=== PATIENT | male | born 1945 | race Caucasian/White ===

== ENCOUNTER → 2016-11-23 | Outpatient (CLI) | payer MEDICARE ==
--- NOTE | 2016-11-23 11:14 | XR ---
EXAMINATION TYPE: XR abdomen 1V DATE OF EXAM: 11/23/2016 11:08 AM CLINICAL HISTORY: Right nephrolithiasis. TECHNIQUE: Single supine image of the abdomen is obtained. COMPARISON: None. FINDINGS: Scattered gas is seen in non-distended small bowel loops. Gas and fecal material is seen in non-distended colon. 1.2 cm right renal calculus is noted. Scattered bowel gas overlies both renal s hadows. Bowel gas pattern is nonobstructive. Atherosclerosis is seen of the common iliac arteries and their branches. The lung bases are clear and the osseous structures are intact. IMPRESSION: 1. 1.2 cm right renal calculus. 2. Nonobstructive bowel gas pattern.
== END ==
LOC: RADXRMAIN 10:40
PROVIDERS: ATTEND Urology
DX: N20.0 Calculus of kidney (principal)
CPT/HCPCS: 74000

== ENCOUNTER → 2016-12-11 | Outpatient (CLI) | payer MEDICARE ==
[2016-12-11 14:48] LABS: Blood Urea Nitrogen 14 mg/dL (9-20); Non-African American GFR(MDRD) >60 (>60 ml/min/1.73 sqM)
--- NOTE | 2016-12-11 15:22 | CT ---
EXAMINATION TYPE: CT soft tissue neck w con DATE OF EXAM: 12/11/2016 3:07 PM COMPARISON: NONE HISTORY: Left sided and lower anterior neck pain CT DLP: 631.6 mGycm Automated exposure control for dose reduction was used. CONTRAST: CT scan of the neck is performed following with IV Contrast, patient injected with 100 mL of Omnipaqu e 300. Axial images are obtained, coronal and sagittal reformatted images are reviewed. FINDINGS: No pneumothorax. Lungs are clear. Sternotomy changes are noted. Coronary artery calcificati on noted. There is severe multilevel degenerative disc disease and hypertrophic changes. Multilevel foraminal e ncroachment suspected. The thyroid enhances genius. Atherosclerotic change of the aorta and origins of the great vessels noted. Intracranial atherosclero tic change of the carotid arteries and vertebrobasilar system noted. Oropharynx and nasopharynx are symmetric Intracranial and intraorbital structures are symmetric Parotid glands and submandibular glands are symmetric in size. There is slight asymmetry the attenuat ion in the left parotid gland which may represent very minimal sialoadenitis. No subcutaneous inflamm atory changes.. No pathologic adenopathy. There is extensive atherosclerotic change of the carotid arteries greater o n the right is again stenosis not excluded. IMPRESSION: 1. Extensive atherosclerotic disease additional atherosclerotic change intracranially noted. Involvin g the carotid arteries. Significant stenosis of not excluded particularly on the right. Correlate wit h ultrasound. 2. Severe multilevel degenerative disc disease. Suspect multilevel canal stenosis and foraminal encro achment. 3. The parotid glands appear to be symmetric in size with slight asymmetry heterogeneous attenuation of the left parotid gland is more likely related to fatty replacement rather than mild sialoadenitis. Correlate clinically.
== END | disposition home or self-care (01) ==
LOC: RADCTMAIN 14:19
PROVIDERS: ATTEND Otolaryngology
DX: M48.02 Spinal stenosis, cervical region (principal); I65.23 Occlusion and stenosis of bilateral carotid arteries; M50.30 Other cervical disc degeneration, unspecified cervical region
CPT/HCPCS: 82565; 84520; 70491; 36415; Q9967

== ENCOUNTER → 2017-01-03 | Outpatient (CLI) | payer MEDICARE ==
--- NOTE | 2017-01-03 15:15 | XR ---
EXAMINATION TYPE: XR abdomen 1V DATE OF EXAM: 01/03/2017 3:07 PM CLINICAL HISTORY: Abdominal pain. Follow-up stone. TECHNIQUE: Single supine KUB image of the abdomen is obtained. COMPARISON: None. FINDINGS: There is no sign of intestinal obstruction or pneumoperitoneum. Fecal pattern is normal. I see no definite pathologic calcifications over the kidneys. Bony structures are intact. There is no s ign of a mass. IMPRESSION: There is 1 cm calcification over the right kidney on the old exam that is not seen on today's exam. D etail is limited by the fecal material. Nonacute abdomen.
== END | disposition home or self-care (01) ==
LOC: RADXRMAIN 14:49
PROVIDERS: ATTEND Urology
DX: N20.0 Calculus of kidney (principal)
CPT/HCPCS: 74000

== ENCOUNTER → 2017-01-04 | Outpatient (CLI) | payer MEDICARE ==
--- NOTE | 2017-01-04 16:26 | US ---
EXAMINATION TYPE: US carotid duplex BILAT DATE OF EXAM: 01/04/2017 COMPARISON: NONE CLINICAL HISTORY: 71-year-old male R93.[address] scan of neck. TECHNIQUE: Carotid duplex ultrasound examination. Indirect Doppler criteria was utilized. FINDINGS: There is moderate atherosclerotic change at both bifurcations. EXAM MEASUREMENTS: RIGHT: Peak Systolic Velocity (PSV) cm/sec ----- Right CCA: 79.8 ----- Right ICA: 109.5 ----- Right ECA: 159.3 ICA/CCA ratio: 1.4 RIGHT: End Diastole cm/sec ----- Right CCA: 18.2 ----- Right ICA: 28.0 ----- Right ECA: 23.6 LEFT: Peak Systolic Velocity (PSV) cm/sec ----- Left CCA: 77.3 ----- Left ICA: 78.7 ----- Left ECA: 208.2 ICA/CCA ratio: 1.0 LEFT: End Diastole cm/sec ----- Left CCA: 19.7 ----- Left ICA: 20.4 ----- Left ECA: 17.7 VERTEBRALS (direction of flow): Right Vertebral: Antegrade Left Vertebral: Antegrade Rhythm: Normal Project Builder notes: Moderate plaque noted bilateral bifurcations. Increased velocities bilateral ECA's . There is a prominent 2.3 x 0.8 cm lymph node in the left side of the neck which can be followed clini ethan. IMPRESSION: 1. Moderate atherosclerotic change in both bifurcations without hemodynamically significant stenosis appreciated in either internal carotid artery. 2. A prominent lymph node in the left side of the neck measures 2.3 x 0.8 cm. The short axis dimensio n of 0.8 cm is not enlarged by size criteria. This can be followed clinically. Criteria for Assigning % of Stenosis / Diameter reduction (Estimation based on the indirect measurements of the internal carotid artery velocities (ICA PSV). 1. Normal (no stenosis)=ICA PSV < 125 cm/s: ratio < 2.0: ICA EDV<40 cm/s. 2. Less than 50% stenosis=ICA PSV < 125 cm/s: ratio < 2.0: ICA EDV<40 cm/s. 3. 50 to 69% stenosis=ICA PSV of 125 to 230 cm/s: ration 2.0 ? 4.0: ICA EDV 40-100 cm/s. 4. Greater than 70% stenosis to near occlusion= ICA PSV > 230 cm/s: ratio > 4.0: ICA EDV > 100 cm/s. 5. Near occlusion= ICA PSV velocities may be low or undetectable: variable ratio and ICA EDV. 6. Total occlusion=unable to detect flow.
== END | disposition home or self-care (01) ==
LOC: RADUSWWP 14:24
PROVIDERS: ATTEND Otolaryngology
DX: I65.23 Occlusion and stenosis of bilateral carotid arteries (principal); R93.8 Abnormal findings on diagnostic imaging of other specified body structures
CPT/HCPCS: 93880

== ENCOUNTER 2017-02-12 09:07 | Emergency (ER) | payer MEDICARE ==
[2017-02-12 09:19] VITALS: TEMP 97.8
--- NOTE | 2017-02-12 10:36 | XR ---
EXAMINATION TYPE: XR tibia fibula LT DATE OF EXAM: 02/12/2017 COMPARISON: NONE HISTORY: Pain TECHNIQUE: Two views are submitted. FINDINGS: Vascular calcifications are noted there is an oblique displaced fracture of the distal fibula and dis location of the tibia and distortion of the ankle mortise. Bony density adjacent to the medial malleo carline likely related to the medial tibia and related to chip fracture. IMPRESSION: 1. Multiple fracture and dislocation left ankle
--- NOTE | 2017-02-12 10:37 | XR ---
EXAMINATION TYPE: XR ankle limited LT DATE OF EXAM: 02/12/2017 COMPARISON: NONE HISTORY: Pain FINDINGS: Two views of the ankle demonstrate oblique displaced fracture distal fibula with ankle dislocation. S mall bony density adjacent the medial malleolus may represent additional chip fracture. IMPRESSION: 1. Fracture dislocation of the ankle
[2017-02-12 10:48] VITALS: RESP 18
[2017-02-12] MEDS ORDERED: traMADol 50 MG TAB PO STA (11:20)
[2017-02-12] MEDS ORDERED: traMADol 50 MG STARTER PACK 3 TAB BTL PO STA (11:21)
--- NOTE | 2017-02-12 11:27 | ED ---
Lower Extremity Injury HPI - General Chief Complaint: Extremity Injury, Lower Stated Complaint: Fall. L ankle injury Time Seen by Provider: 02/12/17 09:26 Source: patient, RN notes reviewed Mode of arrival: wheelchair Limitations: no limitations - History of Present Illness Initial Comments: 71-year-old male present emergency from for left ankle injury. Patient states he was at the last step of the stairs and states that he twisted his ankle. Patient states his ankle seems to move in and out. He's had no prior injuries. Denies loss consciousness no head injury. - Related Data Home Medications Medication Instructions Recorded Confirmed Desvenlafaxine Succinate [Pristiq 25 mg PO DAILY 02/12/17 02/12/17 ER] Mirtazapine [Remeron] 7.5 - 15 mg PO HS 02/12/17 02/12/17 Tamsulosin [Flomax] 0.4 mg PO DAILY 02/12/17 02/12/17 clonazePAM [KlonoPIN] 0.5 mg PO TID 02/12/17 02/12/17 Previous Rx's Medication Instructions Recorded traMADol HCl [Ultram] 50 mg PO Q6H PRN #30 tab 02/12/17 Allergies Allergy/AdvReac Type Severity Reaction Status Date / Time No Known Allergies Allergy Verified 02/12/17 09:26 Review of Systems ROS Statement: Those systems with pertinent positive or pertinent negative responses have been documented in the HPI. ROS Other: All systems not noted in ROS Statement are negative. Past Medical History Past Medical History: Coronary Artery Disease (CAD), Hyperlipidemia, Pneumonia Additional Past Medical History / Comment(s): by-pass 1998, Pneumonia winter History of Any Multi-Drug Resistant Organisms: None Reported Past Surgical History: Coronary Bypass/CABG Past Anesthesia/Blood Transfusion Reactions: No Reported Reaction Past Psychological History: Anxiety Smoking Status: Never smoker Past Alcohol Use History: None Reported Past Drug Use History: None Reported General Exam Limitations: no limitations General appearance: alert, in no apparent distress Head exam: Present: atraumatic, normocephalic, normal inspection Respiratory exam: Present: normal lung sounds bilaterally. Absent: respiratory distress, wheezes, rales, rhonchi, stridor Cardiovascular Exam: Present: regular rate, normal rhythm, normal heart sounds. Absent: systolic murmur, diastolic murmur, rubs, gallop, clicks Extremities exam: Present: other (Left ankle there is no obvious deformity, ankle appears to dislocate but able to self reduce, there is a palpable dorsal pedal pulse with cap refill less than 2 seconds there is no discoloration of the foot he has equal color and warmth there is no proximal tib-fib tenderness) Skin exam: Present: warm, dry, intact, normal color. Absent: rash Course Vital Signs 02/12/17 02/12/17 09:16 10:19 Temperature 97.8 F Pulse Rate 86 74 Respiratory 16 18 Rate Blood Pressure 106/65 138/73 O2 Sat by Pulse 92 L 97 Oximetry Procedures - Orthopedic Splinting/Casting Injury #1 Side: left Lower Extremity Injury Location: short leg Lower Extremity Immobilizer: posterior splint (Posterior splint with sugar tong ), synthetic pre-padded splint Other Orthopedic Equipment: crutches Medical Decision Making - Medical Decision Making 71-year-old male present emergency department for left ankle injury. Patient has left ankle fracture with dislocation. This dislocation is it will be self reduced. Patient was splinted and had x-rays repeated showing adequate alignment. Patient was offered admission that he states he has animals at home and would like to be discharged. He will be given prescription for tramadol as he states this is a medication works best for them. Patient also given prescription for crutches. He is advised that needs to call orthopedics today to set up an appointment and return if any worsening symptoms. Disposition Clinical Impression: Fracture dislocation of left ankle Disposition: HOME SELF-CARE Condition: Stable Instructions: Ankle Fracture (ED), Ankle Dislocation (ED) Additional Instructions: Please return to the Emergency Department if symptoms worsen or any other concerns. Prescriptions: traMADol HCl [Ultram] 50 mg PO Q6H PRN #30 tab PRN Reason: Pain Referrals: Krishna Rizzo MD [Primary Care Provider] - 1-2 days Chito Sharp MD [Medical Doctor] - 1-2 days Time of Disposition: 11:27
--- NOTE | 2017-02-12 11:45 | XR ---
EXAMINATION TYPE: XR ankle limited LT DATE OF EXAM: 02/12/2017 CLINICAL HISTORY: Post reduction image of the left ankle with known fracture. TECHNIQUE: Frontal, lateral and oblique images of the left ankle are obtained. COMPARISON: None. FINDINGS: Although there is improved anatomic alignment there remains dislocation of the ankle joint with the medial malleolus located approximately 1.4 cm medial to the talar dome. Additionally oblique ly oriented fracture of the fibula is displaced 3 mm posteriorly and 4 mm laterally. Overlying castin g material obscures bony detail. Extensive soft tissue swelling remains with concern for underlying l igamentous and tendinous injury. IMPRESSION: Improved post reduction anatomic alignment of the obliquely oriented distal fibular fract ure and tibiotalar dislocation with persistent tibiotalar dislocation and medial displacement of the tibia 1.4 cm and posterior lateral displacement of the distal fibular fracture as described above. Ex tensive soft tissue swelling is seen and there is high suspicion for underlying ligamentous and tendi nous injury..
[2017-02-12 11:49] VITALS: BP 120/70; PULSE 80
== END 2017-02-12 11:49 | disposition home or self-care (01) ==
LOC: EC 09:07
DX: S82.892A Other fracture of left lower leg, initial encounter for closed fracture (principal); F41.9 Anxiety disorder, unspecified; Z79.899 Other long term (current) drug therapy; W10.9XXA Fall (on) (from) unspecified stairs and steps, initial encounter
CPT/HCPCS: 29515; 99283

== ENCOUNTER 2019-08-14 20:57 | Inpatient (IN) | payer MEDICARE ==
[2019-08-14] MEDS ORDERED: SODIUM CHLORIDE 0.9% 1,000 ML IV ONE (21:00)
--- NOTE | 2019-08-14 21:05 | ED ---
General Adult HPI - General Stated complaint: altered mental status Time Seen by Provider: 08/14/19 21:00 Source: patient, EMS, RN notes reviewed Mode of arrival: EMS Limitations: altered mental status - History of Present Illness Initial comments: Patient is a pleasant 74-year-old male presenting to the emergency department with concern for change in mental status. Patient was calling out to a neighbor who felt he was confused and called EMS. Patient was found by EMS trying to walk up some steps. Patient states he feels fine and has no complaints. Patient was vomiting earlier. EMS did provide Zofran. Patient denies headache. Patient denies any recent fall or injury however states he does frequently fall. When further questioned patient states he fell yesterday and then following that states he did fall this morning. Patient states he just scratched his forehead on the carpet. No neck or back pain. No chest pain or dyspnea. No abdominal pain. Patient does not feel confused. - Related Data Home Medications Medication Instructions Recorded Confirmed Desvenlafaxine Succinate [Pristiq] 25 mg PO QAM 02/12/17 02/26/17 Tamsulosin [Flomax] 0.8 mg PO DAILY 02/12/17 02/26/17 Atorvastatin [Lipitor] 20 mg PO DAILY 02/24/17 02/26/17 lamoTRIgine [LaMICtal] 25 mg PO BID 02/24/17 02/26/17 Previous Rx's Medication Instructions Recorded Aspirin 325 mg PO BID #60 tab 03/01/17 Cholecalciferol [Vitamin D3 (25 2,000 unit PO DAILY@1200 tab 03/01/17 Mcg = 1000 Iu)] Docusate [Colace] 100 mg PO BID #60 capsule 03/01/17 HYDROcodone/APAP 10-325MG [Agar 1 tab PO Q4HR PRN #60 tab 03/01/17 10-325] Mirtazapine [Remeron] 7.5 - 15 mg PO HS #7 tablet 03/01/17 Sennosides-Docusate Sodium 2 each PO HS PRN tab 03/01/17 [Senokot-S] clonazePAM [KlonoPIN] 0.5 mg PO TID #21 tablet 03/01/17 Allergies Allergy/AdvReac Type Severity Reaction Status Date / Time No Known Allergies Allergy Verified 08/14/19 23:08 Review of Systems ROS Statement: Those systems with pertinent positive or pertinent negative responses have been documented in the HPI. ROS Other: All systems not noted in ROS Statement are negative. Constitutional: Denies: fever Eyes: Denies: eye pain ENT: Denies: ear pain Respiratory: Denies: cough Cardiovascular: Denies: chest pain Endocrine: Denies: fatigue Gastrointestinal: Reports: as per HPI, vomiting. Denies: abdominal pain Genitourinary: Denies: dysuria Musculoskeletal: Denies: back pain Skin: Denies: rash Neurological: Reports: as per HPI. Denies: headache, weakness Past Medical History Past Medical History: Coronary Artery Disease (CAD), Hyperlipidemia, Liver Disease, Pneumonia, Renal Disease Additional Past Medical History / Comment(s): Coronary by-pass 1998, Pneumonia winter , hx kidney stones, insomnia, Hepatitis B. History of Any Multi-Drug Resistant Organisms: None Reported Past Surgical History: Coronary Bypass/CABG Additional Past Surgical History / Comment(s): Procedure for kidney stones Past Anesthesia/Blood Transfusion Reactions: No Reported Reaction Smoking Status: Never smoker - Past Family History Mother Family Medical History: No Reported History General Exam Limitations: altered mental status General appearance: alert, in no apparent distress, other (Patient covered in yellow emesis) Head exam: Present: other (Forehead abrasions. Old healed blood right side of scalp) Eye exam: Present: normal appearance, PERRL, EOMI. Absent: nystagmus ENT exam: Present: normal oropharynx Neck exam: Present: normal inspection Respiratory exam: Present: normal lung sounds bilaterally Cardiovascular Exam: Present: regular rate, normal rhythm GI/Abdominal exam: Present: soft. Absent: tenderness Extremities exam: Present: normal inspection Neurological exam: Present: alert, CN II-XII intact. Absent: motor sensory deficit Expanded Neurological exam: Present: protecting the airway Patient oriented to: Present: person, place. Absent: time Speech: Present: fluid speech Cranial nerves: EOM's Intact: Normal Sensory exam: Upper Extremity Light Touch: Normal, Lower Extremity Light Touch: Normal Motor strength exam: RUE: 5, LUE: 5, RLE: 5, LLE: 5 Eye Response: (4) open spontaneously Motor Response: (6) obeys commands Verbal Response: (4) confused conversation Psychiatric exam: Present: normal affect, normal mood Skin exam: Present: normal color Course Vital Signs 08/14/19 08/14/19 20:58 21:58 Temperature 98.3 F Pulse Rate 78 75 Respiratory 18 16 Rate Blood Pressure 156/90 149/93 O2 Sat by Pulse 95 97 Oximetry EKG Findings - EKG Comments: EKG Findings:: Normal sinus rhythm 81. First 3 AV block MS 202. QRS 86. QT 364. QTC 457. Normal axis. Normal QRS. No acute ST change. Medical Decision Making - Medical Decision Making Patient reevaluated and resting comfortably in bed. Patient is somewhat improved. Patient states the year is 2013. Previously patient states it was 2000. Patient has minimal tenderness right rib area. Patient states he fall there several weeks ago and has been healing since that time. Patient denies any dyspnea. Clinically rib fractures are not new. Patient is not been admitted for any trauma concerns. Patient will be held for altered mental status that seems to be improving. Case was discussed in detail with Dr. Dutta, who will admit covering for Dr. Rizzo. Patient is updated on results and plan. - Lab Data Result diagrams: 08/14/19 21:17 08/14/19 21:17 Lab Results 08/14/19 08/14/19 08/14/19 Range/Units 20:58 21:17 21:17 WBC 8.7 (3.8-10.6) k/uL RBC 4.71 (4.30-5.90) m/uL Hgb 14.4 (13.0-17.5) gm/dL Hct 44.3 (39.0-53.0) % MCV 94.0 (80.0-100.0) fL MCH 30.7 (25.0-35.0) pg MCHC 32.6 (31.0-37.0) g/dL RDW 13.7 (11.5-15.5) % Plt Count 238 (150-450) k/uL Neutrophils % 67 % Lymphocytes % 23 % Monocytes % 7 % Eosinophils % 1 % Basophils % 1 % Neutrophils # 5.8 (1.3-7.7) k/uL Lymphocytes # 2.0 (1.0-4.8) k/uL Monocytes # 0.6 (0-1.0) k/uL Eosinophils # 0.1 (0-0.7) k/uL Basophils # 0.1 (0-0.2) k/uL Sodium 144 (137-145) mmol/L Potassium 3.9 (3.5-5.1) mmol/L Chloride 107 (98-107) mmol/L Carbon Dioxide 24 (22-30) mmol/L Anion Gap 13 mmol/L BUN 12 (9-20) mg/dL Creatinine 1.04 (0.66-1.25) mg/dL Est GFR (CKD-EPI)AfAm 83 (>60 ml/min/1.73 sqM) Est GFR (CKD-EPI)NonAf 72 (>60 ml/min/1.73 sqM) Glucose 119 H (74-99) mg/dL POC Glucose (mg/dL) 122 H (75-99) mg/dL POC Glu Animal Services Officer ID [place] Calcium 9.0 (8.4-10.2) mg/dL Total Bilirubin 0.8 (0.2-1.3) mg/dL AST 49 (17-59) U/L ALT 20 (4-49) U/L Alkaline Phosphatase 125 (38-126) U/L Ammonia (<30) umol/L Troponin I (0.000-0.034) ng/mL Total Protein 7.7 (6.3-8.2) g/dL Albumin 4.7 (3.5-5.0) g/dL Serum Alcohol <10 mg/dL 08/14/19 08/14/19 Range/Units 21:17 21:58 WBC (3.8-10.6) k/uL RBC (4.30-5.90) m/uL Hgb (13.0-17.5) gm/dL Hct (39.0-53.0) % MCV (80.0-100.0) fL MCH (25.0-35.0) pg MCHC (31.0-37.0) g/dL RDW (11.5-15.5) % Plt Count (150-450) k/uL Neutrophils % % Lymphocytes % % Monocytes % % Eosinophils % % Basophils % % Neutrophils # (1.3-7.7) k/uL Lymphocytes # (1.0-4.8) k/uL Monocytes # (0-1.0) k/uL Eosinophils # (0-0.7) k/uL Basophils # (0-0.2) k/uL Sodium (137-145) mmol/L Potassium (3.5-5.1) mmol/L Chloride (98-107) mmol/L Carbon Dioxide (22-30) mmol/L Anion Gap mmol/L BUN (9-20) mg/dL Creatinine (0.66-1.25) mg/dL Est GFR (CKD-EPI)AfAm (>60 ml/min/1.73 sqM) Est GFR (CKD-EPI)NonAf (>60 ml/min/1.73 sqM) Glucose (74-99) mg/dL POC Glucose (mg/dL) (75-99) mg/dL POC Glu Animal Services Officer ID Calcium (8.4-10.2) mg/dL Total Bilirubin (0.2-1.3) mg/dL AST (17-59) U/L ALT (4-49) U/L Alkaline Phosphatase (38-126) U/L Ammonia <9 (<30) umol/L Troponin I 0.014 (0.000-0.034) ng/mL Total Protein (6.3-8.2) g/dL Albumin (3.5-5.0) g/dL Serum Alcohol mg/dL - Radiology Data Radiology results: report reviewed (Computed tomography scan of the brain and cervical spine shows no acute process. Degenerative disc changes and stenosis), image reviewed (Chest x-ray shows age indeterminate rib fractures.) Disposition Clinical Impression: Altered mental status Disposition: ADMITTED IP TO THIS [facility] Is patient prescribed a controlled substance at d/c from ED?: No Referrals: Krishna Rizzo MD [Primary Care Provider] - 1-2 days Decision Time: 23:11
[2019-08-14 21:10] LABS: Glucose,Whole Blood 122 mg/dL (75-99)
[2019-08-14 21:36] LABS: Basophils # (A) 0.1 k/uL (0-0.2); Basophils % (A) 1 %; Eosinophils # (A) 0.1 k/uL (0-0.7); Eosinophils % (A) 1 %; HCT 44.3 % (39.0-53.0); HGB 14.4 gm/dL (13.0-17.5); Lymphocytes % (A) 23 %; MCH 30.7 pg (25.0-35.0); MCHC 32.6 g/dL (31.0-37.0); Mean Platelet Volume 7.5; Monocytes # (A) 0.6 k/uL (0-1.0); Monocytes % (A) 7 %; Neutrophils # (A) 5.8 k/uL (1.3-7.7); Neutrophils % (A) 67 %; Platelet Count 238 k/uL (150-450); RBC 4.71 m/uL (4.30-5.90); RDW 13.7 % (11.5-15.5); WBC 8.7 k/uL (3.8-10.6)
[2019-08-14 21:52] LABS: ALT 20 U/L (4-49); AST 49 U/L (17-59); African American GFR (CKD) 83 (>60 ml/min/1.73 sqM); Albumin 4.7 g/dL (3.5-5.0); Alcohol <10 mg/dL; Alkaline Phosphatase 125 U/L (38-126); Anion Gap 13 mmol/L; Blood Urea Nitrogen 12 mg/dL (9-20); Carbon Dioxide 24 mmol/L (22-30); Chloride 107 mmol/L (98-107); Glucose 119 mg/dL (74-99); Non-African American GFR(CKD) 72 (>60 ml/min/1.73 sqM); Potassium 3.9 mmol/L (3.5-5.1); Sodium 144 mmol/L (137-145); Total Bilirubin 0.8 mg/dL (0.2-1.3); Total Protein 7.7 g/dL (6.3-8.2)
--- NOTE | 2019-08-14 22:27 | CT ---
EXAMINATION TYPE: CT brain jeff wo con DATE OF EXAM: 08/14/2019 COMPARISON: None HISTORY: fall CT DLP: 1470.3 mGycm, Automated exposure control for dose reduction was used. CONTRAST: None CT of the brain is performed utilizing 3 mm thick sections through the posterior fossa and 3 mm thick sections through the remaining calvarium. Study is performed within 24 hours of arrival to the hospital. No abnormal hyperdensity is present to suggest an acute intracranial hemorrhage. No mass lesion is evident. Vascular calcification is present. No acute infarcts are evident. Periventricular white matter hypodensity is present compatible with m icrovascular ischemic change. Ventricles and sulci are prominent for the patient age. Paranasal sinuses and mastoid air cells within the [id number]-bxpb are clear. IMPRESSIONS: 1. Atrophy with periventricular white matter ischemic changes. CT cervical spine. COMPARISON: None CT of the cervical spine is performed in the axial plane at 2 mm thick sections. Reconstructed image s in the coronal, and sagittal plane are reviewed on the computer. No acute fractures are evident. Vertebral body alignment is normal. Diffuse loss of disc height is present greatest C3-4 C4-5 and C5-6. Vertebral body heights are preserved. Spondylosis is present. No spinal canal stenosis is evident. Severe Foraminal narrowing from uncovertebral joint hypertrophy is present C3-4 C4-5 C5-6 and on the left at C6-7. IMPRESSIONS: 1. No acute osseous abnormality. 2. Degenerative disc changes and foraminal stenosis from uncovertebral joint hypertrophy.
--- NOTE | 2019-08-14 22:43 | XR ---
EXAMINATION TYPE: XR chest 2V DATE OF EXAM: 08/14/2019 COMPARISON: 03/01/2017 HISTORY: Altered mental status. Fall. TECHNIQUE: 2 views FINDINGS: There is no heart failure nor confluent pneumonic infiltrate. There are sternal wires. Ther e is evidence of multiple right-sided rib fractures. There is no pneumothorax. Age of these fracture s is not clear. There is rib deformity. Shoulder joints appear intact. IMPRESSION: Multiple right rib fractures are a change compared to old exam. The age of these fracture s is not clear. No acute lung disease.
[2019-08-14 23:10] LABS: INR 1.1 (<1.2); Partial Thromboplastin Time 22.2 sec (22.0-30.0); Prothrombin Time 10.8 sec (9.0-12.0)
[2019-08-14] MEDS ORDERED: NALOXONE 0.4 MG/ML 1 ML VIAL IV PRN (23:11)
[2019-08-14] MEDS: SODIUM CHLORIDE 0.9% 1,000 ML IV SCH (23:59)
[2019-08-15 00:40] LABS: Appearance,Urine Clear (Clear); Bilirubin,Urine Negative (Negative); Blood,Urine Negative (Negative); Color,Urine Yellow; Glucose,Urine (UA) Negative (Negative); Ketones,Urine 1+ (Negative); Leukocyte Esterase,Urine Negative (Negative); Mucus,Urine Rare /hpf; Nitrite,Urine Negative (Negative); PH, Urine 5.5 (5.0-8.0); Protein,Urine 1+ (Negative); RBC,Urine 1 /hpf (0-5); Specific Gravity,Urine 1.021 (1.001-1.035); Squamous Epithelial Cell,Urine <1 /hpf (0-4); Urobilinogen,Urine <2.0 mg/dL (<2.0); WBC,Urine 1 /hpf (0-5)
--- NOTE | 2019-08-15 06:31 | XR ---
EXAMINATION TYPE: XR chest 1V DATE OF EXAM: 08/15/2019 CLINICAL HISTORY: Difficulty breathing and old rib fractures progress study. Admitted after fall inj ury one day earlier. TECHNIQUE: Single AP portable upright view of the chest is obtained. COMPARISON: Chest x-ray from one day earlier and older x-rays. FINDINGS: Overlying sternal wires and mediastinal clips are redemonstrated. There is chronic parench ymal change with developing lateral right mid lung masslike opacity. Cardiac silhouette size stable a nd enlarged with slightly ectatic thoracic aorta. Displaced posterior right fifth and sixth rib fract ures near opacity are redemonstrated. IMPRESSION: Displaced posterior lateral right fifth and sixth rib fractures of indeterminate age, cor relate clinically with point tenderness. Chronic changes and cardiomegaly with developing right mid l kris opacity could reflect acute infiltrate and/or atelectasis. Correlate clinically.
[2019-08-15] MEDS ORDERED: PANTOPRAZOLE 40 MG/10 ML VIAL IV SCH (09:00)
[2019-08-15 09:58] LABS: Basophils # (A) 0.1 k/uL (0-0.2); Basophils % (A) 1 %; Eosinophils # (A) 0.2 k/uL (0-0.7); Eosinophils % (A) 2 %; HCT 44.7 % (39.0-53.0); HGB 14.5 gm/dL (13.0-17.5); Lymphocytes # (A) 2.3 k/uL (1.0-4.8); Lymphocytes % (A) 27 %; MCH 30.7 pg (25.0-35.0); MCHC 32.4 g/dL (31.0-37.0); MCV 94.5 fL (80.0-100.0); Mean Platelet Volume 7.3; Monocytes # (A) 0.7 k/uL (0-1.0); Monocytes % (A) 8 %; Neutrophils # (A) 5.3 k/uL (1.3-7.7); Neutrophils % (A) 61 %; Platelet Count 291 k/uL (150-450); RBC 4.73 m/uL (4.30-5.90); RDW 13.8 % (11.5-15.5); WBC 8.7 k/uL (3.8-10.6)
[2019-08-15 10:14] LABS: ALT 20 U/L (4-49); AST 33 U/L (17-59); African American GFR (CKD) >90 (>60 ml/min/1.73 sqM); Albumin 4.4 g/dL (3.5-5.0); Alkaline Phosphatase 122 U/L (38-126); Anion Gap 7 mmol/L; Blood Urea Nitrogen 11 mg/dL (9-20); Calcium 8.9 mg/dL (8.4-10.2); Carbon Dioxide 30 mmol/L (22-30); Chloride 105 mmol/L (98-107); Glucose 119 mg/dL (74-99); Non-African American GFR(CKD) 83 (>60 ml/min/1.73 sqM); Potassium 3.3 mmol/L (3.5-5.1); Sodium 142 mmol/L (137-145); Total Bilirubin 0.6 mg/dL (0.2-1.3); Total Protein 7.2 g/dL (6.3-8.2)
--- NOTE | 2019-08-15 12:56 | MR ---
EXAMINATION TYPE: MR angio head/neck wo con DATE OF EXAM: 08/15/2019 COMPARISON: None HISTORY: Confusion, Altered Mental Status CONTRAST: None TECHNIQUE: Multiplanar multiecho imaging on a 3.0 Carol magnet is performed through the [place]. 3-D [id number] imaging is performed. Source images are reviewed on the computer in the axi al plane. Reconstructed images rotating on the computer are reviewed. FINDINGS: The internal carotid arteries bifurcate normally into A1 and M1 segments. The A2 segments are normal. Middle cerebral artery branches are normal. Ophthalmic arteries is visualized are normal . Anterior communicating artery is patent. The right posterior communicating artery is absent. The left posterior communicating artery is absent. Vertebrobasilar arteries within the [id number] are normal. Posterior cerebral vasculature is norm al. No suspicious aneurysm or aneurysmal dilatation is evident. No obstructions are identified. No significant flow-limiting stenosis is evident. Carotid arteries: At the bifurcations, No flow gaps are evident. Some minimal plaquing of less than 5 0% is not entirely excluded. This could be due to some slab artifact however. IMPRESSIONS: 1. Normal MRA [place]. 2. Minimal plaquing without significant flow-limiting stenosis bilateral carotid bifurcations.
--- NOTE | 2019-08-15 12:59 | MR ---
EXAMINATION TYPE: MR brain wo/w con DATE OF EXAM: 08/15/2019 COMPARISON: CT brain 08/14/2019 HISTORY: Confusion, Altered Mental Status CONTRAST: Performed utilizing 8 mL intravenous Gadavist gadolinium contrast. TECHNIQUE: Multiplanar, multiecho imaging on a 3.0 Carol magnet is performed through the brain. Stud y is performed within 24 hours of arrival to the hospital. The craniovertebral junction is normal. The pituitary is normal. Diffusion-weighted imaging is performed. No abnormal hyperintensity is present to suggest an acute i ntracranial infarct or acute ischemic change. Periventricular white matter hyperintensity is present, compatible with chronic appearing white matte r ischemic changes. Ventricles and sulci are mildly prominent for the patient age. IMPRESSIONS: 1. Chronic appearing periventricular white matter ischemic changes with age-related atrophy.
[2019-08-15] MEDS ORDERED: clonazePAM 0.5 MG TAB PO PRN (13:48)
[2019-08-15] MEDS: ENOXAPARIN 40 MG/0.4 ML SYRINGE SQ SCH (14:39)
[2019-08-15] MEDS: SERTRALINE 100 MG TAB PO SCH (14:39)
[2019-08-15] MEDS: lamoTRIgine 100 MG TAB PO SCH (14:39)
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
--- NOTE | 2019-08-15 20:10 | P.CNNES ---
History of Present Illness Consult date: 08/15/19 Reason for Consult: Altered mental status History of Present Illness: This is a new neurology consult requested for further advice recommendation for 74-year-old gentleman who came to the emergency room for altered mental status. According to the notes the paramedics found him alert and repeatedly had vomited earlier 42 neighbors. Based on this history EMS did give him Zofran. Some of the history of obtain came from his friend Mr. Kenneth John at a [phone]. His friend reports that Mr. fernandez has had a long-standing history of psychiatric illness and is followed by a psychiatrist by the name of Dr. Carlos. He reports that over the last 2 weeks since he has been becoming more paranoid and delusional. Mr. John reports that this seems to occur on a cyclic basis every year around this time. His neighbor Mr. John reports that he has been taking more that people are trying to coming to his condominium and take things away from him. The patient also has had numerous falls over the past year and on admission he had a recent fall with a significant contusion of his head. I have been been able to obtain a history from the patient and he seems to be somewhat denial and downplays the situation but later during the intake he does admit that he has been having a lot of falls over the past year. This came out when I noted the bruising in his legs. He also admits to having increasing short-term memory. The patient does exhibit some paranoia as he reports his friend Mr. Alec John is really just out as he states to get his money and condo. He seems to be suspicious of people around him. He was a good historian for long-term memory events. 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 Patient is not aware of the time or year which is concerning. He does oriented to person and place only. Review of his workup indicates the patient has had a MRI of the brain which did not show any evidence of an acute ischemic or hemorrhagic infarct or other intracranial pathology. Patient also had an MRA of the head and neck which showed no evidence of high-grade stenosis, large vessel occlusion or dissection. I have reviewed the MRI personally and believe that his ventricles are very generous and suspicious for normal pressure hydrocephalus. Being that he admits to increasing falls short-term memory suggest this could be an underlying factor along with his intermittent periods of acute mental deterioration. Past Medical History Past Medical History: Coronary Artery Disease (CAD), Hyperlipidemia, Liver Disease, Pneumonia, Renal Disease Additional Past Medical History / Comment(s): Coronary by-pass 1998, Pneumonia winter , hx kidney stones, insomnia, Hepatitis B. History of Any Multi-Drug Resistant Organisms: None Reported Past Surgical History: Coronary Bypass/CABG Additional Past Surgical History / Comment(s): Procedure for kidney stones Past Anesthesia/Blood Transfusion Reactions: No Reported Reaction Smoking Status: Never smoker - Past Family History Mother Family Medical History: No Reported History Medications and Allergies Home Medications Medication Instructions Recorded Confirmed Type Atorvastatin [Lipitor] 40 mg PO HS 08/14/19 08/14/19 History Sertraline [Zoloft] 100 mg PO DAILY 08/14/19 08/14/19 History clonazePAM [KlonoPIN] 0.5 mg PO TID PRN 08/14/19 08/14/19 History lamoTRIgine [LaMICtal] 100 mg PO QAM 08/14/19 08/14/19 History lamoTRIgine [LaMICtal] 150 mg PO HS 08/14/19 08/14/19 History Allergies Allergy/AdvReac Type Severity Reaction Status Date / Time No Known Allergies Allergy Verified 08/14/19 23:08 Physical Examination - Vital Signs Vital Signs: Vital Signs Temp Pulse Pulse Resp BP BP Pulse Ox 08/15/19 17:00 94 L 08/15/19 13:37 98.0 F 67 18 176/89 98 08/15/19 12:52 98.0 F 69 18 160/91 97 08/15/19 06:00 98 F 61 16 155/92 97 08/15/19 05:00 67 16 160/84 08/15/19 04:00 16 154/83 08/15/19 03:00 65 16 163/89 08/14/19 23:00 73 16 147/80 98 08/14/19 21:58 75 16 149/93 97 08/14/19 20:58 98.3 F 78 18 156/90 95 Intake and Output 08/15/19 08/15/19 08/15/19 06:59 14:59 22:59 Other: # Voids 1 Weight 81.647 kg Gen. exam: Patient no acute distress poor hygiene. HEET: Clear sclera poor all hygiene noted. Neck supple no cervical lymphadenopathy thyromegaly noted. Chest: Clear to auscultation throughout. Pulses: Radial pedal pulses equal symmetric. Skin: Multiple bruises and abrasions noted. No clubbing of the digits. Neurologic exam next line mental status: Patient awake alert and cooperative. His attention is good he does show some paranoid behavior and suspiciousness for people. Next line pupils 2 mm equally reactive to light and accommodation. Cranial nerves: Extraocular movements full no nystagmus noted on vertical horizontal gaze. Face symmetric. Tongue midline without fasciculations deviation. Cranial nerve VIII intact by clinical observation. Shoulder shrug symmetric. Motor exam moves all 4 extremities equally. Tone is normal throughout. Strength is 5 out of 5 throughout. No tremor fasciculations noted. Deep tendon reflexes brisk +2 over biceps brachial radialis. Patellar reflexes are brisk bilaterally. Ankle jerks trace bilaterally. Plantar responses are withdrawal bilaterally. Next Sensory examination: Intact grossly to light touch and pinprick throughout. Coordination testing intact to finger to nose testing with eyes open and eyes closed. He'll salguero maneuver intact. No dysmetria noted. Gait examination deferred Results - Laboratory Findings CBC and BMP: 08/15/19 09:38 08/15/19 09:38 Abnormal Lab Findings: Abnormal Labs 08/14/19 08/14/19 08/15/19 20:58 21:17 00:26 Potassium Glucose 119 H POC Glucose (mg/dL) 122 H Urine Protein 1+ H Urine Ketones 1+ H Urine Mucus Rare H 08/15/19 09:38 Potassium 3.3 L Glucose 119 H POC Glucose (mg/dL) Urine Protein Urine Ketones Urine Mucus Assessment and Plan Assessment: This is a 74-year-old gentleman who was found wandering in an altered mental status by neighbors and family friend. This is apparently the second episode this patient has had in the past year around the same time last year. According to his neighbor/friend he has been having progressive over the last 2 weeks increasing altered mental status. I reviewed the scan of his head and an concerned that this patient could have normal pressure hydrocephalus. This could explain some of the symptoms and the extent of the progressive gait instability progressive dementia however he denies at this time having any bladder incontinence. This patient does have significant psych history and could represent an underlying psychopathology when he is going to have a psychiatric break. 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 His examination today was essentially nonfocal. I did not assess his gait at this time but will have a formal assessment by physical therapy. I'm also recommending OT and speech to also evaluate him. This patient could be a good candidate for acute rehab gait instability is an issue however he did not seem to be very receptive to that idea but did not totally excluded. Next Summary 1. Patient with known psychiatric illness/ panic disorder. 2. Recurrent episodes of altered mental status occurring on a yearly basis. 3. 2 weeks prior to admission increase paranoia and altered mental status. 4. Imaging studies are suspicious for normal pressure hydrocephalus 5. History of progressive gait instability with increasing short-term memory loss. Plan: 1. Discuss imaging studies tomorrow with radiology and request for neurosurgery consult. This patient could benefit if all consider this is normal pressure hydrocephalus, of a high volume tap. This would be done initially and monitor clinically. A shunt would be used only as a last resort. 2. Contact his psychiatrist Dr. Carlos for more information 3. Would recommend inpatient psychiatry to also see him. 4. Formal physical therapy evaluation along with OT and speech. 5. Consult case management to assess for either rehab or PT in the home. This patient's prognosis remains guarded. Further recommendations will be Made as this case evolves. Thank you for allowing me to produce pain care of your patient. Deisi Burciaga M.D. Board Certified in Neurology and Sleep medicine
[2019-08-15] MEDS: ATORVASTATIN 40 MG TAB PO SCH (21:02)
[2019-08-15] MEDS ORDERED: lamoTRIgine 100 MG TAB PO SCH (22:00)
[2019-08-16] MEDS: SODIUM CHLORIDE 0.9% 1,000 ML IV SCH (00:43)
[2019-08-16] MEDS: SERTRALINE 100 MG TAB PO SCH (08:36)
[2019-08-16] MEDS: lamoTRIgine 100 MG TAB PO SCH (08:36)
[2019-08-16] MEDS: ENOXAPARIN 40 MG/0.4 ML SYRINGE SQ SCH (08:37)
[2019-08-16] MEDS ORDERED: clonazePAM 0.5 MG TAB PO PRN (11:34)
--- NOTE | 2019-08-16 11:34 | P.CN ---
Psychiatric Consult - . Consult date: 08/16/19 Consult:: 08/16/19 11:24 IDENTIFYING DATA: This patient is a 74-year-old male who currently lives alone is single and has no kids and collects SSI. HISTORY OF PRESENT ILLNESS: The patient presented to the hospital via EMS after patient was found wandering on the streets. Patient had altered mental status however was alert and claimed that he vomited earlier according to ER report. Patient also endorsed paranoia and delusions in the ER and also that he had falls prior to coming into the hospital. Patient's potassium was 3.[address] of patients had showed atrophy, periventricular white matter changes and degenerative disc changes. MRI showed age-related atrophy and MRA did not show any abnormalities. Neurology is currently following patient and his suspecting normal pressure hydrocephalus. Patient was seen by copywriter today for psychiatric consult for psychosis. Patient was slow to respond to most answers however was cooperative and polite. Patient was mildly confused however did know where he was was alert and oriented 3. He could not give a good timeline of events occurred prior to him coming to the hospital. He focused on his "crazy neighbors" and was laughing and states that they were "putting plastic morton around". He states that he was crawling on his hands and knees to get away from them. He states that he wants to have nothing to do with them. He endorsed mild paranoia. He claims that his mood is "terrible" as he is in the hospital however denies any depression. He claims that his sleep is approximately 6 hours a night but states that "it's not good". At this time patient denies any suicidal or homical ideations, intent or plan. Patient denies any auditory, visual hallucinations. Patients admits to using no recreational substances or cigarettes. PAST PSYCHIATRIC HISTORY: Patient has a a history of mood disorder and a cognitive disorder. Patient is on Lamictal, Zoloft and Klonopin as prescribed by his outpatient psychiatrist Dr. Carlos. Patient denies any history of suicide attempts in the past. He states that his last mental health admission was in 2013. PAST MEDICAL HISTORY: CAD, hyperlipidemia, liver and kidney disease.. ALLERGIES: as per EMR. CHEMICAL DEPENDENCY HISTORY: as per HPI. FAMILY PSYCHIATRIC/SUBSTANCE USE HISTORY: He said his mother was bipolar. SOCIAL HISTORY: Patient was born and raised in [facility] and states that he completed high school and a bachelor's degree in college for psychology. 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 He claims that he has no kids is single and lives alone and collects SSI. MENTAL STATUS EXAM: General Appearance: Patient appears to have a significant abrasion on his forehead, appears to be be stated age is alert, attempts to cooperate and is polite. Patient appears to have fair hygiene and grooming wearing hospital gown with fair eye contact. Behavior: Patient is calmly lying in bed without any agitated behavior. Speech: Patient's speech is fluent and nonpressured. Slow to respond. Mood/Affect: Patient reports their mood is "terrible", affect is congruent Suicidality/Homicidality: Patient denies having any suicidal or homicidal ideation intent or plan. Perceptions: Patient denies any visual hallucinations and denies any auditory hallucinations Though content/process: Endorses mild paranoia and loosely formed delusions about his neighbors claiming they're "crazy". Memory and concentration: AOX3, slow to respond, difficulty following some commands, knows the president is, judgment is okay, attention is poor. Cannot spell "WORLD" backwards Judgment and insight: Limited IMPRESSIONS: Delirium with unknown etiology Depressive disorder unspecified. PLAN: -At this time patient DOES NOT meet criteria for inpatient psychiatric admission. -Delirium precautions recommended with patient including - avoiding use of narcotics and [employer] sedatives, limit anticholinergic medications when possible, frequent re-orientation, minimize use of restraints, open window shades during the day and close them at night -Would recommend the following medication changes/additions: We'll decrease Klonopin to 0.5 mg twice a day when necessary for anxiety and would like to further titrate down as this may be exacerbating this patient's mental status and delirium. Continue with Lamictal and Zoloft as prescribed. Added Zyprexa 2.5 mg daily at bedtime for mood/psychotic symptoms. -Will continue to follow along, please call with any questions. -Continue with medical treatment of underlying comorbidities and assessing patient's mental status. Appreciate neurology consultation and recommendations.
--- NOTE | 2019-08-16 15:54 | EEG ---
ELECTROENCEPHALOGRAM REPORT DATE OF SERVICE: 08/16/2019 This is an inpatient EEG performed on a 74-year-old gentleman who was brought in with altered mental status and agitated behavior. The patient has a known history for panic disorder and is on lamotrigine. Neuro imaging studies of his brain do raise suspicion for normal pressure hydrocephalus with enlarged ventricles. His past medical history is also significant for multiple falls. The technologist reports during this study that his conversation was rather bizarre and he was very distractible. No prior EEG is available for comparison. TECHNICAL REPORT: This is an inpatient EEG performed on the [employer] EEG monitor with electrodes placed according to the International 10-20 system and a single EKG channel. Simultaneous video EEG monitoring was performed. This EEG was reviewed in both the longitudinal bipolar, common average referential and transverse montages. Recording begins with the patient awake, alert, eyes open. The patient waxes and wanes; however, between drowsiness and quiet wakefulness. The background fluctuates between 6-8 Hz, but appears symmetric of moderate to low amplitude. Low-amplitude beta activity is prominent over the anterior and central head regions. Intermittent motion and movement artifact contaminate the tracing. The patient is noted to frequently be swallowing during the study. Irregular heart rate is noted intermittently throughout this EEG study. Photic stimulation was performed at various flash frequencies and failed to elicit a consistent driving response. Deeper stages of sleep were not achieved. IMPRESSION: This is a normal awake, drowsy EEG study. No epileptiform discharges, asymmetric slowing or clinical events were observed. The EEG; however, did contain an abnormal EKG consisting of irregular heart rate. CLINICAL CORRELATION: A normal awake, drowsy EEG does not preclude an underlying seizure tendency thus further clinical correlation is needed. If clinically indicated, a more prolonged overnight study such as an ambulatory EEG and/or serial EEGs could provide additional clinical information. MMODL / IJN: [id number] / BALDEMAR
--- NOTE | 2019-08-16 19:44 | P.PN ---
Subjective Progress Note Date: 08/16/19 Principal diagnosis: Altered mental status frequent falls Patient has remained hemodynamically stable overnight. Not reporting any new symptoms but still has a dull headache along the midline vertex. Patient appears to be less agitated today. He denies having any change in vision swallowing or difficulty with coordination. Objective - Vital Signs Vital signs: Vital Signs Temp 98 F 08/16/19 12:13 Pulse 67 08/16/19 12:13 Resp 18 08/16/19 12:13 BP 129/70 08/16/19 12:13 Pulse Ox 97 08/16/19 12:13 Intake & Output 08/16/19 08/16/19 08/17/19 06:59 18:59 06:59 Intake Total 590 Output Total 200 225 Balance 390 -225 Intake: Oral 590 Output: Urine 200 225 Other: Voiding Method Urinal Urinal # Voids 2 2 # Bowel Movements 1 - Exam Patient examined chart reviewed. EEG completed normal awake only EEG study. Neurologic exam mental status: Patient awake alert he's oriented now to time place person. Speech is fluent. Next line pupils: 2 mm equally reactive to light and accommodation. Cranial nerves: Tracks well no nystagmus is noted on horizontal gaze. Face appears symmetric. Tongue is midline without fasciculations deviation. Motor examination normal muscle bulk and tone throughout. Moves all 4 extremities equally. Pronator drift negative. Next a coordination testing deferred Deep tendon reflexes deferred Sensory examination: Deferred Gait examination deferred - Labs CBC & Chem 7: 08/15/19 09:38 08/15/19 09:38 Labs: Abnormal Lab Results - Last 24 Hours (Table) 08/15/19 Range/Units 10:30 Lamotrigine 16.3 H (2.0-15.0) ug/mL Assessment and Plan Assessment: This is a 74-year-old gentleman who was found wandering in an altered mental status by neighbors and family friend. This is apparently the second episode this patient has had in the past year around the same time last year. According to his neighbor/friend he has been having progressive over the last 2 weeks increasing altered mental status. I reviewed the scan of his head and an conc erned that this patient could have normal pressure hydrocephalus. This could explain some of the symptoms and the extent of the progressive gait instability progressive dementia however he denies at this time having any bladder incontinence. I was able to discuss his neuroimaging studies today with radiology. 2 be able to diagnose normal pressure hydrocephalus in this case, the radiologist's his room recommending if there is any other prior film for comparison. The patient reports that he did have neuroimaging studies a year ago at [facility]. There is significant atrophy which would also suggest this could be related to hydrocephalus ex vacuo. The patient's lamotrigine level is supratherapeutic. Florencio Ji is known to produce cerebellar ataxia which could explain the multiple falls this patient's been having over the past several months. Lamotrigine can have side effects that are behavioral. It has been known to cause agitation and confusion. To safely lower this down a decrease in dose by 15-25% is usually recommended for anticonvulsant medications to avoid any seizure activity. Regardless of whether he has underlying seizure disorder or not any abrupt withdrawal of anticonvulsant medication can lead to a seizure. Summary 1. Patient with known psychiatric illness/ panic disorder. 2. Recurrent episodes of altered mental status occurring on a yearly basis. 3. 2 weeks prior to admission increase paranoia and altered mental status. 4. Imaging studies are suspicious for normal pressure hydrocephalus 5. History of progressive gait instability with increasing short-term memory loss. 6. Supratherapeutic lamotrigine level. 7. 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 Hold tonight's lamotrigine dose of 150 mg. Restart new dosage at 100 mg twice daily. Would recommend repeating this lamotrigine level next week within the next [address] Carlos again psychiatry to update his admission and further management. 3. Lipid panel in a.m. along with TSH free T4 and total T3. 4. Contact primary care physician Dr. Rizzo to see if we can access prior neuroimaging studies. This patient's prognosis remains guarded. Further recommendations will be Made as this case evolves. Thank you for allowing me to participate in the care of your patient. Deisi Burciaga M.D. Board Certified in Neurology and Sleep medicine
[2019-08-16] MEDS: ATORVASTATIN 40 MG TAB PO SCH (20:19)
[2019-08-16] MEDS: OLANZapine 2.5 MG TAB PO SCH (20:19)
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
[2019-08-17] MEDS: SODIUM CHLORIDE 0.9% 1,000 ML IV SCH (00:57)
[2019-08-17 07:00] LABS: C Reactive Protein <5.0 mg/L (<10.0)
[2019-08-17 07:47] LABS: Cholesterol 139 mg/dL (<200); HDL Cholesterol 59 mg/dL (40-60); LDL Cholesterol,Calculated 53 mg/dL (0-99); Triglycerides 136 mg/dL (<150)
[2019-08-17] MEDS: ENOXAPARIN 40 MG/0.4 ML SYRINGE SQ SCH (08:27)
[2019-08-17] MEDS: SERTRALINE 100 MG TAB PO SCH (08:27)
[2019-08-17] MEDS: lamoTRIgine 100 MG TAB PO SCH ×2 (08:27→20:37)
--- NOTE | 2019-08-17 11:22 | CDI ---
Documentation Clarification Form Date: 08/17/2019 11:02:22 AM From: Holly Boss RN CCDS Admit Date: 08/16/2019 08:37:00 AM Patient Name: Jozef Traylor Visit Number: [id number] Discharge Date: ATTENTION: The Clinical Documentation Specialists (CDI) and [facility] Coding Staff appreciate your assistance in clarifying documentation. Please respond to the clarification below the line at the bottom and electronically sign. The CDI & [facility] Coding staff will review the response and follow-up if needed. Please note: Queries are made part of the Legal Health Record. If you have any questions, please contact the author of this message via ITS. Dr. Cody Dutta Altered Mental Status was documented in the Neurology consult 08/14 History/Risk Factors: 74-year-old male presents to the ED by EMS for change in mental status. Medical history Bipolar disorder, ADHD, panic disorder and chronic insomnia. Clinical Indicators: Per Psych consult 08/15 Well decrease Klonopin to 0.5 mg twice a day when necessary for anxiety and would like to further titrate this down as this may be exacerbating this patients mental status and delirium. 08/13 CXR: Multiple rib fractures 08/13 CT Brain: Atrophy with periventricular white matter ischemic changes. Treatment: 08/15 Decreased Klonopin to 0.5mg bid prn, Added Zyprexa 2.5mg po at HS In your professional opinion, please clarify the etiology of the Altered Mental Status, if known. Delirium an adverse effect of Klonopin Metabolic Encephalopathy adverse effect of Klonopin Other condition (please specify) Unable to determine (Last Revision: June 2017) Metabolic encephalopathy and delirium, cause unknown, POA MTDD
[2019-08-17] MEDS ORDERED: clonazePAM 0.5 MG TAB PO PRN (14:46)
[2019-08-17] MEDS ORDERED: SERTRALINE 50 MG TAB PO STA (14:47)
--- NOTE | 2019-08-17 14:54 | P.PN ---
Progress Note - Text Progress Note Date: 08/17/19 Psychiatric progress note: Interval History: Patient was seen today for psychiatric follow-up regarding patient's delirium and depression. Patient appeared to have some mild improvement in his confusion and was more alert today. He states that he slept about 6 hours last night however claims that "not enough". He continues to speak about his neighbors at times however did not speak about paranoia or delusions related to them. He also spoke about an "argument outside" and also different "meetings" that were going on. He did appear pleasant and polite and also cooperative with the plan and has been taking his medications. He claims that his mood has been "depressed" however states that he has been dealing with depression for many years. He states that he has help at home however has poor insight. At this time patient denies any suicidal or homical ideations, intent or plan. Patient denies any auditory, visual hallucinations. Patient denies any side effects from the medications and has been compliant with meds. Mental Status Exam: General Appearance: Patient appears to have a significant abrasion on his forehead, appears to be be stated age is alert, attempts to cooperate and is polite. Patient appears to have fair hygiene and grooming wearing hospital gown with fair eye contact. Behavior: Patient is calmly lying in bed without any agitated behavior. Attempts to cooperate. Speech: Patient's speech is fluent and nonpressured. Mood/Affect: Patient reports their mood is "depressed", affect is congruent Suicidality/Homicidality: Patient denies having any suicidal or homicidal ideation intent or plan. Perceptions: Patient denies any visual hallucinations and denies any auditory hallucinations Though content/process: Less paranoia today, continues to be preoccupied with his neighbors however does not endorse bizarre delusions or any safety issues. Memory and concentration: AOX3, following commands, knows the president is, attention is improving. Cannot spell "WORLD" backwards Judgment and insight: Limited, mildly improving Assessment Delirium with unknown etiology Possible underlying dementia Depressive disorder unspecified. Plan: -At this time patient DOES NOT meet criteria for inpatient psychiatric admission. -Delirium precautions recommended with patient including - avoiding use of narcotics and [employer] sedatives, limit anticholinergic medications when possible, frequent re-orientation, minimize use of restraints, open window shades during the day and close them at night -Would recommend the following medication changes/additions: We'll decrease Klonopin to 0.25 mg twice a day when necessary for anxiety. Continue with Lamictal as prescribed. Increased Zoloft to 150 mg daily for mood/anxiety. Continue with Zyprexa 2.5 mg daily at bedtime for mood/psychotic symptoms. -Will continue to follow if needed, please call with any questions. -Would suggest a PT and OT consult as patient most likely cannot care for himself at home and having repeated falls and episodes of confusion and possible noncompliance of medications. -Continue with medical treatment of underlying comorbidities and assessing patient's mental status.
--- NOTE | 2019-08-17 17:51 | P.PN ---
Subjective Progress Note Date: 08/17/19 Principal diagnosis: Altered mental status frequent falls Subjective: Patient remains in good spirits today. He is very receptive to going into rehab providing it is the renal rehab center he has been at before. Discussed with patient discharge plans and my conversation today with his psychiatrist. His psychiatrist is aware of the lamotrigine excessive level and the need for titration. He is recommending that the patient on discharge from rehab have a home health care nurse and a home health psych nurse to be out to visit his home on a daily basis for supervision. I discussed this with Mr. Traylor he seems receptive to this plan. He is not reporting any headache, change in vision difficulty swallowing or any sensorimotor symptoms at this time. Objective - Vital Signs Vital signs: Vital Signs Temp 98.9 F 08/17/19 11:56 Pulse 77 08/17/19 11:56 Resp 17 08/17/19 11:56 BP 146/82 08/17/19 11:56 Pulse Ox 94 L 08/17/19 11:56 Intake & Output 08/16/19 08/17/19 08/17/19 18:59 06:59 18:59 Intake Total 240 Output Total 225 200 Balance -225 40 Intake: Oral 240 Output: Urine 225 200 Other: Voiding Method Urinal Urinal Urinal # Voids 2 2 # Bowel Movements 1 - Exam This visit primarily consisted of discharge planning discussion. No examination was performed other than observation that the patient's mental status appeared better today. There is still some tendency for him to have suspicion about people around him and talk about conflicts with people occurring at the hospital which probably have not occurred. - Labs CBC & Chem 7: 08/15/19 09:38 08/15/19 09:38 Assessment and Plan Assessment: This is a 74-year-old gentleman who was found wandering with altered mental status by neighbors and family friend. This is apparently the second episode this patient has had in the past year around the same time last year. According to his neighbor/friend this has been progressive over the last 2 weeks increasing altered mental status. During the course of this admission it was determined he did have a supratherapeutic lamotrigine level which could contribute to both behavioral issues and gait impairment. The dosage was adjusted on August 15. This information has been given to the psychiatrist. At this time we do not have any prior imaging studies of his brain to compare to this recent study to determine if there has been progression of enlargement of the ventricles. At this time with the degree of atrophy we will have to suffice to say this is more likely due to cerebral atrophy versus normal pressure hydrocephalus. However this still should be Within the differential diagnosis along with possibly the patient beginning to develop Parkinson syndrome. This should be considered in the event that the patient's lamotrigine level is within the therapeutic level and he is still symptomatic with progressive gait instability and falls and dementia. Summary 1. Patient with known psychiatric illness/ panic disorder. 2. Recurrent episodes of altered mental status occurring on a yearly basis. 3. 2 weeks prior to admission increase paranoia and altered mental status. 4. Imaging studies are suspicious for normal pressure hydrocephalus 5. History of progressive gait instability with increasing short-term memory loss. 6. Supratherapeutic lamotrigine level. 7. 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 Patient receptive to discharge planning to acute rehab with follow-up care involving home health care nursing. Plan: 1. Patient is cleared by neurology for discharge to acute rehab. 2. Please fax discharge summary to primary care physician Dr. Rizzo. 3. Case management social work if possible prior to discharge begin process for accessing home health care nursing for general medicine and home health care nursing for psychiatry. Thank you for allowing me to participate in the care of your patient. Deisi Burciaga M.D. Board Certified in Neurology and Sleep medicine
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
[2019-08-17] MEDS: ATORVASTATIN 40 MG TAB PO SCH (20:37)
[2019-08-17] MEDS: OLANZapine 2.5 MG TAB PO SCH (20:37)
[2019-08-18 04:40] VITALS: RESP 16
[2019-08-18] MEDS: lamoTRIgine 100 MG TAB PO SCH (07:30)
[2019-08-18] MEDS: ENOXAPARIN 40 MG/0.4 ML SYRINGE SQ SCH (07:30)
[2019-08-18] MEDS ORDERED: SERTRALINE 50 MG TAB PO SCH (09:00)
[2019-08-18 11:53] VITALS: BP 142/74; PULSE 79; TEMP 98
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
== END 2019-08-18 14:22 | DRG 56 ==
LOC: EC 20:57 → 4SSUR 23:12 → 5NMEDONC 08-15 11:50 → OBSVTOIN 08-16 08:37
PROVIDERS: ADMIT Hospitalist; ATTEND Hospitalist
DX: G91.2 (Idiopathic) normal pressure hydrocephalus (principal); G93.41 Metabolic encephalopathy; S22.41XA Multiple fractures of ribs, right side, initial encounter for closed fracture; I25.10 Atherosclerotic heart disease of native coronary artery without angina pectoris; E78.5 Hyperlipidemia, unspecified; G47.00 Insomnia, unspecified; F31.9 Bipolar disorder, unspecified; F41.0 Panic disorder [episodic paroxysmal anxiety]; N20.0 Calculus of kidney; F03.90 Unspecified dementia, unspecified severity, without behavioral disturbance, psychotic disturbance, mood disturbance, and anxiety; S09.8XXA Other specified injuries of head, initial encounter; W19.XXXA Unspecified fall, initial encounter; R29.6 Repeated falls; Z11.59 Encounter for screening for other viral diseases; Z79.899 Other long term (current) drug therapy; Z79.82 Long term (current) use of aspirin; Z87.442 Personal history of urinary calculi; Z95.1 Presence of aortocoronary bypass graft; Z98.890 Other specified postprocedural states; Z87.01 Personal history of pneumonia (recurrent); Z91.83 Wandering in diseases classified elsewhere
CPT/HCPCS: 36415; 70450; 70544; 70547; 70553; 71045; 71046; 72125; 80053; 80061; 80175; 80320; 81001; 82140; 84443; 84480; 84484; 85025; 85610; 85652; 85730; 86140; 87635; 93005; 95816; 96360; 96361; 96374; 99285

== ENCOUNTER 2020-03-12 17:14 | Inpatient (IN) | payer MEDICARE, OTHER ==
[2020-03-13] MEDS: ACETAMINOPHEN TAB 500 MG TAB PO PRN (14:27)
[2020-03-13] MEDS ORDERED: AMOXICILLIN 500 MG CAP PO PRN (16:39)
--- NOTE | 2020-03-13 22:37 | P.HPIM ---
History of Present Illness H&P Date: 03/13/20 Chief Complaint: Altered thinking History of presenting complaint: This is a 74-year-old patient with chronic stable medical conditions include coronary artery disease with bypass, hyperlipidemia, hepatitis B, anxiety. Patient initially presented to [facility] 2 days ago. His neighbor came to check on him and found him on the floor. Has a large bruising above his right eye. Some bruising on the left side. Patient was very unsteady. had been falling at home. Patient's history was very disoriented. He was talking about some lady cleaning a window and then she was dating a black person. He did decided to go to the speak to the director consumer about her. This was in [place]. Then I asked him why he is in the hospital he then were 3 women in white dresses. He also talked about his friend. Lamictal level was ordered that came back to be about 39. Patient has been falling at home. Psychiatry care was not available at [facility] and because he is unsteady on his feet patient was transferred over here to medical floor on [facility] onwith a view to transfer to psychiatry depending on how he does. Lamictal has been held. Patient has been eating well. Denies any fevers and chills. No cough. Denies use of any recreational drugs including no smoking or alcohol. Review of systems: GEN.: None EYES: None HEENT: Hematoma above the right eye and some memo-orbital hematoma NECK: None RESPIRATORY: None CARDIOVASCULAR: None GASTROINTESTINAL: None GENITOURINARY: None MUSCULOSKELETAL: Scattered bruising] LYMPHATICS: None HEMATOLOGICAL: None PSYCHIATRY: As above] NEUROLOGICAL: Some tremors of present yesterday improved today. 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 Nights history of smoking or alcohol. Family history: Patient cannot tell Physical examination: VITAL SIGNS: 98.2, 74, 18, 144/88, 94% room air GENERAL: [BMI is 26.2, laying in bed, awake. EYES: Pupils equal. Conjunctiva normal. HEENT: Large hematoma above the right eye and some periorbital hematoma. NECK: JVD not raised; masses not palpable. HEART: First and second heart sounds are normal; no edema. LUNGS: Respiratory rate normal; clear to auscultation. ABDOMEN: Soft, nontender, liver spleen not palpable, no masses palpable. PSYCH: Patient really cannot tell me where he is or why he is herel. NEUROLOGICAL: Cranial nerves grossly intact; no facial asymmetry, power and sensation grossly intact. Unsteady gait LYMPHATICS: No lymph nodes palpable in the axilla and neck Assessment: -Lamictal toxicity. Patient's level was 39 this morning. Lamictal is being held. Repeat levels tonight. -Coronary artery disease prior history of bypass -Essential hypertension -Possible psychosis -Anxiety not otherwise specified -Right periorbital bilateral hematoma secondary to fall -Cellulitis surrounding the hematoma above the right eye Plan: Patient be put under fall precautions. Psychiatry consulted. Hold Lamictal. Add baby aspirin, Lipitor y. Check lipid profile in the morning. Cardiac diet. IV Ancef. Telemetry. Patient will need at least 2 nights stay in the hospit al because of a psychotic condition and Lamictal toxicity. Past Medical History Past Medical History: Coronary Artery Disease (CAD), Hyperlipidemia, Liver Disea se, Pneumonia, Renal Disease Additional Past Medical History / Comment(s): Coronary by-pass 1998, Pneumonia winter , hx kidney stones, insomnia, Hepatitis B. lamictal toxicity, History of Any Multi-Drug Resistant Organisms: None Reported Past Surgical History: Coronary Bypass/CABG Additional Past Surgical History / Comment(s): Procedure for kidney stones Past Anesthesia/Blood Transfusion Reactions: No Reported Reaction Past Psychological History: ADD/ADHD, Anxiety, Bipolar, Depression, Panic Disorder Smoking Status: Unknown if ever smoked Past Alcohol Use History: None Reported Additional Past Alcohol Use History / Comment(s): Pt denies use/abuse of illicit substances. Past Drug Use History: None Reported Additional Drug Use History / Comment(s): Pt. has history of using cocaine 40 yrs. ago. - Past Family History Mother Family Medical History: No Reported History Medications and Allergies Home Medications Medication Instructions Recorded Confirmed Type Atorvastatin [Lipitor] 40 mg PO DAILY 08/14/19 03/13/20 History Amoxicillin 2,000 mg PO ONCE PRN 03/13/20 03/13/20 History Aspirin EC [Ecotrin Low Dose] 81 mg PO DAILY 03/13/20 03/13/20 History Ferrous Sulfate [Feosol] 325 mg PO DAILY 03/13/20 03/13/20 History Sertraline [Zoloft] 50 mg PO DAILY 03/13/20 03/13/20 History clonazePAM [KlonoPIN] 0.5 mg PO TID PRN 03/13/20 03/13/20 History lamoTRIgine [LaMICtal] 100 mg PO DAILY 03/13/20 03/13/20 History lamoTRIgine [LaMICtal] 150 mg PO HS 03/13/20 03/13/20 History Allergies Allergy/AdvReac Type Severity Reaction Status Date / Time No Known Allergies Allergy Verified 03/13/20 13:52 Physical Exam Vitals: Vital Signs Temp Pulse Resp BP Pulse Ox 03/13/20 20:00 68 16 03/13/20 19:17 98.4 F 68 16 111/71 93 L 03/13/20 15:07 16 03/13/20 14:54 98.2 F 97 16 166/89 97 03/13/20 13:14 98.2 F 74 18 144/88 94 L Intake and Output 03/13/20 03/13/20 03/13/20 06:59 14:59 22:59 Other: Weight 82.7 kg
[2020-03-13] MEDS: clonazePAM 0.5 MG TAB PO PRN (23:52)
[2020-03-14 06:24] LABS: Anisocytosis Slight; Basophils # (A) 0.1 k/uL (0-0.2); Basophils % (A) 1 %; Eosinophils # (A) 0.4 k/uL (0-0.7); Eosinophils % (A) 6 %; HCT 43.8 % (39.0-53.0); HGB 14.6 gm/dL (13.0-17.5); Lymphocytes # (A) 2.1 k/uL (1.0-4.8); Lymphocytes % (A) 34 %; MCH 29.4 pg (25.0-35.0); MCHC 33.3 g/dL (31.0-37.0); MCV 88.4 fL (80.0-100.0); Mean Platelet Volume 7.2; Monocytes # (A) 0.5 k/uL (0-1.0); Monocytes % (A) 8 %; Neutrophils % (A) 49 %; Platelet Count 267 k/uL (150-450); RBC 4.96 m/uL (4.30-5.90); RDW 16.9 % (11.5-15.5); WBC 6.3 k/uL (3.8-10.6)
[2020-03-14] MEDS: ASPIRIN 81 MG PO SCH (08:06)
[2020-03-14] MEDS: ATORVASTATIN 40 MG TAB PO SCH (08:06)
[2020-03-14] MEDS: FERROUS SULFATE 325 MG TAB PO SCH (08:06)
[2020-03-14] MEDS: ENOXAPARIN 40 MG/0.4 ML SYRINGE SQ SCH (08:07)
[2020-03-14] MEDS: ACETAMINOPHEN TAB 500 MG TAB PO PRN ×2 (08:15→20:32)
[2020-03-14] MEDS: clonazePAM 0.5 MG TAB PO PRN (08:16)
[2020-03-14] MEDS ORDERED: SERTRALINE 50 MG TAB PO SCH (09:00)
[2020-03-14 10:05] LABS: African American GFR (CKD) 86.8 (60.0-200.0); Albumin 4.2 g/dL (3.80-4.90); Albumin/Globulin Ratio 2.1 (1.60-3.17); Anion Gap 7.7 mmol/L (4.00-12.00); Carbon Dioxide 24.3 mmol/L (21.6-31.8); Non-African American GFR(CKD) 74.9 (60.0-200.0); Potassium 3.8 mmol/L (3.5-5.5); Total Bilirubin 0.6 mg/dL (0.2-1.2); Total Protein 6.2 g/dL (6.2-8.2)
[2020-03-14] MEDS: FLUoxetine HCL 20 MG CAP PO SCH (15:45)
--- NOTE | 2020-03-14 16:52 | CONS ---
CONSULTATION PSYCHIATRIC CONSULTATION: DATE OF SERVICE: 03/14/2020 PURPOSE FOR CONSULTATION: Evaluate for altered mental status. HISTORY OF PRESENTING ILLNESS: The patient was the primary source of information. Some of the information the patient provided was somewhat disorganized. The patient is a 74-year-old male. He was admitted in transfer from [facility]. He had a fall at home and suffered a significant bruise on the right side of his forehead. He had some degree of confusion and was also making odd, disconnected statements. There was a question of Lamictal toxicity, with his Lamictal level on admission being 39. The patient stated he has had long-term problems with depression. He had a psychiatric hospitalization at this facility 10/14/2013. He was diagnosed with mood disorder and discharged on Lexapro 5 mg a day, Seroquel XR 200 mg a day and Klonopin 1 mg at bedtime. During that hospitalization the patient was noted to have depressive symptoms and a questionable history of psychosis. At times he was noted to have confusion, though on mental status exam he was oriented. There was a question of medication effects, as he was documented to be "very hazy" on Seroquel 300 mg a day. There was also a question that he was on Klonopin 1 mg at bedtime, which also may have affected cognitive performance. His current situation is that he describes long-term problems with depression. He notes mostly depressive symptoms in the morning time that gradually clear as the day goes on. He said he has been on Zoloft for an extended period of time. He believes the dose had been increased up to 150 mg a day. He said in the past he had been on Prozac 40 mg a day, which he felt was a better medication for him. He notes that over the years he has had brief episodes of having delusions with visions which could last up to about 2 days. He says that this happened just within a few days of his coming into the hospital at this time. He has not had an episode like that in the past year, though notes some issues farther back. He does not relate these episodes to any manic episodes. He cannot clearly identify precipitating factors such as stress issues. At most, he suggested that this may come on in relationship to some depression. He notes that he has had periods in the past with sleep disorder where he has gone by his report up to 8 days without sleeping. This has not been a recent situation and again he does not link poor sleep to any manic or hypomanic symptoms. He denies a history of substance abuse issues. He said that he has had some cognitive issues over the last few years and has been noted to have problems with word-finding difficulties. In addition to antidepressants he has also been on Lamictal, which he said goes back about 10 years. He believes that Lamictal was started because of one of his insomnia events. It is noted that the medical record indicates he is prescribed Klonopin 0.5 mg 3 times a day p.r.n. He said he was off Klonopin for about one month though has been back on Klonopin for the last 2 months. He says that he takes 0.5 mg 3 times a day. He indicated that he had an MRI about 3 or 4 months ago with some positive findings. It is noted that he had an MRI on 08/15/2019 that showed "chronic-appearing periventricular white matter ischemic changes with age-related atrophy." Noted that the patient had worked in the local [id number]. He denied any substance use issues. He has not been on prescription pain medications. He notes a family psychiatric history of mother with possible personality difficulties and father who had episodes of suicide attempts. In his current situation, he describes that he is aware of having visions that he was having about 4-5 days ago. He was seeing half figures in various situations. He could describe a few different scenes that he had experienced and stated when I talked to him that he was aware this was delusional. It is noted that he was hospitalized because his neighbor who came to check on him found him on the floor with a large bruise over his right eye. The patient did make statements that he has had some problems with falls, though I was not able to get a clear picture from the patient exactly what his situation with falls has been. He has been unsteady on his feet during these current hospitalizations. He did not seem to indicate that he had been having any dizziness, balance problems or frequent falling at home prior to this current event. MENTAL STATUS EXAMINATION: The patient was sitting in a chair. He gave good eye contact. He was somewhat restless. He answered questions appropriately. His thoughts were coherent and goal- directed. There were times that he did seem to make some contradictory statements. Some of the time it was difficult to get specific information. There were times when I asked questions he would veer off and respond tangentially. For the most part he did stay on track with the conversation. His affect was in a good range. He smiled. He was friendly. He had a somewhat energetic manner. His mood was fairly even. He did not appear distressed, though expressed concern about being away from his dog, with whom he is highly attached. He did not demonstrate any issues of thought disorder. When I talked with him, he voiced no thoughts of harm to self or others. On cognitive exam, the patient was able to say it was ; he thought it was March 19 and then said that he did not get the date right because he has been so focused on [place]. He knew he was in [facility] and that Dr. Dutta was his physician in the hospital. He was able to tell me the name of Dr. Carlos, whom he apparently has been seeing on an outpatient basis. He was able to note that several years back he had been seen on an outpatient basis by Dr. Silva. He said he was aware of a Dr. Calderon, who was also psychiatrist in the area. He stated that his Klonopin dose was 0.5 mg 3 times a day. He believed his Zoloft dose was 50 mg tablets 3 tablets a day. He generally said he had been taking his Zoloft only on a limited basis, about once every 4 days. ASSESSMENT: This 74-year-old male is diagnosed with major depression. He apparently has had some brief psychotic episodes at different times in the past where he becomes delusional for a few days at a time. The best I am able to tell from his history is that this may relate to depression. He has also had some episodes of sleep disorder. He does not clearly describe any symptoms of hypomania or jonnathan. He has been on Lamictal for an extended period of time, though the specific indication for Lamictal is unclear. He apparently has some chronic cognitive issues, though the full extent of that is not clear either, given that he has been on a benzodiazepine over an extended period of time, which likely has a significant negative effect on cognition. Also Klonopin may be a significant factor in the fall that he had leading to this hospitalization and any risk for falls that he has had in the past. It is noted that the patient does state he drives a car. At this point I will start the patient on Prozac 20 mg a day based on the patient's report that Prozac has been helpful for him in the past. It is noteworthy that he said that he had taken 40 mg a day. The most immediate concern is his long- term use of Klonopin. I will reduce his Klonopin to 0.5 mg at bedtime. I would discharge him on 5 days' worth of Klonopin and then discontinue Klonopin altogether. I had an extensive discussion with the patient regarding benzodiazepine withdrawal. I discussed that he may have significant benzodiazepine withdrawal issues that may worsen over the next 2 weeks. Beyond that, generally it takes beyond 6 to 8 weeks to get over the most immediate effects of benzodiazepine withdrawal. I discussed with the patient that he could continue on Prozac, though I noted that he is likely to get little or no benefit from an antidepressant during the first 6 to 8 weeks of withdrawing from a benzodiazepine. I discussed with the patient that if he is having significant withdrawal issues, which I reviewed in detail, it would be reasonable to talk to his doctor about possibly starting Zyprexa, which is a common medicine I use for withdrawal. Given his age and fall risk, it would be reasonable to look at starting 2.5 mg 2 or 3 times a day, possibly titrating up to a maximum of 5 mg 2-3 times a day, depending on symptomatology. I discussed that Zyprexa may help augment his antidepressant, and that if he were to start on Zyprexa I would envision that as a short-term medication over about 2 months' time to get him through early benzodiazepine withdrawal. It would be helpful, once he is 3 months or more off of a benzodiazepine, to have some psychological evaluation to assess for cognitive function. I reviewed with the patient risks for long-term use of benzodiazepines in terms of memory and motor impairment. I would anticipate gradual improvement over the next 6 weeks. I provided the patient with a handout relating to withdrawal issues as well as interventions to help manage early withdrawal. GEMMA / HAWK: [id number] /
[2020-03-14 19:21] LABS: Glucose,Whole Blood 132 mg/dL (75-99)
[2020-03-14] MEDS ORDERED: clonazePAM 0.5 MG TAB PO SCH (21:00)
[2020-03-15 08:57] VITALS: BP 167/92; PULSE 98; RESP 16; TEMP 98.6
[2020-03-15] MEDS: ENOXAPARIN 40 MG/0.4 ML SYRINGE SQ SCH (09:44)
[2020-03-15] MEDS: ASPIRIN 81 MG PO SCH (09:44)
[2020-03-15] MEDS: ATORVASTATIN 40 MG TAB PO SCH (09:44)
[2020-03-15] MEDS: FERROUS SULFATE 325 MG TAB PO SCH (09:44)
[2020-03-15] MEDS: FLUoxetine HCL 20 MG CAP PO SCH (09:44)
[2020-03-15] MEDS: ACETAMINOPHEN TAB 500 MG TAB PO PRN (09:44)
[2020-03-15] MEDS ORDERED: OLANZapine 2.5 MG TAB PO SCH (10:00)
--- NOTE | 2020-03-15 10:47 | CONS ---
CONSULTATION DATE OF SERVICE: 03/15/2020 PURPOSE FOR CONSULTATION: Evaluate for altered mental status. INTERVAL HISTORY: Patient has been doing fair. He had a quiet day yesterday, he felt that his thoughts were fairly clear without him having any delusional thinking. He was able to tell me yesterday the scenes that he had imagined and he was well aware that the events that he experienced were not real. He said at that time he had a sense that was not actually happening and he was not seeing people that were there. Overall, he says today that he is doing fairly well. He does have some anxiety about getting back home. He does worry about going off Klonopin and anticipates some withdrawal issues. He has concern about whether or not he will get followup to support him in early withdrawal as he goes off Klonopin. I reviewed his issues with Social Work and it does appear that the plan would be to refer him to subacute rehab program due to weakness. When I talked to the patient this morning, he was fairly clearing his thoughts. He continues to have some word-finding difficulties, though that does not seem to be a significant issue. He is alert and aware of circumstances and his current situation. ASSESSMENT: At this point, I again reviewed with the patient issues related to Klonopin withdrawal. My recommendation would be that he continue on Klonopin 0.5 mg at bedtime for 4 additional days starting today and then to discontinue Klonopin altogether. I gave him a handout on withdrawal issues and things that he can do to better manage withdrawal symptoms that he may have. I discussed that he could anticipate withdrawal issues for the next 6 weeks and that once he gets into April withdrawal issues will be significantly less of a problem. I recommend he continues on Prozac though I discussed with the patient that I would not anticipate much benefit from an antidepressant until he gets into April. I would look at titrating up on Prozac until he gets into April as I will start the patient on Zyprexa 2.5 mg twice a day for physiologic stress response relating to benzodiazepine withdrawal. The dose could be increased to 2.5 mg 3 times a day and ultimately up increase to 5 mg 3 times a day depending on how he is managing. I shared with the patient that I anticipate significant withdrawal issues over the next 2 weeks and beyond that things should gradually lessen, though it does take at least 6 weeks to get through a majority of withdrawal issues. At this point Social Work indicates that they will be working on referral to subacute rehab. MMODL / IJN: [id number] /
[2020-03-15] MEDS ORDERED: METOPROLOL TARTRATE 50 MG TAB PO SCH (13:00)
--- NOTE | 2020-03-15 19:39 | P.PN ---
Progress Note - Text Progress Note Date: 03/14/20 Chief Complaint: Altered thinking History of presenting complaint: This is a 74-year-old patient with chronic stable medical conditions include coronary artery disease with bypass, hyperlipidemia, hepatitis B, anxiety. Patient initially presented to [facility] 2 days ago. His neighbor came to check on him and found him on the floor. Has a large bruising above his right eye. Some bruising on the left side. Patient was very unsteady. had been falling at home. Patient's history was very disoriented. He was talking about some lady cleaning a window and then she was dating a black person. He did decided to go to the speak to the manager simulation about her. This was in [place]. Then I asked him why he is in the hospital he then were 3 women in white dresses. He also talked about his friend. Lamictal level was ordered that came back to be about 39. Patient has been falling at home. Psychiatry care was not available at [facility] and because he is unsteady on his feet patient was transferred over here to medical floor on [facility] onwith a view to transfer to psychiatry depending on how he does. Lamictal has been held. Patient has been eating well. Denies any fevers and chills. No cough. Denies use of any recreational drugs including no smoking or alcohol. Admitted with Lamictal toxicity. Acute psychosis versus delirium. Gait dysfunction. Today-Lamictal continues to be held. Patient is more oriented a bit. The still occasionally hallucinating. He does recognize that he has been hallucinating. Bit more stable. Oral intake fair. Review of systems: Was done for constitutional, cardiovascular, GI, pulmonary. Psychiatry relevant finding as above Active Medications Acetaminophen (Acetaminophen Tab 500 Mg Tab) 500 mg PO Q6HR PRN PRN Reason: Fever and/ or Mild Pain Last Admin: 03/14/20 20:32 Dose: 500 mg Documented by: Aspirin (Aspirin 81 Mg) 81 mg PO DAILY [facility] Last Admin: 03/14/20 08:06 Dose: 81 mg Documented by: Atorvastatin Calcium (Atorvastatin 40 Mg Tab) 40 mg PO DAILY [facility] Last Admin: 03/14/20 08:06 Dose: 40 mg Documented by: Clonazepam (Clonazepam 0.5 Mg Tab) 0.5 mg PO [facility] Last Admin: 03/14/20 20:32 Dose: 0.5 mg Documented by: Enoxaparin Sodium (Enoxaparin 40 Mg/0.4 Ml Syringe) 40 mg SQ DAILY [facility] Last Admin: 03/14/20 08:07 Dose: Not Given Documented by: Ferrous Sulfate (Ferrous Sulfate 325 Mg Tab) 325 mg PO DAILY [facility] Last Admin: 03/14/20 08:06 Dose: 325 mg Documented by: Fluoxetine HCl (Fluoxetine Hcl 20 Mg Cap) 20 mg PO DAILY [facility] Last Admin: 03/14/20 15:45 Dose: 20 mg Documented by: Cefazolin Sodium 1,000 mg/ (Sodium Chloride) 50 mls @ 100 mls/hr IVPB Q8H [facility] Last Admin: 03/14/20 15:46 Dose: 100 mls/hr Documented by: Physical examination: VITAL SIGNS: 98, 93, 18, 150/77, 96% room air GENERAL: [BMI is 26.2, laying in bed, awake. EYES: Pupils equal. Conjunctiva normal. HEENT: Large hematoma above the right eye and some periorbital hematoma. NECK: JVD not raised; masses not palpable. HEART: First and second heart sounds are normal; no edema. LUNGS: Respiratory rate normal; clear to auscultation. ABDOMEN: Soft, nontender, liver spleen not palpable, no masses palpable. PSYCH: A bit more oriented today. Does hallucinating. NEUROLOGICAL: Cranial nerves grossly intact; no facial asymmetry, power and sensation grossly intact. Unsteady gait Assessment: -Lamictal toxicity. Patient's level was 39 - tested at [facility].. Repeat level IX -Coronary artery disease prior history of bypass -Essential hypertension -Possible psychosis -Anxiety not otherwise specified -Right periorbital bilateral hematoma secondary to fall -Cellulitis surrounding the hematoma above the right eye -Acute gait dysfunction from Lamictal toxicity Plan: Continue to hold off Lamictal. She lost the nursing staff to obtain his records from doctor's office. Including a list of his home medications. Zyprexa commenced by psychiatry. Not to resume Lamictal.
--- NOTE | 2020-03-15 20:34 | P.DS ---
Providers Date of admission: 03/13/20 12:35 Expected date of discharge: 03/15/20 Attending physician: Cody Dutta Consults: 03/13/20 12:56 Consult Physician Routine Consulting Provider: Uli Flores Consult Reason/Comments: manic depression, lamictal toxicity Do you want consulting provider notified?: Yes Placement Type Exists?: Yes Primary care physician: Krishna Mccrayqvi [facility] Course: Chief Complaint: Altered thinking History of presenting complaint: This is a 74-year-old patient with chronic stable medical conditions include coronary artery disease with bypass, hyperlipidemia, hepatitis B, anxiety. Patient initially presented to [facility] 2 days ago. His neighbor came to check on him and found him on the floor. Has a large bruising above his right eye. Some bruising on the left side. Patient was very unsteady. had been falling at home. Patient's history was very disoriented. He was talking about some lady cleaning a window and then she was dating a black person. He did decided to go to the speak to the administrative law judge about her. This was in [place]. Then I asked him why he is in the hospital he then were 3 women in white dresses. He also talked about his friend. Lamictal level was ordered that came back to be about 39. Patient has been falling at home. Psychiatry care was not available at [facility] and because he is unsteady on his feet patient was transferred over here to medical floor on [facility] onwith a view to transfer to psychiatry depending on how he does. Lamictal has been held. Patient has been eating well. Denies any fevers and chills. No cough. Denies use of any recreational drugs including no smoking or alcohol. Admitted with Lamictal toxicity. Acute psychosis versus delirium. Gait dysfunction. [place] to have Klonopin withdrawal. He did receive a tetanus shot at [facility]. Today-greatly improved. Able to hold out pretty good conversation. Witnessed him walk using a walker. In the hallway. Doing very well. Discussed with psychiatry. Stable for DC. Psychiatry recommendations: Continue Klonopin at night for 4 days then stop Zyprexa to be increased to 2 mg 3 times a day and then ultimately up to 5 mg 3 times a day depending on the holidays managing. Patient was given with written instructions by the psychiatrist. Consultation: Dr. Gramajo from psychiatry Physical examination: VITAL SIGNS: 98.6, 98, 16, 167/92, GENERAL: Sitting up in a chair, much better EYES: Pupils equal. Conjunctiva normal. HEENT: Large hematoma above the right eye and some periorbital hematoma. And surrounding cellulitis-improving NECK: JVD not raised; masses not palpable. HEART: First and second heart sounds are normal; no edema. LUNGS: Respiratory rate normal; clear to auscultation. ABDOMEN: Soft, nontender, liver spleen not palpable, no masses palpable. PSYCH: Able to carry out to nailfold conversation today. Assessment: -Lamictal toxicity. Patient's level was 39 - tested at [facility].. Repeat level IX-not discontinued -Coronary artery disease prior history of bypass -Essential hypertension -Acute delirium from Lamictal toxicity-improved -Anxiety not otherwise specified -Right periorbital hematoma secondary to fall -Acute Cellulitis surrounding the hematoma above the right eye-improving -Acute gait dysfunction from Lamictal toxicity-improved Disposition: Home with walker Patient Condition at Discharge: Stable Plan - Discharge Summary New Discharge Prescriptions: New Cephalexin [Keflex] 500 mg PO Q8HR 1 Days #21 cap FLUoxetine HCL [PROzac] 20 mg PO DAILY #30 cap OLANZapine [ZyPREXA] 2.5 mg PO BID #60 tab clonazePAM [KlonoPIN] 0.5 mg PO HS tab Metoprolol Tartrate [Lopressor] 50 mg PO BID #60 tab Continue Atorvastatin [Lipitor] 40 mg PO DAILY Ferrous Sulfate [Iron (65 MG Elemental)] 325 mg PO DAILY Aspirin EC [Ecotrin Low Dose] 81 mg PO DAILY Diclofenac Sodium [Voltaren] 50 mg PO BID Aspirin 81 mg PO DAILY Discontinued lamoTRIgine [LaMICtal] 150 mg PO HS Sertraline [Zoloft] 100 mg PO DAILY clonazePAM [KlonoPIN] 0.5 mg PO BID Amoxicillin 500 mg PO TID lamoTRIgine [LaMICtal] 100 mg PO DAILY Discharge Medication List Atorvastatin [Lipitor] 40 mg PO DAILY 08/14/19 [History] Aspirin EC [Ecotrin Low Dose] 81 mg PO DAILY 03/13/20 [History] Ferrous Sulfate [Iron (65 MG Elemental)] 325 mg PO DAILY 03/13/20 [History] Aspirin 81 mg PO DAILY 03/15/20 [History] Cephalexin [Keflex] 500 mg PO Q8HR 1 Days #21 cap 03/15/20 [Rx] Diclofenac Sodium [Voltaren] 50 mg PO BID 03/15/20 [History] FLUoxetine HCL [PROzac] 20 mg PO DAILY #30 cap 03/15/20 [Rx] Metoprolol Tartrate [Lopressor] 50 mg PO BID #60 tab 03/15/20 [Rx] OLANZapine [ZyPREXA] 2.5 mg PO BID #60 tab 03/15/20 [Rx] clonazePAM [KlonoPIN] 0.5 mg PO HS tab 03/15/20 [Rx] Follow up Appointment(s)/Referral(s): dr lesly [Other] - 2 Weeks Krishna Rizzo MD [Primary Care Provider] - 1-2 Days [facility], [NON-STAFF] - 1-2 Days Patient Instructions/Handouts: Fall Prevention for Older Adults (DC), Psychotic Disorder (DC) Activity/Diet/Wound Care/Special Instructions: stop klonipin after 4 days
== END 2020-03-15 15:30 | disposition home health service (06) | DRG 948 ==
LOC: 5NMEDONC 03-13 12:35
PROVIDERS: ADMIT Hospitalist; ATTEND Hospitalist
DX: R41.0 Disorientation, unspecified (principal); F31.30 Bipolar disorder, current episode depressed, mild or moderate severity, unspecified; L03.213 Periorbital cellulitis; T42.6X5A Adverse effect of other antiepileptic and sedative-hypnotic drugs, initial encounter; Y92.9 Unspecified place or not applicable; E78.5 Hyperlipidemia, unspecified; F41.0 Panic disorder [episodic paroxysmal anxiety]; F90.9 Attention-deficit hyperactivity disorder, unspecified type; G47.00 Insomnia, unspecified; I10 Essential (primary) hypertension; I25.10 Atherosclerotic heart disease of native coronary artery without angina pectoris; S00.11XA Contusion of right eyelid and periocular area, initial encounter; R26.81 Unsteadiness on feet; R29.6 Repeated falls; Z79.82 Long term (current) use of aspirin; Z79.899 Other long term (current) drug therapy; Z87.442 Personal history of urinary calculi; Z95.1 Presence of aortocoronary bypass graft; Z87.01 Personal history of pneumonia (recurrent); W19.XXXA Unspecified fall, initial encounter; Y92.009 Unspecified place in unspecified non-institutional (private) residence as the place of occurrence of the external cause
CPT/HCPCS: 80053; 80175; 85025; 93005

== ENCOUNTER 2020-03-21 12:45 | Inpatient (IN) | payer MEDICARE ==
[2020-03-21] MEDS: METOPROLOL TARTRATE 50 MG TAB PO SCH (21:00)
[2020-03-21] MEDS: OLANZapine 2.5 MG TAB PO SCH (21:00)
[2020-03-21] MEDS ORDERED: clonazePAM 0.5 MG TAB PO SCH (21:00)
[2020-03-22] MEDS: CEPHALEXIN 500 MG CAP PO SCH ×4 (00:38→22:56)
[2020-03-22 07:02] LABS: Anisocytosis Slight; Basophils # (A) 0.1 k/uL (0-0.2); Basophils % (A) 1 %; Eosinophils # (A) 0.4 k/uL (0-0.7); Eosinophils % (A) 5 %; HCT 42.6 % (39.0-53.0); HGB 14.3 gm/dL (13.0-17.5); Lymphocytes # (A) 2.6 k/uL (1.0-4.8); Lymphocytes % (A) 31 %; MCH 29.7 pg (25.0-35.0); MCHC 33.7 g/dL (31.0-37.0); MCV 88.2 fL (80.0-100.0); Mean Platelet Volume 7.2; Monocytes # (A) 0.6 k/uL (0-1.0); Monocytes % (A) 8 %; Neutrophils # (A) 4.5 k/uL (1.3-7.7); Neutrophils % (A) 53 %; Platelet Count 308 k/uL (150-450); RBC 4.83 m/uL (4.30-5.90); RDW 16.8 % (11.5-15.5); WBC 8.4 k/uL (3.8-10.6)
[2020-03-22] MEDS: METOPROLOL TARTRATE 50 MG TAB PO SCH ×2 (07:55→20:43)
[2020-03-22] MEDS: FERROUS SULFATE 325 MG TAB PO SCH (07:55)
[2020-03-22] MEDS: ATORVASTATIN 40 MG TAB PO SCH (07:55)
[2020-03-22] MEDS: ASPIRIN 81 MG PO SCH (07:55)
[2020-03-22] MEDS: FLUoxetine HCL 20 MG CAP PO SCH (07:56)
[2020-03-22] MEDS: OLANZapine 2.5 MG TAB PO SCH ×3 (07:56→20:43)
[2020-03-22 10:51] LABS: African American GFR (CKD) 77.3 (60.0-200.0); Albumin 4.4 g/dL (3.80-4.90); Albumin/Globulin Ratio 1.91 (1.60-3.17); Anion Gap 11.2 mmol/L (4.00-12.00); BUN/Creat Ratio 14.55 Ratio (12.00-20.00); Calcium 9.1 mg/dL (8.7-10.3); Carbon Dioxide 19.8 mmol/L (21.6-31.8); Globulin 2.3 g/dL (1.6-3.3); Non-African American GFR(CKD) 66.7 (60.0-200.0); Potassium 3.9 mmol/L (3.5-5.5); Total Bilirubin 0.6 mg/dL (0.3-1.2); Total Protein 6.7 g/dL (6.2-8.2)
--- NOTE | 2020-03-22 13:56 | CONS ---
CONSULTATION DATE OF SERVICE: 03/22/2020 PURPOSE FOR CONSULTATION: Evaluate for altered mental status and psychosis. HISTORY OF PRESENTING ILLNESS: The patient is a 74-year-old male. The only information available regarding his admission is that he had just been discharged from this facility on March 15. He was at home according to the EMS report. The following is documented from [facility] "nursing staff states patient was admitted to [facility] for a failure to thrive. The patient found outside naked sleeping. The patient had also had a number of falls within the last 2 weeks. The patient is confused and is being transported to [facility] for psychiatric services." I had previously seen the patient when he was here for his 03/13 admission. Please refer to my consultation note of 03/14/2020 for details. When I talked to the patient today, he was not able to give a very clear history. He did say that he was naked outside, though he was not able to clarify any of the events relating to that. He made comments about various things that were happening, though it was noteworthy that a number of things he mentioned were things he had previously told me about when I consulted with him on . He acknowledged confusion at home and was not able to give much detail of the events from his discharge on the leading up to this admission. As I documented previously, patient has had intermittent episodes of hallucinations and delusional thinking. He describes extended periods of time where his thoughts remained clear and coherent and he functions appropriately. He acknowledged that he had some days leading up to his 03/13 admission where he had become delusional. He could tell me details of the delusions and hallucinations he had and at the same time was able to identify that they were not real events. He said going back a few days he was not able to do that. One significant issue is that the patient has been on Klonopin for many years. Part of the discharge plan was that he would go off Klonopin. He was started on Zyprexa 2.5 mg twice a day to help with early withdrawal issues from benzodiazepines. He also was on Prozac 20 mg a day and previously had been on Prozac 40 mg a day. Currently he is on Zyprexa 2.5 mg twice a day and Prozac 20 mg a day and Klonopin 0.5 mg a day as his psychotropic medications. MENTAL STATUS: Patient was lying in bed with his head up. He gave fair eye contact. He talked a fair amount in a soft voice. He tended to ramble. His thoughts were at times disconnected. It is noteworthy that when I tried to finish the interview he would call me back and said he had other things to say. He then would make other disconnected statements. His affect was anxious. His mood dysphoric. He was significantly distressed. He continues to have delusional thinking. He voiced no thoughts of harm to self or others. He was oriented to circumstances and surroundings. ASSESSMENT: This 74-year-old male is diagnosed with depression and psychosis. It is not clear whether he has significant depression issues with psychotic features or whether he has distinct psychotic episodes with hallucinations and delusions. His situation is complicated by benzodiazepine use and needs to be off benzodiazepines altogether. We have very little information about his functioning at home from his previous discharge on the to when he presented to this hospital. He would be appropriate for a psychiatric admission when medically cleared. At this point, I will continue the patient on Zyprexa. I will increase his dose to 2.5 mg 3 times a day. I will discontinue Klonopin. I will continue to follow. MMODL / IJN: [id number] /
[2020-03-23] MEDS: METOPROLOL TARTRATE 50 MG TAB PO SCH ×2 (07:50→20:14)
[2020-03-23] MEDS: FLUoxetine HCL 20 MG CAP PO SCH (07:50)
[2020-03-23] MEDS: ASPIRIN 81 MG PO SCH (07:50)
[2020-03-23] MEDS: ATORVASTATIN 40 MG TAB PO SCH (07:50)
[2020-03-23] MEDS: CEPHALEXIN 500 MG CAP PO SCH ×3 (07:50→23:22)
[2020-03-23] MEDS: FERROUS SULFATE 325 MG TAB PO SCH (07:50)
[2020-03-23] MEDS: OLANZapine 2.5 MG TAB PO SCH ×3 (07:50→20:16)
[2020-03-23] MEDS ORDERED: ACETAMINOPHEN TAB 500 MG TAB PO PRN (11:54)
--- NOTE | 2020-03-23 19:36 | CONS ---
CONSULTATION DATE OF SERVICE: 03/23/2020 PURPOSE FOR CONSULTATION: Evaluate for altered mental status and psychosis. INTERVAL HISTORY: Patient has been doing fair. He had a quiet day yesterday. The best I am able to tell he has been cooperative with care. He was unclear about his sleep pattern, though seemed to suggest he did not sleep well last night. Today he has been up. Nursing notes that he has been in a good mood today. His thoughts seem clear. When I talked with him about transfer to the psychiatric unit he seemed to be quite comfortable with that. He had previously voiced concerns, though it is noted that he seemed to have some level of distress that almost sounded more of a posttraumatic issue than not. Today he voiced no issues at all about transfer. When I talked to him he pretty much was all smiles. He said that he has been working to try to get a clear idea of the events that have transpired and acknowledged that he has had some confusion that seems to be clear. He was appropriate in his communications. He was well oriented. ASSESSMENT: The patient appears to be improving. My understanding through nursing is that the plan is for the patient to be transferred tomorrow to Psychiatry, which does appear to be appropriate for his episodes of delusions and confusion. MMODL / IJN: [id number] /
[2020-03-24] MEDS: ATORVASTATIN 40 MG TAB PO SCH (07:04)
[2020-03-24] MEDS: FERROUS SULFATE 325 MG TAB PO SCH (07:04)
[2020-03-24] MEDS: CEPHALEXIN 500 MG CAP PO SCH ×3 (07:04→23:02)
[2020-03-24] MEDS: ASPIRIN 81 MG PO SCH (07:04)
[2020-03-24] MEDS: OLANZapine 2.5 MG TAB PO SCH ×3 (07:04→20:27)
[2020-03-24] MEDS: METOPROLOL TARTRATE 50 MG TAB PO SCH ×2 (07:04→20:27)
[2020-03-24] MEDS: FLUoxetine HCL 20 MG CAP PO SCH (07:04)
[2020-03-24 08:58] LABS: Anisocytosis Slight; Basophils # (A) 0.1 k/uL (0-0.2); Basophils % (A) 2 %; Eosinophils # (A) 0.4 k/uL (0-0.7); Eosinophils % (A) 4 %; HCT 43.3 % (39.0-53.0); HGB 14.7 gm/dL (13.0-17.5); Lymphocytes # (A) 2.9 k/uL (1.0-4.8); Lymphocytes % (A) 31 %; MCH 29.8 pg (25.0-35.0); MCHC 34.1 g/dL (31.0-37.0); MCV 87.5 fL (80.0-100.0); Mean Platelet Volume 7.2; Monocytes # (A) 0.7 k/uL (0-1.0); Monocytes % (A) 8 %; Neutrophils # (A) 4.8 k/uL (1.3-7.7); Neutrophils % (A) 52 %; Platelet Count 360 k/uL (150-450); RBC 4.95 m/uL (4.30-5.90); RDW 16.9 % (11.5-15.5); WBC 9.3 k/uL (3.8-10.6)
[2020-03-24 12:32] LABS: African American GFR (CKD) 77.3 (60.0-200.0); Albumin 4.5 g/dL (3.80-4.90); Albumin/Globulin Ratio 1.96 (1.60-3.17); Anion Gap 10.2 mmol/L (4.00-12.00); BUN/Creat Ratio 24.55 Ratio (12.00-20.00); Calcium 9.5 mg/dL (8.7-10.3); Carbon Dioxide 21.8 mmol/L (21.6-31.8); Globulin 2.3 g/dL (1.6-3.3); Non-African American GFR(CKD) 66.7 (60.0-200.0); Potassium 4.4 mmol/L (3.5-5.5); Total Bilirubin 0.5 mg/dL (0.3-1.2); Total Protein 6.8 g/dL (6.2-8.2)
--- NOTE | 2020-03-24 16:20 | P.HPIM ---
History of Present Illness H&P Date: 03/22/20 Chief Complaint: Altered mental status This is a 74-year-old male who was seen eval reexamined, patient was transferred from [facility] as he was brought in by police and EMS as he was not responding to the well check calls also when EMS arrived he was found to be on floor naked in feces, patient is very poor historian not much data can be obtained from him, most of the data from [facility] where he was admitted couple of weeks ago after a fall when he developed hematoma on the face as well as bruising in the chest, does hematoma however redressing appears to be stable, chest x-ray done in the [facility] as well as the labs were unremarkable, patient transferred to [facility] for psych evaluation due to his paranoid ideation and thoughts Review of Systems All systems: negative Past Medical History Past Medical History: Coronary Artery Disease (CAD), Hyperlipidemia, Liver Disease, Pneumonia, Renal Disease Additional Past Medical History / Comment(s): Pt recently admitted to [facility] on 03/13/20 lamictal toxicity/delirium, gait dysfunction, R periorbital hematoma/cellulitis, fall. Other hx: Hepatitis B, insomnia, some aphasia since CABG in 1998, anemia, chronic low back pain, nephrolithiasis. History of Any Multi-Drug Resistant Organisms: None Reported Past Surgical History: Coronary Bypass/CABG, Heart Catheterization, Orthopedic Surgery, Tonsillectomy Additional Past Surgical History / Comment(s): 1998 CABG 4 vessel, lithotripsy, ORIF L ankle, colonoscopy, RK eye surgery for vision correction Past Anesthesia/Blood Transfusion Reactions: No Reported Reaction Smoking Status: Never smoker - Past Family History Mother Family Medical History: No Reported History Additional Family Medical History / Comment(s): Pernicious anemia, eating disorder. Father Additional Family Medical History / Comment(s): EToh abuse. Medications and Allergies Home Medications Medication Instructions Recorded Confirmed Type Atorvastatin [Lipitor] 40 mg PO DAILY 08/14/19 03/21/20 History Ferrous Sulfate [Iron (65 MG 325 mg PO DAILY 03/13/20 03/21/20 History Elemental)] Aspirin 81 mg PO DAILY 03/15/20 03/21/20 History Cephalexin [Keflex] 500 mg PO Q8HR 1 Days #21 cap 03/15/20 03/21/20 Rx FLUoxetine HCL [PROzac] 20 mg PO DAILY #30 cap 03/15/20 03/21/20 Rx Metoprolol Tartrate [Lopressor] 50 mg PO BID #60 tab 03/15/20 03/21/20 Rx OLANZapine [ZyPREXA] 2.5 mg PO BID #60 tab 03/15/20 03/21/20 Rx clonazePAM [KlonoPIN] 0.5 mg PO HS tab 03/15/20 03/21/20 Rx Allergies Allergy/AdvReac Type Severity Reaction Status Date / Time No Known Allergies Allergy Verified 03/21/20 16:19 Physical Exam Vitals: Vital Signs Temp Pulse Resp BP Pulse Ox 03/22/20 14:00 98.3 F 75 20 156/81 94 L 03/22/20 07:54 98.7 F 80 16 108/71 95 03/22/20 02:15 98.4 F 88 142/83 95 03/21/20 19:35 98.2 F 89 17 162/94 96 Intake and Output 03/22/20 03/22/20 03/22/20 06:59 14:59 22:59 Intake Total 400 Output Total 800 Balance -400 Intake: Oral 400 Output: Urine 800 Other: # Voids 2 - Constitutional General appearance: average body habitus, cooperative, disheveled - EENT Resolving bruising on the forehead due to prior fall also on the chest wall Eyes: PERRLA Ears: bilateral: normal - Neck Carotids: bilateral: upstroke normal - Respiratory Respiratory: bilateral: CTA - Cardiovascular Rhythm: regular Heart sounds: normal: S1, S2 - Gastrointestinal General gastrointestinal: normal bowel sounds - Integumentary Integumentary: normal turgor - Neurologic Neurologic: CNII-XII intact - Musculoskeletal Musculoskeletal: gait normal, generalized weakness - Psychiatric Psychiatric: A&O x's 3 Results CBC & Chem 7: 03/24/20 08:21 03/24/20 08:21 Labs: Abnormal Lab Results - Last 24 Hours (Table) 03/22/20 03/22/20 Range/Units 06:33 06:33 RDW 16.8 H (11.5-15.5) % Carbon Dioxide 19.8 L (21.6-31.8) mmol/L Chest x-ray: report reviewed, image reviewed Thrombosis Risk Factor Assmnt - Choose All That Apply Any of the Below Risk Factors Present?: Yes Each Factor Represents 1 point: Obesity (BMI >25) Other Risk Factors: Yes Each Risk Factor Represents 2 Points: Age 61-74 years Other congenital or acquired thrombophilia - If yes, enter type in comment: No Thrombosis Risk Factor Assessment Total Risk Factor Score: 3 Thrombosis Risk Factor Assessment Level: Moderate Risk Assessment and Plan Assessment: Paranoid ideation Developing severe dementia Agitated behavior which is now appears to be stable History of coronary artery disease status post CABG History of hypertension hypertensive cardiovascular disease Plan: Resume home medications Psych consultation Gentle rehydration Monitor and observe clinical course closely Time with Patient: Greater than 30
--- NOTE | 2020-03-24 16:23 | P.PN ---
Subjective Progress Note Date: 03/23/20 Principal diagnosis: Paranoid ideation Developing severe dementia Agitated behavior which is now appears to be stable History of coronary artery disease status post CABG History of hypertension hypertensive cardiovascular disease 03/23/2020, patient overall remains calm but extremely talkative with flight of ideas, patient does not remember about most of the events surrounding but however recalls his dog and he states he cannot live without his dog This is a 74-year-old male who was seen eval reexamined, patient was transferred from [facility] as he was brought in by police and EMS as he was not responding to the well check calls also when EMS arrived he was found to be on floor naked in feces, patient is very poor historian not much data can be obtained from him, most of the data from [facility] where he was admitted couple of weeks ago after a fall when he developed hematoma on the face as well as bruising in the chest, does hematoma however redressing appears to be stable, chest x-ray done in the [facility] as well as the labs were unremarkable, patient transferred to [facility] for psych evaluation due to his paranoid ideation and thoughts Objective - Vital Signs Vital signs: Vital Signs Temp 98.2 F 03/23/20 08:00 Pulse 77 03/23/20 08:00 Resp 16 03/23/20 08:00 BP 123/72 03/23/20 08:00 Pulse Ox 95 03/23/20 08:00 Intake & Output 03/22/20 03/23/20 03/23/20 18:59 06:59 18:59 Intake Total 400 200 240 Output Total 2000 Balance -1600 200 240 Intake: Oral 400 200 240 Output: Urine 2000 Other: Voiding Method Urinal # Voids 2 # Bowel Movements 1 - Exam - Constitutional General appearance: average body habitus, cooperative, disheveled - EENT Resolving bruising on the forehead due to prior fall also on the chest wall Eyes: PERRLA Ears: bilateral: normal - Neck Carotids: bilateral: upstroke normal - Respiratory Respiratory: bilateral: CTA - Cardiovascular Rhythm: regular Heart sounds: normal: S1, S2 - Gastrointestinal General gastrointestinal: normal bowel sounds - Integumentary Integumentary: normal turgor - Neurologic Neurologic: CNII-XII intact - Musculoskeletal Musculoskeletal: gait normal, generalized weakness - Psychiatric Psychiatric: A&O x's 3 - Constitutional General appearance: Present: average body habitus - Labs CBC & Chem 7: 03/24/20 08:21 03/24/20 08:21 Assessment and Plan Assessment: Delusional and confusion disorder Paranoid ideation Developing severe dementia Agitated behavior which is now appears to be stable History of coronary artery disease status post CABG History of hypertension hypertensive cardiovascular disease Plan: Resume home medications Psych consultation Gentle rehydration Monitor and observe clinical course closely Plan to move to psychiatry once accepted Time with Patient: Greater than 30
--- NOTE | 2020-03-24 16:27 | P.DS ---
Providers Date of admission: 03/21/20 13:20 Expected date of discharge: 03/24/20 Attending physician: Ozzy Rubalcava Consults: 03/21/20 16:44 Consult Physician Routine Consulting Provider: Uli Flores Consult Reason/Comments: altered mental status Do you want consulting provider notified?: Yes Placement Type Exists?: Yes Primary care physician: [facility] Course: 03/24/2020, patient remains calm and quiet today, patient has been accepted in psychiatric unit where he will be discharged, will DC the IV fluids 03/23/2020, patient overall remains calm but extremely talkative with flight of ideas, patient does not remember about most of the events surrounding but however recalls his dog and he states he cannot live without his dog This is a 74-year-old male who was seen eval reexamined, patient was transferred from [facility] as he was brought in by police and EMS as he was not responding to the well check calls also when EMS arrived he was found to be on floor naked in feces, patient is very poor historian not much data can be obtained from him, most of the data from [facility] where he was admitted couple of weeks ago after a fall when he developed hematoma on the face as well as bruising in the chest, does hematoma however redressing appears to be stable, chest x-ray done in the [facility] as well as the labs were unremarkable, patient transferred to [facility] for psych evaluation due to his paranoid ideation and thoughts Assessment: Delusional and confusion disorder Paranoid ideation Developing severe dementia Agitated behavior which is now appears to be stable History of coronary artery disease status post CABG History of hypertension hypertensive cardiovascular disease Patient Condition at Discharge: Good Plan - Discharge Summary Discharge Rx Participant: No New Discharge Prescriptions: Continue Atorvastatin [Lipitor] 40 mg PO DAILY Ferrous Sulfate [Iron (65 MG Elemental)] 325 mg PO DAILY Aspirin 81 mg PO DAILY Cephalexin [Keflex] 500 mg PO Q8HR 1 Days #21 cap FLUoxetine HCL [PROzac] 20 mg PO DAILY #30 cap OLANZapine [ZyPREXA] 2.5 mg PO BID #60 tab clonazePAM [KlonoPIN] 0.5 mg PO HS tab Metoprolol Tartrate [Lopressor] 50 mg PO BID #60 tab Discharge Medication List Atorvastatin [Lipitor] 40 mg PO DAILY 08/14/19 [History] Ferrous Sulfate [Iron (65 MG Elemental)] 325 mg PO DAILY 03/13/20 [History] Aspirin 81 mg PO DAILY 03/15/20 [History] Cephalexin [Keflex] 500 mg PO Q8HR 1 Days #21 cap 03/15/20 [Rx] FLUoxetine HCL [PROzac] 20 mg PO DAILY #30 cap 03/15/20 [Rx] Metoprolol Tartrate [Lopressor] 50 mg PO BID #60 tab 03/15/20 [Rx] OLANZapine [ZyPREXA] 2.5 mg PO BID #60 tab 03/15/20 [Rx] clonazePAM [KlonoPIN] 0.5 mg PO HS tab 03/15/20 [Rx] Discharge Disposition: TRANSFER TO PSYCH HOSP/UNIT
[2020-03-25] MEDS: METOPROLOL TARTRATE 50 MG TAB PO SCH ×2 (07:40→22:14)
[2020-03-25] MEDS: OLANZapine 2.5 MG TAB PO SCH ×3 (07:40→22:14)
[2020-03-25] MEDS: CEPHALEXIN 500 MG CAP PO SCH ×2 (07:40→15:37)
[2020-03-25] MEDS: FLUoxetine HCL 20 MG CAP PO SCH (07:40)
[2020-03-25] MEDS: ATORVASTATIN 40 MG TAB PO SCH (07:40)
[2020-03-25] MEDS: FERROUS SULFATE 325 MG TAB PO SCH (07:40)
[2020-03-25] MEDS: ASPIRIN 81 MG PO SCH (07:40)
--- NOTE | 2020-03-25 20:26 | P.PN ---
Subjective Progress Note Date: 03/25/20 Principal diagnosis: Paranoid ideation Developing severe dementia Agitated behavior which is now appears to be stable History of coronary artery disease status post CABG History of hypertension hypertensive cardiovascular disease 03/25/2020 patient seen and evaluated examined overall no significant change it appears that the psych nurse canceled the discharge later on they change their mind psychiatrist is to be reconsulted to clear the transfer/discharge to psych unit 03/24/2020 as per psychiatric recommendation patient is being discharged to psych unit 03/23/2020, patient overall remains calm but extremely talkative with flight of ideas, patient does not remember about most of the events surrounding but however recalls his dog and he states he cannot live without his dog This is a 74-year-old male who was seen eval reexamined, patient was transferred from [facility] as he was brought in by police and EMS as he was not responding to the well check calls also when EMS arrived he was found to be on floor naked in feces, patient is very poor historian not much data can be obtained from him, most of the data from [facility] where he was admitted couple of weeks ago after a fall when he developed hematoma on the face as well as bruising in the chest, does hematoma however redressing appears to be stable, chest x-ray done in the [facility] as well as the labs were unremarkable, patient transferred to [facility] for psych evaluation due to his paranoid ideation and thoughts Objective - Vital Signs Vital signs: Vital Signs Temp 98.8 F 03/25/20 18:56 Pulse 80 03/25/20 18:56 Resp 18 03/25/20 18:56 BP 132/81 03/25/20 18:56 Pulse Ox 95 03/25/20 18:56 Intake & Output 03/25/20 03/25/20 03/26/20 06:59 18:59 06:59 Intake Total 100 450 Balance 100 450 Intake: Oral 100 450 Other: Voiding Method Toilet Toilet Urinal Urinal # Voids 2 2 - Exam - Constitutional General appearance: average body habitus, cooperative, disheveled - EENT Resolving bruising on the forehead due to prior fall also on the chest wall Eyes: PERRLA Ears: bilateral: normal - Neck Carotids: bilateral: upstroke normal - Respiratory Respiratory: bilateral: CTA - Cardiovascular Rhythm: regular Heart sounds: normal: S1, S2 - Gastrointestinal General gastrointestinal: normal bowel sounds - Integumentary Integumentary: normal turgor - Neurologic Neurologic: CNII-XII intact - Musculoskeletal Musculoskeletal: gait normal, generalized weakness - Psychiatric Psychiatric: A&O x's 3 - Labs CBC & Chem 7: 03/24/20 08:21 03/24/20 08:21 Assessment and Plan Assessment: Delusional and confusion disorder Paranoid ideation Developing severe dementia Agitated behavior which is now appears to be stable History of coronary artery disease status post CABG History of hypertension hypertensive cardiovascular disease Plan: Resume home medications Psych consultation Gentle rehydration Monitor and observe clinical course closely Plan to move to psychiatry once accepted Time with Patient: Greater than 30
[2020-03-25] MEDS ORDERED: MELATONIN 5 MG TABLET PO PRN (21:58)
[2020-03-26] MEDS: CEPHALEXIN 500 MG CAP PO SCH ×2 (00:14→08:51)
[2020-03-26] MEDS: ATORVASTATIN 40 MG TAB PO SCH (08:51)
[2020-03-26] MEDS: FLUoxetine HCL 20 MG CAP PO SCH (08:51)
[2020-03-26] MEDS: FERROUS SULFATE 325 MG TAB PO SCH (08:51)
[2020-03-26] MEDS: OLANZapine 2.5 MG TAB PO SCH (08:51)
[2020-03-26] MEDS: ASPIRIN 81 MG PO SCH (08:51)
[2020-03-26] MEDS: METOPROLOL TARTRATE 50 MG TAB PO SCH (08:51)
--- NOTE | 2020-03-26 13:54 | P.PN ---
Progress Note - Text Progress Note Date: 03/26/20 Interval History: Patient was seen in his room and was directable and agreeable to speak with the technical publications writer. Patient is agreeable with the plan to go to an inpatient psychiatric unit. Initially the patient presented well but as the interview progressed, patient displayed significant disorganization. He is unable to recall the events leading up to his hospitalization and does report significant paranoia. He reports that he was brought to the hospital because of issues with his neighbors. He is not endorsing any overt auditory or visual hallucinations. He is not reporting any suicidal or homicidal ideation, intention, and/or plan. He has been adherent with his prescribed medications is not reporting any significant side effects. Mental Status Exam: General Appearance: Patient appears to be stated age is alert, directable, and cooperative. Behavior: Patient is calmly seated without any agitated behavior. Speech: Patient's speech is fluent and nonpressured. Mood/Affect: Mood is "doing fine." affect is congruent and pleasant. Suicidality/Homicidality: Patient denies having any suicidal or homicidal ideation intent or plan. Perceptions: Patient denies any visual hallucinations and denies any auditory hallucinations Though content/process: Gross disorganization and paranoid thought content are evident. Thought process does not appear linear and at times is illogical. Memory and concentration: Patient is alert and oriented to person, place, and time but is not alert and oriented to situation. Concentration is grossly intact for the purposes of this session Judgment and insight: Appears poor. Assessment Psychosis, unspecified Plan: -The patient does meet criteria for inpatient psychiatric admission. The patient will be going to [facility] for geriatric psychiatric care. -Recommend continuing his prescribed medication regimen of Zyprexa 2.5 mg by mouth 3 times a day, and Prozac 20 by mouth daily -Patient cannot leave AMA at this time. Patient will need a petition and certification if attempting to leave AMA. -Psychiatry will sign off at this time, please contact with any questions.
[2020-03-26 14:45] VITALS: BP 107/66; PULSE 58; RESP 18; TEMP 98.2
== END 2020-03-26 15:50 | DRG 885 ==
LOC: 4SSUR 13:20
PROVIDERS: ADMIT Internal Medicine Sleep Medicine; ATTEND Internal Medicine Sleep Medicine
DX: F22 Delusional disorders (principal); R47.01 Aphasia; F03.90 Unspecified dementia, unspecified severity, without behavioral disturbance, psychotic disturbance, mood disturbance, and anxiety; I11.9 Hypertensive heart disease without heart failure; F60.0 Paranoid personality disorder; R62.7 Adult failure to thrive; F13.90 Sedative, hypnotic, or anxiolytic use, unspecified, uncomplicated; Z20.828 Contact with and (suspected) exposure to other viral communicable diseases; E78.5 Hyperlipidemia, unspecified; I25.10 Atherosclerotic heart disease of native coronary artery without angina pectoris; S00.83XA Contusion of other part of head, initial encounter; S20.219A Contusion of unspecified front wall of thorax, initial encounter; G89.29 Other chronic pain; M54.5 Low back pain; R29.6 Repeated falls; R26.9 Unspecified abnormalities of gait and mobility; G47.00 Insomnia, unspecified; N28.9 Disorder of kidney and ureter, unspecified; Z79.82 Long term (current) use of aspirin; Z79.899 Other long term (current) drug therapy; Z59.2 Discord with neighbors, lodgers and landlord; Z86.19 Personal history of other infectious and parasitic diseases; Z87.01 Personal history of pneumonia (recurrent); Z95.1 Presence of aortocoronary bypass graft; Z87.442 Personal history of urinary calculi; Z90.89 Acquired absence of other organs; Z86.69 Personal history of other diseases of the nervous system and sense organs; Z86.2 Personal history of diseases of the blood and blood-forming organs and certain disorders involving the immune mechanism; Z87.39 Personal history of other diseases of the musculoskeletal system and connective tissue; Z98.890 Other specified postprocedural states; W19.XXXA Unspecified fall, initial encounter; Z83.2 Family history of diseases of the blood and blood-forming organs and certain disorders involving the immune mechanism; Z83.49 Family history of other endocrine, nutritional and metabolic diseases; Z81.1 Family history of alcohol abuse and dependence
CPT/HCPCS: 80053; 84443; 85025; 87635

== ENCOUNTER → 2020-11-12 | Outpatient (CLI) | payer MEDICARE ==
--- NOTE | 2020-11-13 07:27 | NM ---
EXAMINATION TYPE: NM DatScan Brain SPECT DATE OF EXAM: 11/12/2020 COMPARISON: Outside head CT March 12, 2020 HISTORY: Femoris. TECHNIQUE: 10 drops of Lugol's solution was administered 1 hour prior to injection as a thyroid bloc chelsea agent. After the administration of 4.48 mCi I-123 Ioflupane DaTscan. Images obtained 3 hours p ost injection. SPECT images of the brain were acquired with axial and coronal reconstructions. FINDINGS: The DaTSCAN demonstrates normal uptake of tracer throughout the striata. Consequently there is no evidence of loss of the pre-synaptic dopaminergic terminals on this investig ation. IMPRESSION: This normal appearance is against a diagnosis of idiopathic Parkinson?s disease (PD) or a Parkinsonia n syndrome (PS) and is seen in healthy individuals and also patients with essential tremor (ET), drug induced parkinsonism, and vascular pseudo-parkinsonism.
== END | disposition home or self-care (01) ==
LOC: RADNMMAIN 10:45
PROVIDERS: ATTEND Psychiatry & Neurology Neurology
DX: G25.0 Essential tremor (principal); G21.19 Other drug induced secondary parkinsonism
CPT/HCPCS: 78803; A9584

== ENCOUNTER 2021-05-03 12:39 | Inpatient (IN) | payer MEDICARE ==
--- NOTE | 2021-05-03 13:14 | ED ---
Weakness HPI - General Chief complaint: Weakness Stated complaint: Weakness Time Seen by Provider: 05/03/21 12:50 Source: patient, EMS, RN notes reviewed, old records reviewed Mode of arrival: EMS Limitations: no limitations - History of Present Illness Initial comments: 75-year-old male history of bipolar disorder as well as kidney stones in the past who states that several weeks ago he fell is been able ambulate since he states he has some sharp stabbing pain in his left knee he also states she's not been able walk and has been crawling around on his knees for the past 2 weeks. He states he's not able to care for himself anymore he does state his been eating and drinking he believes well. MD Complaint: generalized weakness - Related Data Home Medications Medication Instructions Recorded Confirmed Escitalopram Oxalate [Lexapro] 10 mg PO DAILY 05/03/21 05/03/21 cloNIDine HCL 0.4 mg PO BID 05/03/21 05/03/21 lamoTRIgine 100 mg PO DAILY 05/03/21 05/03/21 lamoTRIgine 200 mg PO HS 05/03/21 05/03/21 Allergies Allergy/AdvReac Type Severity Reaction Status Date / Time No Known Allergies Allergy Verified 05/03/21 12:51 Review of Systems ROS Statement: Those systems with pertinent positive or pertinent negative responses have been documented in the HPI. ROS Other: All systems not noted in ROS Statement are negative. Past Medical History Past Medical History: Coronary Artery Disease (CAD), Hyperlipidemia, Liver Disease, Pneumonia, Renal Disease Additional Past Medical History / Comment(s): Pt recently admitted to [facility] on 03/13/20 lamictal toxicity/delirium, gait dysfunction, R periorbital hematoma/c ellulitis, fall. Other hx: Hepatitis B, insomnia, some aphasia since CABG in 1998, anemia, chronic low back pain, nephrolithiasis. History of Any Multi-Drug Resistant Organisms: None Reported Past Surgical History: Coronary Bypass/CABG, Heart Catheterization, Orthopedic Surgery, Tonsillectomy Additional Past Surgical History / Comment(s): 1998 CABG 4 vessel, lithotripsy, ORIF L ankle, colonoscopy, RK eye surgery for vision correction Past Anesthesia/Blood Transfusion Reactions: No Reported Reaction Past Psychological History: ADD/ADHD, Anxiety, Bipolar, Depression, Panic Disorder Smoking Status: Never smoker - Past Family History Mother Family Medical History: No Reported History Additional Family Medical History / Comment(s): Pernicious anemia, eating diso rder. Father Additional Family Medical History / Comment(s): EToh abuse. General Exam - General Exam Comments Initial Comments: Is a well-developed thin-appearing male with awake alert oriented 3 Limitations: no limitations General appearance: alert, in no apparent distress Head exam: Present: atraumatic, normocephalic, normal inspection Eye exam: Present: normal appearance, PERRL, EOMI. Absent: scleral icterus, conjunctival injection, periorbital swelling ENT exam: Present: mucous membranes dry, mucous membranes moist Neck exam: Present: normal inspection, full ROM, other (No stridor JVD or bruits). Absent: tenderness, meningismus, lymphadenopathy Respiratory exam: Present: normal lung sounds bilaterally. Absent: respiratory distress, wheezes, rales, rhonchi, stridor Cardiovascular Exam: Present: regular rate, normal rhythm, normal heart sounds. Absent: systolic murmur, diastolic murmur, rubs, gallop, clicks GI/Abdominal exam: Present: soft, normal bowel sounds. Absent: distended, tenderness, guarding, rebound, rigid Rectal exam: Present: deferred Extremities exam: Present: full ROM, tenderness, normal capillary refill, other ((E tenderness no obvious step-off or crepitation). Absent: pedal edema, joint swelling, calf tenderness Back exam: Present: normal inspection Neurological exam: Present: alert, oriented X3, CN II-XII intact Psychiatric exam: Present: normal affect, normal mood Skin exam: Present: warm, dry, intact, normal color. Absent: rash Course Vital Signs 05/03/21 05/03/21 12:41 14:00 Temperature 98.7 F Pulse Rate 82 80 Respiratory 18 16 Rate Blood Pressure 126/82 131/81 O2 Sat by Pulse 96 95 Oximetry EKG Findings - EKG Results: EKG: interpreted by MPD, sinus rhythm (Sinus rhythm with a rightward axis rate 84. Interval 162 QRS duration 92 QT since QTC 440/519 poor R-wave progression noted long QT) Medical Decision Making - Medical Decision Making I did discuss the findings with the patient as well as with Dr. Pacheco patient does have evidence of elevated troponin and bilateral infiltrates patient be admitted cardiology consultation. - Lab Data Result diagrams: 05/03/21 13:20 02/05/22 14:02 Lab Results 05/03/21 05/03/21 05/03/21 Range/Units 13:20 14:02 14:02 WBC 5.6 (3.8-10.6) k/uL RBC 5.55 (4.30-5.90) m/uL Hgb 16.6 (13.0-17.5) gm/dL Hct 52.2 (39.0-53.0) % MCV 93.9 (80.0-100.0) fL MCH 29.8 (25.0-35.0) pg MCHC 31.7 (31.0-37.0) g/dL RDW 14.9 (11.5-15.5) % Plt Count 241 (150-450) k/uL MPV 7.0 Neutrophils % 48 % Lymphocytes % 40 % Monocytes % 5 % Eosinophils % 4 % Basophils % 1 % Neutrophils # 2.7 (1.3-7.7) k/uL Lymphocytes # 2.2 (1.0-4.8) k/uL Monocytes # 0.3 (0-1.0) k/uL Eosinophils # 0.2 (0-0.7) k/uL Basophils # 0.1 (0-0.2) k/uL Hypochromasia Slight Sodium 138 (137-145) mmol/L Potassium 3.4 L (3.5-5.1) mmol/L Chloride 101 (98-107) mmol/L Carbon Dioxide 26 (22-30) mmol/L Anion Gap 11 mmol/L BUN 12 (9-20) mg/dL Creatinine 1.06 (0.66-1.25) mg/dL Est GFR (CKD-EPI)AfAm 81 (>60 ml/min/1.73 sqM) Est GFR (CKD-EPI)NonAf 70 (>60 ml/min/1.73 sqM) Glucose 103 H (74-99) mg/dL Calcium 9.1 (8.4-10.2) mg/dL Magnesium 1.8 (1.6-2.3) mg/dL Total Bilirubin 1.6 H (0.2-1.3) mg/dL AST 31 (17-59) U/L ALT 26 (4-49) U/L Alkaline Phosphatase 228 H (38-126) U/L Creatine Kinase 52 L (55-170) U/L Troponin I 0.076 H* (0.000-0.034) ng/mL Total Protein 7.1 (6.3-8.2) g/dL Albumin 3.7 (3.5-5.0) g/dL - Radiology Data Radiology results: report reviewed (Imaging reviewed evidence of bilateral infiltrates), image reviewed Disposition Clinical Impression: Pneumonia, Elevated troponin, Failure to thrive Disposition: ADMITTED IP TO THIS [facility] Condition: Fair Referrals: Krishna Rizzo MD [Primary Care Provider] - 1-2 days
[2021-05-03 13:26] LABS: Basophils # (A) 0.1 k/uL (0-0.2); Basophils % (A) 1 %; Eosinophils # (A) 0.2 k/uL (0-0.7); Eosinophils % (A) 4 %; HCT 52.2 % (39.0-53.0); HGB 16.6 gm/dL (13.0-17.5); Hypochromasia Slight; Lymphocytes # (A) 2.2 k/uL (1.0-4.8); Lymphocytes % (A) 40 %; MCH 29.8 pg (25.0-35.0); MCHC 31.7 g/dL (31.0-37.0); MCV 93.9 fL (80.0-100.0); Monocytes # (A) 0.3 k/uL (0-1.0); Monocytes % (A) 5 %; Neutrophils # (A) 2.7 k/uL (1.3-7.7); Neutrophils % (A) 48 %; Platelet Count 241 k/uL (150-450); RBC 5.55 m/uL (4.30-5.90); RDW 14.9 % (11.5-15.5); WBC 5.6 k/uL (3.8-10.6)
--- NOTE | 2021-05-03 13:43 | XR ---
EXAMINATION TYPE: XR chest 2V DATE OF EXAM: 05/03/2021 COMPARISON: Chest x-ray August 15, 2019 HISTORY: Generalized weakness. TECHNIQUE: Frontal and lateral views of the chest are obtained. FINDINGS: There are chronic parenchymal changes bilaterally with some areas of increased opacity in the periphery of the left lung and in the lung bases thought present. Overlying sternal wires and me diastinal clips are seen. Stable cardiomegaly. The osseous structures are demineralized. IMPRESSION: Cardiomegaly and chronic parenchymal changes with new areas of bilateral multifocal infi ltrate and/or edema may be present. Correlate clinically to exclude covid-19 infection.
--- NOTE | 2021-05-03 13:45 | XR ---
EXAMINATION TYPE: XR knee complete LT DATE OF EXAM: 05/03/2021 CLINICAL HISTORY: Pain for 2 weeks. Generalized weakness. TECHNIQUE: Three views of the left knee are obtained. COMPARISON: Left leg x-ray 2017 FINDINGS: There is no acute fracture/dislocation evident in left knee. Mild to moderate tricompartme nt joint space loss without spurring. The overlying soft tissue appears unremarkable. A posterior fa jordan is redemonstrated. Moderate posterior arterial calcification again seen. IMPRESSION: As above. No significant change from prior.
[2021-05-03 14:27] LABS: Albumin 3.7 g/dL (3.5-5.0); Calcium 9.1 mg/dL (8.4-10.2); Magnesium 1.8 mg/dL (1.6-2.3); Potassium 3.4 mmol/L (3.5-5.1); Total Bilirubin 1.6 mg/dL (0.2-1.3); Total Protein 7.1 g/dL (6.3-8.2)
[2021-05-03] MEDS ORDERED: HEPARIN SODIUM 1,000 UN/ML (10ML VL) IV ONE (15:02)
[2021-05-03] MEDS ORDERED: NITROGLYCERIN SL TABS 0.4 MG TAB SUBLINGUAL PRN (15:02)
[2021-05-03] MEDS ORDERED: AZITHROMYCIN 500 MG in SODIUM CHLORIDE 0.9% 250 ML IVPB STA (15:07)
[2021-05-03] MEDS ORDERED: cefTRIAXone IN SWFI 1,000 MG/10 ML SYRINGE IVP STA (15:07)
[2021-05-03] MEDS ORDERED: SODIUM CHLORIDE 0.9% 1,000 ML IV SCH (15:15)
[2021-05-03 17:11] LABS: Appearance,Urine Clear (Clear); Bilirubin,Urine Negative (Negative); Blood,Urine Negative (Negative); Color,Urine Yellow; Glucose,Urine (UA) Negative (Negative); Hyaline Casts,Urine 1 /lpf (0-2); Ketones,Urine Negative (Negative); Leukocyte Esterase,Urine Negative (Negative); Mucus,Urine Occasional /hpf; Nitrite,Urine Negative (Negative); Protein,Urine 1+ (Negative); RBC,Urine 1 /hpf (0-5); Squamous Epithelial Cell,Urine <1 /hpf (0-4); WBC,Urine 5 /hpf (0-5)
[2021-05-03] MEDS: lamoTRIgine 100 MG TAB PO SCH (22:32)
--- NOTE | 2021-05-03 23:26 | P.HPIM ---
History of Present Illness H&P Date: 05/03/21 Chief Complaint: weakness Patient is a 75-year-old male with a known history of coronary artery disease status post CABG four-vessel in 1998, hyperlipidemia, chronic liver disease, hepatitis B, chronic low back pain, nephrolithiasis status post lithotripsy, ORIF left ankle, Parkinson's disease, history of psychosis and other medical problems presents to ER with complaints of generalized weakness and not feeling well. Patient states that he fell about 2 weeks ago and since then he is not able to flex his left foot and is not able to walk. Has been crawling the status on his knees and by the time she gets to the first floor he felt very short of breath and winded. Patient is unable to take care of himself anymore and called EMS, presented to the ER. Denied any complaints of chest pain. No nausea vomiting abdominal pain or diarrhea. No dysuria or hematuria. Denies any fever or chills. No recent illnesses. Chest x-ray showed cardiomegaly and chronic parenchymal changes with new areas of bilateral multifocal infiltrate and/or edema may be present. Correlate clinically to exclude COVID-19 infection. EKG showed normal sinus rhythm. X-ray of the left knee showed no acute fracture or dislocation evident in the left knee. Mild to moderate tricompartment joint space loss without spurring. Laboratory data showed WBC 5.6 hemoglobin 16.6 and platelets 241 Sodium 138 potassium 3.4 chloride 101 BUN 12 and creatinine 1.06 and blood sugar is 103 Magnesium 1.8 total bilirubin level is 1.6 alk phos 228 CK 52 troponin 0 0.076, 0.072 and proBNP 35732 Urinalysis is negative for infection COVID-19 PCR not detected. Review of Systems Constitutional: Patient denies any fever or chills . Patient does have generalized weakness and fatigue. Abdomen: Patient denied nausea vomiting and diarrhea and abdominal pain. Cardiovascular: Patient denies any chest pain. Patient does have short of breath no palpitations. Respiratory: patient denied any cough or sputum production. Does have shortness of breath Neurologic: Patient denied any numbness or tingling headache. Musculoskeletal: Patient denies any complaints of joint swelling or deformity. Left knee pain and left foot drop. Skin: Negative Psychiatric: Negative Endocrine: No heat or cold intolerance. No recent weight gain. Genitourinary: No dysuria or hematuria. All other 14 point ROS negative except the above Past Medical History Past Medical History: Coronary Artery Disease (CAD), Hyperlipidemia, Liver Disease, Pneumonia, Renal Disease Additional Past Medical History / Comment(s): 03/13/20 lamictal toxicity/d elirium, gait dysfunction, R periorbital hematoma/cellulitis, fall. Other hx: Hepatitis B, insomnia, some aphasia since CABG in 1998, anemia, chronic low back pain, nephrolithiasis. History of Any Multi-Drug Resistant Organisms: None Reported Past Surgical History: Coronary Bypass/CABG, Heart Catheterization, Orthopedic Surgery, Tonsillectomy Additional Past Surgical History / Comment(s): 1998 CABG 4 vessel, lithotripsy, ORIF L ankle, colonoscopy, RK eye surgery for vision correction Past Anesthesia/Blood Transfusion Reactions: No Reported Reaction Smoking Status: Never smoker - Past Family History Mother Family Medical History: No Reported History Additional Family Medical History / Comment(s): Pernicious anemia, eating disorder. Father Additional Family Medical History / Comment(s): EToh abuse. Medications and Allergies Home Medications Medication Instructions Recorded Confirmed Type Escitalopram Oxalate [Lexapro] 10 mg PO DAILY 05/03/21 05/03/21 History cloNIDine HCL 0.4 mg PO BID 05/03/21 05/03/21 History lamoTRIgine 100 mg PO DAILY 05/03/21 05/03/21 History lamoTRIgine 200 mg PO HS 05/03/21 05/03/21 History Allergies Allergy/AdvReac Type Severity Reaction Status Date / Time No Known Allergies Allergy Verified 05/03/21 12:51 Physical Exam Vitals: Vital Signs Temp Pulse Resp BP BP Pulse Ox 05/03/21 17:16 98 F 18 108/72 96 05/03/21 16:51 90 18 107/70 96 05/03/21 16:00 99 18 118/93 99 05/03/21 14:00 80 16 131/81 95 05/03/21 12:41 98.7 F 82 18 126/82 96 Intake and Output 05/03/21 05/03/21 05/04/21 14:59 22:59 06:59 Intake Total 240 Balance 240 Intake: Oral 240 Other: # Voids 1 Weight 83.915 kg 83.915 kg PHYSICAL EXAMINATION: Patient is lying in the bed comfortably, no acute distress, awake alert and oriented.. HEENT: Normocephalic. Neck is supple. Pupils reactive. Nostrils clear. Oral cavity is moist. Neck reveals no JVD, carotid bruits, or thyromegaly. CHEST EXAMINATION: Trachea is central. Symmetrical expansion. Bibasilar diminished sounds and crackles.. No rhonchi or wheezing.. CARDIAC: Normal S1, S2 with no gallops. No murmurs ABDOMEN: Soft. Bowel sounds normal. No organomegaly. No abdominal bruits. Extremities: reveal no edema. No clubbing or cyanosis. Neurologically awake, alert, oriented x3 with well-coordinated movements. No gross focal deficits noted. Unable to dorsiflex left foot. Skin: No rash or skin lesions. Psychiatric: Cooperative. Nonsuicidal Musculoskeletal: No joint swelling or deformity. Normal range of motion. Results CBC & Chem 7: 05/03/21 13:20 05/03/21 14:02 Labs: Abnormal Lab Results - Last 24 Hours (Table) 05/03/21 05/03/21 05/03/21 Range/Units 14:02 14:02 16:51 Potassium 3.4 L (3.5-5.1) mmol/L Glucose 103 H (74-99) mg/dL Total Bilirubin 1.6 H (0.2-1.3) mg/dL Alkaline Phosphatase 228 H (38-126) U/L Creatine Kinase 52 L (55-170) U/L Troponin I 0.076 H* (0.000-0.034) ng/mL Urine Protein 1+ H (Negative) Urine Mucus Occasional H (None) /hpf 05/03/21 Range/Units 20:30 Potassium (3.5-5.1) mmol/L Glucose (74-99) mg/dL Total Bilirubin (0.2-1.3) mg/dL Alkaline Phosphatase (38-126) U/L Creatine Kinase (55-170) U/L Troponin I 0.072 H* (0.000-0.034) ng/mL Urine Protein (Negative) Urine Mucus (None) /hpf Thrombosis Risk Factor Assmnt - DVT/VTE Prophylaxis DVT/VTE Prophylaxis: Pharmacologic Prophylaxis ordered - Choose All That Apply Each Risk Factor Represents 2 Points: Age 61-74 years Thrombosis Risk Factor Assessment Total Risk Factor Score: 2 Thrombosis Risk Factor Assessment Level: Low Risk Assessment and Plan Assessment: Shortness of breath likely multifactorial. Acute CHF. EF not known. Elevated troponin level. Bibasilar multifocal infiltrate/pneumonia. Concern for COVID-19 Infection. PCR negative. Patient is not vaccinated. Generalized weakness and fatigue and unable to take care of himself. Coronary artery disease history of quadruple bypass graft in 1998 Hyperlipidemia Hepatitis B Chronic low back pain Nephrolithiasis with status post lithotripsy ORIF left ankle Parkinson's disease History of psychosis. DVT prophylaxis Heparin subcu Plan: Patient will be continued on antibiotics in the form of ceftriaxone and azithromycin. Follow-up CRP LDH and procalcitonin level. Continue with Lasix 20 mg IV every 12 and monitor respiratory status closely and repeat chest x-ray tomorrow a.m. Cardiology was consulted due to elevated troponin level. Continue with home medications and follow-up closely. PT OT will be consulted. Patient may need rehab transfer. Prognosis is guarded at this time. Time with Patient: Greater than 30
[2021-05-03] MEDS: FUROSEMIDE 10 MG/ML 2 ML VIAL IV SCH (23:45)
[2021-05-04] MEDS: HEPARIN SODIUM,PORCINE/PF 5,000 UNIT/0.5 ML SYRINGE SQ SCH ×3 (00:05→18:39)
[2021-05-04] MEDS: MAGNESIUM SULFATE-D5W PMX 1 GM in DEXTROSE/WATER 1 100ML.BAG IVPB SCH ×2 (01:45→04:45)
--- NOTE | 2021-05-04 06:31 | XR ---
EXAMINATION TYPE: XR chest 1V DATE OF EXAM: 05/04/2021 CLINICAL HISTORY: Difficulty breathing progress study. TECHNIQUE: Single AP portable upright view of the chest is obtained. COMPARISON: Chest x-ray from one day earlier and older studies. FINDINGS: There are chronic parenchymal changes bilaterally with some multifocal areas of increased opacity. Overlying sternal wires and mediastinal clips are redemonstrated. Stable cardiomegaly. Old posterior lateral right mid rib fractures are noted. IMPRESSION: Cardiomegaly and chronic parenchymal changes with worsening bilateral multifocal opaciti es consistent with infiltrate and/or edema. Correlate clinically to exclude covid-19 infection.
[2021-05-04 08:40] LABS: African American GFR (CKD) 75 (>60 ml/min/1.73 sqM); Anion Gap 13 mmol/L; Blood Urea Nitrogen 18 mg/dL (9-20); C Reactive Protein 1.5 mg/dL (<1.0); Carbon Dioxide 26 mmol/L (22-30); Chloride 98 mmol/L (98-107); Glucose 86 mg/dL (74-99); LDH 842 U/L (313-618); Non-African American GFR(CKD) 65 (>60 ml/min/1.73 sqM); Potassium 3.3 mmol/L (3.5-5.1); Sodium 137 mmol/L (137-145)
[2021-05-04] MEDS ORDERED: ASPIRIN 325 MG TAB PO SCH (09:00)
[2021-05-04] MEDS: FUROSEMIDE 10 MG/ML 2 ML VIAL IV SCH ×2 (09:02→21:22)
[2021-05-04] MEDS: ESCITALOPRAM 10 MG TAB PO SCH (09:03)
[2021-05-04] MEDS: lamoTRIgine 100 MG TAB PO SCH ×2 (09:03→20:20)
[2021-05-04 11:18] LABS: Chol/HDL Ratio 4.11 Ratio; LDL Cholesterol,Calculated 130.5 mg/dL (0.0-131.0)
--- NOTE | 2021-05-04 12:26 | P.CRDCN ---
History of Present Illness Consult date: 05/04/21 Requesting physician: Radha Pacheco Reason for Consult (text): Elevated troponin Chief complaint: inability to ambulate History of present illness: This pleasant 75-year-old gentleman who follows with Dr. Mercedes in the office. He has a history of CABG over 20 years ago, hyperlipidemia, long-standing psychiatric history. Presented to the hospital with inability to ambulate. Apparently for the last 2 weeks he has been unable to walk on his left leg. He is able to lift the leg but cannot move the foot at all. Unable to move the toes unable to dorsiflex or plantar flex. On admission chest x-ray showed evidence of pneumonia. We're consulted to see the patient due to an elevation of troponins which came back at 0.076, 0.072 0.078. NT proBNP was also elevated at 14,300. He denies having any chest discomfort. Does feel that he is more short of breath but has been crawling around crawling up and down stairs which she feels is more difficult in walking and therefore is exerting himself more. EKG on admission showed sinus mechanism with no acute changes indicative of ischemia. Vital signs are stable. He is afebrile. Past Medical History Past Medical History: Coronary Artery Disease (CAD), Hyperlipidemia, Liver Disease, Pneumonia, Renal Disease Additional Past Medical History / Comment(s): 03/13/20 lamictal toxicity/delirium, gait dysfunction, R periorbital hematoma/cellulitis, fall. Other hx: Hepatitis B, insomnia, some aphasia since CABG in 1998, anemia, chronic low back pain, nephrolithiasis. History of Any Multi-Drug Resistant Organisms: None Reported Past Surgical History: Coronary Bypass/CABG, Heart Catheterization, Orthopedic Surgery, Tonsillectomy Additional Past Surgical History / Comment(s): 1998 CABG 4 vessel, lithotripsy, ORIF L ankle, colonoscopy, RK eye surgery for vision correction Past Anesthesia/Blood Transfusion Reactions: No Reported Reaction Smoking Status: Never smoker - Past Family History Mother Family Medical History: No Reported History Additional Family Medical History / Comment(s): Pernicious anemia, eating disorder. Father Additional Family Medical History / Comment(s): EToh abuse. Medications and Allergies Home Medications Medication Instructions Recorded Confirmed Type Escitalopram Oxalate [Lexapro] 10 mg PO DAILY 05/03/21 05/03/21 History cloNIDine HCL 0.4 mg PO BID 05/03/21 05/03/21 History lamoTRIgine 100 mg PO DAILY 05/03/21 05/03/21 History lamoTRIgine 200 mg PO HS 05/03/21 05/03/21 History Allergies Allergy/AdvReac Type Severity Reaction Status Date / Time No Known Allergies Allergy Verified 05/03/21 12:51 Physical Exam Vitals: Vital Signs Temp Pulse Pulse Resp BP BP Pulse Ox 05/04/21 11:36 98 F 72 18 106/66 98 05/04/21 08:00 97.9 F 68 18 100/60 94 L 05/04/21 04:00 98.1 F 93 18 99 05/04/21 02:00 92 18 05/04/21 00:00 98.0 F 92 18 111/67 97 05/03/21 20:00 97.9 F 94 18 115/67 98 05/03/21 17:16 98 F 18 108/72 96 05/03/21 16:51 90 18 107/70 96 05/03/21 16:00 99 18 118/93 99 05/03/21 14:00 80 16 131/81 95 05/03/21 12:41 98.7 F 82 18 126/82 96 Intake and Output 05/03/21 05/04/21 05/04/21 22:59 06:59 14:59 Intake Total 240 440 Output Total 720 Balance 240 -280 Intake: Intake, IV Titration 200 Amount Magnesium Sulfate-D5w Pmx 200 1 gm In Dextrose/Water 1 100ml.bag @ 100 mls/hr IVPB Q1H [facility] Rx#: [id number] Oral 240 240 Output: Urine 720 Other: Voiding Method Bedpan Bedpan Bedpan Urinal Urinal Urinal # Voids 1 Weight 83.915 kg PHYSICAL EXAMINATION: This is a 75-year-old male in no apparent distress at the time of my examination. VITAL SIGNS: Blood pressure 106/66, heart rate 72, respirations 18, temp 98F. Patient is 98 % on Room air. HEENT: Head is atraumatic, normocephalic. Pupils are equal, round. Sclerae anicteric. Conjunctivae are clear. Mucous membranes of the mouth are moist. Neck is supple. There is no elevated jugular venous pressure. No carotid bruit is heard. CHEST EXAMINATION: Clear to auscultation bilaterally. No wheezes rales or rhonchi. Respirations even and nonlabored. HEART EXAMINATION: Heart regular, positive S1 and S2. No S3. No S4. With a systolic murmur. ABDOMEN: Soft, nontender. Bowel sounds are heard. No organomegaly noted. EXTREMITIES: 2+ peripheral pulses with no evidence of peripheral edema and no calf tenderness noted. NEUROLOGIC EXAMINATION: Patient is awake, alert and oriented x3. Left foot weakness with inability to dorsiflex or plantarflex the left foot. 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 0.076 H* 05/03/21 05/03/21 05/04/21 Range/Units 20:30 22:54 07:30 AST (17-59) U/L Lactate Dehydrogenase 842 H (313-618) U/L Troponin I 0.072 H* 0.078 H* Lipids 05/04/21 Range/Units 07:30 Triglycerides 112.00 (0.00-149.00) mg/dL Cholesterol 202.00 H (0.00-200.00) mg/dL HDL Cholesterol 49.10 (40.00-60.00) mg/dL Cholesterol/HDL Ratio 4.11 Ratio CBC 05/03/21 Range/Units 13:20 WBC 5.6 (3.8-10.6) k/uL RBC 5.55 (4.30-5.90) m/uL Hgb 16.6 (13.0-17.5) gm/dL Hct 52.2 (39.0-53.0) % Plt Count 241 (150-450) k/uL Comprehensive Metabolic Panel 05/03/21 05/04/21 Range/Units 14:02 07:30 Sodium 138 137 (137-145) mmol/L Potassium 3.4 L 3.3 L (3.5-5.1) mmol/L Chloride 101 98 (98-107) mmol/L Carbon Dioxide 26 26 (22-30) mmol/L BUN 12 18 (9-20) mg/dL Creatinine 1.06 1.12 (0.66-1.25) mg/dL Glucose 103 H 86 (74-99) mg/dL Calcium 9.1 9.0 (8.4-10.2) mg/dL AST 31 (17-59) U/L ALT 26 (4-49) U/L Alkaline Phosphatase 228 H (38-126) U/L Total Protein 7.1 (6.3-8.2) g/dL Albumin 3.7 (3.5-5.0) g/dL Current Medications Generic Name Dose Route Start Last Admin Trade Name Freq PRN Reason Stop Dose Admin Aspirin 81 mg 05/05/21 09:00 Aspirin 81 Mg PO DAILY [facility] Atorvastatin Calcium 40 mg 05/04/21 11:45 Atorvastatin 40 Mg Tab PO DAILY [facility] Azithromycin 500 mg 05/04/21 16:00 Azithromycin 500 Mg Tab PO DAILY@1600 [facility] Escitalopram Oxalate 10 mg 05/04/21 09:00 05/04/21 09:03 Escitalopram 10 Mg Tab PO 10 mg DAILY [facility] Administration Furosemide 20 mg 05/03/21 23:45 05/04/21 09:02 Furosemide 10 Mg/Ml 2 Ml Vial IV 20 mg Q12HR [facility] Administration Heparin Sodium (Porcine) 5,000 unit 05/04/21 00:00 05/04/21 09:03 Heparin Sodium,Porcine/Pf 5,000 Unit/0.5 Ml Syringe SQ 5,000 unit Q8HR [facility] Administration Ceftriaxone Sodium 1 gm/ 50 mls @ 100 mls/hr 05/04/21 15:00 Sodium Chloride IVPB Q24H [facility] Lamotrigine 200 mg 05/03/21 21:00 05/03/21 22:32 Lamotrigine 100 Mg Tab PO 100 mg HS [facility] Administration Lamotrigine 100 mg 05/04/21 09:00 05/04/21 09:03 Lamotrigine 100 Mg Tab PO 100 mg DAILY [facility] Administration Metoprolol Tartrate 12.5 mg 05/04/21 11:45 Metoprolol Tartrate 12.5 Mg Tab PO BID [facility] Nitroglycerin 0.4 mg 05/03/21 15:02 Nitroglycerin Sl Tabs 0.4 Mg Tab SUBLINGUAL Q5M PRN Chest Pain Sodium Chloride 10 ml 05/03/21 21:00 05/04/21 09:04 Sodium Chloride 0.9% Flush 10 Ml Syringe IV 10 ml Q12HR [facility] Administration Sodium Chloride 10 ml 05/03/21 15:09 Sodium Chloride 0.9% Flush 10 Ml Syringe IV DIRECTED PRN FLUSH Intake and Output 05/03/21 05/04/21 05/04/21 22:59 06:59 14:59 Intake Total 240 440 Output Total 720 Balance 240 -280 Intake: Intake, IV Titration 200 Amount Magnesium Sulfate-D5w Pmx 200 1 gm In Dextrose/Water 1 100ml.bag @ 100 mls/hr IVPB Q1H [facility] Rx#: [id number] Oral 240 240 Output: Urine 720 Other: Voiding Method Bedpan Bedpan Bedpan Urinal Urinal Urinal # Voids 1 Weight 83.915 kg 05/03/21 13:20 05/04/21 07:30 Assessment and Plan Assessment: #1 shortness of breath, multifactorial #2 acute congestive heart failure, with an NT proBNP of 14,300, LV function unknown at this time #3 pneumonia #4 abnormal troponin levels, not consistent with acute myocardial injury 5 CAD with history of CABG in 1998 #6 hyperlipidemia #7 history of psychiatric disorder Plan: From 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 Continue IV Lasix. Will obtain a 2-D echo with Doppler study to assess cardiac structure and function. We will continue to follow the patient with further recommendations accordingly. WOODWORKING MACHINE OPERATOR note has been reviewed, I agree with a documented findings and plan of care. Patient was seen and examined.
[2021-05-04] MEDS: ATORVASTATIN 40 MG TAB PO SCH (14:09)
[2021-05-04] MEDS: AZITHROMYCIN 500 MG TAB PO SCH (14:09)
[2021-05-04] MEDS: METOPROLOL TARTRATE 12.5 MG TAB PO SCH ×2 (14:09→21:22)
--- NOTE | 2021-05-04 14:32 | US ---
EXAMINATION TYPE: US venous doppler duplex LE DATE OF EXAM: 05/04/2021 2:06 PM COMPARISON: NONE CLINICAL HISTORY: Concern for clot. Left leg pain. No redness. No swelling. SIDE PERFORMED: Bilateral TECHNIQUE: The lower extremity deep venous system is examined utilizing real time linear array sonog renetta with graded compression, doppler sonography and color-flow sonography. VESSELS IMAGED: Common Femoral Vein Deep Femoral Vein Greater Saphenous Vein * Femoral Vein Popliteal Vein Small Saphenous Vein * Proximal Calf Veins (* superficial vessels) Right Leg: Negative for DVT Left Leg: Negative for DVT IMPRESSION: 1. No sonographic evidence of deep venous thrombosis in the right or left leg. 2. Grayscale, color doppler, spectral doppler imaging performed of the deep veins of the lower extre mities. There is normal flow, compressibility, vascular waveforms.
[2021-05-05] MEDS ORDERED: POTASSIUM CHLORIDE ER 20 MEQ TAB.ER PO STA (00:01)
--- NOTE | 2021-05-05 00:06 | P.PN ---
Subjective Progress Note Date: 05/04/21 Patient is a 75-year-old male with a known history of coronary artery disease status post CABG four-vessel in 1998, hyperlipidemia, chronic liver disease, hepatitis B, chronic low back pain, nephrolithiasis status post lithotripsy, ORIF left ankle, Parkinson's disease, history of psychosis and other medical problems presents to ER with complaints of generalized weakness and not feeling well. Patient states that he fell about 2 weeks ago and since then he is not able to flex his left foot and is not able to walk. Has been crawling the status on his knees and by the time she gets to the first floor he felt very short of breath and winded. Patient is unable to take care of himself anymore and called EMS, presented to the ER. Denied any complaints of chest pain. No nausea vomiting abdominal pain or diarrhea. No dysuria or hematuria. Denies any fever or chills. No recent illnesses. Chest x-ray showed cardiomegaly and chronic parenchymal changes with new areas of bilateral multifocal infiltrate and/or edema may be present. Correlate clinically to exclude COVID-19 infection. EKG showed normal sinus rhythm. X-ray of the left knee showed no acute fracture or dislocation evident in the le ft knee. Mild to moderate tricompartment joint space loss without spurring. Laboratory data showed WBC 5.6 hemoglobin 16.6 and platelets 241 Sodium 138 potassium 3.4 chloride 101 BUN 12 and creatinine 1.06 and blood sugar is 103 Magnesium 1.8 total bilirubin level is 1.6 alk phos 228 CK 52 troponin 0 0.076, 0.072 and proBNP 68914 Urinalysis is negative for infection COVID-19 PCR not detected. 05/04/2021 Patient is currently in telemetry unit. Lying in the bed comfortably. Shortness of breath did improve. Patient is awake alert. Otherwise patient is stating that she he wants to be discharged and wants to take care of his dog at home. Otherwise patient is able to ambulate by himself and apparently has been crawling at home. Patient was seen by cardiology and recommends to continue IV Lasix. 2D echocardiogram was ordered. Replace potassium and follow closely. Psychiatry service will be consulted as well. Current medications reviewed. Objective - Vital Signs Vital signs: Vital Signs Temp 98.3 F 05/04/21 20:11 Pulse 65 05/04/21 20:11 Resp 18 05/04/21 20:11 BP 99/65 05/04/21 21:21 Pulse Ox 94 L 05/04/21 20:11 Intake & Output 05/04/21 05/04/21 05/05/21 06:59 18:59 06:59 Intake Total 440 Output Total 720 Balance -280 Intake: Intake, IV Titration 200 Amount Magnesium Sulfate-D5w Pmx 200 1 gm In Dextrose/Water 1 100ml.bag @ 100 mls/hr IVPB Q1H [facility] Rx#: [id number] Oral 240 Output: Urine 720 Other: Voiding Method Bedpan Bedpan Urinal Urinal # Voids 2 - Exam PHYSICAL EXAMINATION: Patient is lying in the bed comfortably, no acute distress, awake alert and oriented.. HEENT: Normocephalic. Neck is supple. Pupils reactive. Nostrils clear. Oral cavity is moist. Neck reveals no JVD, carotid bruits, or thyromegaly. CHEST EXAMINATION: Trachea is central. Symmetrical expansion. Bibasilar diminished sounds and crackles.. No rhonchi or wheezing.. CARDIAC: Normal S1, S2 with no gallops. No murmurs ABDOMEN: Soft. Bowel sounds normal. No organomegaly. No abdominal bruits. Extremities: reveal no edema. No clubbing or cyanosis. Neurologically awake, alert, oriented x3 with well-coordinated movements. No gross focal deficits noted. Unable to dorsiflex left foot. Skin: No rash or skin lesions. Psychiatric: Cooperative. Nonsuicidal Musculoskeletal: No joint swelling or deformity. Normal range of motion. - Labs CBC & Chem 7: 05/03/21 13:20 05/04/21 07:30 Labs: Abnormal Lab Results - Last 24 Hours (Table) 05/03/21 05/03/21 05/04/21 Range/Units 20:30 22:54 07:30 Potassium 3.3 L (3.5-5.1) mmol/L Lactate Dehydrogenase 842 H (313-618) U/L Troponin I 0.072 H* 0.078 H* (0.000-0.034) ng/mL C-Reactive Protein 1.5 H (<1.0) mg/dL Cholesterol 202.00 H (0.00-200.00) mg/dL Procalcitonin (0.02-0.09) ng/mL 05/04/21 Range/Units 07:30 Potassium (3.5-5.1) mmol/L Lactate Dehydrogenase (313-618) U/L Troponin I (0.000-0.034) ng/mL C-Reactive Protein (<1.0) mg/dL Cholesterol (0.00-200.00) mg/dL Procalcitonin 0.12 H (0.02-0.09) ng/mL Assessment and Plan Assessment: Shortness of breath likely multifactorial. Acute CHF. EF not known. Elevated troponin level. Bibasilar multifocal infiltrate/pneumonia. Concern for COVID-19 Infection. PCR negative. Patient is not vaccinated.Low suspicion for bacterial pneumonia. Procalcitonin level is 0.12 Generalized weakness and fatigue and unable to take care of himself. Coronary artery disease history of quadruple bypass graft in 1998 Hyperlipidemia Hepatitis B Chronic low back pain Nephrolithiasis with status post lithotripsy ORIF left ankle Parkinson's disease History of psychosis. DVT prophylaxis Heparin subcu Plan: Patient will be continued on antibiotics in the form of ceftriaxone and az ithromycin. Procalcitonin level 0.12, CRP 1.5, LDH 842. Continue with Lasix 20 mg IV every 12 and monitor respiratory status closely , Cardiology was consulted due to elevated troponin level.2D echocardiogram was ordered. Continue with home medications and follow-up closely. PT OT will be consulted. Patient may need rehab transfer. Prognosis is guarded at this time. Time with Patient: Greater than 30
[2021-05-05] MEDS: HEPARIN SODIUM,PORCINE/PF 5,000 UNIT/0.5 ML SYRINGE SQ SCH ×4 (00:25→22:31)
[2021-05-05 07:15] LABS: Basophils % (A) 1 %; Eosinophils % (A) 6 %; HGB 15.8 gm/dL (13.0-17.5); Hypochromasia Slight; Lymphocytes # (A) 3.5 k/uL (1.0-4.8); Lymphocytes % (A) 47 %; MCH 29.8 pg (25.0-35.0); MCHC 31.5 g/dL (31.0-37.0); MCV 94.6 fL (80.0-100.0); Mean Platelet Volume 7.4; Monocytes % (A) 6 %; Neutrophils # (A) 2.7 k/uL (1.3-7.7); Neutrophils % (A) 37 %; Platelet Count 257 k/uL (150-450); RBC 5.29 m/uL (4.30-5.90); RDW 14.8 % (11.5-15.5); WBC 7.4 k/uL (3.8-10.6)
[2021-05-05 07:16] LABS: Basophils # (A) 0.1 k/uL (0-0.2); Eosinophils # (A) 0.4 k/uL (0-0.7); Monocytes # (A) 0.4 k/uL (0-1.0)
[2021-05-05 07:45] LABS: Calcium 8.9 mg/dL (8.4-10.2); Potassium 3.7 mmol/L (3.5-5.1)
--- NOTE | 2021-05-05 07:45 | XR ---
EXAMINATION TYPE: XR chest 1V DATE OF EXAM: 05/05/2021 COMPARISON: 05/04/2021 HISTORY: 75-year-old male increased shortness of breath, COVID TECHNIQUE: Single frontal view of the chest is obtained. FINDINGS: Median sternotomy wires and postoperative clips in the mediastinum. Heart upper limits of normal in s ize. Fine interstitial and patchy peripheral opacities persist with possible slight improvement. No p leural effusion. No pneumothorax. IMPRESSION: Fine interstitial and patchy peripheral COVID infiltrates are similar to slightly improved.
[2021-05-05] MEDS: FUROSEMIDE 10 MG/ML 2 ML VIAL IV SCH (08:21)
[2021-05-05] MEDS: ATORVASTATIN 40 MG TAB PO SCH (08:21)
[2021-05-05] MEDS: ESCITALOPRAM 10 MG TAB PO SCH (08:21)
[2021-05-05] MEDS: lamoTRIgine 100 MG TAB PO SCH ×2 (08:21→20:20)
[2021-05-05] MEDS: METOPROLOL TARTRATE 12.5 MG TAB PO SCH ×2 (08:21→20:20)
[2021-05-05] MEDS: ASPIRIN 81 MG PO SCH (08:22)
--- NOTE | 2021-05-05 10:33 | CT ---
EXAMINATION TYPE: CT brain wo con DATE OF EXAM: 05/05/2021 COMPARISON: 08/14/2019 HISTORY: Left-sided weakness, rule out CVA CT DLP: 1137.4 mGycm Automated exposure control for dose reduction was used. FINDINGS: Moderate to severe generalized degenerative change of the slightly greater frontal component. Diffuse abnormal low-attenuation white matter is nonspecific. Extensive intracranial atherosclerotic changes . No acute hemorrhage or mass effect. No midline shift. Calvarium intact. Craniocervical junction maintained. Sella turcica has a normal appearance. Low-dens ity noted within the basal ganglia bilaterally may been the basis of remote lacunar infarct. IMPRESSION: DEGENERATIVE AND NONSPECIFIC WHITE MATTER CHANGES MOST TYPICAL OF REMOTE WHITE MATTER ISCHEMIA. IF THERE IS CONCERN FOR ACUTE ISCHEMIA CORRELATE WITH MRI CLINICALLY WARRANTED. THERE IS EXTENSIVE INTRACRANIAL ATHEROSCLEROTIC CHANGES.
--- NOTE | 2021-05-05 11:27 | ECHOF ---
Referral Reason:elevated troponin MEASUREMENTS -------- HEIGHT: 172.7 cm WEIGHT: 83.9 kg BP: 107/72 RVIDd: 3.5 cm (< 3.3) IVSd: 1.2 cm (0.6 - 1.1) LVIDd: 5.0 cm (3.9 - 5.3) LVPWd: 1.3 cm (0.6 - 1.1) IVSs: 1.4 cm LVIDs: 3.8 cm LVPWs: 1.7 cm LAESV Index (A-L): 39.56 ml/m Ao Diam: 2.8 cm (2.0 - 3.7) MV EXCURSION: 13.261 mm (> 18.000) MV EF SLOPE: 116 mm/s (70 - 150) EPSS: 1.3 cm MV E Arsenio: 1.19 m/s MV DecT: 151 ms MV A Arsenio: 0.89 m/s MV E/A Ratio: 1.34 AV maxP.41 mmHg AV meanP.70 mmHg AR PHT: 348 ms RAP: 5.00 mmHg RVSP: 39.73 mmHg FINDINGS -------- Sinus rhythm. This was a technically difficult study with suboptimal apical views. The left ventricular size is normal. There is mild concentric left ventricular hypertrophy. Overa ll left ventricular systolic function is severely impaired with, an EF between 25 - 30 %. Apical an terior LV wall motion is aneurysmal Apical lateral LV wall motion is aneurysmal Global hypokinesi s The right ventricle is mildly enlarged. LA is moderately dilated 34-39 ml/m2 The right atrial size is normal. 5.0mg of Lumason was utilized for enhancement of images Interatrial and interventricular septum intact. There is mild aortic regurgitation. There is moderate aortic stenosis present. The maximum veloci ty across the aortic valve is 3.10m/s. Peak/mean gradient across the Aortic Valve is 38.41mmHg / 23 .70mmHg. [id number] mitral regurgitation is present. Moderate tricuspid regurgitation present. There is mild pulmonary hypertension. The right ventric ular systolic pressure, as measured by Doppler, is 39.73mmHg. There is no pulmonic regurgitation present. The aortic root size is normal. IVC Not well visulized. There is no pericardial effusion. CONCLUSIONS -------- 1. The left ventricular size is normal. 2. There is mild concentric left ventricular hypertrophy. 3. Overall left ventricular systolic function is severely impaired with, an EF between 25 - 30 %. 4. Apical anterior LV wall motion is aneurysmal 5. Apical lateral LV wall motion is aneurysmal 6. Global hypokinesis 7. The right ventricle is mildly enlarged. 8. LA is moderately dilated 34-39 ml/m2 9. There is mild aortic regurgitation. 10. There is moderate aortic stenosis present. 11. The maximum velocity across the aortic valve is 3.10m/s. 12. Peak/mean gradient across the Aortic Valve is 38.41mmHg / 23.70mmHg. 13. Mvzo-ke-yldlrwvm mitral regurgitation is present. 14. Moderate tricuspid regurgitation present. 15. There is mild pulmonary hypertension. 16. The right ventricular systolic pressure, as measured by Doppler, is 39.73mmHg. PAGE MAKEUP SYSTEM OPERATOR: Patti Mahoney RDCS
--- NOTE | 2021-05-05 12:53 | US ---
EXAMINATION TYPE: US carotid duplex BILAT DATE OF EXAM: 05/05/2021 COMPARISON: NONE CLINICAL HISTORY: Left leg weakness, possible CVA. CVA EXAM MEASUREMENTS: RIGHT: Peak Systolic Velocity (PSV) cm/sec ----- Right CCA: 67.1 ----- Right ICA: 72.5 ----- Right ECA: 112 ICA/CCA ratio: 1.08 RIGHT: End Diastole cm/sec ----- Right CCA: 12.5 ----- Right ICA: 24.4 ----- Right ECA: 7.72 LEFT: Peak Systolic Velocity (PSV) cm/sec ----- Left CCA: 75.4 ----- Left ICA: 68.7 ----- Left ECA: 130 ICA/CCA ratio: 0.91 LEFT: End Diastole cm/sec ----- Left CCA: 16.6 ----- Left ICA: 24.1 ----- Left ECA: 12.7 VERTEBRALS (direction of flow): Right Vertebral: Antegrade Left Vertebral: Antegrade Rhythm: Normal Bilateral bulb plaques seen with no significant stenosis seen IMPRESSION: Bilateral plaque without hemodynamically significant stenosis. Criteria for Assigning % of Stenosis / Diameter reduction (Estimation based on the indirect measurements of the internal carotid artery velocities (ICA PSV). 1. Normal (no stenosis)=ICA PSV < 125 cm/s: ratio < 2.0: ICA EDV<40 cm/s. 2. Less than 50% stenosis=ICA PSV < 125 cm/s: ratio < 2.0: ICA EDV<40 cm/s. 3. 50 to 69% stenosis=ICA PSV of 125 to 230 cm/s: ration 2.0 ? 4.0: ICA EDV 40-100 cm/s. 4. Greater than 70% stenosis to near occlusion= ICA PSV > 230 cm/s: ratio > 4.0: ICA EDV > 100 cm/s. 5. Near occlusion= ICA PSV velocities may be low or undetectable: variable ratio and ICA EDV. 6. Total occlusion=unable to detect flow.
--- NOTE | 2021-05-05 14:33 | MR ---
EXAMINATION TYPE: MR brain wo con DATE OF EXAM: 05/05/2021 2:16 PM COMPARISON: NONE HISTORY: Left leg weakness, ?CVA FINDINGS: The ventricles, basal cisterns and sulci overlying the cerebral convexities are moderately enlarged. There is evidence of mild periventricular white matter ischemic demyelination. Remote deep white matter insults are also noted. No acute edema is seen on diffusion weighted imaging. There is no evidence for midline shift or mass effect. Acute intracranial hemorrhage or extra-axial collection is not evident. The paranasal sinuses and mastoid air cells are well-aerated. IMPRESSION: Age-related atrophic and chronic small vessel ischemic change. No acute intracranial process at this time.
--- NOTE | 2021-05-05 14:53 | P.PN ---
Subjective This pleasant 75-year-old gentleman who follows with Dr. Mercedes in the office. He has a history of CABG over 20 years ago, hyperlipidemia, long-standing psychiatric history of Bipolar, Depression, Anxiety, ADD/ADHD. Presented to the hospital with inability to ambulate. Apparently for the last 2 weeks he has been unable to walk on his left leg. He is able to lift the leg but cannot move the foot at all. Unable to move the toes unable to dorsiflex or plantar flex. On admission chest x-ray showed evidence of pneumonia. We're consulted to see the patient due to an elevation of troponins which came back at 0.076, 0.072 0.078. NT proBNP was also elevated at 14,300. Patient did have a stress test Lexiscan the office 05/2020 which was negative for reversible ischemia Patient seen at bedside, no acute distress.He denies having any chest discomfort. He also denies any shortness of breath. EKG on admission showed sinus mechanism with no acute changes indicative of ischemia. Vital signs are stable. He is afebrile. Echocardiogram revealed EF of 2560 percent, apical anterior and apical lateral LV wall motion is aneurysmal, global hypokinesis, moderate aortic stenosis with a peak fashion gradient of 38 mmHg/23 mmHg, mild to moderate mitral regurgitation, moderate tricuspid regurgitation. Prior echocardiogram in the office in 2016 showed a normal ejection fraction of 5055 percent. Patient was started on IV Lasix 40 mg twice a day, aspirin 81 mg daily, atorvastatin 40 mg daily, metoprolol tartrate 12.5 mg twice a day Blood pressure 95/59, heart rate 89, afebrile, oxygen saturations 94% on room air GENERAL: In no acute distress. NECK: Supple without JVD or thyromegaly. LUNGS: Breath sounds clear to auscultation bilaterally. Respiration equal and unlabored. No wheezes, rales or rhonchi. HEART: Regular rate and rhythm without systolic ejection murmur noted at the apex and the right sternal border.. S1 and S2 heard. EXTREMITIES: Normal range of motion, no edema. No clubbing or cyanosis. Peripheral pulses intact. ASSESSMENT Acute heart failure with reduced ejection fraction Cardiomyopathy, unclear if ischemic versus nonischemic at this time Abnormal troponin levels, not consistent with acute myocardial injury Dyslipidemia Coronary artery disease History of CABG in 1998, unknown details PLAN Transition to PO Lasix 40mg BID Add Spironolactone Continue aspirin, statin, metoprolol tartrate Unable to add KHALIDA inhibitor due to hypotension We will discuss further management for cardiomyopathy with patient Further recommendations based on clinical course Nurse Practitioner note has been reviewed, I agree with a documented findings and plan of care. Patient was seen and examined. Objective - Vital Signs Vital signs: Vital Signs Temp 98.1 F 05/05/21 08:00 Pulse 89 05/05/21 12:07 Resp 18 05/05/21 08:00 BP 95/59 05/05/21 08:00 Pulse Ox 94 L 05/05/21 08:00 Intake & Output 05/04/21 05/05/21 05/05/21 18:59 06:59 18:59 Intake Total 660 Output Total 900 Balance -900 660 Intake: Oral 660 Output: Urine 900 Other: Voiding Method Bedpan External Catheter Urinal # Voids 2 - Labs CBC & Chem 7: 05/05/21 06:59 05/05/21 06:59 Labs: Abnormal Lab Results - Last 24 Hours (Table) 05/05/21 05/05/21 Range/Units 06:59 06:59 Sodium 136 L (137-145) mmol/L Procalcitonin 0.12 H (0.02-0.09) ng/mL
[2021-05-05 15:03] LABS: Folate, Serum 2.5 ng/mL (4.40-31.00)
[2021-05-05] MEDS: FUROSEMIDE 40 MG TAB PO SCH (16:22)
[2021-05-05] MEDS: AZITHROMYCIN 500 MG TAB PO SCH (16:22)
[2021-05-05] MEDS ORDERED: CYANOCOBALAMIN 1,000 MCG/ML 1 ML VIAL IM ONE (17:08)
--- NOTE | 2021-05-05 17:08 | P.CNNES ---
History of Present Illness Consult date: 05/05/21 Requesting physician: Radha Pacheco Reason for Consult: Decreased sensation new, foot drop History of Present Illness: Patient is a 75-year-old male came to the hospital by ambulance on 05/03/2021 at 12:39 PM. According to EMS flow sheet, when they arrived, patient was in his bed, covered in feces and urine. Patient stated that he has not been able to get out of bed for the last week and prior to that was able to crawl to the bathroom to get water and go to toilet 4 weeks ago. Patient also has a dog in the home in the home was deplorable and Dirty with animal feces throughout the home and furniture. Patient was alert but confused, answering questions about recent events. Patient mentioned that he has no family in the only friend he has refused to help him for the last few weeks. Patient complaining of left knee hurting from crawling on it for about a month to and from his bathroom. He has not been downstairs in about 3 weeks. His blood glucose was 127. Patient's blood pressure at the scene was 125/80, pulse 86 respiration 14 temperature 98.9 and saturation 98%. Patient states that he lives by himself and has a dog. He has not been able to walk for last 8 weeks, and he would ambulate by scooting on the buttocks. He couldn't get up and walk. He states that his left knee clicks and it gives out and he falls. Patient states that his friends were bringing food and helping him out. His kitchen is on the lower level but he was on the upper level. His friends wanted him to go to the hospital but he declined because he has dog. Patient denies any slurred speech any problem with the vision any headache or symptoms involving his arms. As his friends declined to help him anymore, t herefore he decided to come to the hospital. Patient denies any hypertension or diabetes. He has never smoked, has not drank any alcohol for 40 years. Never heavy drinker. Denies any substance use. He denies taking any aspirin on a regular basis. Vital signs on arrival blood pressure 126/82, pulse rate 82, temperature 98.7. Chest x-ray showed cardiomegaly and chronic parenchymal changes with new areas of bilateral multifocal infiltrates and/or edema may be present. Coronary clinically to extrude Covid-19 infection. X-rays the knee was negative. EKG shows normal sinus rhythm, right axis deviation. Septal infarct, age indeterminate. Chest x-ray showed cardiomegaly and chronic parenchymal changes with worsening bilateral multifocal opacities consistent with infiltrate and/or edema. Doppler ultrasound of the lower extremities negative for DVT in either legs. Patient had an MRI of the brain performed previously on 08/15/2019 which revealed chronic appearing periventricular white matter ischemic changes with age-related atrophy. Patient's blood test shows normal CBC, normal Chem-7 with potassium 3.4. Renal functions normal. Hepatic panel normal. Troponin was mildly elevated 0.076 CK tolerable. UA negative. Delong virus PCR negative. Telemetry monitoring so far showing sinus rhythm, ST depression, PVC and PAC. Patient currently takes Lamictal 100 mg daily in the morning and 200 mg at bedtime, clonidine 0.4 mg twice a day, patient's last Lamictal level was 1.9 on 03/14/2020, but was significantly elevated 16.3 on 08/15/2019. She was seen by Dr. Burciaga in neurology consultation at that time and patient has presented with gait difficulty. Patient had a normal EEG at that time. Review of Systems As above in detail. All other review of systems reviewed and unremarkable. He does complain of knee pain. No fever or chills. No abdominal pain, nausea vomiting diarrhea. No rash. No double vision. No loss of vision. No hearing loss. Past Medical History Past Medical History: Coronary Artery Disease (CAD), Hyperlipidemia, Liver Disease, Pneumonia, Renal Disease Additional Past Medical History / Comment(s): 03/13/20 lamictal toxicity/delirium, gait dysfunction, R periorbital hematoma/cellulitis, fall. Other hx: Hepatitis B, insomnia, some aphasia since CABG in 1998, anemia, chronic low back pain, nephrolithiasis. History of Any Multi-Drug Resistant Organisms: None Reported Past Surgical History: Coronary Bypass/CABG, Heart Catheterization, Orthopedic Surgery, Tonsillectomy Additional Past Surgical History / Comment(s): 1998 CABG 4 vessel, lithotripsy, ORIF L ankle, colonoscopy, RK eye surgery for vision correction Past Anesthesia/Blood Transfusion Reactions: No Reported Reaction Smoking Status: Never smoker - Past Family History Mother Family Medical History: No Reported History Additional Family Medical History / Comment(s): Pernicious anemia, eating disorder. Father Additional Family Medical History / Comment(s): EToh abuse. Medications and Allergies Home Medications Medication Instructions Recorded Confirmed Type Escitalopram Oxalate [Lexapro] 10 mg PO DAILY 05/03/21 05/03/21 History lamoTRIgine 100 mg PO DAILY 05/03/21 05/03/21 History lamoTRIgine 200 mg PO HS 05/03/21 05/03/21 History Aspirin 81 mg PO DAILY #30 05/06/21 Rx Atorvastatin [Lipitor] 40 mg PO HS #30 tab 05/06/21 Rx Furosemide [Lasix] 40 mg PO BID@0900,1600 #30 tab 05/06/21 Rx Metoprolol Tartrate [Lopressor] 12.5 mg PO BID #60 tab 05/06/21 Rx Nitroglycerin Sl Tabs [Nitrostat] 0.4 mg SUBLINGUAL Q5M PRN #60 tab 05/06/21 Rx Potassium Chloride ER [K-Dur 20] 20 meq PO DAILY #30 tab 05/06/21 Rx Spironolactone [Aldactone] 25 mg PO DAILY #30 tab 05/06/21 Rx Allergies Allergy/AdvReac Type Severity Reaction Status Date / Time No Known Allergies Allergy Verified 05/03/21 12:51 Physical Examination - Vital Signs Vital Signs: Vital Signs Temp Pulse Resp BP BP Pulse Ox 05/05/21 08:00 98.1 F 89 18 95/59 94 L 05/05/21 04:00 87 18 107/72 94 L 05/05/21 00:00 78 18 94/60 95 05/04/21 21:21 99/65 05/04/21 20:16 88/60 05/04/21 20:11 98.3 F 65 18 94/62 94 L 05/04/21 16:00 97.9 F 66 18 108/64 97 05/04/21 11:36 98 F 72 18 106/66 98 Intake and Output 05/04/21 05/05/21 05/05/21 22:59 06:59 14:59 Intake Total 660 Output Total 900 Balance -900 660 Intake: Oral 660 Output: Urine 900 Other: Voiding Method External Catheter External Catheter Patient is an elderly male, in no acute distress. Patient is alert awake oriented to time place and person. Patient knows it is her breathing and the year is 2021 and that he is in [facility] in [place] and name of the current president. Speech and language functions are normal. No aphasia or dysarthria. Attention, concentration and fund of knowledge is adequate. On cranial examination, pupils are equal, round and reacting to light, visual boyle are full on confrontation, extraocular muscles are intact with no nystagmus. Face is symmetric, tongue protrudes to the midline. Palatal elevation and sensation normal, hearing is mildly decreased and shoulder shrug normal, facial sensation normal. Shoulder shrug normal. On muscle strength testing, there is mild left upward drift, with mild elbow flexion. Patient's strength is normal in arms distally and proximally. Patient's muscle strength is normal in the hip flexion, adduction, abduction and knee extension. Patient has a left flail foot, with mild residual strength of toes and ankle. Patient has a normal strength of right foot in all direction. Deep tendon reflexes are symmetric, 2 at the biceps, 1+ to 2 at the brachioradialis, 3 at the knees, 1+ ankles and plantars are flat bilaterally. Sensory to touch is equal with no neglect. Cerebellar function showed no ataxia for [id number] testing. Tone and bulk of muscles decrease in the left leg. No fasciculations noted. Gait not checked. On general examination, there is no carotid bruit or murmur, S1-S2 audible. Abdomen is soft nontender. Chest is clear. Peripheral pulses are present. No edema. Results - Laboratory Findings CBC and BMP: 05/05/21 06:59 05/05/21 06:59 Abnormal Lab Findings: Abnormal Labs 05/03/21 05/03/21 05/03/21 14:02 14:02 16:51 Sodium Potassium 3.4 L Glucose 103 H Total Bilirubin 1.6 H Alkaline Phosphatase 228 H Lactate Dehydrogenase Creatine Kinase 52 L Troponin I 0.076 H* C-Reactive Protein Cholesterol Procalcitonin Urine Protein 1+ H Urine Mucus Occasional H 05/03/21 05/03/21 05/04/21 20:30 22:54 07:30 Sodium Potassium 3.3 L Glucose Total Bilirubin Alkaline Phosphatase Lactate Dehydrogenase 842 H Creatine Kinase Troponin I 0.072 H* 0.078 H* C-Reactive Protein 1.5 H Cholesterol 202.00 H Procalcitonin Urine Protein Urine Mucus 05/04/21 05/05/21 07:30 06:59 Sodium 136 L Potassium Glucose Total Bilirubin Alkaline Phosphatase Lactate Dehydrogenase Creatine Kinase Troponin I C-Reactive Protein Cholesterol Procalcitonin 0.12 H Urine Protein Urine Mucus Assessment and Plan Assessment: * 75-year-old male admitted with weakness of the left lower extremity of 8 weeks duration. Examination revealed left flail foot. Also has very mild left upward pronation of the left arm. Rule out CVA. Differential diagnosis also includes peripheral causes. * Coronary artery disease * Hyperlipidemia * Borderline diabetes * Mildly elevated cardiac enzymes Plan: * Patient underwent stat computed tomography scan of the head, which revealed degenerative and nonspecific white matter changes most typical of remote white matter ischemia. If there is concern for acute ischemia, correlate with MRI as clinically warranted. There is extensive intracranial atherosclerotic changes. * MRI of the brain * Carotid Doppler * 2-D echo revealed mild concentric LVH. Normal left ventricular size. Left ve ntricle systolic function is severely impaired with EF between 25-30%. Apical anterior, apical lateral left ventricular wall motion is aneurysmal. Global hypokinesis. Left atrium is moderately dilated. Mild AR. Moderate aortic stenosis. Mild to moderate MR. Cardiology is on board. * B12, folate, MMA, B1, B6. Lamictal level. * Continue aspirin 81 mg daily. * Continue Lipitor 40 mg daily. * Neurology will follow. Thank you for the consult.
--- NOTE | 2021-05-05 20:10 | P.PN ---
Subjective Patient is a 75-year-old male with a known history of coronary artery disease status post CABG four-vessel in 1998, hyperlipidemia, chronic liver disease, hepatitis B, chronic low back pain, nephrolithiasis status post lithotripsy, ORIF left ankle, Parkinson's disease, history of psychosis and other medical problems presents to ER with complaints of generalized weakness and not feeling well. Patient states that he fell about 2 weeks ago and since then he is not able to flex his left foot and is not able to walk. Has been crawling the status on his knees and by the time she gets to the first floor he felt very short of breath and winded. Patient is unable to take care of himself anymore and called EMS, presented to the ER. Denied any complaints of chest pain. No nausea vomiting abdominal pain or diarrhea. No dysuria or hematuria. Denies any fever or chills. No recent illnesses. Chest x-ray showed cardiomegaly and chronic parenchymal changes with new areas of bilateral multifocal infiltrate and/or edema may be present. Correlate clinically to exclude COVID-19 infection. EKG showed normal sinus rhythm. X-ray of the left knee showed no acute fracture or dislocation evident in the left knee. Mild to moderate tricompartment joint space loss without spurring. Laboratory data showed WBC 5.6 hemoglobin 16.6 and platelets 241 Sodium 138 potassium 3.4 chloride 101 BUN 12 and creatinine 1.06 and blood sugar is 103 Magnesium 1.8 total bilirubin level is 1.6 alk phos 228 CK 52 troponin 0 0.076, 0.072 and proBNP 03730 Urinalysis is negative for infection COVID-19 PCR not detected. 05/04/2021 Patient is currently in telemetry unit. Lying in the bed comfortably. Shortness of breath did improve. Patient is awake alert. Otherwise patient is stating that she he wants to be discharged and wants to take care of his dog at home. Otherwise patient is able to ambulate by himself and apparently has been crawling at home. Patient was seen by cardiology and recommends to continue IV Lasix. 2D echocardiogram was ordered. Replace potassium and follow closely. Psychiatry service will be consulted as well. Subjective: 05/05/2021 This is a pleasant 75 years old male who presents with weakness and inability to walk secondary to left leg giving way on him, on admission his chest x-ray was suspicious for bilateral infiltrates with increased proBNP so patient was diagnosed with acute CHF exacerbation. With pneumonia less likely however he was placed on IV Lasix 20 mg twice a day and Zithromax and ceftriaxone, patient breathing is a stable today and his echocardiogram showed ejection fraction of 25-30% with global hypokinesia and moderate aortic stenosis. Cardiology team on the case, aspirin 81 mg and Aldactone were added. Lasix is wished to oral dose today. Neurology consult placed already for his left leg weakness and decreased sensation and patient is been evaluated by neurology team and he had negative CT of the brain and carotid duplex. MRI of the brain is pending. Patient also received vitamin B12, folate per neurologist. Physical therapy recommends subacute rehab, social media intern consulted. However patient looks like he is refusing going to rehab Objective - Vital Signs Vital signs: Vital Signs Temp 98.1 F 05/05/21 08:00 Pulse 89 05/05/21 12:07 Resp 18 05/05/21 08:00 BP 95/59 05/05/21 08:00 Pulse Ox 94 L 05/05/21 08:00 Intake & Output 05/04/21 05/05/21 05/05/21 18:59 06:59 18:59 Intake Total 660 Output Total 900 Balance -900 660 Intake: Oral 660 Output: Urine 900 Other: Voiding Method Bedpan External Catheter Urinal # Voids 2 - Exam GENERAL: The patient is alert and oriented x3, not in any acute distress. Well developed, well nourished. HEENT: Pupils are round and equally reacting to light. EOMI. No scleral icterus. No conjunctival pallor. Normocephalic, atraumatic. No pharyngeal erythema. No thyromegaly. CARDIOVASCULAR: S1 and S2 present. No murmurs, rubs, or gallops. -PULMONARY: Chest is clear to auscultation, no wheezing . Mild basal crepitation ABDOMEN: Soft, nontender, nondistended, normoactive bowel sounds. No palpable organomegaly. MUSCULOSKELETAL: No joint swelling or deformity. EXTREMITIES: No cyanosis, clubbing, or pedal edema. -NEUROLOGICAL: Gross neurological cranial nerves are grossly intact, left leg weakness and decreased sensation, but 4/5. Right leg strength and upper e xtremity are 5/5. Meningeal signs are absent SKIN: No rashes. no petechiae. - Labs CBC & Chem 7: 05/05/21 06:59 05/05/21 06:59 Labs: Abnormal Lab Results - Last 24 Hours (Table) 05/04/21 05/05/21 05/05/21 Range/Units 07:30 06:59 06:59 Sodium 136 L (137-145) mmol/L Procalcitonin 0.12 H 0.12 H (0.02-0.09) ng/mL Assessment and Plan Assessment: Acute systolic CHF with ejection fraction of 25-30% Moderate aortic stenosis Elevated troponin level. Left leg weakness and decreased sensation, rule out stroke Bibasilar multifocal infiltrate/pneumonia. Concern for COVID-19 Infection. PCR negative. Patient is not vaccinated.Low suspicion for bacterial pneumonia. Pr ocalcitonin level is 0.12 Generalized weakness and fatigue and unable to take care of himself. Coronary artery disease history of quadruple bypass graft in 1998 Hyperlipidemia Hepatitis B Chronic low back pain Nephrolithiasis with status post lithotripsy ORIF left ankle Parkinson's disease History of psychosis. Plan: This is a pleasant 75 years old male presents with acute CHF, pneumonia felt less likely Switch his ceftriaxone and Zithromax and Augmentin. He is on oral Lasix, cardiology team on the case. Neurology team me wireless consultant for left leg weakness, MRI of the brain pending. Carotid duplex is negative. Continue with aspirin. Continue with vitamins, vitamin B12 and folate replaced. Physical therapy recommended subacute rehab however patient declined. Labs and medication were reviewed.. Continue same treatment. Continue with symptomatic treatment. Resume home medication. Monitor lytes and vitals. DVT and GI prophylaxis. Further recommendationsas per clinical course of the patient DVT prophylaxis: Subcutaneous heparin GI Prophylaxis: Pepcid
[2021-05-05] MEDS: AMOXIC-POT CLAV 500-125 MG 1 EACH TAB PO SCH (20:20)
[2021-05-05] MEDS: FAMOTIDINE 20 MG/2 ML VIAL IV SCH (20:21)
[2021-05-05] MEDS: FOLIC ACID 1 MG TAB PO SCH (20:21)
--- NOTE | 2021-05-05 21:27 | CONS ---
CONSULTATION DATE OF SERVICE: 05/05/2021. PURPOSE FOR CONSULTATION: Evaluate for confusion and cognitive issues. HISTORY OF PRESENTING ILLNESS: The patient is a 75-year-old male. He was admitted to the hospital due to significant functional difficulties he was having at home, where he essentially was unable to ambulate or care for himself. These problems have been developing at least over the last 8 weeks. I refer the reader to Dr. Lynch's neurology consultation note of 05/05/2021, where he describes in great detail the patient situation at home over the last several weeks leading to him coming into the hospital. He lives alone and has a dog. He gets some outside support with meals. As noted, his house was in shambles with human and dog feces throughout. The patient was covered in feces and urine when he presented to the hospital. He has been given psychiatric diagnoses of bipolar affective disorder, depression, anxiety, ADD, and psychosis. He has been noted to have psychiatric issues of "some apashia" secondary to CABG in 1998, an d Parkinson's Disease. The patient stated he is followed by a psychiatrist, Dr. Castillo, in [place], whom he sees virtually. The only home medicines that are listed include Lamictal 100 mg in the a.m., 200 mg in the p.m., clonidine 0.4 mg twice a day, and Lexapro 10 mg a day. It is noted that the patient had an admission on 03/13/2020 when he had a fall. He was noted to have some degree of confusion and was making odd and disconnected statements. He was diagnosed with possible Lamictal toxicity with a blood level of 39 plus a diagnosis of delirium. I saw the patient at that time for consultation. I refer the reader to my note of 03/14/2020 for details. During that admission, the patient indicated that he had had long-term problems with depression and periotic limited episodes where he would get what he described as "delusions with visions that will last about two days." At that time, it was not clear how accurate the patient was able to be in regard to his history. When I saw the patient today, he stated that he has had long-term problems with anxiety. There was some note that he has panic disorder. When I asked him specifically about panic symptoms, he would say mostly that he gets quite anxious when he does not have things in his house in the right order. He did not clearly describe any issues of more extended obsessions or compulsions. He stated that he does not have a history of bipolar disorder. He said that in the last 8 weeks the problems he has been having relate to leg problems with left leg issues. He apparently has had some falls over the last few weeks. He has not been able to fully ambulate and apparently has been crawling in his home to move about at least to a limited extent. The patient stated that while he was having significant functional problems over the last several weeks, he did not clearly identify depression, psychotic symptoms, panic problems or other serious mental health issues. He did suggest that there may be some past issues of trauma relating to his childhood. MENTAL STATUS EXAM: Patient was sitting up in bed. He gave good eye contact. He had a relaxed manner. He responded to questions appropriately. For the most part his thoughts were clear and coherent. There were a few times where he was a little delayed in responding, though most of the time his thoughts were clear, coherent, goal-directed and expressed appropriately. His affect was in a reasonable range. He smiled. He had a friendly manner. His mood was even. He did not appear to be distressed in any way. He did not show indications of thought disorder. He denied any thoughts of harm. On cognitive exam, the patient stated it was April; he believed it was the . He said it was 2021. He knew it was Wednesday. He had some difficulty coming up with the name of the president. He was able to indicate the former president's name appropriately. When I asked him to spell "world" backwards, he said that he had difficulty with spelling and did not want to attempt that. He was able to give the days of the week in reverse order appropriately without any hesitancy. He could tell me the name of the hospital. ASSESSMENT: This 75-year-old male is diagnosed with anxiety disorder. It is difficult to make any additional diagnoses without supporting documentation. In going back to my consultation in February of 2020, it was not clear that the patient was able to give an accurate history regarding mental health issues. At present he seems to be doing reasonably well in terms of mood and anxiety. He seems to understand his circumstances fairly well. For the most part his cognition and orientation are reasonably clear. If he showed greater difficulties in this regard coming into the hospital, that may have been impacted by issues of his poor self-care such as dehydration or nutrition issues. In addition, his pneumonia may well have some impact on his cognitive function, since he had more significant cognitive issues coming into the hospital. He seems to be clearing to reasonable extent. Given the level of impairment in his general function, there is a question as to whether he is able to live independently. It is noted that in 02/2020 when he was diagnosed with possible Lamictal toxicity with a level of 39, the best I am able to tell his dosing at that point was 100 mg a day. He has a significant higher dosing of late. He might warrant getting another Lamictal level now. It would be helpful to get information from Pharmacy in regard to whether or not there are any issues with him being able to manage his medications independently. At this point I would continue his current psychotropic medications. There do not appear to be any immediate psychiatric issues needing to be addressed. If further issues arise, please reconsult Psychiatry. MMODL / IJN: [id number] / BALDEMAR
[2021-05-06] MEDS: HEPARIN SODIUM,PORCINE/PF 5,000 UNIT/0.5 ML SYRINGE SQ SCH ×3 (08:39→22:44)
[2021-05-06] MEDS: FAMOTIDINE 20 MG/2 ML VIAL IV SCH ×2 (08:39→20:04)
[2021-05-06] MEDS: ESCITALOPRAM 10 MG TAB PO SCH (08:40)
[2021-05-06] MEDS: FOLIC ACID 1 MG TAB PO SCH (08:40)
[2021-05-06] MEDS: FUROSEMIDE 40 MG TAB PO SCH ×2 (08:40→16:05)
[2021-05-06] MEDS: lamoTRIgine 100 MG TAB PO SCH ×2 (08:40→20:04)
[2021-05-06] MEDS: METOPROLOL TARTRATE 12.5 MG TAB PO SCH ×2 (08:40→20:03)
[2021-05-06] MEDS: SPIRONOLACTONE 25 MG TAB PO SCH (08:40)
[2021-05-06] MEDS: ATORVASTATIN 40 MG TAB PO SCH (08:40)
[2021-05-06] MEDS: ASPIRIN 81 MG PO SCH (08:40)
[2021-05-06] MEDS: AMOXIC-POT CLAV 500-125 MG 1 EACH TAB PO SCH ×2 (08:48→20:03)
--- NOTE | 2021-05-06 13:57 | P.PN ---
Subjective This pleasant 75-year-old gentleman who follows with Dr. Mercedes in the office. He has a history of CABG over 20 years ago, hyperlipidemia, long-standing psychiatric history of Bipolar, Depression, Anxiety, ADD/ADHD. Presented to the hospital with inability to ambulate. Apparently for the last 2 weeks he has been unable to walk on his left leg. He is able to lift the leg but cannot move the foot at all. Unable to move the toes unable to dorsiflex or plantar flex. On admission chest x-ray showed evidence of pneumonia. We're consulted to see the patient due to an elevation of troponins which came back at 0.076, 0.072 0.078. NT proBNP was also elevated at 14,300. Patient did have a stress test Lexiscan the office 05/2020 which was negative for reversible ischemia. On 05/05/21, Echocardiogram revealed EF of 2530%, apical anterior and apical lateral LV wall motion is aneurysmal, global hypokinesis, moderate aortic stenosis with a peak fashion gradient of 38 mmHg/23 mmHg, mild to moderate mitral regurgitation, moderate tricuspid regurgitation. Prior echocardiogram in the office in 2016 showed a normal ejection fraction of 5055 percent. 05/06/21 Patient seen at bedside, no acute distress. He denies having any chest discomfort. He also denies any shortness of breath. Vital signs are stable. He is afebrile. Patient is currently maintained on Lasix 40mg BID, aspirin 81 mg daily, atorvastatin 40 mg daily, metoprolol tartrate 12.5 mg twice a day Blood pressure 105/64, heart rate 71, afebrile, oxygen saturations 94% on room air GENERAL: In no acute distress. NECK: Supple without JVD or thyromegaly. LUNGS: Breath sounds clear to auscultation bilaterally. Respiration equal and unlabored. No wheezes, rales or rhonchi. HEART: Regular rate and rhythm without systolic ejection murmur noted at the a pex and the right sternal border.S1 and S2 heard. EXTREMITIES: Normal range of motion, no edema. No clubbing or cyanosis. Peripheral pulses intact. ASSESSMENT Acute heart failure with reduced ejection fraction Cardiomyopathy, unclear if ischemic versus nonischemic at this time Elevated troponins Dyslipidemia Coronary artery disease History of CABG in 1998, unknown details PLAN Continue PO Lasix 40mg BID and Spironolactone 25mg daily Continue aspirin, statin, metoprolol tartrate Unable to add KHALIDA inhibitor due to hypotension We will discuss further management for cardiomyopathy with patient Further recommendations based on clinical course Nurse Practitioner note has been reviewed, I agree with a documented findings and plan of care. Patient was seen and examined. Objective - Vital Signs Vital signs: Vital Signs Temp 98.2 F 05/06/21 11:27 Pulse 71 05/06/21 11:27 Resp 18 05/06/21 11:27 BP 105/64 05/06/21 11:27 Pulse Ox 96 05/06/21 11:27 Intake & Output 05/05/21 05/06/21 05/06/21 18:59 06:59 18:59 Intake Total 1140 222 240 Output Total 550 150 Balance 1140 -328 90 Intake: Oral 1140 222 240 Output: Urine 550 150 Other: Voiding Method External Catheter External Catheter # Bowel Movements 1 - Labs CBC & Chem 7: 05/05/21 06:59 05/05/21 06:59 Labs: Abnormal Lab Results - Last 24 Hours (Table) 05/05/21 05/05/21 Range/Units 06:59 06:59 Hemoglobin A1c 6.4 H (0.0-6.0) % Folate 2.50 L (4.40-31.00) ng/mL
--- NOTE | 2021-05-06 14:07 | P.DS ---
Providers Date of admission: 05/03/21 15:02 Attending physician: Radha Pacheco Consults: 05/03/21 15:02 Consult Physician Urgent Consulting Provider: Khari Mercedes Consult Reason/Comments: Elevated troponin Do you want consulting provider notified?: Yes 05/04/21 15:54 Consult Physician Routine Consulting Provider: Psychiatry - [facility] Psychiatry Consult Reason/Comments: cognition evaluation, confusion Do you want consulting provider notified?: Yes 05/04/21 15:57 Consult Physician Routine Consulting Provider: Baljeet Lynch Consult Reason/Comments: Decreased sensation new, foot drop Do you want consulting provider notified?: Yes Primary care physician: [facility] Hospital Course: Patient is a 75-year-old male with a known history of coronary artery disease status post CABG four-vessel in 1998, hyperlipidemia, chronic liver disease, hepatitis B, chronic low back pain, nephrolithiasis status post lithotripsy, ORIF left ankle, Parkinson's disease, history of psychosis and other medical problems presents to ER with complaints of generalized weakness and not feeling well. Patient states that he fell about 2 weeks ago and since then he is not able to flex his left foot and is not able to walk. Has been crawling the status on his knees and by the time she gets to the first floor he felt very short of breath and winded. Patient is unable to take care of himself anymore and called EMS, presented to the ER. Denied any complaints of chest pain. No nausea vomiting abdominal pain or diarrhea. No dysuria or hematuria. Denies any fever or chills. No recent illnesses. Chest x-ray showed cardiomegaly and chronic parenchymal changes with new areas of bilateral multifocal infiltrate and/or edema may be present. Correlate clinically to exclude COVID-19 infection. EKG showed normal sinus rhythm. X-ray of the left knee showed no acute fracture or dislocation evident in the left knee. Mild to moderate tricompartment joint space loss without spurring. Laboratory data showed WBC 5.6 hemoglobin 16.6 and platelets 241 Sodium 138 potassium 3.4 chloride 101 BUN 12 and creatinine 1.06 and blood sugar is 103 Magnesium 1.8 total bilirubin level is 1.6 alk phos 228 CK 52 troponin 0 0.076, 0.072 and proBNP [id number] Urinalysis is negative for infection COVID-19 PCR not detected. 05/04/2021 Patient is currently in telemetry unit. Lying in the bed comfortably. Shortness of breath did improve. Patient is awake alert. Otherwise patient is stating that she he wants to be discharged and wants to take care of his dog at home. Otherwise patient is able to ambulate by himself and apparently has been crawling at home. Patient was seen by cardiology and recommends to continue IV Lasix. 2D echocardiogram was ordered. Replace potassium and follow closely. Psychiatry service will be consulted as well. Subjective: 05/05/2021 This is a pleasant 75 years old male who presents with weakness and inability to walk secondary to left leg giving way on him, on admission his chest x-ray was suspicious for bilateral infiltrates with increased proBNP so patient was diagnosed with acute CHF exacerbation. With pneumonia less likely however he was placed on IV Lasix 20 mg twice a day and Zithromax and ceftriaxone, patient breathing is a stable today and his echocardiogram showed ejection fraction of 25-30% with global hypokinesia and moderate aortic stenosis. Cardiology team on the case, aspirin 81 mg and Aldactone were added. Lasix is wished to oral dose today. Neurology consult placed already for his left leg weakness and decreased sensation and patient is been evaluated by neurology team and he had negative CT of the brain and carotid duplex. MRI of the brain is pending. Patient also received vitamin B12, folate per neurologist. Physical therapy recommends subacute rehab, social scientist consulted. However patient looks like he is refusing going to rehab 05/06/2021 Patient is on 5-year-old male admitted for Start failure exacerbation patient is found to have EF of around 25-30%. Patient also has severe aortic stenosis. Patient was diuresed and the patient is presently on 40 mg of oral Lasix at this time. Patient's creatinine is 1.14. Patient is supposed to get the KHALIDA inhibitor but because of the borderline blood pressures with systolic as low as 90 patient is not being started on this medication here patient probably can be started as an outpatient. Patient was also evaluated for stroke because of his left foot drop. Patient's MRI of the brain is essentially within normal limits patient is undergoing MRI of the lumbar spine as a neurology believes his weakness is secondary to nerve compression in the lumbosacral area. MRI is within normal limits patient will need an EMG as an outpatient. If MRI of the lumbar spine is within normal notes patient will be discharged today. Patient was recommended to go to subacute rehabilitation although he declined to go to subacute rehab. Home care and home physical therapy is being arranged for the patient. Impression potassium is low here at around 3.6 and 3.7 patient will be discharged on 20 mg of potassium as well. Assessment and Plan Assessment: Acute systolic CHF with ejection fraction of 25-30% Moderate aortic stenosis Elevated troponin level.. Secondary to CHF Left foot drop and decreased sensation, rule out stroke, MRI of the brain is negative for stroke, MRI of the lumbar spine is being obtained Bilateral multifocal infiltrate: Secondary to congestive heart failure. No evidence of pneumonia and medics were discontinued Generalized weakness and fatigue and unable to take care of himself. Coronary artery disease history of quadruple bypass graft in 1998 Hyperlipidemia Hepatitis B Chronic low back pain Nephrolithiasis with status post lithotripsy ORIF left ankle Parkinson's disease History of psychosis. - Exam GENERAL: The patient is alert and oriented x3, not in any acute distress. Well developed, well nourished. HEENT: Pupils are round and equally reacting to light. EOMI. No scleral icterus. No conjunctival pallor. Normocephalic, atraumatic. No pharyngeal erythema. No th yromegaly. CARDIOVASCULAR: S1 and S2 present. No murmurs, rubs, or gallops. -PULMONARY: Chest is clear to auscultation, no wheezing . Mild basal crepitation ABDOMEN: Soft, nontender, nondistended, normoactive bowel sounds. No palpable organomegaly. MUSCULOSKELETAL: No joint swelling or deformity. EXTREMITIES: No cyanosis, clubbing, or pedal edema. -NEUROLOGICAL: Gross neurological cranial nerves are grossly intact, left leg weakness and decreased sensation, but 4/5. Right leg strength and upper extremity are 5/5. Meningeal signs are absent SKIN: No rashes. no petechiae. Patient Condition at Discharge: Fair Plan - Discharge Summary New Discharge Prescriptions: New Aspirin 81 mg PO DAILY #30 Furosemide [Lasix] 40 mg PO BID@0900,1600 #30 tab Metoprolol Tartrate [Lopressor] 12.5 mg PO BID #60 tab Nitroglycerin Sl Tabs [Nitrostat] 0.4 mg SUBLINGUAL Q5M PRN #60 tab PRN Reason: Chest Pain Spironolactone [Aldactone] 25 mg PO DAILY #30 tab Atorvastatin [Lipitor] 40 mg PO HS #30 tab Potassium Chloride ER [K-Dur 20] 20 meq PO DAILY #30 tab Continue lamoTRIgine 100 mg PO DAILY Escitalopram Oxalate [Lexapro] 10 mg PO DAILY lamoTRIgine 200 mg PO HS Discontinued cloNIDine HCL 0.4 mg PO BID Discharge Medication List Escitalopram Oxalate [Lexapro] 10 mg PO DAILY 05/03/21 [History] lamoTRIgine 100 mg PO DAILY 05/03/21 [History] lamoTRIgine 200 mg PO HS 05/03/21 [History] Aspirin 81 mg PO DAILY #30 05/06/21 [Rx] Atorvastatin [Lipitor] 40 mg PO HS #30 tab 05/06/21 [Rx] Furosemide [Lasix] 40 mg PO BID@0900,1600 #30 tab 05/06/21 [Rx] Metoprolol Tartrate [Lopressor] 12.5 mg PO BID #60 tab 05/06/21 [Rx] Nitroglycerin Sl Tabs [Nitrostat] 0.4 mg SUBLINGUAL Q5M PRN #60 tab 05/06/21 [Rx] Potassium Chloride ER [K-Dur 20] 20 meq PO DAILY #30 tab 05/06/21 [Rx] Spironolactone [Aldactone] 25 mg PO DAILY #30 tab 05/06/21 [Rx] Follow up Appointment(s)/Referral(s): [facility], [NON-STAFF] - Krishna Rizzo MD [Primary Care Provider] - 1-2 days Rodger Norton MD [Medical Doctor] - 1 Week Khari Mercedes MD [STAFF PHYSICIAN] - 1 Week Ambulatory/Diagnostic Orders: Basic Metabolic Panel [LAB.AMB] Time Frame: 3 Days, Location: None Selected Activity/Diet/Wound Care/Special Instructions: Patient wants Wheelchair van ride home and agreeable to cost. Discharge Disposition: HOME WITH HOME HEALTH SERVICES
--- NOTE | 2021-05-06 14:22 | MR ---
EXAMINATION TYPE: MR thoracic spine wo con DATE OF EXAM: 05/06/2021 COMPARISON: NONE HISTORY: Left foot drop, possible spinal stenosis TECHNIQUE: Multiplanar, multisequence imaging of thoracic spine is performed without contrast FINDINGS: Spinal cord shows normal course, caliber, and signal as it courses the thoracic spine. V ertebral body heights and alignment are satisfactory. Disc space heights are maintained. Mild multil evel anterior spurring. Bone marrow signal intensity is preserved. Localizer shows multilevel spur di sc complexes effacing anterior thecal sac at C3-C4 through the C5-C6 levels with largest disc herniat ion effacing the anterior thecal sac C6-C7 level. There is extension to the anterior surface of the s joanne cord. Mild edema or increased T2 signal in the cord is suspected sagittal image 5 series 201 fo r reference. Review of the axial images shows tiny disc herniation T7-T8 level minimally effacing anterior thecal sac sagittal image 8 and axial image 17 series 601. No large thoracic disc herniations are identifie d. There are small to moderate size left greater than right pleural effusions identified on MRI. Thes e are not clearly seen on most recent x-ray from one day earlier. IMPRESSION: Most prominent findings in the cervical spine as detailed above on the preliminary diamante al series. New small to moderate-sized left greater than right pleural effusions noted. Correlate cli nically.
--- NOTE | 2021-05-06 23:30 | P.PN ---
Subjective Progress Note Date: 05/06/21 patient was seen for a follow-up. Denies any new neurological symptoms. Wants to go home. Telemetry monitoring showing sinus rhythm. Objective - Vital Signs Vital signs: Vital Signs Temp 98 F 05/06/21 20:00 Pulse 75 05/06/21 20:00 Resp 18 05/06/21 20:00 BP 128/76 05/06/21 20:00 Pulse Ox 94 L 05/06/21 20:00 Intake & Output 05/06/21 05/06/21 05/07/21 06:59 18:59 06:59 Intake Total 222 720 240 Output Total 550 250 200 Balance -328 470 40 Intake: Oral 222 720 240 Output: Urine 550 250 200 Other: Voiding Method External Catheter External Catheter Toilet Urinal Diaper # Voids 2 1 # Bowel Movements 1 1 - Exam mental status, speech and language functions are stable. No aphasia. Cranial nerves are normal. 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 Hip flexion 4+/4-. Patient has severe left foot weakness. Plantars are flat. - Labs CBC & Chem 7: 05/05/21 06:59 05/05/21 06:59 Assessment and Plan Assessment: * 75-year-old male admitted with weakness of the left lower extremity of 8 weeks duration. Examination revealed left flail foot. Also has very mild left upward pronation of the left arm. Rule out CVA. Differential diagnosis also includes peripheral causes. * Coronary artery disease * Hyperlipidemia * Borderline diabetes * Mildly elevated cardiac enzymes Plan: * MRI of the brain revealed age-related atrophic and chronic small vessel ischemic change. No acute intracranial process. No acute CVA. * Carotid Doppler revealed bilateral plaque without hemodynamically significant stenosis. Antegrade flow in both vertebral arteries. * 2-D echo revealed mild concentric LVH. Normal left ventricular size. Left ventricle systolic function is severely impaired with EF between 25-30%. Apical anterior, apical lateral left ventricular wall motion is aneurysmal. Global hypokinesis. Left atrium is moderately dilated. Mild AR. Moderate aortic stenosis. Mild to moderate MR. Cardiology is on board. * B12 312, folate 2.5, MMA, B1, B6 still pending. Lamictal level 13.1 (2-15). We will start folic acid 1 mg daily. * Continue aspirin 81 mg daily. * Continue Lipitor 40 mg daily. * MRI of the thoracic spine revealed most prominent findings in the cervical spine where there is severe spinal stenosis with abnormal cord signal. Patient will undergo MRI of the cervical and lumbar spine. * Orthopedic spine consultation for severe cervical spinal stenosis.
[2021-05-07 06:33] LABS: Methylmalonic Acid 0.4 umol/L (<0.40)
[2021-05-07] MEDS: HEPARIN SODIUM,PORCINE/PF 5,000 UNIT/0.5 ML SYRINGE SQ SCH ×3 (09:12→22:05)
[2021-05-07] MEDS: AMOXIC-POT CLAV 500-125 MG 1 EACH TAB PO SCH ×2 (09:13→19:50)
[2021-05-07] MEDS: ASPIRIN 81 MG PO SCH (09:13)
[2021-05-07] MEDS: FAMOTIDINE 20 MG/2 ML VIAL IV SCH ×3 (09:14→19:50)
[2021-05-07] MEDS: ESCITALOPRAM 10 MG TAB PO SCH (09:14)
[2021-05-07] MEDS: ATORVASTATIN 40 MG TAB PO SCH (09:14)
[2021-05-07] MEDS: FUROSEMIDE 40 MG TAB PO SCH ×2 (09:15→17:13)
[2021-05-07] MEDS: FOLIC ACID 1 MG TAB PO SCH (09:15)
[2021-05-07] MEDS: lamoTRIgine 100 MG TAB PO SCH ×2 (09:15→19:50)
[2021-05-07] MEDS: SPIRONOLACTONE 25 MG TAB PO SCH (09:16)
[2021-05-07] MEDS: METOPROLOL TARTRATE 12.5 MG TAB PO SCH ×2 (09:16→19:50)
--- NOTE | 2021-05-07 12:39 | P.CNOR ---
<Sean Eddy - Last Filed: 05/07/21 12:34> History of Present Illness - [facility] Consult date: 05/07/21 Requesting physician: Radha Pacheco Consult reason: other (Cervical stenosis and left lower extremity weakness) History of present illness: Patient is a pleasant 75-year-old male who is seen and examined at bedside by myself and Dr. Sergo Cooper after consultation was placed for cervical stenosis and left foot drop. Patient had presented to the emergency department for generalized weakness. Patient states he has been unable to ambulate on his left lower extremity was past 8-12 weeks. He denies any specific injury. He states he feels was able to ambulate around [place]. [facility] is undergone further evaluation. He is been seen by neurology. Thoracic MRI imaging was taken which did show some changes and cervical spine. Cervical MRI has been ordered. Patient also has significant weakness with his left lower extremity. Lumbar MRI imaging has been ordered as well. He did have some elevated cardiac enzymes and is undergoing further tissue evaluation with cardiology. Patient does admit he's had difficulty caring for him so. He does not believe his house often. Consultation has been placed with home healthcare. Patient states he does have a history of chronic low back pain and follows with Dr. Cadena in the outpatient setting. He states he has followed with him fairly recently has had injections in his lumbar spine. He is not currently complaining of any cervical pain or low back pain. He denies any upper extremity weakness or radiculopathy bilaterally. He denies any specific lower extremity radiculopathy bilaterally. He denies any right lower extremity weakness. At the bedside and states his most significant complaint is significant left lower extremity weakness. He does have a history of surgical intervention somewhere over his left lower extremity in 2017. He's been able to ambulate without difficulty following that surgery until over the past 8-12 weeks. He continues to be seen again by multiple medical providers including medicine, neurology, and cardiology. Patient has a medical history which includes hyperlipidemia, coronary artery disease, hepatitis B, chronic low back pain, history of nephrolithiasis, history of psychosis, and Parkinson's disease. During his presentation hospital he has been treated for shortness of breath, acute congestive heart failure, bibasilar infiltrate, and elevated troponin. Past Medical History Past Medical History: Coronary Artery Disease (CAD), Hyperlipidemia, Liver Disease, Pneumonia, Renal Disease Additional Past Medical History / Comment(s): 03/13/20 lamictal toxicity/delirium, gait dysfunction, R periorbital hematoma/cellulitis, fall. Other hx: Hepatitis B, insomnia, some aphasia since CABG in 1998, anemia, chronic low back pain, nephrolithiasis. History of Any Multi-Drug Resistant Organisms: None Reported Past Surgical History: Coronary Bypass/CABG, Heart Catheterization, Orthopedic Surgery, Tonsillectomy Additional Past Surgical History / Comment(s): 1998 CABG 4 vessel, lithotripsy, ORIF L ankle, colonoscopy, RK eye surgery for vision correction Past Anesthesia/Blood Transfusion Reactions: No Reported Reaction Smoking Status: Never smoker - Past Family History Mother Family Medical History: No Reported History Additional Family Medical History / Comment(s): Pernicious anemia, eating disorder. Father Additional Family Medical History / Comment(s): EToh abuse. Medications and Allergies Home Medications Medication Instructions Recorded Confirmed Type Escitalopram Oxalate [Lexapro] 10 mg PO DAILY 05/03/21 05/03/21 History lamoTRIgine 100 mg PO DAILY 05/03/21 05/03/21 History lamoTRIgine 200 mg PO HS 05/03/21 05/03/21 History Aspirin 81 mg PO DAILY #30 05/06/21 Rx Atorvastatin [Lipitor] 40 mg PO HS #30 tab 05/06/21 Rx Furosemide [Lasix] 40 mg PO BID@0900,1600 #30 tab 05/06/21 Rx Metoprolol Tartrate [Lopressor] 12.5 mg PO BID #60 tab 05/06/21 Rx Nitroglycerin Sl Tabs [Nitrostat] 0.4 mg SUBLINGUAL Q5M PRN #60 tab 05/06/21 Rx Potassium Chloride ER [K-Dur 20] 20 meq PO DAILY #30 tab 05/06/21 Rx Spironolactone [Aldactone] 25 mg PO DAILY #30 tab 05/06/21 Rx Allergies Allergy/AdvReac Type Severity Reaction Status Date / Time No Known Allergies Allergy Verified 05/03/21 12:51 Physical Examination Physical exam: Patient is awake, alert, and oriented 3 Vital signs stable Good chest excursion with deep inspiration and expiration Examination of cervical spine, thoracic spine, and lumbar spine reveals skin is intact with no abrasions, lacerations, or bruises; no erythema, purulence or signs of infection Dorsiflexion, plantarflexion, and extensor hallucis longus positive sustained on the right Patient has significant weakness is only able to perform slight movement with his left lower extremity with dorsiflexion, plantarflexion, and extensor hallucis longus Patient is able to perform active range of motion with hip flexion and knee extension on the left without difficulty Right lower extremity strength is 5/5 Patellar reflex 2+ bilaterally Straight leg test negative bilateral lower extremities Negative Lasegue's test bilaterally No signs or symptoms of DVT; no calf pain Review of some left calf muscle atrophy No pain with internal and external rotation of the hips bilaterally Neurovascularly intact Full range of motion of the cervical spine with adequate flexion, extension, and bilateral rotation Bell Person strength, thumb strength, interosseous strength, biceps strength, triceps strength, and shoulder strength positive sustained bilaterally Motor strength in upper extremity is 4/5 including deltoids on the right. Biceps reflex 2+ bilaterally and Brachioradialis reflexes 2+ bilaterally No significant upper extremity hyperreflexia bilaterally Results Pertinent studies: MRI of thoracic spine taken on 05/06/2021: Visualized thoracic spinal cord is a normal course, caliber, and signal; no evidence of vertebral body compression fracture; no significant thoracic degenerative disc disease; some mild anterior osteophytic spurring; there does appear to be significant changes in his cervical spine which are only partially visualized with multilevel disc osteophy te complex at C3-4, C4-5, C5-6, and a large disc herniation at C6-7; report states there may be some mild edema or increased T2 signal of the cervical spinal cord - Labs Labs: Abnormal Lab Results - Last 24 Hours (Table) 05/05/21 05/05/21 Range/Units 12:22 12:22 Vitamin B1 32 L (38-122) ug/L Vitamin B6 4 L (5-50) ug/L H & H 05/03/21 05/05/21 Range/Units 13:20 06:59 Hgb 16.6 15.8 (13.0-17.5) gm/dL Hct 52.2 50.0 (39.0-53.0) % Result Diagrams: 05/05/21 06:59 05/05/21 06:59 Assessment and Plan Assessment: Assessment: Left lower extremity weakness with dorsiflexion, plantarflexion, and extensor hallucis longus Unable to ambulate on the left lower extremity due to weakness Chronic low back pain Cervical stenosis partially visualized on thoracic MRI imaging Possible cord signal change at the cervical spine partially visualized on thoracic MRI imaging Right upper extremity weakness Slight positive Jazlyn sign bilaterally upper extremities Hyperlipidemia Coronary artery disease Hepatitis B Chronic low back pain History of nephrolithiasis History of psychosis Parkinson's disease Shortness of breath Acute congestive heart failure Bibasilar infiltrate Elevated troponin (1) Left leg weakness Current Visit: Yes Status: Acute Code(s): R29.898 - OTH SYMPTOMS AND SIGNS INVOLVING THE MUSCULOSKELETAL SYSTEM SNOMED Code(s): 798598329 (2) Weakness of right upper extremity Current Visit: Yes Status: Acute Code(s): R29.898 - OTH SYMPTOMS AND SIGNS INVOLVING THE MUSCULOSKELETAL SYSTEM SNOMED Code(s): 377926547 (3) Cervical stenosis of spinal canal Current Visit: Yes Status: Acute Code(s): M48.02 - SPINAL STENOSIS, CERVICAL REGION SNOMED Code(s): 65878004 (4) Chronic low back pain Current Visit: Yes Status: Acute Code(s): M54.50 - LOW BACK PAIN, UNSPECIFIED; G89.29 - OTHER CHRONIC PAIN SNOMED Code(s): 809079951 (5) Hyperlipidemia Current Visit: Yes Status: Acute Code(s): E78.5 - HYPERLIPIDEMIA, UNSPECIFIED SNOMED Code(s): 94877297 (6) Coronary artery disease Current Visit: Yes Status: Acute Code(s): I25.10 - ATHSCL HEART DISEASE OF [place] CORONARY ARTERY W/O ANG PCTRS SNOMED Code(s): 89637453 (7) Hepatitis B Current Visit: Yes Status: Acute Code(s): B19.10 - UNSPECIFIED VIRAL HEPATITIS B WITHOUT HEPATIC COMA SNOMED Code(s): 61527666 (8) History of psychosis Current Visit: Yes Status: Acute Code(s): Z86.59 - PERSONAL HISTORY OF OTHER MENTAL AND BEHAVIORAL DISORDERS SNOMED Code(s): 224017362 (9) History of nephrolithiasis Current Visit: Yes Status: Acute Code(s): Z87.442 - PERSONAL HISTORY OF URINARY CALCULI SNOMED Code(s): 958775296 (10) Parkinsons disease Current Visit: Yes Status: Acute Code(s): G20 - PARKINSON'S DISEASE SNOMED Code(s): 53507270 (11) Shortness of breath Current Visit: Yes Status: Acute Code(s): R06.02 - SHORTNESS OF BREATH SNOMED Code(s): 794105066 (12) Acute congestive heart failure Current Visit: Yes Status: Acute Code(s): I50.9 - HEART FAILURE, UNSPECIFIED SNOMED Code(s): 62130792 (13) Elevated troponin Current Visit: Yes Status: Acute Code(s): R77.8 - OTHER SPECIFIED ABNORMALITIES OF PLASMA PROTEINS SNOMED Code(s): 831091032 Plan: Plan: 1. Patient has been seen in the bedside by Dr. Sergo Cooper and myself. Have reviewed his thoracic MRI imaging. Patient presented to the emergency prior for generalized weakness and difficulty with ambulation. He does have significant weakness with his left lower extremity with dorsiflexion, plantarflexion, and extensor hallucis longus. Patient is unsure of his exact timeline but states his weakness has been ongoing over the past 8-12 weeks. He is unable to ambulate on his left lower extremity due to his weakness. He has been scooting around his house. At this time we feel lumbar MRI imaging is necessary. This has been ordered by neurology. 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 We will plan to have this brace delivered and fitted appropriately from a participating [facility] [place] facility. Patient is not experiencing significant upper extremity radiculopathy or cervical pain. He does have some weakness of his right deltoid. Physical exam also shows slight positive Iraheta's sign of the bilateral upper extremities. Thoracic MRI imaging shows partially visualized cervical spine with significant changes at the cervical spine at C3-4, C4-5, C5-6, and C6-7. We feel his cervical MRI is necessary at this time for further evaluation. This has been ordered by neurology as well. We'll plan to review his cervical MRI imaging and lumbar MRI imaging following completion of this imaging. We will discuss further treatment options with the patient. We did discuss in detail where not currently planning for acute surgical intervention at the cervical spine or lumbar spine. Patient does have other significant medical diagnoses that he is currently being treated and evaluated for. Patient states he would also like to avoid surgical intervention. He would like to be discharged home. We did discuss once cleared by other medical providers he could be discharged home from an orthopedic spine standpoint and we could plan to have him schedule a follow-up appointment in the outpatient setting over the next 1-2 weeks with Sean Eddy PA-C or Dr. Sergo Cooper at [facility] in 1-2 weeks following dischar ge. If the patient remains in the hospital, we'll plan to follow him to review his MRI imaging once completed. 2. Patient will continue to be seen and examined by multiple medical providers for his other medical diagnoses 3. Consultation also been placed for social work for home care at discharge Time with Patient: Greater than 30 (Including obtaining history, physical examination, reviewing of imaging, and dictation.) <Roney Cooper - Last Filed: 05/07/21 12:48> Physical Examination Osteopathic Statement: *. No significant issues noted on an osteopathic structural exam other than those noted in the History and Physical/Consult. Results - Labs Labs: Abnormal Lab Results - Last 24 Hours (Table) 05/05/21 05/05/21 Range/Units 12:22 12:22 Vitamin B1 32 L (38-122) ug/L Vitamin B6 4 L (5-50) ug/L H & H 05/03/21 05/05/21 Range/Units 13:20 06:59 Hgb 16.6 15.8 (13.0-17.5) gm/dL Hct 52.2 50.0 (39.0-53.0) % Result Diagrams: 05/05/21 06:59 05/05/21 06:59 Assessment and Plan Plan: The patient is seen and examined at bedside. I reviewed the case and imaging as stated above with Sean Workman as per his dictation. I agree with the AFO for his footdrop. I think that his thoracic spine is clear and I think it is okay for him to get further workup from a spine standpoint on an outpatient basis. He will require further imaging as ordered by neurology. He continues to follow up with neurology on outpatient Dr. Norton. He does have significant cervical stenosis and we should evaluate his lumbar spine as well. Again I think that this can be done outpatient basis if he is cleared from medicine. We can follow him up in the next 2 weeks. I discussed this with him and he seems appro priate.
--- NOTE | 2021-05-07 15:13 | P.PN ---
Subjective This pleasant 75-year-old gentleman who follows with Dr. Mercedes in the office. He has a history of CABG over 20 years ago, hyperlipidemia, long-standing psychiatric history of Bipolar, Depression, Anxiety, ADD/ADHD. Presented to the hospital with inability to ambulate. Apparently for the last 2 weeks he has been unable to walk on his left leg. He is able to lift the leg but cannot move the foot at all. Unable to move the toes unable to dorsiflex or plantar flex. On admission chest x-ray showed evidence of pneumonia. We're consulted to see the patient due to an elevation of troponins which came back at 0.076, 0.072 0.078. NT proBNP was also elevated at 14,300. Patient did have a stress test Lexiscan the office 05/2020 which was negative for reversible ischemia. On 05/05/21, Echocardiogram revealed EF of 2530%, apical anterior and apical lateral LV wall motion is aneurysmal, global hypokinesis, moderate aortic stenosis with a peak fashion gradient of 38 mmHg/23 mmHg, mild to moderate mitral regurgitation, moderate tricuspid regurgitation. Prior echocardiogram in the office in 2016 showed a normal ejection fraction of 5055 percent. 05/07/2021 Patient seen at bedside, no acute distress. He denies having any chest discomfort. He also denies any shortness of breath. Vital signs are stable. He is afebrile. Patient is currently maintained on Lasix 40mg BID, aspirin 81 mg daily, atorvastatin 40 mg daily, metoprolol tartrate 12.5 mg twice a day Blood pressure 113/75, heart rate 76, afebrile, oxygen saturations 94% on room air GENERAL: In no acute distress. NECK: Supple without JVD or thyromegaly. LUNGS: Breath sounds clear to auscultation bilaterally. Respiration equal and unlabored. No wheezes, rales or rhonchi. HEART: Regular rate and rhythm without systolic ejection murmur noted at the apex and the right sternal border.S1 and S2 heard. EXTREMITIES: Normal range of motion, no edema. No clubbing or cyanosis. Peripheral pulses intact. ASSESSMENT Acute heart failure with reduced ejection fraction Cardiomyopathy, unclear if ischemic versus nonischemic at this time Elevated troponins Dyslipidemia Coronary artery disease History of CABG in 1998, unknown details PLAN Continue PO Lasix 40mg BID and Spironolactone 25mg daily Continue aspirin, statin, metoprolol tartrate Unable to add KHALIDA inhibitor due to hypotension We will discuss further management for cardiomyopathy with patient as outpatient. Workup can be completed in the outpatient setting Recommend close follow up with Dr. Mercedes in the office Patient with an appointment on 05/19/2021 Nurse Practitioner note has been reviewed, I agree with a documented findings and plan of care. Patient was seen and examined. Objective - Vital Signs Vital signs: Vital Signs Temp 97.5 F L 05/07/21 11:33 Pulse 76 05/07/21 14:00 Resp 18 05/07/21 14:00 BP 113/75 05/07/21 11:33 Pulse Ox 99 05/07/21 11:33 Intake & Output 05/06/21 05/07/21 05/07/21 18:59 06:59 18:59 Intake Total 720 240 597 Output Total 250 300 125 Balance 470 -60 472 Intake: Oral 720 240 597 Output: Urine 250 300 125 Other: Voiding Method External Catheter Toilet Toilet Urinal Urinal Diaper Diaper # Voids 2 1 # Bowel Movements 1 1 - Labs CBC & Chem 7: 05/05/21 06:59 05/05/21 06:59 Labs: Abnormal Lab Results - Last 24 Hours (Table) 05/05/21 05/05/21 Range/Units 12:22 12:22 Vitamin B1 32 L (38-122) ug/L Vitamin B6 4 L (5-50) ug/L
--- NOTE | 2021-05-07 22:04 | MR ---
EXAMINATION TYPE: MR cspine/lspine wo con DATE OF EXAM: 05/07/2021 COMPARISON: None HISTORY: Foot drop, evaluate for spinal stenosis. TECHNIQUE: Multiplanar, multisequence imaging of the lumbar spine is performed without IV contrast. FINDINGS: CERVICAL: There is moderate C3-C4 and C5-C6 spinal canal stenosis secondary to disc osteophyte complex and liga mentum flavum buckling/hypertrophy at C3-C4 and C5-C6. Suggestion of superimposed central disc bulgin g at C3-C4 and C4-C5. At C6-C7 there is left central disc protrusion which effaces the left spinal cord. Severe C4-C5 spinal canal stenosis secondary to disc bulging/disc osteophyte complex and ligamentum f lavum buckling/hypertrophy this area demonstrates T2 signal seen within the spinal cord just inferior to this level consistent with cord edema. The multilevel neural foraminal narrowing throughout the cervical spine is moderate bilaterally at C3 -C4, C4-C5, C5-C6 and C6-C7. Signal is within normal limits. Disc hydration is appropriate. LUMBAR: Sagittal images of the lumbar spine show alignment to appear satisfactory. Superior endplate concavit y deformity of L5 likely chronic. The intervertebral discs demonstrate normal heights and hydration. The conus medullaris is normal in position and signal. The bone marrow signal intensity is within n ormal limits. Axial images show no focal disc disease, at any lumbar level. There is mild facet join t arthropathy throughout the lumbar spine. There is no spinal canal stenosis, or evidence of nerve ro ot compromise. L4-L5 diffuse disc bulging with mild bilateral foraminal stenosis. The neural foramen are otherwise n ormal. IMPRESSION: 1. Severe C4-C5 spinal canal stenosis secondary to facet joint arthropathy and disc osteophyte comple x with associated cord edema. 2. Moderate C3-C4 and C5-C6 spinal canal stenosis. 3. C6-C7 left central disc herniation which effaces the left spinal cord. 4. No evidence of lumbar spine spinal canal stenosis, disc herniation or significant neural foraminal stenosis.
--- NOTE | 2021-05-07 22:30 | P.PN ---
Subjective Progress Note Date: 05/07/21 Patient is a 75-year-old male with a known history of coronary artery disease status post CABG four-vessel in 1998, hyperlipidemia, chronic liver disease, hepatitis B, chronic low back pain, nephrolithiasis status post lithotripsy, ORIF left ankle, Parkinson's disease, history of psychosis and other medical problems presents to ER with complaints of generalized weakness and not feeling well. Patient states that he fell about 2 weeks ago and since then he is not able to flex his left foot and is not able to walk. Has been crawling the status on his knees and by the time she gets to the first floor he felt very short of breath and winded. Patient is unable to take care of himself anymore and called EMS, presented to the ER. Denied any complaints of chest pain. No nausea vomiting abdominal pain or diarrhea. No dysuria or hematuria. Denies any fever or chills. No recent illnesses. Chest x-ray showed cardiomegaly and chronic parenchymal changes with new areas of bilateral multifocal infiltrate and/or edema may be present. Correlate clinically to exclude COVID-19 infection. EKG showed normal sinus rhythm. X-ray of the left knee showed no acute fracture or dislocation evident in the left knee. Mild to moderate tricompartment joint space loss without spurring. Laboratory data showed WBC 5.6 hemoglobin 16.6 and platelets 241 Sodium 138 potassium 3.4 chloride 101 BUN 12 and creatinine 1.06 and blood sugar is 103 Magnesium 1.8 total bilirubin level is 1.6 alk phos 228 CK 52 troponin 0 0.076, 0.072 and proBNP [id number] Urinalysis is negative for infection COVID-19 PCR not detected. 05/04/2021 Patient is currently in telemetry unit. Lying in the bed comfortably. Shortness of breath did improve. Patient is awake alert. Otherwise patient is stating that she he wants to be discharged and wants to take care of his dog at home. Otherwise patient is able to ambulate by himself and apparently has been crawling at home. Patient was seen by cardiology and recommends to continue IV Lasix. 2D echocardiogram was ordered. Replace potassium and follow closely. Psychiatry service will be consulted as well. 05/05/2021 This is a pleasant 75 years old male who presents with weakness and inability to walk secondary to left leg giving way on him, on admission his chest x-ray was suspicious for bilateral infiltrates with increased proBNP so patient was diagnosed with acute CHF exacerbation. With pneumonia less likely however he was placed on IV Lasix 20 mg twice a day and Zithromax and ceftriaxone, patient breathing is a stable today and his echocardiogram showed ejection fraction of 25-30% with global hypokinesia and moderate aortic stenosis. Cardiology team on the case, aspirin 81 mg and Aldactone were added. Lasix is wished to oral dose today. Neurology consult placed already for his left leg weakness and decreased sensation and patient is been evaluated by neurology team and he had negative CT of the brain and carotid duplex. MRI of the brain is pending. Patient also received vitamin B12, folate per neurologist. Physical therapy recommends subacute rehab, social work program coordinator consulted. However patient looks like he is refusing going to rehab 05/06/2021 Patient is on 75-year-old male admitted for Heart failure exacerbation patient is found to have EF of around 25-30%. Patient also has severe aortic stenosis. Patient was diuresed and the patient is presently on 40 mg of oral Lasix at this time. Patient's creatinine is 1.14. Patient is supposed to get the KHALIDA i nhibitor but because of the borderline blood pressures with systolic as low as 90 patient is not being started on this medication here patient probably can be started as an outpatient. Patient was also evaluated for stroke because of his left foot drop. Patient's MRI of the brain is essentially within normal limits patient is undergoing MRI of the lumbar spine as a neurology believes his weakness is secondary to nerve compression in the lumbosacral area. MRI is within normal limits patient will need an EMG as an outpatient. If MRI of the lumbar spine is within normal notes patient will be discharged today. Patient was recommended to go to subacute rehabilitation although he declined to go to subacute rehab. Home care and home physical therapy is being arranged for the patient. Impression potassium is low here at around 3.6 and 3.7 patient will be discharged on 20 mg of potassium as well. 05/07/2021 Patient evaluated today resting in bed. He has no acute complaints no acute even ts overnight. Does report left knee pain with ambulation and that knee eric. Has some concern today waiting for discharge as he has a dog at home that needs taking care off, refusing rehab at this time. Thoracic spine MRI shows cervical spine stenosis and new small to moderate size left greater than right pleural effusions noted. Correlate clinically. Patient evaluated by orthopedics who recommended follow up cervial MRI and lumbar MRI due to concern for left foot drop with left lower extremity weakness. AFO brace, once patient receives AFO brace he may be discharged home, he is cleared by other consultations. ROS Constitutional: Denies fever, denies fatigue HEENT: Pupils equal reactive, head atraumatic Pulmonary: Denies cough, shortness of breath Cardiac: Denies chest pain, chest pressure, palpitations : Denies dysuria, abdominal pain, nausea, vomiting, diarrhea Neurological: as described above Physical Exam GENERAL: The patient is alert and oriented x3, not in any acute distress. Well developed, well nourished. HEENT: Pupils are round and equally reacting to light. EOMI. No scleral icterus. No conjunctival pallor. Normocephalic, atraumatic. No pharyngeal erythema. No thyromegaly. CARDIOVASCULAR: S1 and S2 present. No murmurs, rubs, or gallops. -PULMONARY: Chest is clear to auscultation, no wheezing . Mild basal crepitation ABDOMEN: Soft, nontender, nondistended, normoactive bowel sounds. No palpable organomegaly. MUSCULOSKELETAL: No joint swelling or deformity. EXTREMITIES: No cyanosis, clubbing, or pedal edema. -NEUROLOGICAL: Gross neurological cranial nerves are grossly intact, left leg weakness and decreased sensation, but 4/5. Right leg strength and upper extremity are 5/5. Meningeal signs are absent SKIN: No rashes. no petechiae. Assessment and Plan Assessment: Acute systolic CHF with ejection fraction of 25-30% Moderate aortic stenosis Elevated troponin level. Secondary to CHF Left foot drop and decreased sensation, rule out stroke, MRI of the brain is negative for stroke, cervical stenosis found on thoracic MRI Bilateral multifocal infiltrate: Secondary to congestive heart failure. No evidence of pneumonia and antibiotics were discontinued Generalized weakness and fatigue and unable to take care of himself. Coronary artery disease history of quadruple bypass graft in 1998 Hyperlipidemia Hepatitis B Chronic low back pain follows with Dr Norton and receives injections in the office Nephrolithiasis with status post lithotripsy ORIF left ankle Parkinson's disease History of psychosis. GI Prophylaxis DVT Prophylaxis Plan MRI Cervical and Lumbar spine Orthopedics consultation AFO brace Continue all other current medications. Discharge tomorrow Objective - Vital Signs Vital signs: Vital Signs Temp 97.5 F L 05/07/21 11:33 Pulse 76 05/07/21 14:00 Resp 18 05/07/21 14:00 BP 113/75 05/07/21 11:33 Pulse Ox 99 05/07/21 11:33 Intake & Output 05/06/21 05/07/21 05/07/21 18:59 06:59 18:59 Intake Total 720 240 597 Output Total 250 300 125 Balance 470 -60 472 Intake: Oral 720 240 597 Output: Urine 250 300 125 Other: Voiding Method External Catheter Toilet Toilet Urinal Urinal Diaper Diaper # Voids 2 1 # Bowel Movements 1 1 - Labs CBC & Chem 7: 05/05/21 06:59 05/05/21 06:59 Labs: Abnormal Lab Results - Last 24 Hours (Table) 05/05/21 05/05/21 Range/Units 12:22 12:22 Vitamin B1 32 L (38-122) ug/L Vitamin B6 4 L (5-50) ug/L
--- NOTE | 2021-05-07 23:51 | P.PN ---
Subjective Progress Note Date: 05/07/21 patient was seen for a follow-up. Denies any new neurological symptoms. Wants to go home. Patient is slightly pleasantly confused. Telemetry monitoring showing sinus rhythm. Objective - Vital Signs Vital signs: Vital Signs Temp 98.2 F 05/07/21 20:00 Pulse 72 05/07/21 20:00 Resp 16 05/07/21 20:00 BP 106/72 05/07/21 20:00 Pulse Ox 96 05/07/21 20:00 Intake & Output 05/07/21 05/07/21 05/08/21 06:59 18:59 06:59 Intake Total 240 1041 240 Output Total 300 450 Balance -60 591 240 Intake: Oral 240 1041 240 Output: Urine 300 450 Other: Voiding Method Toilet Toilet Toilet Urinal Urinal Urinal Diaper Diaper Diaper # Voids 1 1 1 # Bowel Movements 1 - Exam mental status, speech and language functions are stable. No aphasia. Cranial nerves are normal. On muscle strength testing ( RIGHT/LEFT) deltoid 4+/5-, biceps 5/5, triceps 5/5, motor vehicle examiner 5/5. Hip flexion 4+/4-. Patient has severe left foot weakness/flail foot whereas normal on the right side.. Plantars are flat. - Labs CBC & Chem 7: 05/05/21 06:59 05/05/21 06:59 Labs: Abnormal Lab Results - Last 24 Hours (Table) 05/05/21 05/05/21 Range/Units 12:22 12:22 Vitamin B1 32 L (38-122) ug/L Vitamin B6 4 L (5-50) ug/L Assessment and Plan Assessment: * Severe cervical spinal stenosis with cervical myelopathy at C4-5 level. * Vitamin B-1 deficiency * Vitamin B12 deficiency * Vitamin B6 deficiency * Folate deficiency * Coronary artery disease * Hyperlipidemia * Borderline diabetes * Mildly elevated cardiac enzymes Plan: * MRI of the cervical spine revealed severe C4 5 spinal canal stenosis secondary to facet joint arthropathy and disc osteophyte complex with associated cord edema. Moderate C3 4 and C5 6 spinal canal stenosis. C6-C7 left central disc herniation which effaces the left spinal cord. Orthopedic spine surgery input appreciated. * MRI of the lumbar spine showed no evidence of lumbar spinal canal stenosis, disc herniation or neural foraminal stenosis. * MRI of the brain revealed age-related atrophic and chronic small vessel ischemic change. No acute intracranial process. No acute CVA. * Carotid Doppler revealed bilateral plaque without hemodynamically significant stenosis. Antegrade flow in both vertebral arteries. * 2-D echo revealed mild concentric LVH. Normal left ventricular size. Left ventricle systolic function is severely impaired with EF between 25-30%. Apical anterior, apical lateral left ventricular wall motion is aneurysmal. Global hypokinesis. Left atrium is moderately dilated. Mild AR. Moderate aortic stenosis. Mild to moderate MR. Cardiology is on board. * B12 312, folate 2.5, MMA elevated 0.40 (Normal <0.40), vitamin B1 32 (38-122), B6 also very low 4 (5-50). Lamictal level 13.1 (2-15). Patient will be started on vitamin B1 100 mg, and vitamin B6 100 mg daily. We will start folic acid 1 mg daily. * Continue aspirin 81 mg daily. * Continue Lipitor 40 mg daily. * MRI of the thoracic spine revealed most prominent findings in the cervical spine where there is severe spinal stenosis with abnormal cord signal. Patient will undergo MRI of the cervical and lumbar spine.
[2021-05-07] MEDS: THIAMINE 100 MG/ML 2 ML VIAL IVP SCH (23:56)
[2021-05-08] MEDS: HEPARIN SODIUM,PORCINE/PF 5,000 UNIT/0.5 ML SYRINGE SQ SCH ×2 (07:58→17:18)
[2021-05-08] MEDS: SPIRONOLACTONE 25 MG TAB PO SCH (07:58)
[2021-05-08] MEDS: FAMOTIDINE 20 MG/2 ML VIAL IV SCH (07:58)
[2021-05-08] MEDS: FOLIC ACID 1 MG TAB PO SCH (07:59)
[2021-05-08] MEDS: ESCITALOPRAM 10 MG TAB PO SCH (07:59)
[2021-05-08] MEDS: lamoTRIgine 100 MG TAB PO SCH (07:59)
[2021-05-08] MEDS: FUROSEMIDE 40 MG TAB PO SCH ×2 (07:59→17:18)
[2021-05-08] MEDS: ATORVASTATIN 40 MG TAB PO SCH (08:00)
[2021-05-08] MEDS: AMOXIC-POT CLAV 500-125 MG 1 EACH TAB PO SCH (08:00)
[2021-05-08] MEDS: ASPIRIN 81 MG PO SCH (08:00)
[2021-05-08] MEDS: METOPROLOL TARTRATE 12.5 MG TAB PO SCH (08:03)
[2021-05-08 08:12] VITALS: TEMP 97.3
--- NOTE | 2021-05-08 08:27 | P.PN ---
Progress Note - Text Progress Note Date: 05/08/21 The patient is seen and examined at bedside. He is very comfortable and conversant. He has had limited activity thus far. We are still awaiting his AFO brace for his foot. I think that once he has the brace can start to try to mobilize with the brace intact. He may mobilize without it but the brace will help give him some stability. He is not complaining of any upper extremity issues and does not have upper motor neuron signs related to his cervical spine. He is not having any acute neurologic change. He does have chronic weakness at his upper extremity. Lower extremity footdrop, chronic This may have some benefit with bracing and therapy to help him to mobilize. We have ordered these. Cervical stenosis with degenerative disc disease at multiple levels The patient is not having acute symptoms from his cervical stenosis at this point. He does have disc degeneration with evidence of stenosis at his cervical spine which may need further workup and treatment in the future but I do not plan any acute intervention for his cervical spine at this point. From an orthopedic spine standpoint is okay for the patient be discharged with home health or to jail when he is clear with no services. We can follow him up in few weeks for recheck evaluation. Patient is continuing other management for his cardiac and medical issues as well
[2021-05-08] MEDS ORDERED: PYRIDOXINE 50 MG TAB PO SCH (09:00)
[2021-05-08] MEDS: THIAMINE 100 MG/ML 2 ML VIAL IVP SCH (10:18)
[2021-05-08 12:14] VITALS: BP 99/62; PULSE 68; RESP 16
[2021-05-08 13:29] VITALS: BMI 28.1
[2021-05-08] MEDS ORDERED: FAMOTIDINE 20 MG TAB PO SCH (21:00)
--- NOTE | 2021-05-08 23:50 | P.DS ---
Providers Date of admission: 05/03/21 15:02 Attending physician: Radha Pacheco Consults: 05/03/21 15:02 Consult Physician Urgent Consulting Provider: Khari Mercedes Consult Reason/Comments: Elevated troponin Do you want consulting provider notified?: Yes 05/04/21 15:54 Consult Physician Routine Consulting Provider: Psychiatry - [facility] Psychiatry Consult Reason/Comments: cognition evaluation, confusion Do you want consulting provider notified?: Yes 05/04/21 15:57 Consult Physician Routine Consulting Provider: Baljeet Lynch Consult Reason/Comments: Decreased sensation new, foot drop Do you want consulting provider notified?: Yes 05/06/21 14:32 Consult Physician Routine Consulting Provider: Roney Cooper Consult Reason/Comments: cervical Spinal stenosis, foot drop Do you want consulting provider notified?: Yes Primary care physician: Krishna Rizzo Hospital Course: Final Diagnosis Acute systolic CHF with ejection fraction of 25-30% Moderate aortic stenosis Elevated troponin level. Secondary to CHF Left foot drop and decreased sensation, rule out stroke, MRI of the brain is negative for stroke, cervical stenosis found on thoracic MRI Severe cervical spinal stenosis with cervical myelopathy at C4-5 level. Bilateral multifocal infiltrate: Secondary to congestive heart failure. No evidence of pneumonia and antibiotics were discontinued Generalized weakness and fatigue and unable to take care of himself. Coronary artery disease history of quadruple bypass graft in 1998 Hyperlipidemia Borderline diabetes hgb a1c 6.4 Hepatitis B Chronic low back pain follows with Dr Norton and receives injections in the office Nephrolithiasis with status post lithotripsy ORIF left ankle Parkinson's disease History of psychosis. Discharge Disposition Patient refusing subacute rehab at this time. Discussed with SW will follow up with APS referral. Patient discharged with homecare, PT/OT. Patient underwent psychiatric evaluation this hospital stay who had deemed patient competent to m elvis medical decisions, although not the best decisions. Patient alert and oriented on discharge. AFO brace for left foot to be delivered to patient after discharge as it was custom fit. Hospital Course This is a 75 year old male who presents to the hospital with complaints of generalized weakness and not feeling well. He fell about 2 weeks prior to admission and since he has not been able to flex his left foot and is not able to walk. He has been crawling around on his knees and going up and down stairs on his knees and has been short of breath and winded. He does complain of pain to his left knee as well. Patient has been unable to take care of himself and called EMS and presented to the [facility]. Patient with past medical history of coronary artery disease status post CABG 4 vessel in 1998, hyperlipidemia, chronic liver disease, hepatitis B, chronic low back pain, nephrolisthiasis, ORIF left ankle, parkinsons disease, history of psychosis and other medical problems. He denies nausea, vomiting, diarrhea, denies fever chills. No recent illness, no dysuria, hematuria. Chest x-ray showed cardiomegaly and chronic parenchymal changes with new areas of bilateral multifocal infiltrate and/or edema may be present. Correlate clinically to exclude COVID-19 infection. EKG showed normal sinus rhythm. X-ray of the left knee showed no acute fracture or dislocation evident in the left knee. Mild to moderate tricompartment joint space loss without spurring. Laboratory data showed WBC 5.6 hemoglobin 16.6 and platelets 241 Sodium 138 potassium 3.4 chloride 101 BUN 12 and creatinine 1.06 and blood sugar is 103 Magnesium 1.8 total bilirubin level is 1.6 alk phos 228 CK 52 troponin 0 0.076, 0.072 and proBNP 79850 Urinalysis is negative for infection COVID-19 PCR not detected. B12 312, folate 2.5, MMA elevated 0.40 (Normal <0.40), vitamin B1 32 (38-122), B6 also very low 4 (5-50). Lamictal level 13.1 (2-15). Echocardiogram: EF 25 to 30% with global hypokinesis, moderate tricuspid reg urgitation. Patient also has severe aortic stenosis. Patient was evaluated by cardiology and diuresed with IV lasix and the patient is presently on 40 mg of oral Lasix at this time. Patient's creatinine is 1.14. Patient is supposed to get the KHALIDA inhibitor but because of the borderline blood pressures with systolic as low as 90 patient is not being started on this medication here patient probably can be started as an outpatient. Patient was also evaluated for stroke because of his left foot drop. Patient's MRI of the brain is essentially within normal limits patient is undergoing MRI of the lumbar spine as a neurology believes his weakness is secondary to nerve compression in the lumbosacral area. MRI of the cervical spine revealed severe C4 5 spinal canal stenosis secondary to facet joint arthropathy and disc osteophyte complex with associated cord edema. Moderate C3 4 and C5 6 spinal canal stenosis. C6-C7 left central disc herniation which effaces the left spinal cord. Orthopedic spine surgery input appreciated. MRI of the lumbar spine showed no evidence of lumbar spinal canal stenosis, disc herniation or neural foraminal stenosis. 05/08/2021 Patient waiting for AFO brace which will be delivered to him. Cleared by orthopedics to follow up in the office. Patient also followed in consult by cardiology, neurology and psychiatry. No evidence for acute symptoms of cervical spine stenosis found on imaging. Patient started on vitamin B1 100 mg, and vitamin B6 100 mg daily, and folic acid 1 mg daily by neurology. Started on potassium supplement 20 meq daily as well. Most recent labs show unremarkable blood count panel, sodium 136, potassium 3.7, hgb A1C 6.4, BNP 7540. Afebrile, heart rate 76, blood pressure 111/64, 96% room air. Pt states he needs to get home to take care of his dog, isnt sure if someone has been looking after his house during admission. He continues to refuse rehab. Denies chest pain, cough, shortness of breath. Denies headache, vision changes, dizzinesss, lightheadedness. Denies nausea, vomiting, or diarrhea. Lungs are clear, s1, s2 auscultated, abdomen soft non tender, normoactive bowel sounds, continues with let foot drop, left lower extremity weakness. Patient high risk for readmission due to his chronic medical conditions. Cleared by all consultations, patient wishes to be discharged home. Appropriate homecare and social work referrals in place. Please see medication reconciliation for a list of current medications. Thank you for allowing us to participate in the care of this patient. Patient Condition at Discharge: Fair Plan - Discharge Summary New Discharge Prescriptions: New Aspirin 81 mg PO DAILY #30 Furosemide [Lasix] 40 mg PO BID@0900,1600 #30 tab Metoprolol Tartrate [Lopressor] 12.5 mg PO BID #60 tab Nitroglycerin Sl Tabs [Nitrostat] 0.4 mg SUBLINGUAL Q5M PRN #60 tab PRN Reason: Chest Pain Spironolactone [Aldactone] 25 mg PO DAILY #30 tab Atorvastatin [Lipitor] 40 mg PO HS #30 tab Potassium Chloride ER [K-Dur 20] 20 meq PO DAILY #30 tab Continue lamoTRIgine 100 mg PO DAILY Escitalopram Oxalate [Lexapro] 10 mg PO DAILY lamoTRIgine 200 mg PO HS Discontinued cloNIDine HCL 0.4 mg PO BID Discharge Medication List Escitalopram Oxalate [Lexapro] 10 mg PO DAILY 05/03/21 [History] lamoTRIgine 100 mg PO DAILY 05/03/21 [History] lamoTRIgine 200 mg PO HS 05/03/21 [History] Aspirin 81 mg PO DAILY #30 05/06/21 [Rx] Atorvastatin [Lipitor] 40 mg PO HS #30 tab 05/06/21 [Rx] Furosemide [Lasix] 40 mg PO BID@0900,1600 #30 tab 05/06/21 [Rx] Metoprolol Tartrate [Lopressor] 12.5 mg PO BID #60 tab 05/06/21 [Rx] Nitroglycerin Sl Tabs [Nitrostat] 0.4 mg SUBLINGUAL Q5M PRN #60 tab 05/06/21 [Rx] Potassium Chloride ER [K-Dur 20] 20 meq PO DAILY #30 tab 05/06/21 [Rx] Spironolactone [Aldactone] 25 mg PO DAILY #30 tab 05/06/21 [Rx] Follow up Appointment(s)/Referral(s): [facility], [NON-STAFF] - [facility] [REFERRING] - Krishna Rizzo MD [Primary Care Provider] - 05/14/21 11:40 am (Wednesday) Sean Eddy PAC [PHYSICIAN CABLE OPERATOR] - 05/20/21 2:00 pm ( ) Rodger Norton MD [Medical Doctor] - 05/26/21 9:00 am (Wednesday) Khari Mercedes MD [STAFF PHYSICIAN] - 05/19/21 10:45 am (Wednesday at the main office) Alonso Nunes [NON-STAFF] - (Will be out early next week to fit the custom AFO Brace. ) Ambulatory/Diagnostic Orders: Basic Metabolic Panel [LAB.AMB] Time Frame: 3 Days, Location: None Selected Activity/Diet/Wound Care/Special Instructions: Patient wants Wheelchair van ride home and agreeable to cost. Discharge/Stand Alone Forms: Who Do I Call? Discharge Disposition: HOME WITH HOME HEALTH SERVICES
--- NOTE | 2021-05-12 11:07 | CDI ---
Documentation Clarification Form Date: 05/12/2021 10:57:55 AM From: Chito Santos Admit Date: 05/03/2021 03:02:00 PM Patient Name: Jozef Traylor Visit Number: [id number] Discharge Date: 05/08/2021 05:35:00 PM ATTENTION: The Clinical Documentation Specialists (CDI) and [facility] Coding Staff appreciate your assistance in clarifying documentation. Please respond to the clarification below the line at the bottom and electronically sign. The CDI & [facility] Coding staff will review the response and follow-up if needed. Please note: Queries are made part of the Legal Health Record. If you have any questions, please contact the author of this message via ITS. Dr. Radha Pacheco The patients principal diagnosis the diagnosis that was chiefly responsible for the admission - has not been clearly identified and clarification is requested. The patient presented with weakness and L foot drop. History/Risk factors Spinal stenosis, CHF: Clinical Indicators: myelopathy, elevated troponin Lab findings: elevated troponin Radiology findings: ED CXR: bilateral infiltrates, MRI of spine: C6-7 disk herniation Treatment: IV Lasix, MRI of spine Consults: neurology for spinal stenosis, cardiology for elevated troponin and CHF In your professional opinion, can you please clarify which diagnosis, after study, was the reason chiefly responsible for the admission? [ ] acute systolic CHF [ ] cervical stenosis with myelopathy [ ] Other, please specify [ ] Unable to determine [ ] spinal stenosis and CHF equally MTDD
--- NOTE | 2021-05-12 11:36 | P.PN ---
Subjective Progress Note Date: 05/08/21 Patient was seen for a follow-up. Denies any new neurological symptoms. Wants to go home. Telemetry monitoring showing sinus rhythm. Objective - Vital Signs Vital signs: Vital Signs Temp 97.3 F L 05/08/21 08:00 Pulse 68 05/08/21 12:00 Resp 16 05/08/21 12:00 BP 99/62 05/08/21 12:00 Pulse Ox 96 05/08/21 12:00 - Exam Mental status, speech and language functions are stable. No aphasia. Cranial nerves are normal. On muscle strength testing ( RIGHT/LEFT) deltoid 5-/5, biceps 5/5, triceps 5/5, neckties painter 5/5. Hip flexion 4+/4-. Patient has severe left foot weakness/flail foot whereas normal on the right side.. Plantars are flat. - Labs CBC & Chem 7: 05/05/21 06:59 05/05/21 06:59 Assessment and Plan Assessment: * Severe cervical spinal stenosis with cervical myelopathy at C4-5 level. * Vitamin B-1 deficiency * Vitamin B12 deficiency * Vitamin B6 deficiency * Folate deficiency * Coronary artery disease * Hyperlipidemia * Borderline diabetes * Mildly elevated cardiac enzymes Plan: * MRI of the cervical spine revealed severe C4 5 spinal canal stenosis secondary to facet joint arthropathy and disc osteophyte complex with associated cord edema. Moderate C3 4 and C5 6 spinal canal stenosis. C6-C7 left central disc herniation which effaces the left spinal cord. Orthopedic spine surgery input appreciated. * MRI of the lumbar spine showed no evidence of lumbar spinal canal stenosis, disc herniation or neural foraminal stenosis. * MRI of the brain revealed age-related atrophic and chronic small vessel ischemic change. No acute intracranial process. No acute CVA. * MRI of the thoracic spine revealed most prominent findings in the cervical sp ine where there is severe spinal stenosis with abnormal cord signal. Patient will undergo MRI of the cervical and lumbar spine. * Carotid Doppler revealed bilateral plaque without hemodynamically significant stenosis. Antegrade flow in both vertebral arteries. * 2-D echo revealed mild concentric LVH. Normal left ventricular size. Left ventricle systolic function is severely impaired with EF between 25-30%. Apical anterior, apical lateral left ventricular wall motion is aneurysmal. Global hypokinesis. Left atrium is moderately dilated. Mild AR. Moderate aortic stenosis. Mild to moderate MR. Cardiology is on board. * B12 312, folate 2.5, MMA elevated 0.40 (Normal <0.40), vitamin B1 32 (38-122), B6 also very low 4 (5-50). Lamictal level 13.1 (2-15). Patient will be started on vitamin B1 100 mg, and vitamin B6 100 mg daily for 2 weeks, then may decrease to 50 mg daily. We will start folic acid 1 mg daily. * Continue aspirin 81 mg daily. * Continue Lipitor 40 mg daily. * Neurologically clear, if cleared by orthopedic surgery. Recommend patient follow up with neurologist as an outpatient.
== END 2021-05-08 17:35 | disposition home health service (06) | DRG 292 ==
LOC: EC 12:39 → 3SCARD 15:02
PROVIDERS: ADMIT Internal Medicine; ATTEND Internal Medicine
DX: I50.21 Acute systolic (congestive) heart failure (principal); M50.023 Cervical disc disorder at C6-C7 level with myelopathy; M47.12 Other spondylosis with myelopathy, cervical region; B19.10 Unspecified viral hepatitis B without hepatic coma; E51.9 Thiamine deficiency, unspecified; I42.9 Cardiomyopathy, unspecified; R47.01 Aphasia; E53.1 Pyridoxine deficiency; E53.8 Deficiency of other specified B group vitamins; E78.5 Hyperlipidemia, unspecified; E86.0 Dehydration; F31.9 Bipolar disorder, unspecified; F41.0 Panic disorder [episodic paroxysmal anxiety]; G20 Parkinson's disease; G89.29 Other chronic pain; M54.50 Low back pain, unspecified; I08.3 Combined rheumatic disorders of mitral, aortic and tricuspid valves; I25.10 Atherosclerotic heart disease of native coronary artery without angina pectoris; I49.3 Ventricular premature depolarization; M21.372 Foot drop, left foot; M25.78 Osteophyte, vertebrae; M48.02 Spinal stenosis, cervical region; N20.0 Calculus of kidney; R62.7 Adult failure to thrive; R73.03 Prediabetes; Z20.822 Contact with and (suspected) exposure to COVID-19; Z79.82 Long term (current) use of aspirin; Z79.899 Other long term (current) drug therapy; Z87.442 Personal history of urinary calculi; Z91.81 History of falling; Z95.1 Presence of aortocoronary bypass graft; R77.8 Other specified abnormalities of plasma proteins
CPT/HCPCS: 36415; 70450; 70551; 71045; 71046; 72141; 72146; 72148; 80048; 80053; 80061; 80175; 81001; 82550; 82607; 82746; 83036; 83615; 83735; 83880; 83921; 84145; 84207; 84425; 84443; 84484; 85025; 86140; 87635; 93005; 93306; 93880; 93970; 99285

== ENCOUNTER 2021-05-09 16:41 | Observation (INO) | payer MEDICARE ==
[2021-05-09 17:48] LABS: Basophils # (A) 0.1 k/uL (0-0.2); Basophils % (A) 2 %; Eosinophils # (A) 0.2 k/uL (0-0.7); Eosinophils % (A) 2 %; HCT 51.2 % (39.0-53.0); HGB 16.6 gm/dL (13.0-17.5); Lymphocytes # (A) 3.2 k/uL (1.0-4.8); Lymphocytes % (A) 40 %; MCH 30.3 pg (25.0-35.0); MCHC 32.4 g/dL (31.0-37.0); MCV 93.4 fL (80.0-100.0); Mean Platelet Volume 7.7; Monocytes # (A) 0.4 k/uL (0-1.0); Monocytes % (A) 5 %; Neutrophils % (A) 50 %; Platelet Count 354 k/uL (150-450); RBC 5.48 m/uL (4.30-5.90); RDW 14.5 % (11.5-15.5)
--- NOTE | 2021-05-09 17:49 | ED ---
Lower Extremity Injury HPI - General Chief Complaint: Extremity Injury, Lower Stated Complaint: lt leg weakness Time Seen by Provider: 05/09/21 17:00 Source: patient, EMS, RN notes reviewed, old records reviewed Mode of arrival: ambulatory Limitations: physical limitation - History of Present Illness Initial Comments: This is a 75-year-old male with a recent admission was discharged yesterday he was admitted for systolic congestive heart failure as well as left leg pain he was found have a 25-30% ejection fraction who is back today with inability to walk or ambulate or care for himself. He denies any fevers chills nausea vomiting sweats he states he is has a lot of discomfort in his left knee and left great toe area he denies any back pain no new falls. - Related Data Home Medications Medication Instructions Recorded Confirmed Escitalopram Oxalate [Lexapro] 10 mg PO DAILY 05/03/21 05/09/21 lamoTRIgine 100 mg PO DAILY 05/03/21 05/09/21 lamoTRIgine 200 mg PO HS 05/03/21 05/09/21 Previous Rx's Medication Instructions Recorded Aspirin 81 mg PO DAILY #30 05/06/21 Atorvastatin [Lipitor] 40 mg PO HS #30 tab 05/06/21 Furosemide [Lasix] 40 mg PO BID@0900,1600 #30 tab 05/06/21 Metoprolol Tartrate [Lopressor] 12.5 mg PO BID #60 tab 05/06/21 Nitroglycerin Sl Tabs [Nitrostat] 0.4 mg SUBLINGUAL Q5M PRN #60 tab 05/06/21 Potassium Chloride ER [K-Dur 20] 20 meq PO DAILY #30 tab 05/06/21 Spironolactone [Aldactone] 25 mg PO DAILY #30 tab 05/06/21 Allergies Allergy/AdvReac Type Severity Reaction Status Date / Time No Known Allergies Allergy Verified 05/09/21 16:49 Review of Systems ROS Statement: Those systems with pertinent positive or pertinent negative responses have been documented in the HPI. ROS Other: All systems not noted in ROS Statement are negative. Past Medical History Past Medical History: Coronary Artery Disease (CAD), Hyperlipidemia, Liver Disease, Pneumonia, Renal Disease Additional Past Medical History / Comment(s): 03/13/20 lamictal toxicity/delirium, gait dysfunction, R periorbital hematoma/cellulitis, fall. Other hx: Hepatitis B, insomnia, some aphasia since CABG in 1998, anemia, chronic low back pain, nephrolithiasis. History of Any Multi-Drug Resistant Organisms: None Reported Past Surgical History: Coronary Bypass/CABG, Heart Catheterization, Orthopedic Surgery, Tonsillectomy Additional Past Surgical History / Comment(s): 1998 CABG 4 vessel, lithotripsy, ORIF L ankle, colonoscopy, RK eye surgery for vision correction Past Anesthesia/Blood Transfusion Reactions: No Reported Reaction Past Psychological History: ADD/ADHD, Anxiety, Bipolar, Depression, Panic Disorder Smoking Status: Never smoker Past Alcohol Use History: None Reported Past Drug Use History: None Reported - Past Family History Mother Family Medical History: No Reported History Additional Family Medical History / Comment(s): Pernicious anemia, eating disorder. Father Additional Family Medical History / Comment(s): EToh abuse. General Exam - General Exam Comments Initial Comments: This is a well-developed well-nourished awake alert oriented 3 male Limitations: physical limitation General appearance: alert, anxious Head exam: Present: atraumatic, normocephalic, normal inspection Eye exam: Present: normal appearance, PERRL, EOMI. Absent: scleral icterus, conjunctival injection, periorbital swelling ENT exam: Present: mucous membranes dry Neck exam: Present: normal inspection. Absent: tenderness, meningismus, lymphadenopathy Respiratory exam: Present: decreased breath sounds. Absent: respiratory distress, wheezes, rales, rhonchi, stridor Cardiovascular Exam: Present: regular rate, normal rhythm, normal heart sounds. Absent: systolic murmur, diastolic murmur, rubs, gallop, clicks GI/Abdominal exam: Present: soft, normal bowel sounds. Absent: distended, t enderness, guarding, rebound, rigid, bruit, pulsatile mass Rectal exam: Present: deferred Extremities exam: Present: normal inspection, normal capillary refill, other (Decreased range of motion of left lower extremity some discomfort to palpation over the left great toe no knee or leg pain pulses appear to be within normal limits capillary refill less than 2 seconds). Absent: tenderness, pedal edema, joint swelling, calf tenderness Back exam: Present: normal inspection, full ROM. Absent: tenderness Neurological exam: Present: alert, oriented X3, CN II-XII intact Psychiatric exam: Present: normal affect, normal mood Skin exam: Present: warm, dry, intact, normal color. Absent: rash Course Vital Signs 05/09/21 05/09/21 16:43 18:17 Temperature 97.9 F Pulse Rate 87 84 Respiratory 18 18 Rate Blood Pressure 127/87 124/90 O2 Sat by Pulse 100 97 Oximetry Medical Decision Making - Medical Decision Making Did discuss findings the patient and with Dr. up patient be admitted he does demonstrate elevated troponin as well as feeling thrive and inability care for himself. This seems creatinine is elevated compared to previous with some clinical evidence of dehydration. - Lab Data Result diagrams: 05/09/21 17:42 05/09/21 17:42 Lab Results 05/09/21 05/09/21 05/09/21 Range/Units 17:42 17:42 17:42 WBC 8.0 (3.8-10.6) k/uL RBC 5.48 (4.30-5.90) m/uL Hgb 16.6 (13.0-17.5) gm/dL Hct 51.2 (39.0-53.0) % MCV 93.4 (80.0-100.0) fL MCH 30.3 (25.0-35.0) pg MCHC 32.4 (31.0-37.0) g/dL RDW 14.5 (11.5-15.5) % Plt Count 354 (150-450) k/uL MPV 7.7 Neutrophils % 50 % Lymphocytes % 40 % Monocytes % 5 % Eosinophils % 2 % Basophils % 2 % Neutrophils # 4.0 (1.3-7.7) k/uL Lymphocytes # 3.2 (1.0-4.8) k/uL Monocytes # 0.4 (0-1.0) k/uL Eosinophils # 0.2 (0-0.7) k/uL Basophils # 0.1 (0-0.2) k/uL Sodium 136 L (137-145) mmol/L Potassium 5.2 H (3.5-5.1) mmol/L Chloride 94 L (98-107) mmol/L Carbon Dioxide 26 (22-30) mmol/L Anion Gap 16 mmol/L BUN 34 H (9-20) mg/dL Creatinine 1.38 H (0.66-1.25) mg/dL Est GFR (CKD-EPI)AfAm 58 (>60 ml/min/1.73 sqM) Est GFR (CKD-EPI)NonAf 50 (>60 ml/min/1.73 sqM) Glucose 105 H (74-99) mg/dL Calcium 11.0 H (8.4-10.2) mg/dL Magnesium 1.9 (1.6-2.3) mg/dL Total Bilirubin 1.1 (0.2-1.3) mg/dL AST 97 H (17-59) U/L ALT 74 H (4-49) U/L Alkaline Phosphatase 259 H (38-126) U/L Creatine Kinase 61 (55-170) U/L Troponin I 0.073 H* (0.000-0.034) ng/mL NT-Pro-B Natriuret Pep pg/mL Total Protein 9.6 H (6.3-8.2) g/dL Albumin 5.2 H (3.5-5.0) g/dL Urine Color Urine Appearance (Clear) Urine pH (5.0-8.0) Ur Specific [place] (1.001-1.035) Urine Protein (Negative) Urine Glucose (UA) (Negative) Urine Ketones (Negative) Urine Blood (Negative) Urine Nitrite (Negative) Urine Bilirubin (Negative) Urine Urobilinogen (<2.0) mg/dL Ur Leukocyte Esterase (Negative) 05/09/21 05/09/21 Range/Units 17:42 18:57 WBC (3.8-10.6) k/uL RBC (4.30-5.90) m/uL Hgb (13.0-17.5) gm/dL Hct (39.0-53.0) % MCV (80.0-100.0) fL MCH (25.0-35.0) pg MCHC (31.0-37.0) g/dL RDW (11.5-15.5) % Plt Count (150-450) k/uL MPV Neutrophils % % Lymphocytes % % Monocytes % % Eosinophils % % Basophils % % Neutrophils # (1.3-7.7) k/uL Lymphocytes # (1.0-4.8) k/uL Monocytes # (0-1.0) k/uL Eosinophils # (0-0.7) k/uL Basophils # (0-0.2) k/uL Sodium (137-145) mmol/L Potassium (3.5-5.1) mmol/L Chloride (98-107) mmol/L Carbon Dioxide (22-30) mmol/L Anion Gap mmol/L BUN (9-20) mg/dL Creatinine (0.66-1.25) mg/dL Est GFR (CKD-EPI)AfAm (>60 ml/min/1.73 sqM) Est GFR (CKD-EPI)NonAf (>60 ml/min/1.73 sqM) Glucose (74-99) mg/dL Calcium (8.4-10.2) mg/dL Magnesium (1.6-2.3) mg/dL Total Bilirubin (0.2-1.3) mg/dL AST (17-59) U/L ALT (4-49) U/L Alkaline Phosphatase (38-126) U/L Creatine Kinase (55-170) U/L Troponin I (0.000-0.034) ng/mL NT-Pro-B Natriuret Pep 8360 pg/mL Total Protein (6.3-8.2) g/dL Albumin (3.5-5.0) g/dL Urine Color Yellow Urine Appearance Clear (Clear) Urine pH 6.5 (5.0-8.0) Ur Specific [place] 1.015 (1.001-1.035) Urine Protein Trace H (Negative) Urine Glucose (UA) Negative (Negative) Urine Ketones Negative (Negative) Urine Blood Negative (Negative) Urine Nitrite Negative (Negative) Urine Bilirubin Negative (Negative) Urine Urobilinogen <2.0 (<2.0) mg/dL Ur Leukocyte Esterase Negative (Negative) - EKG Data -: EKG Interpreted by Tn EKG shows normal: sinus rhythm EKG Comments: Sinus rhythm 83. Interval 172 QRS 94 QT since QTC 384/423 rightward axis evidence of poor R-wave progression indeterminate age this is compared with EKG dated 05/04/21 showing similar duration - Radiology Data Radiology results: report reviewed (Ernesto. reviewed no evidence of fracture or subluxation of the foot.), image reviewed Disposition Clinical Impression: Failure to thrive, Dehydration, Renal insufficiency, Elevated troponin, Left leg pain Disposition: ADMITTED IP TO THIS [facility] Condition: Fair Referrals: Krishna Rizzo MD [Primary Care Provider] - 1-2 days
[2021-05-09 17:56] LABS: Albumin 5.2 g/dL (3.5-5.0); Magnesium 1.9 mg/dL (1.6-2.3); Potassium 5.2 mmol/L (3.5-5.1); Total Bilirubin 1.1 mg/dL (0.2-1.3); Total Protein 9.6 g/dL (6.3-8.2)
[2021-05-09 19:02] LABS: Appearance,Urine Clear (Clear); Bilirubin,Urine Negative (Negative); Blood,Urine Negative (Negative); Color,Urine Yellow; Glucose,Urine (UA) Negative (Negative); Ketones,Urine Negative (Negative); Leukocyte Esterase,Urine Negative (Negative); Nitrite,Urine Negative (Negative); PH, Urine 6.5 (5.0-8.0); Protein,Urine Trace (Negative); Specific Gravity,Urine 1.015 (1.001-1.035); Urobilinogen,Urine <2.0 mg/dL (<2.0)
--- NOTE | 2021-05-09 19:19 | XR ---
EXAMINATION TYPE: XR foot complete LT DATE OF EXAM: 05/09/2021 6:57 PM INDICATION: Patient age:Male; 75 years old; Reason for study: Toe pain; COMPARISON: None TECHNIQUE: The left foot was examined in the AP, oblique, and lateral projections. FINDINGS: Fixation hardware noted of the distal leg on the left system of the screws demonstrate frac tures. Remainder of the hardware is intact. Minimal osteophyte formation of the first digit interphal angeal joint and tarsal phalangeal joint. No evidence of any acute osseous pathology. No evidence of soft tissue swelling. Joints are preserve d. IMPRESSION: 1. No evidence of acute fracture. 2. Mild scattered osteophytic changes.
[2021-05-09] MEDS ORDERED: NALOXONE 0.4 MG/ML 1 ML VIAL IV PRN (20:45)
[2021-05-09] MEDS ORDERED: SODIUM CHLORIDE 0.9% 1,000 ML IV SCH (20:45)
--- NOTE | 2021-05-09 20:55 | XR ---
EXAMINATION TYPE: XR chest 2V DATE OF EXAM: 05/09/2021 8:41 PM COMPARISON:Chest radiographs from 05/05/2021 TECHNIQUE: XR chest 2V Frontal and lateral views of the chest. CLINICAL INDICATION:Male, 75 years old with history of Elevated BNP; FINDINGS: Lungs/Pleura: There is no evidence of pleural effusion, focal consolidation, or pneumothorax. Pulmonary vascularity: Pulmonary vascular congestion. Heart/mediastinum: Cardiomediastinal silhouette is enlarged and stable. Atherosclerotic calcificatio ns are seen in the aorta. Musculoskeletal: No acute osseous pathology. Midline sternotomy wires and surgical clips project over the mediastinum. Multiple remote right-sided rib fractures. IMPRESSION: Cardiomegaly and mild pulmonary vascular congestion. Correlate with BNP for congestive heart failure.
--- NOTE | 2021-05-09 21:47 | ED ---
Medical Decision Making - Lab Data Result diagrams: 05/09/21 17:42 05/09/21 17:42 Lab Results 05/09/21 05/09/21 05/09/21 Range/Units 17:42 17:42 17:42 WBC 8.0 (3.8-10.6) k/uL RBC 5.48 (4.30-5.90) m/uL Hgb 16.6 (13.0-17.5) gm/dL Hct 51.2 (39.0-53.0) % MCV 93.4 (80.0-100.0) fL MCH 30.3 (25.0-35.0) pg MCHC 32.4 (31.0-37.0) g/dL RDW 14.5 (11.5-15.5) % Plt Count 354 (150-450) k/uL MPV 7.7 Neutrophils % 50 % Lymphocytes % 40 % Monocytes % 5 % Eosinophils % 2 % Basophils % 2 % Neutrophils # 4.0 (1.3-7.7) k/uL Lymphocytes # 3.2 (1.0-4.8) k/uL Monocytes # 0.4 (0-1.0) k/uL Eosinophils # 0.2 (0-0.7) k/uL Basophils # 0.1 (0-0.2) k/uL Sodium 136 L (137-145) mmol/L Potassium 5.2 H (3.5-5.1) mmol/L Chloride 94 L (98-107) mmol/L Carbon Dioxide 26 (22-30) mmol/L Anion Gap 16 mmol/L BUN 34 H (9-20) mg/dL Creatinine 1.38 H (0.66-1.25) mg/dL Est GFR (CKD-EPI)AfAm 58 (>60 ml/min/1.73 sqM) Est GFR (CKD-EPI)NonAf 50 (>60 ml/min/1.73 sqM) Glucose 105 H (74-99) mg/dL Calcium 11.0 H (8.4-10.2) mg/dL Magnesium 1.9 (1.6-2.3) mg/dL Total Bilirubin 1.1 (0.2-1.3) mg/dL AST 97 H (17-59) U/L ALT 74 H (4-49) U/L Alkaline Phosphatase 259 H (38-126) U/L Creatine Kinase 61 (55-170) U/L Troponin I 0.073 H* (0.000-0.034) ng/mL NT-Pro-B Natriuret Pep pg/mL Total Protein 9.6 H (6.3-8.2) g/dL Albumin 5.2 H (3.5-5.0) g/dL Urine Color Urine Appearance (Clear) Urine pH (5.0-8.0) Ur Specific [place] (1.001-1.035) Urine Protein (Negative) Urine Glucose (UA) (Negative) Urine Ketones (Negative) Urine Blood (Negative) Urine Nitrite (Negative) Urine Bilirubin (Negative) Urine Urobilinogen (<2.0) mg/dL Ur Leukocyte Esterase (Negative) 05/09/21 05/09/21 Range/Units 17:42 18:57 WBC (3.8-10.6) k/uL RBC (4.30-5.90) m/uL Hgb (13.0-17.5) gm/dL Hct (39.0-53.0) % MCV (80.0-100.0) fL MCH (25.0-35.0) pg MCHC (31.0-37.0) g/dL RDW (11.5-15.5) % Plt Count (150-450) k/uL MPV Neutrophils % % Lymphocytes % % Monocytes % % Eosinophils % % Basophils % % Neutrophils # (1.3-7.7) k/uL Lymphocytes # (1.0-4.8) k/uL Monocytes # (0-1.0) k/uL Eosinophils # (0-0.7) k/uL Basophils # (0-0.2) k/uL Sodium (137-145) mmol/L Potassium (3.5-5.1) mmol/L Chloride (98-107) mmol/L Carbon Dioxide (22-30) mmol/L Anion Gap mmol/L BUN (9-20) mg/dL Creatinine (0.66-1.25) mg/dL Est GFR (CKD-EPI)AfAm (>60 ml/min/1.73 sqM) Est GFR (CKD-EPI)NonAf (>60 ml/min/1.73 sqM) Glucose (74-99) mg/dL Calcium (8.4-10.2) mg/dL Magnesium (1.6-2.3) mg/dL Total Bilirubin (0.2-1.3) mg/dL AST (17-59) U/L ALT (4-49) U/L Alkaline Phosphatase (38-126) U/L Creatine Kinase (55-170) U/L Troponin I (0.000-0.034) ng/mL NT-Pro-B Natriuret Pep 8360 pg/mL Total Protein (6.3-8.2) g/dL Albumin (3.5-5.0) g/dL Urine Color Yellow Urine Appearance Clear (Clear) Urine pH 6.5 (5.0-8.0) Ur Specific [place] 1.015 (1.001-1.035) Urine Protein Trace H (Negative) Urine Glucose (UA) Negative (Negative) Urine Ketones Negative (Negative) Urine Blood Negative (Negative) Urine Nitrite Negative (Negative) Urine Bilirubin Negative (Negative) Urine Urobilinogen <2.0 (<2.0) mg/dL Ur Leukocyte Esterase Negative (Negative) Disposition Clinical Impression: Failure to thrive, Dehydration, Renal insufficiency, Elevated troponin, Left leg pain, CHF (congestive heart failure) Disposition: ADMITTED IP TO THIS HOSP Condition: Fair
[2021-05-09] MEDS: lamoTRIgine 100 MG TAB PO SCH (23:57)
[2021-05-10] MEDS: FUROSEMIDE 10 MG/ML 4 ML VIAL IV SCH ×2 (01:20→09:24)
[2021-05-10] MEDS: METOPROLOL TARTRATE 12.5 MG TAB PO SCH ×2 (06:18→20:49)
[2021-05-10] MEDS ORDERED: FAMOTIDINE 20 MG/2 ML VIAL IV SCH (09:00)
[2021-05-10] MEDS: HEPARIN SODIUM,PORCINE/PF 5,000 UNIT/0.5 ML SYRINGE SQ SCH (09:23)
[2021-05-10] MEDS: SPIRONOLACTONE 25 MG TAB PO SCH (09:24)
[2021-05-10] MEDS: ASPIRIN 81 MG PO SCH (09:24)
[2021-05-10] MEDS: lamoTRIgine 100 MG TAB PO SCH ×2 (09:25→20:49)
[2021-05-10] MEDS: ESCITALOPRAM 10 MG TAB PO SCH (09:25)
[2021-05-10 09:45] LABS: Basophils # (A) 0.1 k/uL (0-0.2); Basophils % (A) 1 %; Eosinophils # (A) 0.3 k/uL (0-0.7); Eosinophils % (A) 4 %; HCT 44.8 % (39.0-53.0); HGB 14.2 gm/dL (13.0-17.5); Lymphocytes # (A) 3.3 k/uL (1.0-4.8); Lymphocytes % (A) 38 %; MCH 29.5 pg (25.0-35.0); MCHC 31.6 g/dL (31.0-37.0); MCV 93.4 fL (80.0-100.0); Mean Platelet Volume 7.4; Monocytes # (A) 0.5 k/uL (0-1.0); Monocytes % (A) 6 %; Neutrophils # (A) 4.2 k/uL (1.3-7.7); Neutrophils % (A) 49 %; Platelet Count 351 k/uL (150-450); RDW 14.7 % (11.5-15.5); WBC 8.6 k/uL (3.8-10.6)
[2021-05-10 10:02] LABS: Calcium 9.7 mg/dL (8.4-10.2); Potassium 4.4 mmol/L (3.5-5.1)
[2021-05-10] MEDS: ACETAMINOPHEN TAB 325 MG TAB PO PRN (12:12)
--- NOTE | 2021-05-10 14:29 | P.HPIM ---
History of Present Illness Patient is a 75-year-old male with a known history of coronary artery disease status post CABG four-vessel in 1998, hyperlipidemia, chronic liver disease, hepatitis B, chronic low back pain, nephrolithiasis status post lithotripsy, ORIF left ankle, Parkinson's disease, history of psychosis and other medical problems presents to ER with complaints of inability to take care of himself, also states that his left leg gives awake. He states after he walks for about a little more than 2 feet the fall because of his left leg. Of note the patient during last admission(discharge 1 day earlier) subacute rehab is recommended for him however he declined and he wanted to go home. Also patient was recently treated for systolic CHF with low ejection fraction 25-30%. He has some evidence of mild vascular congestion and his chest x-ray however patient denies any orthopnea or paroxysmal nocturnal dyspnea, no shortness of breath at rest however patient is minimally mobile. Also his creatinine went up most likely related to CHF. Patient denies chest pain or dizziness. No abdominal pain or vomiting or diarrhea. No urinary complaints. No headache or numbness. No other new weakness. He denies smoking, alcohol or illicit drugs Also patient complaining of from Left lower extremity weakness secondary to severe C4-C5 spinal canal stenosis secondary to facet joint with moderate spinal stenosis at C3-C4 and C5-C6. Based on MRI of the cervical and lumbar spine on 05/07/2021, orthopedic team with Dr. leigh evaluated the patient last time and recommended to continue with conservative management and follow-up as an outpatient. During last admission also rehab recommended for him however he declined and he went home instead. Patient Vitas looks stable and he is saturating 97% on room air. Showing unremarkable CBC, elevated creatinine went 0.3. Potassium slightly up 5.2, sodium slightly low with 36. Liver enzymes slightly elevated. Mildly elevated troponin 0.07. Urine analysis is not suspicious for infection. Coronavirus not detected. Chest x-ray showed cardiomegaly with mild to moderate vascular congestion. EKG showing normal sinus rhythm at [address]-T changes and QTC 423. In the emergency room patient was started on Lasix 40 mg every 8 orders Review of Systems Review of systems CONSTITUTIONAL: No fever, no malaise, no fatigue. HEENT: No recent visual problems or hearing problems. Denied any sore throat. CARDIOVASCULAR: No orthopnea, PND, no palpitations, no syncope. PULMONARY: No shortness of breath, no cough, no hemoptysis. GASTROINTESTINAL: No diarrhea, no nausea, no vomiting, no abdominal pain. Normoactive bowel sounds. NEUROLOGICAL: No headaches, no weakness, no numbness. HEMATOLOGICAL: Denies any bleeding or petechiae. GENITOURINARY: Denies any burning micturition, frequency, or urgency. MUSCULOSKELETAL/RHEUMATOLOGICAL: Denies any joint pain, swelling, or any muscle pain. ENDOCRINE: Denies any polyuria or polydipsia. Past Medical History Past Medical History: Coronary Artery Disease (CAD), Hyperlipidemia, Liver Disease, Pneumonia, Renal Disease Additional Past Medical History / Comment(s): 03/13/20 lamictal toxicity/delirium, gait dysfunction, R periorbital hematoma/cellulitis, fall. Other hx: Hepatitis B, insomnia, some aphasia since CABG in 1998, anemia, chronic low back pain, nephrolithiasis. History of Any Multi-Drug Resistant Organisms: None Reported Past Surgical History: Coronary Bypass/CABG, Heart Catheterization, Orthopedic Surgery, Tonsillectomy Additional Past Surgical History / Comment(s): 1998 CABG 4 vessel, lithotripsy, ORIF L ankle, colonoscopy, RK eye surgery for vision correction Past Anesthesia/Blood Transfusion Reactions: No Reported Reaction Past Psychological History: ADD/ADHD, Anxiety, Bipolar, Depression, Panic Disorder Additional Psychological History / Comment(s): Pt currently resides alone. He can drive. He has a dog. Smoking Status: Never smoker Past Alcohol Use History: None Reported Additional Past Alcohol Use History / Comment(s): Pt denies use/abuse of illicit substances. Past Drug Use History: None Reported Additional Drug Use History / Comment(s): Pt. has history of using cocaine 40 yrs. ago. - Past Family History Mother Family Medical History: No Reported History Additional Family Medical History / Comment(s): Pernicious anemia, eating disorder. Father Additional Family Medical History / Comment(s): EToh abuse. Medications and Allergies Home Medications Medication Instructions Recorded Confirmed Type Escitalopram Oxalate [Lexapro] 10 mg PO DAILY 05/03/21 05/09/21 History lamoTRIgine 100 mg PO DAILY 05/03/21 05/09/21 History lamoTRIgine 200 mg PO HS 05/03/21 05/09/21 History Aspirin 81 mg PO DAILY #30 05/06/21 05/09/21 Rx Atorvastatin [Lipitor] 40 mg PO HS #30 tab 05/06/21 05/09/21 Rx Furosemide [Lasix] 40 mg PO BID@0900,1600 #30 tab 05/06/21 05/09/21 Rx Metoprolol Tartrate [Lopressor] 12.5 mg PO BID #60 tab 05/06/21 05/09/21 Rx Nitroglycerin Sl Tabs [Nitrostat] 0.4 mg SUBLINGUAL Q5M PRN #60 tab 05/06/21 05/09/21 Rx Potassium Chloride ER [K-Dur 20] 20 meq PO DAILY #30 tab 05/06/21 05/09/21 Rx Spironolactone [Aldactone] 25 mg PO DAILY #30 tab 05/06/21 05/09/21 Rx Allergies Allergy/AdvReac Type Severity Reaction Status Date / Time No Known Allergies Allergy Verified 05/09/21 16:49 Physical Exam Vitals: Vital Signs Temp Pulse Pulse Resp BP BP Pulse Ox 05/10/21 12:10 97.7 F 78 18 100/63 95 05/10/21 08:00 98.2 F 98 18 98/64 96 05/10/21 04:00 98.4 F 119 H 18 103/64 96 05/10/21 02:00 18 05/09/21 23:00 18 05/09/21 22:15 97.7 F 99 18 120/60 97 05/09/21 21:55 79 20 113/73 97 05/09/21 20:59 84 20 113/88 99 05/09/21 18:17 84 18 124/90 97 05/09/21 16:43 97.9 F 87 18 127/87 100 Intake and Output 05/09/21 05/10/21 05/10/21 22:59 06:59 14:59 Intake Total 250 Output Total 600 500 Balance 250 -600 -500 Intake: Oral 250 Output: Urine 600 500 Other: Weight 74.843 kg 75 kg GENERAL: The patient is alert and oriented x3, not in any acute distress. Well developed, well nourished. HEENT: Pupils are round and equally reacting to light. EOMI. No scleral icterus. No conjunctival pallor. Normocephalic, atraumatic. No pharyngeal erythema. No thyromegaly. CARDIOVASCULAR: S1 and S2 present. No murmurs, rubs, or gallops. -PULMONARY: Chest is clear to auscultation, no wheezing. Mild bilateral basal crepitation ABDOMEN: Soft, nontender, nondistended, normoactive bowel sounds. No palpable organomegaly. MUSCULOSKELETAL: No joint swelling or deformity. -EXTREMITIES: No cyanosis, clubbing,. Mild bilateral pitting leg edema -NEUROLOGICAL: Gross cranial nerves are grossly intact. Left leg weakness and decreased sensation. Other limbs are 4+/5. Sensation is intact. Meningeal signs are absent SKIN: No rashes. no petechiae. Results CBC & Chem 7: 05/10/21 09:04 05/10/21 09:04 Labs: Abnormal Lab Results - Last 24 Hours (Table) 05/09/21 05/09/21 05/09/21 Range/Units 17:42 17:42 18:57 Sodium 136 L (137-145) mmol/L Potassium 5.2 H (3.5-5.1) mmol/L Chloride 94 L (98-107) mmol/L BUN 34 H (9-20) mg/dL Creatinine 1.38 H (0.66-1.25) mg/dL Glucose 105 H (74-99) mg/dL Calcium 11.0 H (8.4-10.2) mg/dL AST 97 H (17-59) U/L ALT 74 H (4-49) U/L Alkaline Phosphatase 259 H (38-126) U/L Troponin I 0.073 H* (0.000-0.034) ng/mL Total Protein 9.6 H (6.3-8.2) g/dL Albumin 5.2 H (3.5-5.0) g/dL Urine Protein Trace H (Negative) 05/09/21 05/10/21 05/10/21 Range/Units 21:20 01:08 09:04 Sodium 134 L (137-145) mmol/L Potassium (3.5-5.1) mmol/L Chloride (98-107) mmol/L BUN 37 H (9-20) mg/dL Creatinine 1.31 H (0.66-1.25) mg/dL Glucose 159 H (74-99) mg/dL Calcium (8.4-10.2) mg/dL AST (17-59) U/L ALT (4-49) U/L Alkaline Phosphatase (38-126) U/L Troponin I 0.075 H* 0.072 H* (0.000-0.034) ng/mL Total Protein (6.3-8.2) g/dL Albumin (3.5-5.0) g/dL Urine Protein (Negative) Thrombosis Risk Factor Assmnt - Choose All That Apply Any of the Below Risk Factors Present?: Yes Each Factor Represents 1 point: Medical pt on bed rest Other Risk Factors: Yes Each Risk Factor Represents 2 Points: Age 61-74 years Other congenital or acquired thrombophilia - If yes, enter type in comment: No Thrombosis Risk Factor Assessment Total Risk Factor Score: 3 Thrombosis Risk Factor Assessment Level: Moderate Risk Assessment and Plan Assessment: Left leg weakness and decreased sensation, chronic since last admission evaluate d by neurologist and orthopedic physicians. Patient will need rehab.Patient was instructed to follow up as an outpatient Acute systolic CHF with ejection fraction of 25-30%. Fall secondary to above Moderate aortic stenosis Mild acute kidney injury most likely secondary to cardiorenal syndrome Elevated troponin level. Generalized weakness and fatigue and unable to take care of himself. Coronary artery disease history of quadruple bypass graft in 1998 Hyperlipidemia Hepatitis B Chronic low back pain Nephrolithiasis with status post lithotripsy ORIF left ankle Parkinson's disease History of psychosis. Plan: This is a pleasant 75 years old male who presents with acute CHF, systolic and elevated troponin. Left leg weakness fully evaluated just during last admission 1 day earlier. Continue with IV Lasix, fluid restriction. Monitor input and output Cardiology consult Continue with baby aspirin Recommend physical therapy evaluation, patient was counseled extensively and he agreeable to go to rehab this time Labs and medication were reviewed.. Continue same treatment. Continue with symptomatic treatment. Resume home medication. Monitor lytes and vitals. DVT and GI prophylaxis. Further recommendations depends on the clinical course of the patient DVT prophylaxis: Subcutaneous heparin GI Prophylaxis: Pepcid PT/OT: Pending Prognosis is guarded
--- NOTE | 2021-05-10 14:50 | P.CRDCN ---
History of Present Illness History of present illness: This pleasant 75-year-old gentleman who follows with Dr. Mercedes in the office. He has a history of CABG over 20 years ago, hyperlipidemia, long-standing psychiatric history of Bipolar, Depression, Anxiety, ADD/ADHD. Presented to the hospital with inability to ambulate. Apparently for the last 2 weeks he has been unable to walk on his left leg. He is able to lift the leg but cannot move the foot at all. Unable to move the toes unable to dorsiflex or plantar flex. Patient did have a stress test Lexiscan the office 05/2020 which was negative for reversible ischemia. Patient was seen in the hospital from 05/03 until 05/08 with workup showing decrease in EF however no significant 80 to type symptoms and heart failure regimen was optimized. He was discharged home and states he could not walk around on his foot and therefore presented back to the hospital. He denies any chest pain or pressure or shortness breath. He was found to have minimally elevated creatinine compared to prior. He denies any lightheadedness. Chest x-ray reading out as pulmonary vascular ejection and BNP elevated however denies any shortness breath and no orthopnea. On 05/05/21, Echocardiogram revealed EF of 2530%, apical anterior and apical lateral LV wall motion is aneurysmal, global hypokinesis, moderate aortic stenosis with a peak fashion gradient of 38 mmHg/23 mmHg, mild to moderate mitral regurgitation, moderate tricuspid regurgitation. Prior echocardiogram in the office in 2016 showed a normal ejection fraction of 5055 percent. Vitals reviewed GENERAL: In no acute distress. NECK: Supple without JVD or thyromegaly. LUNGS: Breath sounds clear to auscultation bilaterally. Respiration equal and unlabored. No wheezes, rales or rhonchi. HEART: Regular rate and rhythm without systolic ejection murmur noted at the apex and the right sternal border.S1 and S2 heard. EXTREMITIES: Normal range of motion, no edema. No clubbing or cyanosis. Peripheral pulses intact. ASSESSMENT Chronic systolic heart failure, does not appear in heart failure currently Cardiomyopathy, unclear if ischemic versus nonischemic at this time however no angina-type symptoms Minimally elevated troponin, no angina-type symptoms Dyslipidemia Coronary artery disease History of CABG in 1998, unknown details Left foot pain Moderate aortic stenosis Mild increasing creatinine may be related to hemodynamics PLAN Patient without any significant heart failure type symptoms or angina-type symptoms. His main presentation for coming back to the hospital was only of left foot pain per patient. X-ray reading out his vascular congestion however no orthopnea, no crackles, no lower extremity edema. Stop IV Lasix and placed back on home medications. Monitor creatinine. Further evaluation of left foot pain and possible rehab placement which she had refused in the past. Patient does have new cardiomyopathy however recommended treating medically with prior recommendation for outpatient follow-up especially given no angina-type symptoms. Further recommendations to follow. Past Medical History Past Medical History: Coronary Artery Disease (CAD), Hyperlipidemia, Liver Disease, Pneumonia, Renal Disease Additional Past Medical History / Comment(s): 03/13/20 lamictal toxicity/delirium, gait dysfunction, R periorbital hematoma/cellulitis, fall. Other hx: Hepatitis B, insomnia, some aphasia since CABG in 1998, anemia, chronic low back pain, nephrolithiasis. History of Any Multi-Drug Resistant Organisms: None Reported Past Surgical History: Coronary Bypass/CABG, Heart Catheterization, Orthopedic Surgery, Tonsillectomy Additional Past Surgical History / Comment(s): 1998 CABG 4 vessel, lithotripsy, ORIF L ankle, colonoscopy, RK eye surgery for vision correction Past Anesthesia/Blood Transfusion Reactions: No Reported Reaction Past Psychological History: ADD/ADHD, Anxiety, Bipolar, Depression, Panic Disorder Additional Psychological History / Comment(s): Pt currently resides alone. He can drive. He has a dog. Smoking Status: Never smoker Past Alcohol Use History: None Reported Additional Past Alcohol Use History / Comment(s): Pt denies use/abuse of illicit substances. Past Drug Use History: None Reported Additional Drug Use History / Comment(s): Pt. has history of using cocaine 40 yrs. ago. - Past Family History Mother Family Medical History: No Reported History Additional Family Medical History / Comment(s): Pernicious anemia, eating disorder. Father Additional Family Medical History / Comment(s): EToh abuse. Medications and Allergies Home Medications Medication Instructions Recorded Confirmed Type Escitalopram Oxalate [Lexapro] 10 mg PO DAILY 05/03/21 05/09/21 History lamoTRIgine 100 mg PO DAILY 05/03/21 05/09/21 History lamoTRIgine 200 mg PO HS 05/03/21 05/09/21 History Aspirin 81 mg PO DAILY #30 05/06/21 05/09/21 Rx Atorvastatin [Lipitor] 40 mg PO HS #30 tab 05/06/21 05/09/21 Rx Furosemide [Lasix] 40 mg PO BID@0900,1600 #30 tab 05/06/21 05/09/21 Rx Metoprolol Tartrate [Lopressor] 12.5 mg PO BID #60 tab 05/06/21 05/09/21 Rx Nitroglycerin Sl Tabs [Nitrostat] 0.4 mg SUBLINGUAL Q5M PRN #60 tab 05/06/21 05/09/21 Rx Potassium Chloride ER [K-Dur 20] 20 meq PO DAILY #30 tab 05/06/21 05/09/21 Rx Spironolactone [Aldactone] 25 mg PO DAILY #30 tab 05/06/21 05/09/21 Rx Allergies Allergy/AdvReac Type Severity Reaction Status Date / Time No Known Allergies Allergy Verified 05/09/21 16:49 Physical Exam Vitals: Vital Signs Temp Pulse Pulse Resp BP BP Pulse Ox 05/10/21 12:10 97.7 F 78 18 100/63 95 05/10/21 08:00 98.2 F 98 18 98/64 96 05/10/21 04:00 98.4 F 119 H 18 103/64 96 05/10/21 02:00 18 05/09/21 23:00 18 05/09/21 22:15 97.7 F 99 18 120/60 97 05/09/21 21:55 79 20 113/73 97 05/09/21 20:59 84 20 113/88 99 05/09/21 18:17 84 18 124/90 97 05/09/21 16:43 97.9 F 87 18 127/87 100 Intake and Output 05/09/21 05/10/21 05/10/21 22:59 06:59 14:59 Intake Total 250 Output Total 600 500 Balance 250 -600 -500 Intake: Oral 250 Output: Urine 600 500 Other: Weight 74.843 kg 75 kg Results 05/10/21 09:04 05/10/21 09:04 Cardiac Enzymes 05/09/21 05/09/21 05/09/21 Range/Units 17:42 17:42 21:20 AST 97 H (17-59) U/L Troponin I 0.073 H* 0.075 H* (0.000-0.034) ng/mL 05/10/21 Range/Units 01:08 AST (17-59) U/L Troponin I 0.072 H* (0.000-0.034) ng/mL CBC 05/09/21 05/10/21 Range/Units 17:42 09:04 WBC 8.0 8.6 (3.8-10.6) k/uL RBC 5.48 4.80 (4.30-5.90) m/uL Hgb 16.6 14.2 (13.0-17.5) gm/dL Hct 51.2 44.8 (39.0-53.0) % Plt Count 354 351 (150-450) k/uL Comprehensive Metabolic Panel 05/09/21 05/10/21 Range/Units 17:42 09:04 Sodium 136 L 134 L (137-145) mmol/L Potassium 5.2 H 4.4 (3.5-5.1) mmol/L Chloride 94 L 98 (98-107) mmol/L Carbon Dioxide 26 26 (22-30) mmol/L BUN 34 H 37 H (9-20) mg/dL Creatinine 1.38 H 1.31 H (0.66-1.25) mg/dL Glucose 105 H 159 H (74-99) mg/dL Calcium 11.0 H 9.7 (8.4-10.2) mg/dL AST 97 H (17-59) U/L ALT 74 H (4-49) U/L Alkaline Phosphatase 259 H (38-126) U/L Total Protein 9.6 H (6.3-8.2) g/dL Albumin 5.2 H (3.5-5.0) g/dL Current Medications Generic Name Dose Route Start Last Admin Trade Name Freq PRN Reason Stop Dose Admin Acetaminophen 650 mg 05/09/21 20:45 05/10/21 12:12 Acetaminophen Tab 325 Mg Tab PO 650 mg Q6HR PRN Administration Mild Pain or Fever > 100.5 Aspirin 81 mg 05/10/21 09:00 05/10/21 09:24 Aspirin 81 Mg PO 81 mg DAILY BHASKAR Administration Atorvastatin Calcium 40 mg 05/10/21 21:00 Atorvastatin 40 Mg Tab PO [facility] Escitalopram Oxalate 10 mg 05/10/21 09:00 05/10/21 09:25 Escitalopram 10 Mg Tab PO 10 mg DAILY BHASKAR Administration Famotidine 20 mg 05/10/21 09:00 05/10/21 09:24 Famotidine 20 Mg/2 Ml Vial IV 20 mg Q12HR BHASKAR Administration Furosemide 40 mg 05/10/21 00:00 05/10/21 09:24 Furosemide 10 Mg/Ml 4 Ml Vial IV 40 mg Q8HR BHASKAR Administration Heparin Sodium (Porcine) 5,000 unit 05/10/21 09:00 05/10/21 09:23 Heparin Sodium,Porcine/Pf 5,000 Unit/0.5 Ml Syringe SQ 5,000 unit Q12HR BHASKAR Administration Lamotrigine 100 mg 05/10/21 09:00 05/10/21 09:25 Lamotrigine 100 Mg Tab PO 100 mg DAILY BHASKAR Administration Lamotrigine 200 mg 05/09/21 23:45 05/09/21 23:57 Lamotrigine 100 Mg Tab PO 200 mg HS BHASKAR Administration Metoprolol Tartrate 12.5 mg 05/10/21 09:00 05/10/21 06:18 Metoprolol Tartrate 12.5 Mg Tab PO 12.5 mg BID BHASKAR Administration Naloxone HCl 0.2 mg 05/09/21 20:45 Naloxone 0.4 Mg/Ml 1 Ml Vial IV Q2M PRN Opioid Reversal Spironolactone 25 mg 05/10/21 09:00 05/10/21 09:24 Spironolactone 25 Mg Tab PO 25 mg DAILY BHASKAR Administration Intake and Output 05/09/21 05/10/21 05/10/21 22:59 06:59 14:59 Intake Total 250 Output Total 600 500 Balance 250 -600 -500 Intake: Oral 250 Output: Urine 600 500 Other: Weight 74.843 kg 75 kg 05/10/21 09:04 05/10/21 09:04
[2021-05-10] MEDS: FUROSEMIDE 40 MG TAB PO SCH (15:29)
[2021-05-10] MEDS: FAMOTIDINE 20 MG TAB PO SCH (20:49)
[2021-05-10] MEDS: ATORVASTATIN 40 MG TAB PO SCH (20:49)
[2021-05-11] MEDS: HEPARIN SODIUM,PORCINE/PF 5,000 UNIT/0.5 ML SYRINGE SQ SCH ×3 (01:01→20:14)
[2021-05-11] MEDS: FUROSEMIDE 40 MG TAB PO SCH ×2 (08:15→15:03)
[2021-05-11] MEDS: ESCITALOPRAM 10 MG TAB PO SCH (08:15)
[2021-05-11] MEDS: lamoTRIgine 100 MG TAB PO SCH ×2 (08:15→20:14)
[2021-05-11] MEDS: ASPIRIN 81 MG PO SCH (08:15)
[2021-05-11] MEDS: ACETAMINOPHEN TAB 325 MG TAB PO PRN ×2 (08:15→15:03)
[2021-05-11] MEDS: SPIRONOLACTONE 25 MG TAB PO SCH (08:15)
[2021-05-11] MEDS: FAMOTIDINE 20 MG TAB PO SCH (08:15)
[2021-05-11] MEDS: METOPROLOL TARTRATE 12.5 MG TAB PO SCH ×2 (08:15→20:15)
[2021-05-11 08:33] LABS: Calcium 9.9 mg/dL (8.4-10.2); Potassium 4.4 mmol/L (3.5-5.1)
--- NOTE | 2021-05-11 10:14 | P.PN ---
Subjective Patient is a 75-year-old male with a known history of coronary artery disease status post CABG four-vessel in 1998, hyperlipidemia, chronic liver disease, hepatitis B, chronic low back pain, nephrolithiasis status post lithotripsy, ORIF left ankle, Parkinson's disease, history of psychosis and other medical problems presents to ER with complaints of inability to take care of himself, also states that his left leg gives awake. He states after he walks for about a little more than 2 feet the fall because of his left leg. Of note the patient d uring last admission(discharge 1 day earlier) subacute rehab is recommended for him however he declined and he wanted to go home. Also patient was recently treated for systolic CHF with low ejection fraction 25-30%. He has some evidence of mild vascular congestion and his chest x-ray however patient denies any orthopnea paroxysmal nocturnal dyspnea, no shortness of breath at rest however patient is minimally mobile. Also his creatinine went up most likely related to CHF. Patient denies chest pain or dizziness. No abdominal pain or vomiting or diarrhea. No urinary complaints. No headache or numbness. No other new weakness. He denies smoking, alcohol or illicit drugs Also patient complaining of from Left lower extremity weakness secondary to severe C4-C5 spinal canal stenosis secondary to facet joint with moderate spinal stenosis at C3-C4 and C5-C6. Based on MRI of the cervical and lumbar spine on 05/07/2021, orthopedic team with Dr. cooper evaluated the patient last time and recommended to continue with conservative management and follow-up as an outpatient. During last admission also rehab recommended for him however he declined and he went home instead. Patient Ann looks stable and he is saturating 97% on room air. Showing unremarkable CBC, elevated creatinine went 0.3. Potassium slightly up 5.2, sodium slightly low with 36. Liver enzymes slightly elevated. Mildly elevated troponin 0.07. Urine analysis is not suspicious for infection. Coronavirus not detected. Chest x-ray showed cardiomegaly with mild to moderate vascular congestion. EKG showing normal sinus rhythm at [address]-T changes and QTC 423. In the emergency room patient was started on Lasix 40 mg every 8 orders 05/11/2021 Patient awake and alert today. He looks distressed because of dehydration related to his IV Lasix which is which wished from 40 mg 3 times a day into oral dose twice a day. He is very dry and thirsty and asked to increase his fluid restriction 1500 mL per day and 2 L per day. His creatinine is slightly up secondary to diuresis. Also today he confirmed to me that his left leg weakness is similar to last week when he is been evaluated by neurologist and orthopedic surgeon and there is no worsening or improvement in his leg weakness, no new numbness or loss of sensation no other neurological deficit. I discussed with patient and he agrees with previous recommendation to go to rehab and follow-up with neurologist and Dr. Cooper for his spinal stenosis and leg weakness. Also patient will have his splint delivered today to the hospital as he states for his left foot drop Patient is medically stable for discharge pending placement Objective - Vital Signs Vital signs: Vital Signs Temp 98.5 F 05/11/21 00:00 Pulse 94 05/11/21 00:00 Resp 16 05/11/21 00:00 BP 107/68 05/11/21 00:00 Pulse Ox 94 L 05/11/21 00:00 Intake & Output 05/10/21 05/11/21 05/11/21 18:59 06:59 18:59 Intake Total 888 Output Total 700 Balance 188 Intake: Oral 888 Output: Urine 700 Other: # Bowel Movements 1 - Exam GENERAL: The patient is alert and oriented x3, not in any acute distress. Well developed, well nourished. HEENT: Pupils are round and equally reacting to light. EOMI. No scleral icterus. No conjunctival pallor. Normocephalic, atraumatic. No pharyngeal erythema. No thyromegaly. CARDIOVASCULAR: S1 and S2 present. No murmurs, rubs, or gallops. PULMONARY: Chest is clear to auscultation, no wheezing or crackles. ABDOMEN: Soft, nontender, nondistended, normoactive bowel sounds. No palpable organomegaly. MUSCULOSKELETAL: No joint swelling or deformity. EXTREMITIES: No cyanosis, clubbing, or pedal edema. -NEUROLOGICAL: Cranial nerves are grossly intact. Left leg weakness, stable from last admission. No other weakness or sensory loss. Meningeal signs are absent SKIN: No rashes. no petechiae. - Labs CBC & Chem 7: 05/10/21 09:04 05/11/21 07:53 Labs: Abnormal Lab Results - Last 24 Hours (Table) 05/10/21 05/11/21 Range/Units 09:04 07:53 Sodium 134 L 135 L (137-145) mmol/L BUN 37 H 45 H (9-20) mg/dL Creatinine 1.31 H 1.54 H (0.66-1.25) mg/dL Glucose 159 H 149 H (74-99) mg/dL Assessment and Plan Assessment: Left leg weakness and decreased sensation, chronic since last admission evaluated by neurologist and orthopedic physicians. Patient will need rehab.Patient was instructed to follow up as an outpatient Acute systolic CHF with ejection fraction of 25-30%. Patient is stable from cardiology standpoint Fall secondary to above Moderate aortic stenosis Mild acute kidney injury most likely secondary to cardiorenal syndrome Elevated troponin level. Generalized weakness and fatigue and unable to take care of himself. Coronary artery disease history of quadruple bypass graft in 1998 Hyperlipidemia Hepatitis B Chronic low back pain Nephrolithiasis with status post lithotripsy ORIF left ankle Parkinson's disease History of psychosis. Plan: This is a pleasant 75 years old male who presents with acute CHF, systolic and elevated troponin. Left leg weakness fully evaluated just during last admission 1 day earlier. Continue with oral Lasix. Monitor creatinine Cardiology consult Continue with baby aspirin Recommend physical therapy evaluation, patient was counseled extensively and he agreeable to go to rehab this time Labs and medication were reviewed.. Continue same treatment. Continue with symptomatic treatment. Resume home medication. Monitor lytes and vitals. DVT and GI prophylaxis. Further recommendations depends on the clinical course of the patient DVT prophylaxis: Subcutaneous heparin GI Prophylaxis: Pepcid PT/OT: Pending Patient is medically stable for discharge pending placement. Patient agreeable to go to rehab
[2021-05-11] MEDS ORDERED: SODIUM CHLORIDE 0.45% 1,000 ML IV SCH (10:15)
--- NOTE | 2021-05-11 14:35 | P.PN ---
Subjective This pleasant 75-year-old gentleman who follows with Dr. Mercedes in the office. He has a history of CABG over 20 years ago, hyperlipidemia, long-standing psychiatric history of Bipolar, Depression, Anxiety, ADD/ADHD. Presented to the hospital with inability to ambulate. Apparently for the last 2 weeks he has been unable to walk on his left leg. He is able to lift the leg but cannot move the foot at all. Unable to move the toes unable to dorsiflex or plantar flex. Patient did have a stress test Lexiscan the office 05/2020 which was negative for reversible ischemia. Patient was seen in the hospital from 05/03 until 05/08 with workup showing decrease in EF however no significant 80 to type symptoms and heart failure regimen was optimized. He was discharged home and states he could not walk around on his foot and therefore presented back to the hospital. He denies any chest pain or pressure or shortness breath. He was found to have minimally elevated creatinine compared to prior. He denies any lightheadedness. Chest x-ray reading out as pulmonary vascular ejection and BNP elevated however denies any shortness breath and no orthopnea. On 05/05/21, Echocardiogram revealed EF of 2530%, apical anterior and apical lateral LV wall motion is aneurysmal, global hypokinesis, moderate aortic stenosis with a peak fashion gradient of 38 mmHg/23 mmHg, mild to moderate mitral regurgitation, moderate tricuspid regurgitation. Prior echocardiogram in the office in 2016 showed a normal ejection fraction of 5055 percent. 05/11 Patient seen and examined. No chest pain or pressure. No shortness breath. Vitals reviewed GENERAL: In no acute distress. NECK: Supple without JVD or thyromegaly. LUNGS: Breath sounds clear to auscultation bilaterally. Respiration equal and unlabored. No wheezes, rales or rhonchi. HEART: Regular rate and rhythm without systolic ejection murmur noted at the apex and the right sternal border.S1 and S2 heard. EXTREMITIES: Normal range of motion, no edema. No clubbing or cyanosis. Peripheral pulses intact. ASSESSMENT Chronic systolic heart failure, does not appear in heart failure currently Cardiomyopathy, unclear if ischemic versus nonischemic at this time however no angina-type symptoms Minimally elevated troponin, no angina-type symptoms Dyslipidemia Coronary artery disease History of CABG in 1998, unknown details Left foot pain Moderate aortic stenosis Mild increasing creatinine may be related to hemodynamics PLAN Patient without any significant heart failure type symptoms or angina-type symptoms. His main presentation for coming back to the hospital was only of left foot pain per patient. Continue home heart failure regimen. If she develops any angina-type symptoms may consider further ischemic workup of new cardiomyopathy. Otherwise likely treat medically at this time and treat his left foot pain which was main readmission reason. Objective - Vital Signs Vital signs: Vital Signs Temp 97.8 F 05/11/21 12:00 Pulse 56 L 05/11/21 12:00 Resp 16 05/11/21 12:00 BP 99/61 05/11/21 12:00 Pulse Ox 95 05/11/21 12:00 Intake & Output 05/10/21 05/11/21 05/11/21 18:59 06:59 18:59 Intake Total 888 Output Total 700 450 Balance 188 -450 Weight 74.8 kg Intake: Oral 888 Output: Urine 700 450 Other: # Bowel Movements 1 - Labs CBC & Chem 7: 05/10/21 09:04 05/11/21 07:53 Labs: Abnormal Lab Results - Last 24 Hours (Table) 05/11/21 Range/Units 07:53 Sodium 135 L (137-145) mmol/L BUN 45 H (9-20) mg/dL Creatinine 1.54 H (0.66-1.25) mg/dL Glucose 149 H (74-99) mg/dL
[2021-05-11] MEDS: ATORVASTATIN 40 MG TAB PO SCH (20:15)
[2021-05-12 09:47] LABS: Calcium 9.9 mg/dL (8.4-10.2); Potassium 4.7 mmol/L (3.5-5.1)
[2021-05-12] MEDS: METOPROLOL TARTRATE 12.5 MG TAB PO SCH ×2 (10:12→20:34)
[2021-05-12] MEDS: FAMOTIDINE 20 MG TAB PO SCH (10:13)
[2021-05-12] MEDS: SPIRONOLACTONE 25 MG TAB PO SCH (10:13)
[2021-05-12] MEDS: lamoTRIgine 100 MG TAB PO SCH ×2 (10:13→20:33)
[2021-05-12] MEDS: ESCITALOPRAM 10 MG TAB PO SCH (10:13)
[2021-05-12] MEDS: ASPIRIN 81 MG PO SCH (10:13)
[2021-05-12] MEDS: FUROSEMIDE 40 MG TAB PO SCH ×2 (10:13→17:01)
[2021-05-12] MEDS: HEPARIN SODIUM,PORCINE/PF 5,000 UNIT/0.5 ML SYRINGE SQ SCH ×2 (10:13→20:34)
[2021-05-12] MEDS: ACETAMINOPHEN TAB 325 MG TAB PO PRN (10:14)
[2021-05-12] MEDS ORDERED: ASPIRIN 325 MG TAB PO STA (13:07)
[2021-05-12] MEDS: ATORVASTATIN 40 MG TAB PO SCH (20:33)
[2021-05-13 08:01] LABS: Calcium 9.9 mg/dL (8.4-10.2)
[2021-05-13 08:10] LABS: Basophils # (A) 0.1 k/uL (0-0.2); Basophils % (A) 1 %; Eosinophils # (A) 0.3 k/uL (0-0.7); Eosinophils % (A) 3 %; HCT 45.8 % (39.0-53.0); HGB 14.6 gm/dL (13.0-17.5); Lymphocytes # (A) 3.5 k/uL (1.0-4.8); Lymphocytes % (A) 42 %; MCH 30.2 pg (25.0-35.0); MCHC 31.8 g/dL (31.0-37.0); Mean Platelet Volume 8.6; Monocytes # (A) 0.8 k/uL (0-1.0); Monocytes % (A) 9 %; Neutrophils # (A) 3.6 k/uL (1.3-7.7); Neutrophils % (A) 43 %; Platelet Count 289 k/uL (150-450); RBC 4.82 m/uL (4.30-5.90); RDW 14.7 % (11.5-15.5); WBC 8.5 k/uL (3.8-10.6)
[2021-05-13] MEDS: ASPIRIN 81 MG PO SCH (09:28)
[2021-05-13] MEDS: ESCITALOPRAM 10 MG TAB PO SCH (09:29)
[2021-05-13] MEDS: FUROSEMIDE 40 MG TAB PO SCH ×2 (09:30→16:08)
[2021-05-13] MEDS: HEPARIN SODIUM,PORCINE/PF 5,000 UNIT/0.5 ML SYRINGE SQ SCH ×2 (09:31→20:51)
[2021-05-13] MEDS: METOPROLOL TARTRATE 12.5 MG TAB PO SCH ×2 (09:32→20:51)
[2021-05-13] MEDS: SPIRONOLACTONE 25 MG TAB PO SCH (09:33)
[2021-05-13] MEDS: FAMOTIDINE 20 MG TAB PO SCH (11:21)
--- NOTE | 2021-05-13 15:46 | P.DS ---
Providers Date of admission: 05/09/21 20:45 Expected date of discharge: 05/13/21 Attending physician: Landon Garcia MD Consults: 05/09/21 23:50 Consult Physician Routine Consulting Provider: Khari Mercedes Consult Reason/Comments: chf , elevated troponin Do you want consulting provider notified?: Yes, Notify in am Primary care physician: Krishna Rizzo Hospital Course: Final diagnosis Left leg weakness and decreased sensation, chronic since last admission Acute systolic CHF with ejection fraction of 25-30%. Fall secondary to above Moderate aortic stenosis Mild acute kidney injury most likely secondary to cardiorenal syndrome Elevated troponin level. Generalized weakness and fatigue Medical debility Gait dysfunction Coronary artery disease history of quadruple bypass graft in 1998 Hyperlipidemia Hepatitis B Chronic low back pain Nephrolithiasis with status post lithotripsy ORIF left ankle Parkinson's disease History of psychosis Full code Discharge disposition Patient is being discharged in a stable condition with guarded prognosis to [facility] continue PT/OT therapy. Patient will follow-up with Dr. Rizzo upon discharge. Patient will continue with Lasix and Aldactone as prescribed by cardiology and recommend outpatient follow-up with orthopedics Dr. Cooper along with neurology Dr. Norton and cardiology Daren. Total time taken is greater than 35 minutes. Hospital course This is a 75-year-old male who was recently admitted with falls and increasing weakness and inability to take care of himself as he lives alone. Patient was seen and evaluated by cardiology and most recent echo showed an EF of 25-30% with global echo kinesis with moderate aortic stenosis. Patient does have history of chronic systolic heart failure with cardiomyopathy recommending treating medically and outpatient follow-up. Patient to continue on Lasix 40 mg twice daily along with Aldactone 25 mg daily and other appropriate home medications have been resumed. Creatinine improving and is currently 1.38 and recommend outpatient follow-up with CBC and BMP in the next 2-3 days. COVID-19 testing was negative. Currently no reports of chest pain, shortness of breath, or palpitations. Patient is afebrile. No reports of nausea or vomiting and patient is tolerating diet. Patient and family will further discuss palliative care in the outpatient setting. Guarded prognosis. Physical exam: GENERAL: The patient is alert and oriented x3, not in any acute distress. Well developed, well nourished. HEENT: Pupils are round and equally reacting to light. EOMI. No scleral icterus. No conjunctival pallor. Normocephalic, atraumatic. No pharyngeal erythema. No thyromegaly. CARDIOVASCULAR: S1 and S2 present. No murmurs, rubs, or gallops. PULMONARY: Chest is clear to auscultation, no wheezing or crackles. ABDOMEN: Soft, nontender, nondistended, normoactive bowel sounds. No palpable organomegaly. MUSCULOSKELETAL: No joint swelling or deformity. EXTREMITIES: No cyanosis, clubbing, or pedal edema. NEUROLOGICAL: Cranial nerves are grossly intact. Diffusely weak SKIN: No rashes. no petechiae. Please refer to medication reconciliation sheet for a list of medications. Patient Condition at Discharge: Fair Plan - Discharge Summary Discharge Rx Participant: No New Discharge Prescriptions: Continue lamoTRIgine 100 mg PO DAILY Escitalopram Oxalate [Lexapro] 10 mg PO DAILY Aspirin 81 mg PO DAILY #30 Furosemide [Lasix] 40 mg PO BID@0900,1600 #30 tab Metoprolol Tartrate [Lopressor] 12.5 mg PO BID #60 tab Nitroglycerin Sl Tabs [Nitrostat] 0.4 mg SUBLINGUAL Q5M PRN #60 tab PRN Reason: Chest Pain lamoTRIgine 200 mg PO HS Spironolactone [Aldactone] 25 mg PO DAILY #30 tab Atorvastatin [Lipitor] 40 mg PO HS #30 tab Potassium Chloride ER [K-Dur 20] 20 meq PO DAILY #30 tab Discharge Medication List Escitalopram Oxalate [Lexapro] 10 mg PO DAILY 05/03/21 [History] lamoTRIgine 100 mg PO DAILY 05/03/21 [History] lamoTRIgine 200 mg PO HS 05/03/21 [History] Aspirin 81 mg PO DAILY #30 05/06/21 [Rx] Atorvastatin [Lipitor] 40 mg PO HS #30 tab 05/06/21 [Rx] Furosemide [Lasix] 40 mg PO BID@0900,1600 #30 tab 05/06/21 [Rx] Metoprolol Tartrate [Lopressor] 12.5 mg PO BID #60 tab 05/06/21 [Rx] Nitroglycerin Sl Tabs [Nitrostat] 0.4 mg SUBLINGUAL Q5M PRN #60 tab 02/08/22 [Rx] Potassium Chloride ER [K-Dur 20] 20 meq PO DAILY #30 tab 05/06/21 [Rx] Spironolactone [Aldactone] 25 mg PO DAILY #30 tab 05/06/21 [Rx] Follow up Appointment(s)/Referral(s): Roney Cooper DO [Doctor of Osteopathic Medicine] - 1 Week (spine surgeon for your back pain and leg weakness ) Krishna Rizzo MD [Primary Care Provider] - 1-2 days Rodger Norton MD [Medical Doctor] - 2 Weeks (nerve doctor) Khari Mercedes MD [STAFF PHYSICIAN] - 05/19/21 Discharge Disposition: TRANSFER TO SNF/ECF
[2021-05-13] MEDS: lamoTRIgine 100 MG TAB PO SCH ×2 (15:56→20:51)
[2021-05-13] MEDS: ACETAMINOPHEN TAB 325 MG TAB PO PRN (19:00)
[2021-05-13] MEDS: ATORVASTATIN 40 MG TAB PO SCH (20:52)
[2021-05-13] MEDS ORDERED: lamoTRIgine 100 MG TAB PO SCH (21:00)
[2021-05-14 09:16] VITALS: BP 116/67; PULSE 71; RESP 18; TEMP 97.6
[2021-05-14] MEDS: FUROSEMIDE 40 MG TAB PO SCH (09:16)
[2021-05-14] MEDS: SPIRONOLACTONE 25 MG TAB PO SCH (09:16)
[2021-05-14] MEDS: ESCITALOPRAM 10 MG TAB PO SCH (09:16)
[2021-05-14] MEDS: HEPARIN SODIUM,PORCINE/PF 5,000 UNIT/0.5 ML SYRINGE SQ SCH (09:16)
[2021-05-14] MEDS: FAMOTIDINE 20 MG TAB PO SCH (09:16)
[2021-05-14] MEDS: ASPIRIN 81 MG PO SCH (09:16)
[2021-05-14] MEDS: METOPROLOL TARTRATE 12.5 MG TAB PO SCH (09:16)
--- NOTE | 2021-05-14 23:15 | P.DS ---
Providers Date of admission: 05/09/21 20:45 Attending physician: Landon Garcia MD Consults: 05/09/21 23:50 Consult Physician Routine Consulting Provider: Khari Mercedes Consult Reason/Comments: chf , elevated troponin Do you want consulting provider notified?: Yes, Notify in am Primary care physician: Krishna Rizzo Hospital Course: Diagnoses: Left leg weakness and decreased sensation, chronic since last admission Acute systolic CHF with ejection fraction of 25-30%. Fall secondary to above Moderate aortic stenosis Mild acute kidney injury most likely secondary to cardiorenal syndrome Elevated troponin level. Chronic kidney disease, stage III Generalized weakness and fatigue Medical debility Gait dysfunction Coronary artery disease history of quadruple bypass graft in 1998 Hyperlipidemia Hepatitis B Chronic low back pain Nephrolithiasis with status post lithotripsy ORIF left ankle Parkinson's disease History of psychosis Clinical features. This is a pleasant 75 years old male who was recently discharged from the hospital last week, he was treated for CHF and left leg weakness and his been evaluated by neurologist and Dr. leigh and recommended outpatient follow-up and strengthening exercises with subacute rehab, however patient refused to go to rehab and he went home and presented one day he fell and came back to the hospital with CHF and deconditioning, he was treated with Lasix and he doesn't stabilized. This time patient agrees to go to rehab for strengthening exercises. Also he agrees to follow up with Dr. Leigh museum security chief and the neurologist Dr. Norton as instructed in 1-3 weeks and he agrees to call and make appointment, please see discharge instructions. (Please refer to discharge summary from yesterday for more details) Patient was cleared for discharge by library sales consultant. Patient today denies any other symptoms. No chest pain or dyspnea. No change in urine or bowel habits. No fever Problems and management plan were discussed with the patient and he verbalized understanding and acceptance Patient was found stable and can be discharged home however he needs follow-up as an outpatient. Patient was instructed to follow up with PCP Dr. Rizzo within one week and patient agrees Also patient was instructed to follow up with library sales consultant Dr. Mercedes on 05/19 and he agrees. And with Dr. Leigh and as above Physical exam Gen: patient is a AAOx3, no distress CVS: S1-S2, RRR, no murmur Lungs: B/L CTA, no wheezing Abdomen: soft, no distention, no tenderness, positive bowel sounds Extremity: no leg edema or induration -Neuro: Cranial nerves are grossly intact. Left leg mildly weak 4/5, sensation intact. Meningeal signs are absent Time spent more than 35 minutes( Patient Condition at Discharge: Fair Plan - Discharge Summary Discharge Rx Participant: No New Discharge Prescriptions: Continue RX: lamoTRIgine 100 mg PO DAILY RX: Escitalopram Oxalate [Lexapro] 10 mg PO DAILY RX: Aspirin 81 mg PO DAILY #30 RX: Furosemide [Lasix] 40 mg PO BID@0900,1600 #30 tab RX: Metoprolol Tartrate [Lopressor] 12.5 mg PO BID #60 tab RX: Nitroglycerin Sl Tabs [Nitrostat] 0.4 mg SUBLINGUAL Q5M PRN #60 tab PRN Reason: Chest Pain RX: lamoTRIgine 200 mg PO HS RX: Spironolactone [Aldactone] 25 mg PO DAILY #30 tab RX: Atorvastatin [Lipitor] 40 mg PO HS #30 tab RX: Potassium Chloride ER [K-Dur 20] 20 meq PO DAILY #30 tab Discharge Medication List RX: Escitalopram Oxalate [Lexapro] 10 mg PO DAILY 05/03/21 [History] RX: lamoTRIgine 100 mg PO DAILY 05/03/21 [History] RX: lamoTRIgine 200 mg PO HS 05/03/21 [History] RX: Aspirin 81 mg PO DAILY #30 05/06/21 [Rx] RX: Atorvastatin [Lipitor] 40 mg PO HS #30 tab 05/06/21 [Rx] RX: Furosemide [Lasix] 40 mg PO BID@0900,1600 #30 tab 05/06/21 [Rx] RX: Metoprolol Tartrate [Lopressor] 12.5 mg PO BID #60 tab 05/06/21 [Rx] RX: Nitroglycerin Sl Tabs [Nitrostat] 0.4 mg SUBLINGUAL Q5M PRN #60 tab 05/06/21 [Rx] RX: Potassium Chloride ER [K-Dur 20] 20 meq PO DAILY #30 tab 05/06/21 [Rx] RX: Spironolactone [Aldactone] 25 mg PO DAILY #30 tab 05/06/21 [Rx] Follow up Appointment(s)/Referral(s): So,Krishna, MD [Primary Care Provider] - 1-2 days Rodger Norton MD [Medical Doctor] - 2 Weeks (nerve doctor) Khari Mercedes MD [STAFF PHYSICIAN] - 05/19/21 Roney Leigh DO [Doctor of Osteopathic Medicine] - 3 Weeks (spine surgeon for your back pain and leg weakness ) Activity/Diet/Wound Care/Special Instructions: AFO brace will be delivered today 05/14/21 at 3:30pm at [facility]. Heart healthy diet Activity as tolerated Discharge Disposition: TRANSFER TO SNF/ECF
--- NOTE | 2021-05-16 10:56 | P.PN ---
Subjective Progress Note Date: 05/12/21 Patient is a 75-year-old male with a known history of coronary artery disease status post CABG four-vessel in 1998, hyperlipidemia, chronic liver disease, hepatitis B, chronic low back pain, nephrolithiasis status post lithotripsy, ORIF left ankle, Parkinson's disease, history of psychosis and other medical problems presents to ER with complaints of inability to take care of himself, also states that his left leg gives awake. He states after he walks for about a little more than 2 feet the fall because of his left leg. Of note the patient during last admission(discharge 1 day earlier) subacute rehab is recommended for him however he declined and he wanted to go home. Also patient was recently treated for systolic CHF with low ejection fraction 25-30%. He has some evidence of mild vascular congestion and his chest x-ray however patient denies any orthopnea paroxysmal nocturnal dyspnea, no shortness of breath at rest however patient is minimally mobile. Also his creatinine went up most likely related to CHF. Patient denies chest pain or dizziness. No abdominal pain or vomiting or diarr hea. No urinary complaints. No headache or numbness. No other new weakness. He denies smoking, alcohol or illicit drugs Also patient complaining of from Left lower extremity weakness secondary to severe C4-C5 spinal canal stenosis secondary to facet joint with moderate spinal stenosis at C3-C4 and C5-C6. Based on MRI of the cervical and lumbar spine on 05/07/2021, orthopedic team with Dr. cooper evaluated the patient last time and recommended to continue with conservative management and follow-up as an outpatient. During last admission also rehab recommended for him however he declined and he went home instead. Patient Vitas looks stable and he is saturating 97% on room air. Showing unremarkable CBC, elevated creatinine went 0.3. Potassium slightly up 5.2, sodium slightly low with 36. Liver enzymes slightly elevated. Mildly elevated troponin 0.07. Urine analysis is not suspicious for infection. Coronavirus not detected. Chest x-ray showed cardiomegaly with mild to moderate vascular congestion. EKG showing normal sinus rhythm at [address]-T changes and QTC 423. In the emergency room patient was started on Lasix 40 mg every 8 orders 05/11/2021 Patient awake and alert today. He looks distressed because of dehydration related to his IV Lasix which is which wished from 40 mg 3 times a day into oral dose twice a day. He is very dry and thirsty and asked to increase his fluid restriction 1500 mL per day and 2 L per day. His creatinine is slightly up sec ondary to diuresis. Also today he confirmed to me that his left leg weakness is similar to last week when he is been evaluated by neurologist and orthopedic surgeon and there is no worsening or improvement in his leg weakness, no new numbness or loss of sensation no other neurological deficit. I discussed with patient and he agrees with previous recommendation to go to rehab and follow-up with neurologist and Dr. Cooper for his spinal stenosis and leg weakness. Also patient will have his splint delivered today to the hospital as he states for his left foot drop Patient is medically stable for discharge pending placement 05/12/2021 Patient is currently lying in the bed. Awake alert oriented x3. Denies any complaints of chest pain or shortness breath. Patient was on IV Lasix currently changed back to oral Lasix. Was taken for acute on chronic CHF with diastolic dysfunction with mild exacerbation. Patient has been afebrile. Leg swelling improved. Patient is currently requiring rehab transfer. Afebrile. No nausea vomiting abdominal pain or diarrhea. Tolerating oral diet. Current medications reviewed. Objective - Vital Signs Vital signs: Vital Signs Temp 97.3 F L 05/12/21 17:50 Pulse 71 05/12/21 17:50 Resp 18 05/12/21 17:50 BP 121/69 05/12/21 17:50 Pulse Ox 95 05/12/21 17:50 Intake & Output 05/11/21 05/12/21 05/12/21 18:59 06:59 18:59 Intake Total 1182 342 480 Output Total 550 800 700 Balance 327 -133 -851 Weight 63.5 kg Intake: Intake, IV Titration 300 Amount Sodium Chloride 0.45% 1, 300 000 ml @ 50 mls/hr IV . Q20H [facility] Rx#:[id number] Oral 882 342 480 Output: Urine 550 800 700 Other: Voiding Method Urinal Urinal # Bowel Movements 1 - Exam GENERAL: The patient is alert and oriented x3, not in any acute distress. Well developed, well nourished. HEENT: Pupils are round and equally reacting to light. EOMI. No scleral icterus. No conjunctival pallor. Normocephalic, atraumatic. No pharyngeal erythema. No thyromegaly. CARDIOVASCULAR: S1 and S2 present. No murmurs, rubs, or gallops. PULMONARY: Chest is clear to auscultation, no wheezing or crackles. ABDOMEN: Soft, nontender, nondistended, normoactive bowel sounds. No palpable organomegaly. MUSCULOSKELETAL: No joint swelling or deformity. EXTREMITIES: No cyanosis, clubbing, or pedal edema. -NEUROLOGICAL: Cranial nerves are grossly intact. Left leg weakness, stable from last admission. No other weakness or sensory loss. Meningeal signs are absent SKIN: No rashes. no petechiae. - Labs CBC & Chem 7: 05/13/21 06:10 05/13/21 06:10 Labs: Abnormal Lab Results - Last 24 Hours (Table) 05/12/21 Range/Units 08:31 BUN 40 H (9-20) mg/dL Creatinine 1.56 H (0.66-1.25) mg/dL Assessment and Plan Assessment: Left leg weakness and decreased sensation, chronic since last admission evaluated by neurologist and orthopedic physicians. Patient will need rehab.Patient was instructed to follow up as an outpatient Acute systolic CHF with ejection fraction of 25-30%. Patient is stable from cardiology standpoint Fall secondary to above Moderate aortic stenosis Mild acute kidney injury most likely secondary to cardiorenal syndrome Elevated troponin level. Generalized weakness and fatigue and unable to take care of himself. Coronary artery disease history of quadruple bypass graft in 1998 Hyperlipidemia Hepatitis B Chronic low back pain Nephrolithiasis with status post lithotripsy ORIF left ankle Parkinson's disease History of psychosis. Plan: This is a pleasant 75 years old male who presents with acute CHF, systolic and elevated troponin. Left leg weakness fully evaluated just during last admission 1 day earlier. Continue with oral Lasix. Monitor creatinine Cardiology consult Continue with baby aspirin Recommend physical therapy evaluation, patient was counseled extensively and he agreeable to go to rehab this time Labs and medication were reviewed.. Continue same treatment. Continue with s ymptomatic treatment. Resume home medication. Monitor lytes and vitals. DVT and GI prophylaxis. Further recommendations depends on the clinical course of the patient DVT prophylaxis: Subcutaneous heparin GI Prophylaxis: Pepcid PT/OT: Pending Patient is medically stable for discharge pending placement. Patient agreeable to go to rehab Time with Patient: Greater than 30
--- NOTE | 2021-05-16 10:57 | P.PN ---
Subjective Progress Note Date: 05/13/21 Patient is a 75-year-old male with a known history of coronary artery disease status post CABG four-vessel in 1998, hyperlipidemia, chronic liver disease, hepatitis B, chronic low back pain, nephrolithiasis status post lithotripsy, ORIF left ankle, Parkinson's disease, history of psychosis and other medical problems presents to ER with complaints of inability to take care of himself, also states that his left leg gives awake. He states after he walks for about a little more than 2 feet the fall because of his left leg. Of note the patient during last admission(discharge 1 day earlier) subacute rehab is recommended for him however he declined and he wanted to go home. Also patient was recently treated for systolic CHF with low ejection fraction 25-30%. He has some evidence of mild vascular congestion and his chest x-ray however patient denies any orthopnea paroxysmal nocturnal dyspnea, no shortness of breath at rest however patient is minimally mobile. Also his creatinine went up most likely related to CHF. Patient denies chest pain or dizziness. No abdominal pain or vomiting or diarr hea. No urinary complaints. No headache or numbness. No other new weakness. He denies smoking, alcohol or illicit drugs Also patient complaining of from Left lower extremity weakness secondary to severe C4-C5 spinal canal stenosis secondary to facet joint with moderate spinal stenosis at C3-C4 and C5-C6. Based on MRI of the cervical and lumbar spine on 05/07/2021, orthopedic team with Dr. cooper evaluated the patient last time and recommended to continue with conservative management and follow-up as an outpatient. During last admission also rehab recommended for him however he declined and he went home instead. Patient Vitas looks stable and he is saturating 97% on room air. Showing unremarkable CBC, elevated creatinine went 0.3. Potassium slightly up 5.2, sodium slightly low with 36. Liver enzymes slightly elevated. Mildly elevated troponin 0.07. Urine analysis is not suspicious for infection. Coronavirus not detected. Chest x-ray showed cardiomegaly with mild to moderate vascular congestion. EKG showing normal sinus rhythm at [address]-T changes and QTC 423. In the emergency room patient was started on Lasix 40 mg every 8 orders 05/11/2021 Patient awake and alert today. He looks distressed because of dehydration related to his IV Lasix which is which wished from 40 mg 3 times a day into oral dose twice a day. He is very dry and thirsty and asked to increase his fluid restriction 1500 mL per day and 2 L per day. His creatinine is slightly up sec ondary to diuresis. Also today he confirmed to me that his left leg weakness is similar to last week when he is been evaluated by neurologist and orthopedic surgeon and there is no worsening or improvement in his leg weakness, no new numbness or loss of sensation no other neurological deficit. I discussed with patient and he agrees with previous recommendation to go to rehab and follow-up with neurologist and Dr. Cooper for his spinal stenosis and leg weakness. Also patient will have his splint delivered today to the hospital as he states for his left foot drop Patient is medically stable for discharge pending placement 05/12/2021 Patient is currently lying in the bed. Awake alert oriented x3. Denies any complaints of chest pain or shortness breath. Patient was on IV Lasix currently changed back to oral Lasix. Was taken for acute on chronic CHF with diastolic dysfunction with mild exacerbation. Patient has been afebrile. Leg swelling improved. Patient is currently requiring rehab transfer. Afebrile. No nausea vomiting abdominal pain or diarrhea. Tolerating oral diet. 05/13/2021 Patient's condition remains stable. No complaints of chest pain or worsening shortness of. Currently on oral Lasix. No fever no chills. No leg swelling. Tolerating oral diet. No headache or dizziness or lightheadedness. No cough or sputum production. Laboratory showed WBC 8.5 hemoglobin 14.6 and platelets 289 sodium 137 potassium 5.0 chloride 102 BUN 39 creatinine improved to 1.38. Laboratories are reviewed. Patient is awaiting to be transferred to rehab. Current medications reviewed. Objective - Vital Signs Vital signs: Vital Signs Temp 98.0 F 05/13/21 16:00 Pulse 72 05/13/21 16:00 Resp 16 05/13/21 16:00 BP 122/65 05/13/21 16:00 Pulse Ox 96 05/13/21 16:00 Intake & Output 05/13/21 05/13/21 05/14/21 06:59 18:59 06:59 Intake Total 2300 Output Total 1175 925 Balance -1175 1375 Intake: Oral 2300 Output: Urine 1175 925 Other: Voiding Method Urinal Urinal - Exam GENERAL: The patient is alert and oriented x3, not in any acute distress. Well developed, well nourished. HEENT: Pupils are round and equally reacting to light. EOMI. No scleral icterus. No conjunctival pallor. Normocephalic, atraumatic. No pharyngeal erythema. No thyromegaly. CARDIOVASCULAR: S1 and S2 present. No murmurs, rubs, or gallops. PULMONARY: Chest is clear to auscultation, no wheezing or crackles. ABDOMEN: Soft, nontender, nondistended, normoactive bowel sounds. No palpable organomegaly. MUSCULOSKELETAL: No joint swelling or deformity. EXTREMITIES: No cyanosis, clubbing, or pedal edema. -NEUROLOGICAL: Cranial nerves are grossly intact. Left leg weakness, stable from last admission. No other weakness or sensory loss. Meningeal signs are absent SKIN: No rashes. no petechiae. - Labs CBC & Chem 7: 05/13/21 06:10 05/13/21 06:10 Labs: Abnormal Lab Results - Last 24 Hours (Table) 05/13/21 Range/Units 06:10 BUN 39 H (9-20) mg/dL Creatinine 1.38 H (0.66-1.25) mg/dL Glucose 101 H (74-99) mg/dL Assessment and Plan Assessment: Left leg weakness and decreased sensation, chronic since last admission evaluated by neurologist and orthopedic physicians. Patient will need rehab.Patient was instructed to follow up as an outpatient Acute systolic CHF with ejection fraction of 25-30%. Patient is stable from cardiology standpoint Fall secondary to above Moderate aortic stenosis Mild acute kidney injury most likely secondary to cardiorenal syndrome Elevated troponin level. Generalized weakness and fatigue and unable to take care of himself. Coronary artery disease history of quadruple bypass graft in 1998 Hyperlipidemia Hepatitis B Chronic low back pain Nephrolithiasis with status post lithotripsy ORIF left ankle Parkinson's disease History of psychosis. Plan: This is a pleasant 75 years old male who presents with acute CHF, systolic and elevated troponin. Left leg weakness fully evaluated just during last admission 1 day earlier. Continue with oral Lasix. Monitor creatinine Cardiology consult Continue with baby aspirin Recommend physical therapy evaluation, patient was counseled extensively and he agreeable to go to rehab this time Labs and medication were reviewed.. Continue same treatment. Continue with symptomatic treatment. Resume home medication. Monitor lytes and vitals. DVT and GI prophylaxis. Further recommendations depends on the clinical course of the patient DVT prophylaxis: Subcutaneous heparin GI Prophylaxis: Pepcid PT/OT: Pending Patient is medically stable for discharge pending placement. Patient agreeable to go to rehab Time with Patient: Greater than 30
== END 2021-05-14 11:40 ==
LOC: EC 16:41 → 3SCARD 20:45
PROVIDERS: ADMIT Internal Medicine; ATTEND Internal Medicine
DX: M62.81 Muscle weakness (generalized) (principal); I13.0 Hypertensive heart and chronic kidney disease with heart failure and stage 1 through stage 4 chronic kidney disease, or unspecified chronic kidney disease; I50.43 Acute on chronic combined systolic (congestive) and diastolic (congestive) heart failure; N18.30 Chronic kidney disease, stage 3 unspecified; N17.9 Acute kidney failure, unspecified; I25.10 Atherosclerotic heart disease of native coronary artery without angina pectoris; E78.5 Hyperlipidemia, unspecified; Z20.822 Contact with and (suspected) exposure to COVID-19; B19.10 Unspecified viral hepatitis B without hepatic coma; R62.7 Adult failure to thrive; M21.372 Foot drop, left foot; R53.1 Weakness; G89.29 Other chronic pain; M54.50 Low back pain, unspecified; G20 Parkinson's disease; F02.80 Dementia in other diseases classified elsewhere, unspecified severity, without behavioral disturbance, psychotic disturbance, mood disturbance, and anxiety; M48.02 Spinal stenosis, cervical region; K76.9 Liver disease, unspecified; T50.2X5A Adverse effect of carbonic-anhydrase inhibitors, benzothiadiazides and other diuretics, initial encounter; E86.0 Dehydration; F31.9 Bipolar disorder, unspecified; F41.0 Panic disorder [episodic paroxysmal anxiety]; F90.9 Attention-deficit hyperactivity disorder, unspecified type; I08.3 Combined rheumatic disorders of mitral, aortic and tricuspid valves; I42.9 Cardiomyopathy, unspecified; R47.01 Aphasia; G47.00 Insomnia, unspecified; D64.9 Anemia, unspecified; M79.605 Pain in left leg; M79.672 Pain in left foot; Z79.82 Long term (current) use of aspirin; Z79.899 Other long term (current) drug therapy; Z95.1 Presence of aortocoronary bypass graft; Z87.442 Personal history of urinary calculi; Z87.01 Personal history of pneumonia (recurrent); Z81.1 Family history of alcohol abuse and dependence; Z83.2 Family history of diseases of the blood and blood-forming organs and certain disorders involving the immune mechanism; Z81.8 Family history of other mental and behavioral disorders; Z71.89 Other specified counseling
CPT/HCPCS: 99285; 96376; 96372 ×5; 96374; 96375; 36415; 93005; 97162; 97166; 83880; 80053; 80048 ×4; 82550; 83735; 84484 ×2; 85025 ×3; 81003; 87635 ×2; 73630; 71046; G0378 ×6; J1940; J1644 ×4

== ENCOUNTER → 2021-06-05 | Outpatient (CLI) | payer MEDICARE ==
[2021-06-05 13:46] LABS: INR 0.9 (<1.2); Partial Thromboplastin Time 24.2 sec (22.0-30.0); Prothrombin Time 10.3 sec (9.0-12.0)
[2021-06-05 19:34] LABS: Basophils # (A) 0.07 X 10*3/uL (0.00-0.10); Basophils % (A) 0.9 %; Eosinophils % (A) 5.4 %; HCT 43.7 % (39.6-50.0); HGB 13.4 g/dL (13.0-17.0); Immature Grans, Automated 2.6 %; Lymphocytes # (A) 3.58 X 10*3/uL (0.90-5.00); Lymphocytes % (A) 48.1 %; MCH 28.8 pg (27.0-32.0); MCHC 30.7 g/dL (32.0-37.0); MCV 93.8 fL (80.0-97.0); Mean Platelet Volume 11.2 fL (9.5-12.2); Monocytes % (A) 9.4 %; NRBC Per 100 WBC 0 /100 WBCS (0.0-0.0); Neutrophils # (A) 2.51 X 10*3/uL (1.80-7.70); Neutrophils % (A) 33.6 %; Platelet Count 271 X 10*3/uL (140-440); RBC 4.66 X 10*6/uL (4.40-5.60); RDW 16.4 % (11.5-14.5); WBC 7.45 X 10*3/uL (4.50-10.00)
[2021-06-05 19:36] LABS: African American GFR (CKD) 69.3 (60.0-200.0); Anion Gap 13.5 mmol/L (10.00-18.00); BUN/Creat Ratio 22.69 Ratio (12.00-20.00); Calcium 9.8 mg/dL (8.7-10.3); Carbon Dioxide 23.4 mmol/L (20.0-27.5); Non-African American GFR(CKD) 59.8 (60.0-200.0); Potassium 4.6 mmol/L (3.5-5.5)
== END | disposition home or self-care (01) ==
LOC: LABPAT 12:54
PROVIDERS: ATTEND Orthopaedic Surgery Orthopaedic Surgery of the Spine
DX: Z01.812 Encounter for preprocedural laboratory examination (principal)
CPT/HCPCS: 80048; 85025; 85610; 85730

== ENCOUNTER 2021-06-07 07:35 | Inpatient (IN) | payer MEDICARE ==
--- NOTE | 2021-06-07 07:56 | ED ---
General Adult HPI - General Chief complaint: Arrhythmia/Palpitations Stated complaint: Low HR Time Seen by Provider: 06/07/21 07:35 Source: patient, EMS, RN notes reviewed, old records reviewed Mode of arrival: EMS Limitations: no limitations - History of Present Illness Initial comments: This is a 76-year-old male who presents emergency Department from a long term. Patient states this morning he took his vitals and a his heart rate was 40 even though the monitor in the ambulance indicated it was 80 he was in bigeminy patient has no complaints he denies any lightheadedness or dizziness. Patient denies chest pain. Patient denies any shortness of breath or difficulty breathing. Patient states he feels completely at his baseline. Patient denies any abdominal pain patient denies nausea vomiting diarrhea. Patient denies a history of any slow heart rate. - Related Data Home Medications Medication Instructions Recorded Confirmed Escitalopram Oxalate [Lexapro] 10 mg PO DAILY 05/03/21 05/09/21 lamoTRIgine 100 mg PO DAILY 05/03/21 05/09/21 lamoTRIgine 200 mg PO HS 05/03/21 05/09/21 Previous Rx's Medication Instructions Recorded Aspirin 81 mg PO DAILY #30 05/06/21 Atorvastatin [Lipitor] 40 mg PO HS #30 tab 05/06/21 Furosemide [Lasix] 40 mg PO BID@0900,1600 #30 tab 05/06/21 Metoprolol Tartrate [Lopressor] 12.5 mg PO BID #60 tab 05/06/21 Nitroglycerin Sl Tabs [Nitrostat] 0.4 mg SUBLINGUAL Q5M PRN #60 tab 05/06/21 Potassium Chloride ER [K-Dur 20] 20 meq PO DAILY #30 tab 05/06/21 Spironolactone [Aldactone] 25 mg PO DAILY #30 tab 05/06/21 Allergies Allergy/AdvReac Type Severity Reaction Status Date / Time No Known Allergies Allergy Verified 05/09/21 16:49 Review of Systems ROS Statement: Those systems with pertinent positive or pertinent negative responses have been documented in the HPI. ROS Other: All systems not noted in ROS Statement are negative. Past Medical History Past Medical History: Coronary Artery Disease (CAD), Hyperlipidemia, Liver Disease, Pneumonia, Renal Disease Additional Past Medical History / Comment(s): 03/13/20 lamictal toxicity/delirium, gait dysfunction, R periorbital hematoma/cellulitis, fall. Other hx: Hepatitis B, insomnia, some aphasia since CABG in 1998, anemia, chronic low back pain, nephrolithiasis. History of Any Multi-Drug Resistant Organisms: None Reported Past Surgical History: Coronary Bypass/CABG, Heart Catheterization, Orthopedic Surgery, Tonsillectomy Additional Past Surgical History / Comment(s): 1998 CABG 4 vessel, lithotripsy, ORIF L ankle, colonoscopy, RK eye surgery for vision correction Past Anesthesia/Blood Transfusion Reactions: No Reported Reaction Past Psychological History: ADD/ADHD, Anxiety, Bipolar, Depression, Panic Disorder Smoking Status: Never smoker Past Alcohol Use History: None Reported Past Drug Use History: None Reported - Past Family History Mother Family Medical History: No Reported History Additional Family Medical History / Comment(s): Pernicious anemia, eating disorder. Father Additional Family Medical History / Comment(s): EToh abuse. General Exam - General Exam Comments Initial Comments: GENERAL: Patient is well-developed and well-nourished. Patient is nontoxic and well- hydrated and is in no acute distress. ENT: Neck is soft and supple. No significant lymphadenopathy is noted. Oropharynx is clear. Moist mucous membranes. Neck has full range of motion without eliciting any pain. EYES: The sclera were anicteric and conjunctiva were pink and moist. Extraocular movements were intact and pupils were equal round and reactive to light. Eyelids were unremarkable. PULMONARY: Unlabored respirations. Good breath sounds bilaterally. No audible rales rhonchi or wheezing was noted. CARDIOVASCULAR: There is a regular rate and rhythm without any murmurs gallops or rubs. Pulse is 80 ABDOMEN: Soft and nontender with normal bowel sounds. SKIN: Skin is clear with no lesions or rashes and otherwise unremarkable. NEUROLOGIC: Patient is alert and oriented x3. Cranial nerves II through XII are grossly intact. Motor and sensory are also intact. Normal speech, volume and content. Symmetrical smile. MUSCULOSKELETAL: Normal extremities with adequate strength and full range of motion. LYMPHATICS: No significant lymphadenopathy is noted PSYCHIATRIC: Normal psychiatric evaluation. Limitations: no limitations Course Vital Signs 06/07/21 06/07/21 07:47 09:28 Temperature 98.2 F Pulse Rate 75 82 Respiratory 18 18 Rate Blood Pressure 148/117 99/67 O2 Sat by Pulse 98 98 Oximetry Medical Decision Making - Medical Decision Making EKG shows sinus rhythm with frequent PVCs at a rate of 84 bpm OR interval is 176 QRS is 92 QT interval 414 QTC is 454. Patient normally takes Lopressor morning states he did not get his Lopressor today. I spoke with some physicians agreed to admit the patient admitted the patient wrote admitting orders. - Lab Data Result diagrams: 06/07/21 08:14 06/07/21 08:14 Lab Results 06/07/21 06/07/21 06/07/21 Range/Units 08:14 08:14 08:14 WBC 10.5 (3.8-10.6) k/uL RBC 4.66 (4.30-5.90) m/uL Hgb 14.0 (13.0-17.5) gm/dL Hct 43.3 (39.0-53.0) % MCV 92.8 (80.0-100.0) fL MCH 30.0 (25.0-35.0) pg MCHC 32.3 (31.0-37.0) g/dL RDW 15.9 H (11.5-15.5) % Plt Count 246 (150-450) k/uL MPV 8.0 Neutrophils % 39 % Lymphocytes % 43 % Monocytes % 8 % Eosinophils % 5 % Basophils % 1 % Neutrophils # 4.1 (1.3-7.7) k/uL Lymphocytes # 4.5 (1.0-4.8) k/uL Monocytes # 0.9 (0-1.0) k/uL Eosinophils # 0.5 (0-0.7) k/uL Basophils # 0.1 (0-0.2) k/uL Sodium 136 L (137-145) mmol/L Potassium 4.8 (3.5-5.1) mmol/L Chloride 100 (98-107) mmol/L Carbon Dioxide 26 (22-30) mmol/L Anion Gap 10 mmol/L BUN 21 H (9-20) mg/dL Creatinine 0.95 (0.66-1.25) mg/dL Est GFR (CKD-EPI)AfAm >90 (>60 ml/min/1.73 sqM) Est GFR (CKD-EPI)NonAf 79 (>60 ml/min/1.73 sqM) Glucose 93 (74-99) mg/dL Calcium 9.4 (8.4-10.2) mg/dL Magnesium 1.9 (1.6-2.3) mg/dL Total Bilirubin 0.8 (0.2-1.3) mg/dL AST 33 (17-59) U/L ALT 34 (4-49) U/L Alkaline Phosphatase 155 H (38-126) U/L Troponin I 0.042 H* (0.000-0.034) ng/mL Total Protein 7.4 (6.3-8.2) g/dL Albumin 4.1 (3.5-5.0) g/dL Disposition Clinical Impression: Bigeminy, Elevated troponin Disposition: ADMITTED IP TO THIS HOSP Referrals: Krishna Rizzo MD [Primary Care Provider] - 1-2 days Time of Disposition: 09:14
[2021-06-07] MEDS ORDERED: METOPROLOL TARTRATE 12.5 MG TAB PO STA (08:00)
[2021-06-07] MEDS ORDERED: SODIUM CHLORIDE 0.9% 500 ML 500 ML IV ONE (08:01)
[2021-06-07 08:34] LABS: ALT 34 U/L (4-49); AST 33 U/L (17-59); African American GFR (CKD) >90 (>60 ml/min/1.73 sqM); Albumin 4.1 g/dL (3.5-5.0); Alkaline Phosphatase 155 U/L (38-126); Anion Gap 10 mmol/L; Blood Urea Nitrogen 21 mg/dL (9-20); Calcium 9.4 mg/dL (8.4-10.2); Carbon Dioxide 26 mmol/L (22-30); Chloride 100 mmol/L (98-107); Glucose 93 mg/dL (74-99); Magnesium 1.9 mg/dL (1.6-2.3); Non-African American GFR(CKD) 79 (>60 ml/min/1.73 sqM); Potassium 4.8 mmol/L (3.5-5.1); Sodium 136 mmol/L (137-145); Total Bilirubin 0.8 mg/dL (0.2-1.3); Total Protein 7.4 g/dL (6.3-8.2)
--- NOTE | 2021-06-07 08:39 | XR ---
EXAMINATION TYPE: XR chest 2V DATE OF EXAM: 06/07/2021 COMPARISON: 05/09/2021 HISTORY: Chest pain TECHNIQUE: Frontal and lateral views of the chest are obtained. FINDINGS: There is been prior CABG surgery. There is moderate cardiomegaly with moderate pulmonary v ascular congestion and interstitial edema. The findings are most. There is no large pleural effusion and no pneumothorax. There is been no significant interval change since the prior study. IMPRESSION: Findings most consistent with mild to moderate CHF similar in appearance to the prior st udy dated 05/09/2021. There is been prior CABG surgery.
[2021-06-07 09:09] LABS: Basophils # (A) 0.1 k/uL (0-0.2); Basophils % (A) 1 %; Eosinophils # (A) 0.5 k/uL (0-0.7); Eosinophils % (A) 5 %; HCT 43.3 % (39.0-53.0); Lymphocytes # (A) 4.5 k/uL (1.0-4.8); Lymphocytes % (A) 43 %; MCHC 32.3 g/dL (31.0-37.0); MCV 92.8 fL (80.0-100.0); Monocytes # (A) 0.9 k/uL (0-1.0); Monocytes % (A) 8 %; Neutrophils # (A) 4.1 k/uL (1.3-7.7); Neutrophils % (A) 39 %; Platelet Count 246 k/uL (150-450); RBC 4.66 m/uL (4.30-5.90); RDW 15.9 % (11.5-15.5); WBC 10.5 k/uL (3.8-10.6)
[2021-06-07] MEDS ORDERED: clonazePAM 0.5 MG TAB PO STA (09:27)
[2021-06-07] MEDS ORDERED: HYDROcodone/APAP 5-325MG 1 EACH TAB PO STA (11:40)
--- NOTE | 2021-06-07 15:42 | CONS ---
CONSULTATION CHIEF COMPLAINT: Bradycardia and lightheadedness. HISTORY OF PRESENT ILLNESS: This is a 76-year-old gentleman with history of coronary artery disease status post CABG, cardiomyopathy with severe LV dysfunction and aortic stenosis, who is currently in a detention and is to undergo surgery for cervical spine because of pain he developed involving his leg. At the time of my evaluation in the emergency room, he appears comfortable at rest, remains in sinus rhythm with PVCs, heart rate is normal and he is somewhat hypotensive. The patient was in the hospital back in April. An echocardiogram done at that time revealed LV systolic dysfunction that was new compared to his prior evaluation in May of 2020 where he did not have any ischemia. Patient denies any chest pain, difficulty in breathing or leg edema. PAST MEDICAL HISTORY: Significant for coronary artery disease, status post CABG, ischemic cardiomyopathy. MEDS: Medications at home included Easley, Klonopin, Tylenol, Lopressor, Aldactone, K-Dur, Lasix 40 b.i.d., Lexapro, aspirin and Lipitor. ALLERGIES: No known drug allergies. FAMILY HISTORY: Negative for premature coronary artery disease. SOCIAL HISTORY: Negative for current smoking, EtOH abuse or drug abuse. REVIEW OF SYSTEMS: HEENT is unremarkable. CARDIAC as described above. RESPIRATORY negative. GI negative. : Negative. ALLERGY/IMMUNOLOGY: None. ENDOCRINE: Negative. SKIN negative. MUSCULOSKELETAL: Significant for weakness of the legs. PSYCHOSOCIAL negative. DERM negative. CONSTITUTIONAL negative. ONCOLOGICAL negative. EXAM: Comfortable at rest. Vital signs are stable. There is no jugular venous distention. Carotid upstroke is normal. There is no bruit. CHEST exam reveals good air entry bilaterally. HEART exam reveals first and second heart sounds, ejection systolic murmur . ABDOMEN is soft. Exam of EXTREMITIES did not reveal any edema. Peripheral pulses are palpable. EKG shows sinus rhythm with frequent PVCs. ASSESSMENT: 1. Bradycardia probably secondary to the PVCs. 2. Abnormal EKG. 3. Cardiomyopathy. 4. Aortic stenosis. 5. Coronary artery disease, status post coronary artery bypass grafting. PLAN: Continue with his medications. I am going to review his outpatient records. The patient had unexplained drop in his LV function in the echo done in April compared to the prior testing. We will repeat an echo on him to reassess the LV function. If he truly has significant drop in his LV function, he needs cardiac catheterization and evaluation for AICD. GEMMA / DIEGON: [id number] /
[2021-06-07] MEDS ORDERED: Acetaminophen-Codeine 300-30mg TAB PO PRN (18:02)
[2021-06-07] MEDS ORDERED: bisacodyL 10 MG SUPP RECTAL PRN (18:02)
[2021-06-07] MEDS ORDERED: NA PHOS,M-B/NA PHOS,DI-BA 133 ML ENEMA RECTAL PRN (18:02)
[2021-06-07] MEDS ORDERED: ACETAMINOPHEN TAB 325 MG TAB PO PRN (18:02)
[2021-06-07] MEDS ORDERED: NITROGLYCERIN SL TABS 0.4 MG TAB SUBLINGUAL PRN (18:02)
[2021-06-07] MEDS ORDERED: MAGNESIUM HYDROXIDE 2,400 MG/10 ML CUP PO PRN ×3 (18:02→18:10)
[2021-06-07] MEDS: clonazePAM 0.5 MG TAB PO PRN (18:49)
[2021-06-07] MEDS: ATORVASTATIN 40 MG TAB PO SCH (19:43)
[2021-06-07] MEDS: lamoTRIgine 100 MG TAB PO SCH (19:45)
[2021-06-07] MEDS: HYDROcodone/APAP 5-325MG 1 EACH TAB PO PRN (19:45)
[2021-06-07 20:03] LABS: Appearance,Urine Clear (Clear); Bilirubin,Urine Negative (Negative); Blood,Urine Negative (Negative); Color,Urine Light Yellow; Glucose,Urine (UA) Negative (Negative); Ketones,Urine Negative (Negative); Leukocyte Esterase,Urine Negative (Negative); Nitrite,Urine Negative (Negative); Protein,Urine Negative (Negative); Urobilinogen,Urine <2.0 mg/dL (<2.0)
--- NOTE | 2021-06-07 20:59 | HP ---
HISTORY AND PHYSICAL DATE OF SERVICE: 06/07/2021 CHIEF COMPLAINTS: Palpitations and bradycardia. HISTORY OF PRESENT ILLNESS: This 76-year-old gentleman with a past medical history of multiple medical problems, including cardiomyopathy, aortic stenosis, cervical DJD being followed Dr. Rizzo in the outpatient setting, was noted to have bradycardia and as well as low heart rate in the ECF. Heart rate was and the patient was taken to [facility], found to have bigeminy and the patient admitted for evaluation and treatment. Patient apparently slated to have surgery by Dr. Santiago next week also for cervical DJD. Details are not available at this time. PAST MEDICAL HISTORY: History of DJD, history of cardiomyopathy, history of liver disease. MEDICATIONS: Home medications prior to admission reviewed and include Dana 5 mg, nitro, magnesium, Klonopin. Doses, and other medications also reviewed. ALLERGIES: None. FAMILY HISTORY: Pernicious anemia, eating disorder. SOCIAL HISTORY: No history of smoking, alcohol. REVIEW OF SYSTEMS: 14-point review of system is negative except mentioned earlier. PHYSICAL EXAMINATION: Pulse is 80, blood pressure 115/74, respiration 18. CARDIOVASCULAR: S1, S2 muffled, irregular. RESPIRATION: Breath sounds diminished in the bases. A few scattered rhonchi. ABDOMEN: Soft, nontender. LEGS: No edema. CENTRAL NERVOUS SYSTEM: No focal deficit. SKIN: No ulcers. JOINTS: Cervical movements are slightly painful. LABORATORY DATA: Labs reviewed. Sodium 136. ASSESSMENT: 1. Bradycardia with ventricular bigeminy. 2. Troponin 0.042. 3. Cervical degenerative joint disease. 4. Anxiety, bipolar, depression. 5. Coronary artery disease/coronary artery bypass grafting. 6. Hyperlipidemia. RECOMMENDATIONS AND DISCUSSION: In this 76 -year-old gentleman who presented with multiple complex medical issues, we will monitor the patient closely. Continue the current medications. Resume the home medications, beta blockers, cardiology consultation. Prognosis guarded. Further recommendations to follow. See orders for further details. Medication reconciliation will be done. MMODL / IJN: [id number] / MTDD
--- NOTE | 2021-06-07 23:30 | CT ---
EXAMINATION TYPE: CT angio chest DATE OF EXAM: 06/07/2021 COMPARISON: HISTORY: elevated d-dimer CT DLP: 442.4 mGycm Automated exposure control for dose reduction was used. CONTRAST: Performed with IV Contrast, patient injected with 75 mL of Isovue 370. There are Three-D postprocessed images. Heart is enlarged. There is patchy interstitial subpleural infiltrate in both lung boyle. There are small bilateral pleural effusions. There is no pericardial effusion. There is no evidence of filling defect in the pulmonary arteries. Thoracic aorta is intact. There is no aneurysm or dissection. There are sternal wires. Thoracic spine is intact. There is no compression fracture. IMPRESSION: Cardiomegaly with pleural effusions and pulmonary interstitial moderate infiltrates. This could be ch ronic congestive heart failure. Abnormalities appear increased compared to old exam. No evidence of pulmonary embolism.
[2021-06-08] MEDS: clonazePAM 0.5 MG TAB PO PRN ×3 (03:06→23:28)
[2021-06-08] MEDS: HYDROcodone/APAP 5-325MG 1 EACH TAB PO PRN ×3 (06:13→18:35)
[2021-06-08] MEDS: FUROSEMIDE 40 MG TAB PO SCH ×2 (06:13→15:35)
[2021-06-08 08:12] LABS: Anisocytosis Slight; Basophils # (A) 0.1 k/uL (0-0.2); Basophils % (A) 1 %; Eosinophils # (A) 0.6 k/uL (0-0.7); Eosinophils % (A) 7 %; HGB 13.6 gm/dL (13.0-17.5); Lymphocytes # (A) 3.2 k/uL (1.0-4.8); Lymphocytes % (A) 37 %; MCH 30.4 pg (25.0-35.0); MCHC 32.4 g/dL (31.0-37.0); MCV 93.9 fL (80.0-100.0); Mean Platelet Volume 7.4; Monocytes # (A) 0.7 k/uL (0-1.0); Monocytes % (A) 8 %; Neutrophils # (A) 3.9 k/uL (1.3-7.7); Neutrophils % (A) 45 %; Platelet Count 279 k/uL (150-450); RBC 4.47 m/uL (4.30-5.90); WBC 8.8 k/uL (3.8-10.6)
[2021-06-08] MEDS: POTASSIUM CHLORIDE ER 20 MEQ TAB.ER PO SCH (08:30)
[2021-06-08] MEDS: SPIRONOLACTONE 25 MG TAB PO SCH (08:30)
[2021-06-08] MEDS: ESCITALOPRAM 10 MG TAB PO SCH (08:30)
[2021-06-08] MEDS: METOPROLOL TARTRATE 12.5 MG TAB PO SCH ×2 (08:30→16:48)
[2021-06-08] MEDS: DOCUSATE 100 MG CAP PO SCH (08:30)
[2021-06-08] MEDS: ASPIRIN 81 MG PO SCH (08:30)
[2021-06-08 08:33] LABS: Albumin 3.7 g/dL (3.5-5.0); Calcium 8.9 mg/dL (8.4-10.2); Magnesium 1.8 mg/dL (1.6-2.3); Potassium 4.5 mmol/L (3.5-5.1); Total Bilirubin 0.9 mg/dL (0.2-1.3); Total Protein 7.1 g/dL (6.3-8.2)
--- NOTE | 2021-06-08 13:52 | PN ---
PROGRESS NOTE Jozef is a 76-year-old gentleman with history of coronary artery disease status post CABG and aortic stenosis who needs anterior cervical decompression with fusion from C3 to C7. He recently presented to me for preop cardiac evaluation. The patient had an unexplained drop in his LV function with an ejection fraction of 25-30 percent on a recent echocardiogram. I was going to perform a stress test on him to rule out ischemia before letting him go through surgery, but for insurance reasons, we were not able to schedule a stress test on him. He comes into hospital primarily with PVCs. This morning, he is feeling better, free of any symptoms. His main problem is the neurological deficit involving the left leg and he needs the surgery as soon as is possible. Patient is not in heart failure. He is not having angina and other than the PVCs is fairly stable from cardiac standpoint. EXAM: Rate is 50 beats per minute, blood pressure is 110/64, respirations 18, O2 saturation is 97% on room air. There is no jugular venous distention. Chest exam reveals good air entry bilaterally. Heart exam reveals first and second heart sounds, an ejection systolic murmur in the aortic area. Abdomen: Soft. Exam of extremities did not reveal any edema. LAB: Show a hemoglobin of 13.6, platelet count is 279, potassium is 4.5, creatinine is 1.1. His tropes are elevated at 0.4, 0.3 and 0.4 without any definite pattern to it and his tropes are elevated at his last admission too in April. ASSESSMENT AND PLAN: 1. Ischemic cardiomyopathy. 2. Moderate aortic stenosis. 3. Coronary artery disease, status post coronary artery bypass grafting. 4. Focal neurologic cervical cord compression. PLAN: I am going to repeat an echo on him tomorrow to reassess his LV function. We have not been able to do a stress test and I think since this surgery needs to be done as soon as possible, I am not sure how the stress test is going to change what we do at this time other than delaying the surgery. The patient understands that he is at increased risk for perioperative cardiac events and is willing to accept those risks. We will do the echocardiogram today and hopefully let him go thru surgery that has initially been scheduled. MMODL / IJN: [id number] /
[2021-06-08] MEDS: MULTIVITAMINS, THERA 1 EACH TAB PO SCH (16:48)
--- NOTE | 2021-06-08 18:38 | PN ---
PROGRESS NOTE DATE OF SERVICE: 06/08/2021 This 76-year-old gentleman who was admitted with palpitations and bradycardia had possibly features of CHF and cardiomyopathy as well. The patient also had moderate aortic stenosis. Cardiology is following the patient closely. No chest pain. No palpitations. No fever. PHYSICAL EXAMINATION: Alert and oriented x3. Pulse is 82, blood pressure 118/59, respiration 16. NECK: No jugular venous distention. CARDIOVASCULAR: S1, S2 irregular. RESPIRATORY SYSTEM: A few scattered rhonchi and crackles. ABDOMEN: Soft. NERVOUS SYSTEM: No focal deficit. LABS: CBC noted. Sodium is 134. ASSESSMENT: 1. Bradycardia with ventricular bigeminy. 2. Possible cardiomyopathy. 3. Possible congestive heart failure. 4. Troponin 0.042. 5. Cervical degenerative joint disease. 6. Anxiety, bipolar, depression. 7. Coronary artery disease, coronary artery bypass grafting, ischemic cardiomyopathy. 8. Hyperlipidemia. RECOMMENDATIONS AND DISCUSSION: I recommend to continue current medications, continue with the monitoring, symptomatic treatment. Optimize medication treatment. Consult Dr. Cooper regarding the neck issues. Discussed with Cardiology. Prognosis guarded. MMODL / IJN: [id number] /
[2021-06-08] MEDS: lamoTRIgine 100 MG TAB PO SCH (20:15)
[2021-06-08] MEDS: ATORVASTATIN 40 MG TAB PO SCH (20:15)
[2021-06-09] MEDS: HYDROcodone/APAP 5-325MG 1 EACH TAB PO PRN ×4 (03:31→21:31)
[2021-06-09] MEDS: FUROSEMIDE 40 MG TAB PO SCH ×2 (06:25→15:04)
[2021-06-09 07:57] LABS: Calcium 9.5 mg/dL (8.4-10.2); Potassium 4.8 mmol/L (3.5-5.1)
[2021-06-09] MEDS ORDERED: CAFFEINE CITRATE 60 MG/3 ML VIAL IV PRN (08:25)
[2021-06-09] MEDS ORDERED: REGADENOSON 0.4 MG/5 ML SYRINGE IV PRN (08:25)
[2021-06-09] MEDS ORDERED: AMINOPHYLLINE 500 MG/20 ML VIAL IV PRN (08:25)
[2021-06-09 08:59] LABS: Anisocytosis Slight; Basophils # (A) 0.1 k/uL (0-0.2); Basophils % (A) 1 %; Eosinophils # (A) 0.6 k/uL (0-0.7); Eosinophils % (A) 7 %; HCT 44.3 % (39.0-53.0); HGB 14.2 gm/dL (13.0-17.5); Lymphocytes # (A) 3.9 k/uL (1.0-4.8); Lymphocytes % (A) 43 %; MCH 30.6 pg (25.0-35.0); MCHC 32.1 g/dL (31.0-37.0); MCV 95.2 fL (80.0-100.0); Mean Platelet Volume 7.8; Monocytes # (A) 0.6 k/uL (0-1.0); Monocytes % (A) 7 %; Neutrophils # (A) 3.6 k/uL (1.3-7.7); Neutrophils % (A) 39 %; Platelet Count 273 k/uL (150-450); RBC 4.65 m/uL (4.30-5.90); RDW 16.5 % (11.5-15.5); WBC 9.1 k/uL (3.8-10.6)
[2021-06-09] MEDS: POTASSIUM CHLORIDE ER 20 MEQ TAB.ER PO SCH (09:03)
[2021-06-09] MEDS: METOPROLOL TARTRATE 12.5 MG TAB PO SCH ×2 (09:04→16:41)
[2021-06-09] MEDS: ASPIRIN 81 MG PO SCH (09:04)
[2021-06-09] MEDS: SPIRONOLACTONE 25 MG TAB PO SCH (09:04)
[2021-06-09] MEDS: ESCITALOPRAM 10 MG TAB PO SCH (09:04)
[2021-06-09] MEDS: clonazePAM 0.5 MG TAB PO PRN ×2 (09:04→16:41)
[2021-06-09] MEDS: DOCUSATE 100 MG CAP PO SCH (09:04)
--- NOTE | 2021-06-09 10:44 | P.PN ---
Subjective Progress Note Date: 06/09/21 Principal diagnosis: CAD The patient is a pleasant 76-year-old gentleman with a past medical history significant for CAD and status post CABG as well as cardiomyopathy as well as aortic stenosis and hypertension and dyslipidemia presented to the hospital with palpitations and he was found to have a PVC. He had no symptoms of chest pain or chest discomfort or shortness of breath or dizziness or lightheadedness or presyncope or syncope. He was in process of having cervical spine surgery. He was seen this morning. He stated that he is asymptomatic at this point. He ate breakfast and for that reason the surgery Canceled and he is in process of being discharged later on today. He remains hemodynamically stable. Objective - Vital Signs Vital signs: Vital Signs Temp 98.2 F 06/09/21 07:55 Pulse 80 06/09/21 07:55 Resp 16 06/09/21 07:55 BP 115/68 06/09/21 07:55 Pulse Ox 93 L 06/09/21 08:59 Intake & Output 06/08/21 06/09/21 06/09/21 18:59 06:59 18:59 Intake Total 360 240 480 Output Total 725 1100 350 Balance -365 -860 130 Weight 74.5 kg Intake: Oral 360 240 480 Output: Urine 725 1100 350 Other: Voiding Method Urinal Urinal Urinal # Voids 0 2 - Constitutional General appearance: Present: no acute distress - Respiratory Respiratory: bilateral: CTA - Cardiovascular Rhythm: regular Heart sounds: normal: S1, S2 Abnormal Heart Sounds: Present: systolic murmur - Labs CBC & Chem 7: 06/09/21 06:49 06/09/21 06:49 Labs: Abnormal Lab Results - Last 24 Hours (Table) 06/09/21 06/09/21 Range/Units 06:49 06:49 RDW 16.5 H (11.5-15.5) % Sodium 134 L (137-145) mmol/L BUN 27 H (9-20) mg/dL Glucose 107 H (74-99) mg/dL Assessment and Plan Assessment: Assessment #1 CAD and status post CABG #2 aortic stenosis #3 cardiomyopathy #4 hypertension #5 dyslipidemia Plan #1 continue the current medical regimen #2 the patient remains asymptomatic and stable from the cardiac standpoint of view #3 the patient can be discharged home
--- NOTE | 2021-06-09 12:27 | P.CNOR ---
<Sean Eddy - Last Filed: 06/09/21 12:15> History of Present Illness - [facility] Consult date: 06/09/21 Requesting physician: Shawna Luther Consult reason: neck pain, other (Scheduled for anterior cervical decompression and fusion this 06/11/2021) History of present illness: Patient is a pleasant 76-year-old male who is well known to our service was seen and examined at the bedside for consultation regards to his cervical spine. He was originally seen and examined at [facility] on after consultation was placed for cervical stenosis and left foot drop. He had originally presented to the emergency department for generalized weakness. He is known have significant changes at his cervical spine. He is currently scheduled to undergo surgical intervention this coming 06/11/2021. The proposed surgical intervention is a C3-4, C4-5, C5-6, and C6-C7 anterior cervical decompression and fusion. He has been residing at [facility]. He was transferred to the emergency department due to changes from a cardiac standpoint. He was found to be bradycardia. There was any medications that he was experiencing bigeminy on his way to the emergency department. He has been seen and examined by cardiology. He is currently scheduled to undergo a repeat echocardiogram today to assess his left ventricular function. Nursing and the patient state he may be planning for discharge back to [facility] today. Cardiology is hoping to be low to clear the patient so he may proceed forward with surgical intervention as scheduled this coming Wednesday. Patient states at the bedside he has not had any changes in regards to his cervical spine. He continues to experience cervical pain which he states is worsening. His cervical pain is most significant at night. He does have significant weakness at his right deltoid. He states he is unable to sense when he is trying to grab things with his right hand with his thumb, index finger, and middle finger. He does admit to changes in dexterity. He has some pain that radiates over the right shoulder and down the right upper extremity which can be exacerbated with increased activities. Patient states at the bedside today that he is eager to proceed forward with surgical intervention as scheduled this week. He does have a history of chronic low back pain it is had difficulty ambulating on his left lower extremity. An AFO brace was previously prescribed for him to use for his left lower extremity. Patient has multiple other medical diagnoses including Parkinson's disease, hyperlipidemia, history of nephrolithiasis, and history of psychosis. Patient's cardiac diagnoses inclu ding ischemic cardiomyopathy, moderate aortic stenosis, and coronary artery disease status post coronary artery bypass grafting. Past Medical History Past Medical History: Coronary Artery Disease (CAD), Hyperlipidemia, Liver Disease, Pneumonia, Renal Disease Additional Past Medical History / Comment(s): 03/13/20 lamictal toxicity/del irium, gait dysfunction, R periorbital hematoma/cellulitis, fall. Other hx: Hepatitis B, insomnia, some aphasia since CABG in 1998, anemia, chronic low back pain, nephrolithiasis. History of Any Multi-Drug Resistant Organisms: None Reported Past Surgical History: Coronary Bypass/CABG, Heart Catheterization, Orthopedic Surgery, Tonsillectomy Additional Past Surgical History / Comment(s): 1998 CABG 4 vessel, lithotripsy, ORIF L ankle, colonoscopy, RK eye surgery for vision correction Past Anesthesia/Blood Transfusion Reactions: No Reported Reaction Past Psychological History: ADD/ADHD, Anxiety, Bipolar, Depression, Panic Disorder Additional Psychological History / Comment(s): Pt currently resides alone. He can drive. He has a dog. Smoking Status: Never smoker Past Alcohol Use History: None Reported Additional Past Alcohol Use History / Comment(s): Pt denies use/abuse of illicit substances. Past Drug Use History: None Reported Additional Drug Use History / Comment(s): Pt. has history of using cocaine 40 yrs. ago. - Past Family History Mother Family Medical History: No Reported History Additional Family Medical History / Comment(s): Pernicious anemia, eating disorder. Father Additional Family Medical History / Comment(s): EToh abuse. Medications and Allergies Home Medications Medication Instructions Recorded Confirmed Type Escitalopram Oxalate [Lexapro] 10 mg PO DAILY@0800 05/03/21 06/07/21 History lamoTRIgine 200 mg PO HS@2100 05/03/21 06/07/21 History Nitroglycerin Sl Tabs [Nitrostat] 0.4 mg SUBLINGUAL Q5M PRN #60 tab 05/06/2103/19 Rx Acetaminophen [Tylenol] 650 mg PO Q4H PRN 06/07/21 06/07/21 History Acetaminophen-Codeine 300-30mg 1 tab PO Q8H PRN 06/07/21 06/07/21 History [Tylenol w/codeine #3] Aspirin 81 mg PO DAILY@0800 06/07/21 06/07/21 History Atorvastatin [Lipitor] 40 mg PO HS@2100 06/07/21 06/07/21 History Docusate [Colace] 100 mg PO DAILY@0800 06/07/21 06/07/21 History Furosemide [Lasix] 40 mg PO BID@0600,1400 06/07/21 06/07/21 History HYDROcodone/APAP 5-325MG [[place] 1 tab PO Q8H PRN 06/07/21 06/07/21 History 5-325] Magnesium Hydroxide [Milk of 7,200 mg PO DAILY PRN 06/07/21 06/07/21 History Magnesia Concentrate] Magnesium Hydroxide [Milk of 2,400 mg PO DAILY PRN 06/07/21 06/07/21 History Magnesia] Metoprolol Tartrate [Lopressor] 12.5 mg PO BID@0800,1700 06/07/21 06/07/21 History Multivitamins, Thera [Multivitamin 1 tab PO DAILY@1700 06/07/21 06/07/21 History (formulary)] Na Phos,M-B/Na Phos,Di-Ba [Fleet 133 ml RECTAL DAILY PRN 06/07/21 06/07/21 Hist ory Adult] Potassium Chloride ER [K-Dur 20] 20 meq PO DAILY@0800 06/07/21 06/07/21 History Spironolactone [Aldactone] 25 mg PO DAILY@0800 06/07/21 06/07/21 History bisacodyL [Dulcolax] 10 mg RECTAL DAILY PRN 06/07/21 06/07/21 History clonazePAM [KlonoPIN] 0.5 mg PO Q8H PRN 06/07/21 06/07/21 History Allergies Allergy/AdvReac Type Severity Reaction Status Date / Time No Known Allergies Allergy Verified 06/07/21 13:06 Physical Examination Physical exam: Patient is awake, alert, and oriented 3 Vital signs stable Good chest excursion with deep inspiration and expiration Abdomen soft nontender Examination of the cervical spine reveals skin is intact with no abrasions, lacerations, or bruises; no erythema, purulence or signs of infection Full range of motion of the cervical spine with adequate flexion, extension, and bilateral rotation Slip Cover Seamstress strength, thumb strength, interosseous strength, biceps strength, triceps strength, and shoulder strength positive sustained bilaterally Upper extremity strength 5/5 bilaterally except for right deltoid Motor strength of the upper extremity is 3/5 including the deltoids Biceps reflex 3+ bilaterally and Brachioradialis reflexes 2+ bilaterally Upper extremity hyperreflexia bilaterally Iraheta's sign positive upper extremity bilaterally Results Pertinent studies: X-rays of the cervical spine taken on 05/30/2021: C3-4 severe degenerative disease and retrolisthesis with anterior osteophytic spurring; C4-5 severe degenerative disease with anterior and posterior ossific spurring; C5-6 degenerative disc disease with some anterior and posterior osteophytic spurring; C6-7 degenerative disc disease X-rays of the lumbosacral spine taken on 05/30/2021: L4-5 degenerative disc disease with spondylosis and anterior osteophytic spurring; no spondylolis thesis; no compression fracture deformity; sclerosis of the aorta MRI of the cervical spine taken at [facility] on 05/07/2021: C3-4 degenerative disc disease, retrolisthesis, disc protrusion, and facet arthrosis resulting in central canal stenosis and bilateral neural foraminal stenosis greater on the left than the right;C4-5 degenerative disc disease, disc herniation, and facet arthrosis resulting in severe central canal stenosis and severe neural foraminal stenosis with cord signal change at the disc space in the time the vertebral body of C5; C5-6 degenerative disc disease, disc protrusion and facet arthrosis resulting in moderate central stenosis and bilateral neural foraminal stenosis; C6-7 degenerative disc disease, large herniated nucleus pulposus, and facet arthrosis resulting in central stenosis with distortion and bilateral neural foraminal stenosis MRI of the lumbar spine taken at [facility] on 05/07/2021: L2-5 disc desiccation; L2-3 and L3-4 slight disc bulge and mild facet arthropathy without significant stenosis; L4-5 disc extrusion and moderate facet arthropathy resulting in bilateral neural foraminal stenosis; L5-S1 disc bulging without significant stenosis; overall alignment is adequately maintained MRI of thoracic spine taken at [facility] on 05/06/2021: Visualized thoracic spinal cord is a normal course, caliber, and signal; no evid ence of vertebral body compression fracture; no significant thoracic degenerative disc disease; some mild anterior osteophytic spurring; there does appear to be significant changes in his cervical spine which are only partially visualized with multilevel disc osteophyte complex at C3-4, C4-5, C5-6, and a large disc herniation at C6-7; report states there may be some mild edema or increased T2 signal of the cervical spinal cord - Labs Labs: Abnormal Lab Results - Last 24 Hours (Table) 06/09/21 Range/Units 06:49 Sodium 134 L (137-145) mmol/L BUN 27 H (9-20) mg/dL Glucose 107 H (74-99) mg/dL H & H 06/07/21 06/08/21 Range/Units 08:14 07:48 Hgb 14.0 13.6 (13.0-17.5) gm/dL Hct 43.3 42.0 (39.0-53.0) % Result Diagrams: 06/09/21 06:49 06/09/21 06:49 Assessment and Plan Assessment: Assessment: Ischemic cardiomyopathy Moderate aortic stenosis Coronary artery disease status post coronary artery bypass grafting Cervical myelopathy Cervical myelomalacia Cervical stenosis Cervical degenerative disc disease Cervical disc displacement Upper extremity radiculopathy Cervicalgia Cervical osteophyte C3-4 retrolisthesis C4-5 severe spinal stenosis Cord signal change at C4-5 disc space and behind the vertebral body of C5 Positive Jazlyn sign bilaterally Upper extremity hyperreflexia Left lower extremity weakness Difficulty ambulation left lower extremity due to weakness Chronic low back pain Right upper extremity weakness Hyperlipidemia History of nephrolithiasis History of psychosis Parkinson's disease (1) Degenerative cervical disc Current Visit: Yes Status: Acute Code(s): M50.30 - OTHER CERVICAL DISC DEGENERATION, UNSP CERVICAL REGION SNOMED Code(s): 49545664 (2) Cervical myelopathy Current Visit: Yes Status: Acute Code(s): G95.9 - DISEASE OF SPINAL CORD, UN SPECIFIED SNOMED Code(s): 105542034 (3) Cervical radiculopathy Current Visit: Yes Status: Acute Code(s): M54.12 - RADICULOPATHY, CERVICAL REGION SNOMED Code(s): 39121036 (4) Upper extremity weakness Current Visit: Yes Status: Acute Code(s): R29.898 - OTH SYMPTOMS AND SIGNS INVOLVING THE MUSCULOSKELETAL SYSTEM SNOMED Code(s): 139161288 (5) Iraheta's reflex positive Current Visit: Yes Status: Acute Code(s): R29.2 - ABNORMAL REFLEX SNOMED Code(s): 183242339 (6) Spondylolisthesis of cervical region Current Visit: Yes Status: Acute Code(s): M43.12 - SPONDYLOLISTHESIS, CERVICAL REGION SNOMED Code(s): 465986761 (7) Cervical disc disorder at C4-C5 level with myelopathy Current Visit: Yes Status: Acute Code(s): M50.021 - CERVICAL DISC DISORDER AT C4-C5 LEVEL WITH MYELOPATHY SNOMED Code(s): 45825006 (8) Ischemic cardiomyopathy Current Visit: Yes Status: Acute Code(s): I25.5 - ISCHEMIC CARDIOMYOPATHY SNOMED Code(s): 264074181 (9) Aortic stenosis Current Visit: Yes Status: Acute Code(s): I35.0 - NONRHEUMATIC AORTIC (VALVE) STENOSIS SNOMED Code(s): 57597647 (10) History of coronary artery bypass graft Current Visit: Yes Status: Acute Code(s): Z95.1 - PRESENCE OF AORTOCORONARY BYPASS GRAFT SNOMED Code(s): 629353945 (11) Cervical cord myelomalacia Current Visit: Yes Status: Acute Code(s): G95.89 - OTHER SPECIFIED DISEASES OF SPINAL CORD SNOMED Code(s): 55801155 (12) Bigeminy Current Visit: Yes Status: Acute Code(s): I49.8 - OTHER SPECIFIED CARDIAC ARRHYTHMIAS SNOMED Code(s): 36134943 (13) Elevated troponin Current Visit: Yes Status: Acute Code(s): R77.8 - OTHER SPECIFIED ABNORMALITIES OF PLASMA PROTEINS SNOMED Code(s): 625664962 (14) Cervical stenosis of spinal canal Current Visit: No Status: Acute Code(s): M48.02 - SPINAL STENOSIS, CERVICAL REGION SNOMED Code(s): 32557949 (15) Chronic low back pain Current Visit: No Status: Acute Code(s): M54.50 - LOW BACK PAIN, UNSPECI FIED; G89.29 - OTHER CHRONIC PAIN SNOMED Code(s): 627623252 (16) Coronary artery disease Current Visit: No Status: Acute Code(s): I25.10 - ATHSCL HEART DISEASE OF [place] CORONARY ARTERY W/O ANG PCTRS SNOMED Code(s): 32862847 (17) History of nephrolithiasis Current Visit: No Status: Acute Code(s): Z87.442 - PERSONAL HISTORY OF URINARY CALCULI SNOMED Code(s): 913713378 (18) History of psychosis Current Visit: No Status: Acute Code(s): Z86.59 - PERSONAL HISTORY OF OTHER MENTAL AND BEHAVIORAL DISORDERS SNOMED Code(s): 325925566 (19) Hyperlipidemia Current Visit: No Status: Acute Code(s): E78.5 - HYPERLIPIDEMIA, UNSPECIFIED SNOMED Code(s): 90913889 (20) Left leg weakness Current Visit: No Status: Acute Code(s): R29.898 - OTH SYMPTOMS AND SIGNS INVOLVING THE MUSCULOSKELETAL SYSTEM SNOMED Code(s): 049887751 (21) Parkinsons disease Current Visit: No Status: Acute Code(s): G20 - PARKINSON'S DISEASE SNOMED Code(s): 86476617 (22) Psychosis Current Visit: No Status: Acute Code(s): F29 - UNSP PSYCHOSIS NOT DUE TO A SUBSTANCE OR KNOWN PHYSIOL COND SNOMED Code(s): 87658112 (23) Weakness of right upper extremity Current Visit: No Status: Acute Code(s): R29.898 - OTH SYMPTOMS AND SIGNS INVOLVING THE MUSCULOSKELETAL SYSTEM SNOMED Code(s): 611237669 Plan: Plan: 1. From an orthopedic spine standpoint, patient is clear for discharge today back to [facility]. We are currently planning to proceed forward as scheduled for surgical intervention this coming 06/11/2021, if the patient is cleared by medicine and cardiology. Patient is scheduled for a C3-4, C4-5, C5-6, and C6-C7 anterior cervical decompression and fusion. We will continue to keep close contact with [facility] in regards to surgical clearance prior to his scheduled surgical intervention. Patient does continue to have significant symptoms in regards to his cervical spine with significant findings on imaging. Jozef does have significant changes at his cervical spine at C3-4, C4-5, C5-6, and C6-7 with multilevel cervical central stenosis and neural foraminal stenosis. He has degenerative disc disease throughout all of these levels. On physical exam he has significant weakness with his right deltoid. His deltoid weakness is weaker on physical examination today than it was during his presenta tion to the hospital. He also has changes in dexterity. He states he is unable to tell when he is trying to grab objects with his right thumb, index finger, and middle finger. He has a positive Iraheta's sign bilaterally with upper extremity hyperreflexia. Reviewing of imaging shows cord signal change at the disc space of C4-5 and behind the vertebral body of C5. He has ongoing cervical pain which has worsened. We did discuss significant of his imaging in his symptoms and significant detail. He again states he would like to would like to proceed with surgical intervention as he feels his symptoms are significant and have been progressing and he feels surgery provides him with the best opportunity to have some relief of his symptoms. Given the patient's significant symptoms and significant findings on imaging, I feel surgery could provide some improvement of his symptoms. We did discuss that given the severity of his symptoms and the severity of his imaging, surgery may help improve his symptoms that are very unlikely to alleviate all of his symptoms. We did also discuss that surgical intervention could help prevent further cord and nerve damage but could not reverse the cord and nerve damage that he currently has. We also discussed that without surgical intervention it is likely that his symptoms would progress. The proposed surgical intervention is a C3-4, C4-5, C5-6, and C6-7 anterior cervical decompression and fusion. Surgery is currently scheduled for 06/11/2021 pending clearance by medicine and cardiology. The patient will plan to follow with his primary care provider, Dr. Rizzo, and with his automotive diagnostic technician, Dr. Mercedes, for further evaluation and medical clearance prior to surgical intervention. 2. Patient will continue to be seen and examined by multiple other medical providers including medicine and cardiology; patient is currently planning for echocardiogram testing today by cardiology Time with Patient: Greater than 30 (Including obtaining history, physical examination, reviewing of imaging, and dictation.) <Roney Cooper - Last Filed: 06/09/21 14:38> Physical Examination Osteopathic Statement: *. No significant issues noted on an osteopathic structural exam other than those noted in the History and Physical/Consult. Results - Labs Labs: Abnormal Lab Results - Last 24 Hours (Table) 06/09/21 06/09/21 Range/Units 06:49 06:49 RDW 16.5 H (11.5-15.5) % Sodium 134 L (137-145) mmol/L BUN 27 H (9-20) mg/dL Glucose 107 H (74-99) mg/dL H & H 06/07/21 06/08/21 06/09/21 Range/Units 08:14 07:48 06:49 Hgb 14.0 13.6 14.2 (13.0-17.5) gm/dL Hct 43.3 42.0 44.3 (39.0-53.0) % Result Diagrams: 06/09/21 06:49 06/09/21 06:49 Assessment and Plan Plan: The patient has been seen and examined. He has cervical myelopathy and has been having significant difficulties with this. His stenosis with changes at C3 4 C4 5 C5 6 and C6 7 as stated above. I think that he is likely having worsening of his symptoms if he were to continue conservative treatment and I think that he can have some benefit and hold his myelopathic symptoms with surgical interve ntion with decompression and fusion from C3 to C7. We discussed this with him at length. He is in the process of getting further clearance from medicine and cardiology. If there is no glaring issue with this and we will plan to proceed with surgical intervention this coming 06/11/2021 as planned.
[2021-06-09 14:43] VITALS: BMI 25.0
--- NOTE | 2021-06-09 15:31 | P.PN ---
Subjective Progress Note Date: 06/09/21 This is a pleasant 76-year-old male who was recently admitted with palpitations also found to have bradycardia and possibly features of congestive heart failure and cardiomyopathy and being closely monitored. Cardiology and orthopedics evaluating the patient and per nursing staff plan is for stress test tomorrow and patient will be nothing by mouth at midnight. Apparently patient had breakfast this morning prior to stress test being ordered. Patient is tentatively scheduled for an orthopedic procedure this Wednesday although would need clearance from cardiology prior to this and this was discussed in detail with the patient. Patient denies chest pain or shortness of breath. Patient denies feelings of palpitations. Patient is afebrile. Review of systems: Constitutional: No reports of fatigue, fever, or chills Cardiovascular: No reports of chest pain or palpitations Respiratory: No reports of shortness of breath or cough GI: reports of nausea, no reports of of vomiting, no reports of diarrhea : No reports of dysuria or retention Neurovascular: No reports of generalized weakness, reports neck and back pain All medications have been reviewed Active Medications Acetaminophen (Acetaminophen Tab 325 Mg Tab) 650 mg PO Q4H PRN PRN Reason: Mild Pain or Fever > 100.5 Acetaminophen/Codeine Phosphate (Acetaminophen-Codeine 300-30mg Tab) 1 each PO Q8H PRN PRN Reason: Moderate Pain Hydrocodone Bitart/Acetaminophen (Hydrocodone/Apap 5-325mg 1 Each Tab) 1 each PO Q6HR PRN PRN Reason: Pain Last Admin: 06/09/21 15:04 Dose: 1 each Documented by: Aspirin (Aspirin 81 Mg) 81 mg PO DAILY@0800 [facility] Last Admin: 06/09/21 09:04 Dose: 81 mg Documented by: Atorvastatin Calcium (Atorvastatin 40 Mg Tab) 40 mg PO HS@2100 [facility] Last Admin: 06/08/21 20:15 Dose: 40 mg Documented by: Bisacodyl (Bisacodyl 10 Mg Supp) 10 mg RECTAL DAILY PRN PRN Reason: Constipation Clonazepam (Clonazepam 0.5 Mg Tab) 0.5 mg PO Q8H PRN PRN Reason: Anxiety Last Admin: 06/09/21 09:04 Dose: 0.5 mg Documented by: Docusate Sodium (Docusate 100 Mg Cap) 100 mg PO DAILY@0800 [facility] Last Admin: 06/09/21 09:04 Dose: 100 mg Documented by: Escitalopram Oxalate (Escitalopram 10 Mg Tab) 10 mg PO DAILY@0800 [facility] Last Admin: 06/09/21 09:04 Dose: 10 mg Documented by: Furosemide (Furosemide 40 Mg Tab) 40 mg PO BID@0600,1400 [facility] Last Admin: 06/09/21 15:04 Dose: 40 mg Documented by: Lamotrigine (Lamotrigine 100 Mg Tab) 200 mg PO HS@2100 [facility] Last Admin: 06/08/21 20:15 Dose: 100 mg Documented by: Magnesium Hydroxide (Magnesium Hydroxide 2,400 Mg/10 Ml Cup) 2,400 mg PO DAILY PRN PRN Reason: 3 DAYS WITHOUT BM Magnesium Hydroxide (Magnesium Hydroxide 2,400 Mg/10 Ml Cup) 7,200 mg PO DAILY PRN PRN Reason: 2 DAYS WITHOUT BM Metoprolol Tartrate (Metoprolol Tartrate 12.5 Mg Tab) 12.5 mg PO BID@0800,1700 [facility] Last Admin: 06/09/21 09:04 Dose: 12.5 mg Documented by: Multivitamins (Multivitamins, Thera 1 Each Tab) 1 each PO DAILY@1700 [facility] Last Admin: 06/08/21 16:48 Dose: 1 each Documented by: Nitroglycerin (Nitroglycerin Sl Tabs 0.4 Mg Tab) 0.4 mg SUBLINGUAL Q5M PRN PRN Reason: Chest Pain Potassium Chloride (Potassium Chloride Er 20 Meq Tab.Er) 20 meq PO DAILY@0800 [facility] Last Admin: 06/09/21 09:03 Dose: 20 meq Documented by: Sodium Biphosphate/Sodium Phosphate (Na Phos,M-B/Na Phos,Di-Ba 133 Ml Enema) 133 ml RECTAL DAILY PRN PRN Reason: Constipation Spironolactone (Spironolactone 25 Mg Tab) 25 mg PO DAILY@0800 [facility] Last Admin: 06/09/21 09:04 Dose: 25 mg Documented by: PHYSICAL EXAMINATION: GENERAL: The patient is alert and oriented x4, Well developed, well nourished. HEENT: Pupils are round and equally reacting to light. EOMI. does have scleral icterus. No conjunctival pallor. Normocephalic, atraumatic. No pharyngeal e rythema. No thyromegaly. CARDIOVASCULAR: S1 and S2 muffled PULMONARY: diminished breath sounds bilaterally with some scattered rhonchi and crackles noted ABDOMEN: soft. Nontender on exam. non-distended, normoactive bowel sounds. No palpable organomegaly. MUSCULOSKELETAL: No joint swelling or deformity. EXTREMITIES: No cyanosis, clubbing, or pedal edema. NEUROLOGICAL: Gross neurological examination did not reveal any focal deficits. SKIN: No rashes. Assessment: Bradycardia with ventricular bigeminy Possible cardiomyopathy Possible ingested heart failure Troponin 0.04 to Cervical degenerative joint disease Anxiety, bipolar, depression Coronary artery disease, coronary artery bypass grafting with ischemic cardiomyopathy Hyperlipidemia GI prophylaxis DVT prophylaxis Full code Plan: Recommend to continue with current medications and management per cardiology services. Patient ate breakfast this morning and was unable to have stress test and is scheduled for stress test on 06/10/2021. 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 Juan evaluated and discussed with the patient today about stress testing in the morning. Orthopedi gerson CROFT evaluated the patient today recommending clearance from medical and cardiology perspective prior to surgery and patient to return to [facility] for continued rehab. Also discussed in detail with the patient about being high risk for surgical intervention given his multiple comorbidities and patient expressed understanding although would like relief in his pain that he has been chronically experiencing. Patient also stressed anxiety regarding who will be watching his dog and case management is following and this was discussed with case management. Will discuss further with cardiology about treatment plan moving forward. Recommend repeat labs and continued close monitoring. Due to multiple complex medical issues, prognosis is guarded. The impression and plan of care has been dictated by Melanie Patrick, nurse practitioner as directed. MD Soco I have performed a history and examination and MDM of this patient, discussed the same with the dictator, and agree with the dictator's assessment and plan as written ,documented as a scribe. Based on total visit time, I have performed more than 50% of the visit. Any additional findings or plans will be noted. Objective - Vital Signs Vital signs: Vital Signs Temp 97.7 F 06/09/21 12:00 Pulse 66 06/09/21 12:00 Resp 16 06/09/21 12:00 BP 102/69 06/09/21 12:00 Pulse Ox 96 06/09/21 12:00 Intake & Output 06/08/21 06/09/21 06/09/21 18:59 06:59 18:59 Intake Total 360 240 480 Output Total 725 1100 350 Balance -365 -860 130 Weight 74.5 kg Intake: Oral 360 240 480 Output: Urine 725 1100 350 Other: Voiding Method Urinal Urinal Urinal # Voids 0 2 - Labs CBC & Chem 7: 06/09/21 06:49 06/09/21 06:49 Labs: Abnormal Lab Results - Last 24 Hours (Table) 06/09/21 06/09/21 Range/Units 06:49 06:49 RDW 16.5 H (11.5-15.5) % Sodium 134 L (137-145) mmol/L BUN 27 H (9-20) mg/dL Glucose 107 H (74-99) mg/dL
[2021-06-09] MEDS: MULTIVITAMINS, THERA 1 EACH TAB PO SCH (16:41)
[2021-06-09] MEDS: ATORVASTATIN 40 MG TAB PO SCH (21:31)
[2021-06-09] MEDS: lamoTRIgine 100 MG TAB PO SCH ×2 (22:49→22:51)
[2021-06-10] MEDS: clonazePAM 0.5 MG TAB PO PRN ×3 (00:33→20:05)
[2021-06-10] MEDS: HYDROcodone/APAP 5-325MG 1 EACH TAB PO PRN ×3 (05:07→17:36)
[2021-06-10] MEDS: FUROSEMIDE 40 MG TAB PO SCH ×2 (05:07→15:17)
--- NOTE | 2021-06-10 08:43 | P.PN ---
Progress Note - Text Progress Note Date: 06/10/21 Orthopedic spine: History of present illness: Patient is a pleasant 76-year-old male who is well known to our service is seen at the bedside for follow-up evaluation in regards to his cervical spine. He was originally seen and examined at [facility] on after consultation was placed for cervical stenosis and left foot drop. He had originally presented to the emergency department for generalized weakness. He is known have significant changes at his cervical spine. He is currently scheduled to undergo surgical intervention this coming 06/11/2021. The proposed surgical intervention is a C3-4, C4-5, C5-6, and C6-C7 anterior cervical decompression and fusion. He has been residing at [facility]. He was transferred to the emergency department due to changes from a cardiac standpoint. He was found to be bradycardia. There was any medications that he was experiencing bigeminy on his way to the emergency department. He has been seen and examined by cardiology. There is currently some question on whether he is scheduled to undergo stress testing or echocardiogram testing today. Nursing is trying to clarify with cardiology there plans proceeding forward with care for the patient. It is currently unclear if the patient will remain in the hospital for his anticipated surgical intervention scheduled for his cervical spine tomorrow or if the patient may be discharged back to [facility] today. Patient has not had any significant change in regards to his cervical spine. He continues to experience cervical pain. His cervical pain is most significant at night. He does have significant weakness at his right deltoid. He states he is unable to sense when he is trying to grab things with his right hand with his thumb, index finger, and middle finger. He does admit to changes in dexterity. He has some pain that radiates over the right shoulder and down the right upper extremity which can be exacerbated with increased activities. Patient states at the bedside today that he is eager to proceed forward with surgical intervention as scheduled this week. He does have a history of chronic low back pain it is had difficulty ambulating on his left lower extremity. An AFO brace was previously prescribed for him to use for his left lower extremity. Patient has multiple other medical diagnoses including Parkinson's disease, hyperlipidemia, history of nephrolithiasis, and history of psychosis. Patient's cardiac diagnoses including ischemic cardiomyopathy, moderate aortic stenosis, and coronary artery disease status post coronary art michael bypass grafting. Physical exam: Patient is awake, alert, and oriented 3 Vital signs stable Good chest excursion with deep inspiration and expiration Examination of the cervical spine reveals skin is intact with no abrasions, lacerations, or bruises; no erythema, purulence or signs of infection Full range of motion of the cervical spine with adequate flexion, extension, and bilateral rotation Fence Erector Supervisor strength, thumb strength, interosseous strength, biceps strength, triceps strength, and shoulder strength positive sustained bilaterally Upper extremity strength 5/5 bilaterally except for right deltoid Motor strength of the upper extremity is 3/5 including the deltoids Pertinent studies: X-rays of the cervical spine taken on 05/30/2021: C3-4 severe degenerative disease and retrolisthesis with anterior osteophytic spurring; C4-5 severe degenerative disease with anterior and posterior ossific spurring; C5-6 degenerative disc disease with some anterior and posterior osteophytic spurring; C6-7 degenerative disc disease X-rays of the lumbosacral spine taken on 05/30/2021: L4-5 degenerative disc disease with spondylosis and anterior osteophytic spurring; no spondylolisthesis; no compression fracture deformity; sclerosis of the aorta MRI of the cervical spine taken at [facility] on 05/07/2021: C3-4 degenerative disc disease, retrolisthesis, disc protrusion, and facet arthrosis resulting in central canal stenosis and bilateral neural foraminal stenosis greater on the left than the right;C4-5 degenerative disc disease, disc herniation, and facet arthrosis resulting in severe central canal stenosis and severe neural foraminal stenosis with cord signal change at the disc space in the time the vertebral body of C5; C5-6 degenerative disc disease, disc protrusion and facet arthrosis resulting in moderate central stenosis and bilateral neural foraminal stenosis; C6-7 degenerative disc disease, large herniated nucleus pulposus, and facet arthrosis resulting in central stenosis with distortion and bilateral neural foraminal stenosis MRI of the lumbar spine taken at [facility] on 05/07/2021: L2-5 disc desiccation; L2-3 and L3-4 slight disc bulge and mild facet arthropathy without significant stenosis; L4-5 disc extrusion and moderate facet arthropathy resulting in bilateral neural foraminal stenosis; L5-S1 disc bulging without significant stenosis; overall alignment is adequately maintained MRI of thoracic spine taken at [facility] on 05/06/2021: Visualized thoracic spinal cord is a normal course, caliber, and signal; no evidence of vertebral body compression fracture; no significant thoracic degenerative disc disease; some mild anterior osteophytic spurring; there does appear to be significant changes in his cervical spine which are only partially visualized with multilevel disc osteophyte complex at C3-4, C4-5, C5-6, and a large disc herniation at C6-7; report states there may be some mild edema or increased T2 signal of the cervical spinal cord Assessment: Ischemic cardiomyopathy Moderate aortic stenosis Coronary artery disease status post coronary artery bypass grafting Cervical myelopathy Cervical myelomalacia Cervical stenosis Cervical degenerative disc disease Cervical disc displacement Upper extremity radiculopathy Cervicalgia Cervical osteophyte C3-4 retrolisthesis C4-5 severe spinal stenosis Cord signal change at C4-5 disc space and behind the vertebral body of C5 Positive Jazlyn sign bilaterally Upper extremity hyperreflexia Left lower extremity weakness Difficulty ambulation left lower extremity due to weakness Chronic low back pain Right upper extremity weakness Hyperlipidemia History of nephrolithiasis History of psychosis Parkinson's disease Plan: 1. Patient is currently planned for further evaluation with cardiology today. It is unclear if he is scheduled for a stress test or an echocardiogram. Nursing is going to try to clarify the evaluation that is planned by cardiology. It is unclear if the patient will remain in the hospital to proceed forward with scheduled surgical intervention at his cervical spine which is currently scheduled for tomorrow, 06/11/2021, if the patient is cleared by cardiology whether he will be discharged back to [facility]. We are currently planning to proceed forward as scheduled for surgical intervention this coming 06/11/2021, if the patient is cleared by medicine and cardiology. Patient is scheduled for a C3-4, C4-5, C5-6, and C6-C7 anterior cervical decompression and fusion. Patient does continue to have significant symptoms in regards to his cervical spine with significant findings on imaging. Jozef does have significant changes at his cervical spine at C3-4, C4-5, C5-6, and C6-7 with multilevel cervical central stenosis and neural foraminal stenosis. He has degenerative disc disease throughout all of these levels. On physical exam he has significant weakness with his right deltoid. His deltoid weakness is weaker on physical examination today than it was during his presentation to the hospital. He also has changes in dexterity. He states he is unable to tell when he is trying to grab objects with his right thumb, index finger, and middle finger. He has a positive Iraheta's sign bilaterally with upper extremity hyperreflexia. Reviewing of imaging shows cord signal change at the disc space of C4-5 and behind the vertebral body of C5. He has ongoing cervical pain which has worsened. We did discuss significant of his imaging in his symptoms and significant detail. He again states he would like to would like to proceed with surgical intervention as he feels his symptoms are significant and have been progressing and he feels surgery provides him with the best opportunity to have some relief of his symptoms. Given the patient's significant symptoms and significant findings on imaging, I feel surgery could provide some improvement of his symptoms. We did discuss that given the severity of his symptoms and the severity of his imaging, surgery may help improve his symptoms that are very unlikely to alleviate all of his symptoms. We did also discuss that surgical intervention could help prevent further cord and nerve damage but could not reverse the cord and nerve damage that he currently has. We also discussed that without surgical intervention it is likely that his symptoms would progress. The proposed surgical intervention is a C3-4, C4-5, C5-6, and C6-7 anterior cervical decompression and fusion. Surgery is currently scheduled for 06/11/2021 pending clearance by medicine and cardiology. 2. Patient will continue to be seen and examined by multiple other medical providers including medicine and cardiology; patient is currently planning for echocardiogram testing today by cardiology.
[2021-06-10] MEDS: METOPROLOL TARTRATE 12.5 MG TAB PO SCH ×2 (11:58→17:36)
[2021-06-10] MEDS: DOCUSATE 100 MG CAP PO SCH (11:58)
[2021-06-10] MEDS: POTASSIUM CHLORIDE ER 20 MEQ TAB.ER PO SCH (11:58)
[2021-06-10] MEDS: ASPIRIN 81 MG PO SCH (11:58)
[2021-06-10] MEDS: ESCITALOPRAM 10 MG TAB PO SCH (11:58)
[2021-06-10] MEDS: SPIRONOLACTONE 25 MG TAB PO SCH (11:58)
--- NOTE | 2021-06-10 14:19 | P.PN ---
Subjective This is a 76-year-old male with past medical history coronary artery disease status post CABG, hypertension, dyslipidemia, moderate aortic stenosis, anterior cervical decompression with fusion from C3-C7 plan for patient to outpatient surgery. He follows in the office with Dr. Mercedes. We have been reconsulted for cardiac clearance for outpatient surgery scheduled for tomorrow 06/11/2021. Patient [facility] to [facility]eminy and frequent PVCs. It was noted the patient to be possibly joselin cardic but this was attributed to PVCs and not accurate. 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 Patient was seen outpatient with Dr. Mercedes for cardiac clearance. Patient stays at bedside, no acute distress. He denies any chest pain or shortness of breath, lightheadedness, dizziness. He is hemodynamically stable. Telemetry reviewed patient sinus mechanism with heart rate in the 60s and 70s, PVCs have improved. GENERAL: Well-appearing, well-nourished and in no acute distress. NECK: Supple without JVD or thyromegaly. LUNGS: Breath sounds clear to auscultation bilaterally. Respiration equal and unlabored. No wheezes, rales or rhonchi. HEART: Regular rate and rhythm, Systolic ejection murmur right sternal border, No rubs or gallops. S1 and S2 heard. EXTREMITIES: Normal range of motion, no edema. No clubbing or cyanosis. Peripheral pulses intact. ASSESSMENT Premature Ventricular contractions, improved Worsening cardimyopathy, unclear if ischemic or non-ischemic at this time Coronary artery disease status post CABG Hypertension Dyslipidemia Moderate aortic stenosis Anterior cervical decompression with fusion from C3-C7 plan for patient to outpatient surgery PLAN From cardiology perspective, patient is hemodynamically stable, however due to patient's cardiomyopathy EF 25-30%, CAD with prior CABG and aortic stenosis we recommended patient follow up with Dr. Mercedes outpatient and undergo full cardiac evaluation for planned surgery. This was discussed with primary and Ortho today over the phone. This was discussed in detail with the patient. Continue aspirin, statin, beta fe, lasix, spironolactone. Nurse Practitioner note has been reviewed, I agree with a documented findings and plan of care. Patient was seen and examined. Objective - Vital Signs Vital signs: Vital Signs Temp 97.3 F L 06/10/21 11:55 Pulse 76 06/10/21 11:55 Resp 18 06/10/21 11:55 BP 118/73 06/10/21 11:55 Pulse Ox 98 06/10/21 11:55 Intake & Output 06/09/21 06/10/21 06/10/21 18:59 06:59 18:59 Intake Total 1200 120 Output Total 775 750 350 Balance 425 -750 -230 Weight 74.5 kg Intake: Oral 1200 120 Output: Urine 775 750 350 Other: Voiding Method Urinal Urinal - Labs CBC & Chem 7: 06/09/21 06:49 06/09/21 06:49
--- NOTE | 2021-06-10 15:58 | P.PN ---
Subjective Progress Note Date: 06/10/21 This is a pleasant 76-year-old male who was recently admitted with palpitations also found to have bradycardia and possibly features of congestive heart failure and cardiomyopathy and being closely monitored. Cardiology and orthopedics evaluating the patient and per nursing staff plan is for stress test tomorrow and patient will be nothing by mouth at midnight. Apparently patient had breakfast this morning prior to stress test being ordered. Patient is tentatively scheduled for an orthopedic procedure this Wednesday although would need clearance from cardiology prior to this and this was discussed in detail with the patient. Patient denies chest pain or shortness of breath. Patient denies feelings of palpitations. Patient is afebrile. 06/10/2021 Patient is seen and evaluated today in follow-up with no acute overnight issues noted. Patient was evaluated by cardiology and will require further cardiac workup including possible cardiac catheterization to be medically cleared for his orthopedic surgery that was tentatively scheduled for 06/11/2021. Orthopedics are following and this was discussed in detail with them as well about requiring medical and cardiac clearance prior to surgery. Patient's EF was found to be 25-30% on previous admission and cardiology has been consulted and appreciate input and further recommendations. Patient was apparently at [facility] for rehab and case management working on patient returning to [facility] for continued rehab. PT/OT following. Patient denies chest pain, shortness of breath, or palpitations. Patient is afebrile. No reports of nausea or vomiting and patient is tolerating diet. Review of systems: Constitutional: No reports of fatigue, fever, or chills Cardiovascular: No reports of chest pain or palpitations Respiratory: No reports of shortness of breath or cough GI: reports of nausea, no reports of of vomiting, no reports of diarrhea : No reports of dysuria or retention Neurovascular: No reports of generalized weakness, reports neck and back pain All medications have been reviewed Active Medications Acetaminophen (Acetaminophen Tab 325 Mg Tab) 650 mg PO Q4H PRN PRN Reason: Mild Pain or Fever > 100.5 Acetaminophen/Codeine Phosphate (Acetaminophen-Codeine 300-30mg Tab) 1 each PO Q8H PRN PRN Reason: Moderate Pain Hydrocodone Bitart/Acetaminophen (Hydrocodone/Apap 5-325mg 1 Each Tab) 1 each PO Q6HR PRN PRN Reason: Pain Last Admin: 06/10/21 11:58 Dose: 1 each Documented by: Aspirin (Aspirin 81 Mg) 81 mg PO DAILY@0800 [facility] Last Admin: 06/10/21 11:58 Dose: 81 mg Documented by: Atorvastatin Calcium (Atorvastatin 40 Mg Tab) 40 mg PO HS@2100 [facility] Last Admin: 06/09/21 21:31 Dose: 40 mg Documented by: Bisacodyl (Bisacodyl 10 Mg Supp) 10 mg RECTAL DAILY PRN PRN Reason: Constipation Clonazepam (Clonazepam 0.5 Mg Tab) 0.5 mg PO Q8H PRN PRN Reason: Anxiety Last Admin: 06/10/21 11:58 Dose: 0.5 mg Documented by: Docusate Sodium (Docusate 100 Mg Cap) 100 mg PO DAILY@0800 [facility] Last Admin: 06/10/21 11:58 Dose: 100 mg Documented by: Escitalopram Oxalate (Escitalopram 10 Mg Tab) 10 mg PO DAILY@0800 [facility] Last Admin: 06/10/21 11:58 Dose: 10 mg Documented by: Furosemide (Furosemide 40 Mg Tab) 40 mg PO BID@0600,1400 [facility] Last Admin: 06/10/21 15:17 Dose: 40 mg Documented by: Cefazolin Sodium 1,000 mg/ (Sodium Chloride) 1,000 mls @ 1,000 mls/hr IRRIGATION ONCE PRN PRN Reason: pre-op Stop: 06/12/21 00:01 Cefazolin Sodium 2 gm/ Sodium (Chloride) 50 mls @ 100 mls/hr IVPB ONCE PRN PRN Reason: pre-op Stop: 06/12/21 00:01 Lamotrigine (Lamotrigine 100 Mg Tab) 200 mg PO HS@2100 [facility] Last Admin: 06/09/21 22:51 Dose: 100 mg Documented by: Magnesium Hydroxide (Magnesium Hydroxide 2,400 Mg/10 Ml Cup) 2,400 mg PO DAILY PRN PRN Reason: 3 DAYS WITHOUT BM Magnesium Hydroxide (Magnesium Hydroxide 2,400 Mg/10 Ml Cup) 7,200 mg PO DAILY PRN PRN Reason: 2 DAYS WITHOUT BM Metoprolol Tartrate (Metoprolol Tartrate 12.5 Mg Tab) 12.5 mg PO BID@0800,1700 [facility] Last Admin: 06/10/21 11:58 Dose: 12.5 mg Documented by: Multivitamins (Multivitamins, Thera 1 Each Tab) 1 each PO DAILY@1700 [facility] Last Admin: 06/09/21 16:41 Dose: 1 each Documented by: Nitroglycerin (Nitroglycerin Sl Tabs 0.4 Mg Tab) 0.4 mg SUBLINGUAL Q5M PRN PRN Reason: Chest Pain Potassium Chloride (Potassium Chloride Er 20 Meq Tab.Er) 20 meq PO DAILY@0800 [facility] Last Admin: 06/10/21 11:58 Dose: 20 meq Documented by: Sodium Biphosphate/Sodium Phosphate (Na Phos,M-B/Na Phos,Di-Ba 133 Ml Enema) 133 ml RECTAL DAILY PRN PRN Reason: Constipation Spironolactone (Spironolactone 25 Mg Tab) 25 mg PO DAILY@0800 [facility] Last Admin: 06/10/21 11:58 Dose: 25 mg Documented by: PHYSICAL EXAMINATION: GENERAL: The patient is alert and oriented x4, Well developed, well nourished. HEENT: Pupils are round and equally reacting to light. EOMI. does have scleral icterus. No conjunctival pallor. Normocephalic, atraumatic. No pharyngeal erythema. No thyromegaly. CARDIOVASCULAR: S1 and S2 muffled PULMONARY: diminished breath sounds bilaterally with some scattered rhonchi and crackles noted ABDOMEN: soft. Nontender on exam. non-distended, normoactive bowel sounds. No palpable organomegaly. MUSCULOSKELETAL: No joint swelling or deformity. EXTREMITIES: No cyanosis, clubbing, or pedal edema. NEUROLOGICAL: Gross neurological examination did not reveal any focal deficits. SKIN: No rashes. Assessment: Bradycardia with ventricular bigeminy, noted to be PVCs archaeology following Possible cardiomyopathy Troponin 0.042 Cervical degenerative joint disease Anxiety, bipolar, depression Coronary artery disease, coronary artery bypass grafting with ischemic cardiomyopathy Hypertension Hyperlipidemia GI prophylaxis DVT prophylaxis Full code Plan: Recommend to continue with current medications and management per cardiology services. Patient has been evaluated by cardiology recommending further workup in the outpatient setting with his hyperbaric nurse Dr. Mercedes including possible cardiac catheterization for surgical clearance to undergo cervical decompression with Dr. Cooper. Orthopedics are following and this was discussed in detail with the plan and will need close outpatient follow-up with them after cardiac clearance to further discuss a surgical date. Patient continues with weakness and will be returning to [facility] for continued rehab. Patient awaiting insuran ce authorization at this time and will discuss further with case management about treatment plan moving forward. Patient denies any chest pain or shortness of breath. Patient would like to go today if not being planned for surgery. Details about overall prognosis and current clinical situation was discussed with the patient thoroughly and also discussed with him about requiring medical and cardiac clearance prior to surgeries as he is high risk given his comorbidities and current EF of 25-30%. Again have discussed with orthopedics and with cardiology about treatment plan moving forward. Due to multiple complex medical issues, prognosis is guarded. Awaiting insurance authorization to ret urn to [facility] for continued PT/OT therapy. The impression and plan of care has been dictated by Melanie Patrick, nurse practitioner as directed. Dr. Brenden MD I have performed a history and examination and MDM of this patient, discussed the same with the dictator, and agree with the dictator's assessment and plan as written ,documented as a scribe. Based on total visit time, I have performed more than 50% of the visit. Objective - Vital Signs Vital signs: Vital Signs Temp 97.8 F 06/10/21 08:15 Pulse 79 06/10/21 08:15 Resp 18 06/10/21 08:15 BP 116/74 06/10/21 08:15 Pulse Ox 97 06/10/21 08:15 Intake & Output 06/09/21 06/10/21 06/10/21 18:59 06:59 18:59 Intake Total 1200 120 Output Total 775 750 Balance 425 -750 120 Weight 74.5 kg Intake: Oral 1200 120 Output: Urine 775 750 Other: Voiding Method Urinal Urinal - Labs CBC & Chem 7: 06/09/21 06:49 06/09/21 06:49
[2021-06-10] MEDS: MULTIVITAMINS, THERA 1 EACH TAB PO SCH (17:36)
[2021-06-10] MEDS: ATORVASTATIN 40 MG TAB PO SCH (20:05)
[2021-06-10] MEDS: lamoTRIgine 100 MG TAB PO SCH (20:06)
[2021-06-11] MEDS: HYDROcodone/APAP 5-325MG 1 EACH TAB PO PRN ×3 (00:22→15:12)
[2021-06-11] MEDS: FUROSEMIDE 40 MG TAB PO SCH ×2 (04:35→15:12)
[2021-06-11] MEDS: clonazePAM 0.5 MG TAB PO PRN (04:35)
[2021-06-11] MEDS ORDERED: ceFAZolin 1,000 MG in SODIUM CHLORIDE 0.9% IRRIGATIO 1,000 ML IRRIGATION PRN (05:00)
[2021-06-11] MEDS: SPIRONOLACTONE 25 MG TAB PO SCH (09:00)
[2021-06-11] MEDS: METOPROLOL TARTRATE 12.5 MG TAB PO SCH (09:00)
[2021-06-11] MEDS: ASPIRIN 81 MG PO SCH (09:01)
[2021-06-11] MEDS: ESCITALOPRAM 10 MG TAB PO SCH (09:01)
[2021-06-11] MEDS: POTASSIUM CHLORIDE ER 20 MEQ TAB.ER PO SCH (09:01)
[2021-06-11] MEDS: DOCUSATE 100 MG CAP PO SCH (09:02)
[2021-06-11 10:13] VITALS: RESP 16
[2021-06-11 12:38] VITALS: BP 97/60; PULSE 71; TEMP 97.8
--- NOTE | 2021-06-11 13:05 | P.PN ---
Progress Note - Text Progress Note Date: 06/11/21 Orthopedic spine: History of present illness: Patient is a pleasant 76-year-old male who is well known to our service is seen at the bedside for follow-up evaluation in regards to his cervical spine. He was originally seen and examined at [facility] on after consultation was placed for cervical stenosis and left foot drop. He had originally presented to the emergency department for generalized weakness. He is known have significant changes at his cervical spine. He is currently scheduled to undergo surgical intervention this coming 06/11/2021. The proposed surgical intervention is a C3-4, C4-5, C5-6, and C6-C7 anterior cervical decompression and fusion. He has been residing at [facility]. He was transferred to the emergency department due to changes from a cardiac standpoint. He was found to be bradycardia. Was reported he was experiencing bigeminy on his way to the emergency department. During his admission to the hospital he has been seen and examined multiple times by cardiology and medicine. Cardiology has cleared the patient for return to [facility]. Patient is planning to return back to [facility] today. He was not clear for surgical intervention from a cardiac standpoint during his inpatient admission. He scheduled for follow-up evaluation in the outpatient setting with Dr. Mercedes next week who will plan for outpatient cardiac clearance. Patient has not had any significant change in regards to his cervical spine. He continues to experience cervical pain. His cervical pain is most significant at night. He does have significant weakness at his right deltoid. He states he is unable to sense when he is trying to grab things with his right hand with his thumb, index finger, and middle finger. He does admit to changes in dexterity. He has some pain that radiates over the right shoulder and down the right upper extremity which can be exacerbated with increased activities. Patient states at the bedside today that he is eager to proceed forward with surgical intervention as scheduled this week. He does have a history of chronic low back pain it is had difficulty ambulating on his left lower extremity. An AFO brace was previously prescribed for him to use for his left lower extremity. Patient has multiple other medical diagnoses including Parkinson's disease, hyperlipidemia, history of nephrolithiasis, and history of psychosis. Patient's cardiac diagnoses including ischemic cardiomyopathy, moderate aortic stenosis, and coronary artery disease status post coronary artery bypass grafting. Physical exam: Patient is awake, alert, and oriented 3 Vital signs stable Good chest excursion with deep inspiration and expiration Examination of the cervical spine reveals skin is intact with no abrasions, lacerations, or bruises; no erythema, purulence or signs of infection Full range of motion of the cervical spine with adequate flexion, extension, and bilateral rotation Medical Practice Manager strength, thumb strength, interosseous strength, biceps strength, triceps strength, and shoulder strength positive sustained bilaterally Upper extremity strength 5/5 bilaterally except for right deltoid Motor strength of the upper extremity is 3/5 including the deltoids Pertinent studies: X-rays of the cervical spine taken on 05/30/2021: C3-4 severe degenerative disease and retrolisthesis with anterior osteophytic spurring; C4-5 severe degenerative disease with anterior and posterior ossific spurring; C5-6 degenerative disc disease with some anterior and posterior osteophytic spurring; C6-7 degenerative disc disease X-rays of the lumbosacral spine taken on 05/30/2021: L4-5 degenerative disc disease with spondylosis and anterior osteophytic spurring; no spondylolisthesis; no compression fracture deformity; sclerosis of the aorta MRI of the cervical spine taken at [facility] on 05/07/2021: C3-4 degenerative disc disease, retrolisthesis, disc protrusion, and facet arthrosis resulting in central canal stenosis and bilateral neural foraminal stenosis greater on the left than the right;C4-5 degenerative disc disease, disc herniation, and facet arthrosis resulting in severe central canal stenosis and severe neural foraminal stenosis with cord signal change at the disc space in the time the vertebral body of C5; C5-6 degenerative disc disease, disc protrusion and facet arthrosis resulting in moderate central stenosis and bilateral neural foraminal stenosis; C6-7 degenerative disc disease, large herniated nucleus pulposus, and facet arthrosis resulting in central stenosis with distortion and bilateral neural foraminal stenosis MRI of the lumbar spine taken at [facility] on 05/07/2021: L2-5 disc desiccation; L2-3 and L3-4 slight disc bulge and mild facet arthropathy without significant stenosis; L4-5 disc extrusion and moderate facet arthropathy resulting in bilateral neural foraminal stenosis; L5-S1 disc bulging without significant stenosis; overall alignment is adequately maintained MRI of thoracic spine taken at [facility] on 05/06/2021: Visualized thoracic spinal cord is a normal course, caliber, and signal; no evidence of vertebral body compression fracture; no significant thoracic degenerative disc disease; some mild anterior osteophytic spurring; there does appear to be significant changes in his cervical spine which are only partially visualized with multilevel disc osteophyte complex at C3-4, C4-5, C5-6, and a large disc herniation at C6-7; report states there may be some mild edema or increased T2 signal of the cervical spinal cord Assessment: Ischemic cardiomyopathy Moderate aortic stenosis Coronary artery disease status post coronary artery bypass grafting Cervical myelopathy Cervical myelomalacia Cervical stenosis Cervical degenerative disc disease Cervical disc displacement Upper extremity radiculopathy Cervicalgia Cervical osteophyte C3-4 retrolisthesis C4-5 severe spinal stenosis Cord signal change at C4-5 disc space and behind the vertebral body of C5 Positive Jazlyn sign bilaterally Upper extremity hyperreflexia Left lower extremity weakness Difficulty ambulation left lower extremity due to weakness Chronic low back pain Right upper extremity weakness Hyperlipidemia History of nephrolithiasis History of psychosis Parkinson's disease Plan: 1. After patient was seen and evaluated by cardiology and medicine, patient is not currently cleared for surgical intervention. We canceled his surgery which was scheduled for today, 06/11/2021. He has been cleared to return to [facility] rehabilitation facility from a cardiac standpoint. He is planning to be discharged back to [facility] today. He will plan to follow with Dr. Mercedes next week and cardiology for further evaluation. He will begin a full cardiac clearance at that time. We will plan to have the patient follow-up in approximately 2-3 weeks on Wednesday for further evaluation in the outpatient setting. If he is cleared from a cardiology standpoint, we will plan to reschedule his proposed surgical intervention. He was previously scheduled for a C3-4, C4-5, C5-6, and C6-C7 anterior cervical decompression and fusion. We will plan to proceed forward with this same surgical intervention once the patient is cleared by medicine and cardiology. Patient does continue to have significant symptoms in regards to his cervical spine with significant findings on imaging. Jozef does have significant changes at his cervical spine at C3-4, C4-5, C5-6, and C6-7 with multilevel cervical central stenosis and neural foraminal stenosis. He has degenerative disc disease throughout all of these levels. On physical exam he has significant weakness with his right deltoid. His deltoid weakness is weaker on physical examination today than it was during his presentation to the hospital. He also has changes in dexterity. He states he is unable to tell when he is trying to grab objects with his right thumb, index finger, and middle finger. He has a positive Iraheta's sign bilaterally with upper extremity hyperreflexia. Reviewing of imaging shows cord signal change at the disc space of C4-5 and behind the vertebral body of C5. He has ongoing cervical pain which has worsened. We did discuss significant of his imaging in his symptoms and significant detail. He again states he would like to would like to proceed with surgical intervention as he feels his symptoms are significant and have been progressing and he feels surgery provides him with the best opportunity to have some relief of his symptoms. Given the patient's significant symptoms and significant findings on imaging, I feel surgery could provide some improvement of his symptoms. We did discuss that given the severity of his symptoms and the severity of his imaging, surgery may help improve his symptoms that are very unlikely to alleviate all of his symptoms. We did also discuss that surgical intervention could help prevent further cord and nerve damage but could not reverse the cord and nerve damage that he currently has. We also discussed that without surgical intervention it is likely that his symptoms would progress. The proposed surgical intervention is a C3-4, C4-5, C5-6, and C6-7 anterior cervical decompression and fusion. Surgical intervention will be rescheduled once cleared by medicine and cardiology. 2. Patient will continue to be seen and examined by multiple other medical providers including medicine and cardiology; patient is currently planning for echocardiogram testing today by cardiology.
--- NOTE | 2021-06-11 13:30 | ECHOF ---
Referral Reason:Repeat Evalute LV function MEASUREMENTS -------- HEIGHT: 172.7 cm WEIGHT: 74.4 kg BP: IVSd: 1.0 cm (0.6 - 1.1) LVIDd: 5.0 cm (3.9 - 5.3) LVPWd: 1.2 cm (0.6 - 1.1) EDV(Teich): 119 ml IVSs: 1.3 cm LVIDs: 4.5 cm LVPWs: 1.1 cm %IVS Thck: 35 % ESV(Teich): 93 ml EF(Teich): 22 % %FS: 10 % SV(Teich): 27 ml FINDINGS -------- Limited for LV function. The left ventricular size is normal. Left ventricular wall thickness is normal. There is severe g lobal hypokinesis of LV . Overall left ventricular systolic function is severely impaired with, an EF between 25 - 30 %. CONCLUSIONS -------- 1. Limited for LV function. 2. The left ventricular size is normal. 3. Left ventricular wall thickness is normal. MANAGER PHARMACEUTICAL: Abida Diaz RDCS
--- NOTE | 2021-06-11 13:34 | P.DS ---
Providers Date of admission: 06/07/21 11:53 Expected date of discharge: 06/11/21 Attending physician: Landon Garcia MD Consults: 06/07/21 09:33 Consult Physician Urgent Consulting Provider: [facility] Consult Reason/Comments: Elevated troponin, bigeminy, mild pulmonary edema Do you want consulting provider notified?: Yes 06/08/21 12:37 Consult Physician Routine Consulting Provider: Roney Cooper Consult Reason/Comments: follow up Do you want consulting provider notified?: Yes 06/10/21 09:26 Consult Physician Routine Consulting Provider: Med Juan Consult Reason/Comments: clearance for orthopedic surgery Do you want consulting provider notified?: Already Contacted Primary care physician: Krishna Rizzo Hospital Course: Final diagnosis Bradycardia with ventricular bigeminy, noted to be PVCs archaeology following cardiomyopathy, unclear if ischemic or nonischemic cardiology Troponin 0.042 Moderate aortic stenosis Chronic systolic congestive heart failure, not in exacerbation Cervical degenerative joint disease Anxiety, bipolar, depression Coronary artery disease, coronary artery bypass grafting with ischemic cardiomyopathy Hypertension Hyperlipidemia GI prophylaxis DVT prophylaxis Full code Discharge disposition Patient is being discharged in a stable condition with guarded prognosis to [facility] for continued PT/OT therapy. Patient will follow-up with Dr. Rizzo in the outpatient setting upon discharge. Patient is to follow-up with cardiology Dr. Mercedes as scheduled along with orthopedics Dr. Cooper once cleared by cardiology to discuss possible surgery at that time. Total time taken is greater than 35 minutes. Hospital course This is a 76-year-old male who was recently admitted from [facility] for leg pains and palpitations also found to be bradycardic with features of congestive heart failure and cardiomyopathy. EF showing 20-25% and patient has been evaluated by cardiology and patient will be following up with his circular knitter Dr. Mercedes in the next 2 weeks requiring cardiac clearance and further workup for his tentative orthopedic surgery of his neck. continues with significant weakness requiring assistance and has been followed by PT/OT therapy recommending subacute rehab at this time. Patient has been working with physical therapy daily and needs aggressive physical therapy in the outpatient setting. A uthorization was obtained through insurance and patient is approved to go to [facility] and will be discharged today. Orthopedics following as well and patient will follow-up with Dr. Cooper in the outpatient setting in the next 2-3 weeks after following up with cardiology to further discuss a surgical date at that time. Currently no reports of chest pain, shortness of breath, or palpitations. Patient is afebrile. No reports of nausea or vomiting and patient is tolerating diet. Patient will be discharged to [facility] today. Physical exam: GENERAL: The patient is alert and oriented x4, Well developed, well nourished. HEENT: Pupils are round and equally reacting to light. EOMI. does have scleral icterus. No conjunctival pallor. Normocephalic, atraumatic. No pharyngeal erythema. No thyromegaly. CARDIOVASCULAR: S1 and S2 muffled PULMONARY: diminished breath sounds bilaterally with some scattered rhonchi and crackles noted ABDOMEN: soft. Nontender on exam. non-distended, normoactive bowel sounds. No palpable organomegaly. MUSCULOSKELETAL: No joint swelling or deformity. EXTREMITIES: No cyanosis, clubbing, or pedal edema. NEUROLOGICAL: Gross neurological examination did not reveal any focal deficits. SKIN: No rashes. Please refer to medication reconciliation sheet for a list of medications. The impression and plan of care has been dictated by Melanie Patrick, nurse practitioner as directed. Dr. Brednen MD I have performed a history and examination and MDM of this patient, discussed the same with the dictator, and agree with the dictator's assessment and plan as written ,documented as a scribe. Based on total visit time, I have performed more than 50% of the visit. Patient Condition at Discharge: Stable Plan - Discharge Summary Discharge Rx Participant: Yes New Discharge Prescriptions: Continue Escitalopram Oxalate [Lexapro] 10 mg PO DAILY@0800 Nitroglycerin Sl Tabs [Nitrostat] 0.4 mg SUBLINGUAL Q5M PRN #60 tab PRN Reason: Chest Pain Magnesium Hydroxide [Milk of Magnesia] 2,400 mg PO DAILY PRN PRN Reason: 3 DAYS WITHOUT BM Magnesium Hydroxide [Milk of Magnesia Concentrate] 7,200 mg PO DAILY PRN PRN Reason: 2 DAYS WITHOUT BM Acetaminophen [Tylenol] 650 mg PO Q4H PRN PRN Reason: Pain Or Fever > 100.5 Potassium Chloride ER [K-Dur 20] 20 meq PO DAILY@0800 Multivitamins, Thera [Multivitamin (formulary)] 1 tab PO DAILY@1700 Furosemide [Lasix] 40 mg PO BID@0600,1400 Atorvastatin [Lipitor] 40 mg PO HS@2100 lamoTRIgine 200 mg PO HS@2100 #3 tab HYDROcodone/APAP 5-325MG [[place] 5-325] 1 tab PO Q8H PRN #6 tab PRN Reason: Pain bisacodyL [Dulcolax] 10 mg RECTAL DAILY PRN PRN Reason: Constipation Na Phos,M-B/Na Phos,Di-Ba [Fleet Adult] 133 ml RECTAL DAILY PRN PRN Reason: Constipation Metoprolol Tartrate [Lopressor] 12.5 mg PO BID@0800,1700 Spironolactone [Aldactone] 25 mg PO DAILY@0800 Docusate [Colace] 100 mg PO DAILY@0800 Aspirin 81 mg PO DAILY@0800 clonazePAM [KlonoPIN] 0.5 mg PO Q8H PRN #6 tab PRN Reason: Anxiety Acetaminophen-Codeine 300-30mg [Tylenol w/codeine #3] 1 tab PO Q8H PRN #6 tab PRN Reason: Pain Discharge Medication List Escitalopram Oxalate [Lexapro] 10 mg PO DAILY@0800 05/03/21 [History] Nitroglycerin Sl Tabs [Nitrostat] 0.4 mg SUBLINGUAL Q5M PRN #60 tab 05/06/21 [Rx] Acetaminophen [Tylenol] 650 mg PO Q4H PRN 06/07/21 [History] Aspirin 81 mg PO DAILY@0800 06/07/21 [History] Atorvastatin [Lipitor] 40 mg PO HS@2100 06/07/21 [History] Docusate [Colace] 100 mg PO DAILY@0800 06/07/21 [History] Furosemide [Lasix] 40 mg PO BID@0600,1400 06/07/21 [History] Magnesium Hydroxide [Milk of Magnesia Concentrate] 7,200 mg PO DAILY PRN 06/07/21 [History] Magnesium Hydroxide [Milk of Magnesia] 2,400 mg PO DAILY PRN 06/07/21 [History] Metoprolol Tartrate [Lopressor] 12.5 mg PO BID@0800,1700 06/07/21 [History] Multivitamins, Thera [Multivitamin (formulary)] 1 tab PO DAILY@1700 06/07/21 [History] Na Phos,M-B/Na Phos,Di-Ba [Fleet Adult] 133 ml RECTAL DAILY PRN 06/07/21 [History] Potassium Chloride ER [K-Dur 20] 20 meq PO DAILY@0800 06/07/21 [History] Spironolactone [Aldactone] 25 mg PO DAILY@0800 06/07/21 [History] bisacodyL [Dulcolax] 10 mg RECTAL DAILY PRN 06/07/21 [History] Acetaminophen-Codeine 300-30mg [Tylenol w/codeine #3] 1 tab PO Q8H PRN #6 tab 06/11/21 [Rx] HYDROcodone/APAP 5-325MG [[place] 5-325] 1 tab PO Q8H PRN #6 tab 06/11/21 [Rx] clonazePAM [KlonoPIN] 0.5 mg PO Q8H PRN #6 tab 06/11/21 [Rx] lamoTRIgine 200 mg PO HS@2100 #3 tab 06/11/21 [Rx] Follow up Appointment(s)/Referral(s): Roney Cooper DO [Doctor of Osteopathic Medicine] - 3 Weeks (Please schedule follow-up evaluation on a Wednesday.) Krishna Rizzo MD [Primary Care Provider] - 1-2 days Khari Mercedes MD [STAFF PHYSICIAN] - 06/17/21 8:15 am Activity/Diet/Wound Care/Special Instructions: [facility] tolerated Continue medical management and follow-up with cardiology as discussed and scheduled Follow-up with orthopedics in the outpatient setting Required to have medical and cardiac clearance prior to surgery. Continue current diet Continue working with physical therapy Discharge Disposition: TRANSFER TO SNF/ECF
== END 2021-06-11 15:25 | DRG 309 ==
LOC: EC 07:35 → 3SCARD 09:33 → OBSVTOIN 11:53 → 3SCARD 15:39
PROVIDERS: ADMIT Internal Medicine; ATTEND Internal Medicine
DX: R00.1 Bradycardia, unspecified (principal); M50.021 Cervical disc disorder at C4-C5 level with myelopathy; M47.12 Other spondylosis with myelopathy, cervical region; G95.89 Other specified diseases of spinal cord; I50.22 Chronic systolic (congestive) heart failure; R47.01 Aphasia; I11.0 Hypertensive heart disease with heart failure; G20 Parkinson's disease; I95.9 Hypotension, unspecified; F31.9 Bipolar disorder, unspecified; F14.11 Cocaine abuse, in remission; I25.5 Ischemic cardiomyopathy; Z20.822 Contact with and (suspected) exposure to COVID-19; M19.90 Unspecified osteoarthritis, unspecified site; I08.3 Combined rheumatic disorders of mitral, aortic and tricuspid valves; M48.02 Spinal stenosis, cervical region; M47.22 Other spondylosis with radiculopathy, cervical region; M25.78 Osteophyte, vertebrae; M43.12 Spondylolisthesis, cervical region; F41.0 Panic disorder [episodic paroxysmal anxiety]; F90.9 Attention-deficit hyperactivity disorder, unspecified type; I25.10 Atherosclerotic heart disease of native coronary artery without angina pectoris; E78.5 Hyperlipidemia, unspecified; M21.372 Foot drop, left foot; M54.50 Low back pain, unspecified; G89.29 Other chronic pain; R26.9 Unspecified abnormalities of gait and mobility; Z53.8 Procedure and treatment not carried out for other reasons; Z79.82 Long term (current) use of aspirin; Z79.899 Other long term (current) drug therapy; Z86.19 Personal history of other infectious and parasitic diseases; Z91.81 History of falling; Z87.01 Personal history of pneumonia (recurrent); Z95.1 Presence of aortocoronary bypass graft; Z87.19 Personal history of other diseases of the digestive system; Z87.442 Personal history of urinary calculi; Z90.89 Acquired absence of other organs; Z87.81 Personal history of (healed) traumatic fracture; Z86.69 Personal history of other diseases of the nervous system and sense organs; Z86.2 Personal history of diseases of the blood and blood-forming organs and certain disorders involving the immune mechanism; Z98.1 Arthrodesis status; Z98.890 Other specified postprocedural states; Z83.2 Family history of diseases of the blood and blood-forming organs and certain disorders involving the immune mechanism; Z81.1 Family history of alcohol abuse and dependence; Z83.49 Family history of other endocrine, nutritional and metabolic diseases
CPT/HCPCS: 36415; 71046; 71275; 80048; 80053; 81003; 83735; 84484; 85025; 85379; 85652; 86140; 87635; 93005; 93308; 94760; 99285

== ENCOUNTER 2021-07-14 06:06 | Observation (INO) | payer MEDICARE ==
[~2021-07-14 06:06] MED LIST: DEXAMETHASONE SOD PHOSPHATE 4 MG/ML 1 ML VIAL IV ONE; HYDROmorphone 0.5 MG/0.5 ML SYRINGE IVP PRN; ONDANSETRON 4 MG/2 ML VIAL IVP ONE; ceFAZolin 1,000 MG in SODIUM CHLORIDE 0.9% IRRIGATIO 1,000 ML IRRIGATION PRN
[2021-07-14] MEDS ORDERED: LIDOCAINE 1% (10MG/ML) FOR IV START INTRADERMA ONE (07:17)
[2021-07-14] MEDS: LACTATED RINGERS 1,000 ML IV SCH ×2 (07:17→22:07)
[2021-07-14] MEDS ORDERED: MIDAZOLAM 2 MG/2 ML VIAL ONE (07:32)
[2021-07-14] MEDS ORDERED: GLYCOPYRROLATE 0.2 MG/ML 2 ML VIAL ONE (07:32)
[2021-07-14] MEDS ORDERED: ROCURONIUM 10 MG/ML (5 ML VIAL) IV ONE (07:32)
[2021-07-14] MEDS ORDERED: fentaNYL (PF) 50 MCG/ML 2 ML AMP ONE (07:32)
[2021-07-14] MEDS ORDERED: SUCCINYLCHOLINE CHLORIDE 100 MG/5 ML SYR IV ONE (07:32)
[2021-07-14] MEDS ORDERED: PROPOFOL 10 MG/ML 20 ML VIAL IV ONE (07:32)
[2021-07-14] MEDS ORDERED: ePHEDrine 50 MG/ML 1 ML VIAL ONE (07:32)
[2021-07-14] MEDS ORDERED: NEOSTIGMINE 1 MG/ML 10 ML VIAL ONE (07:32)
[2021-07-14] MEDS ORDERED: LIDOCAINE 1% INJ 10MG/ML (20 ML MDV) ONE (07:32)
[2021-07-14] MEDS ORDERED: PHENYLEPHRINE-0.9% NACL SYG 1,000 MCG/10 ML SYRINGE ONE (07:32)
[2021-07-14] MEDS ORDERED: GELATIN SPONGE,ABSORB (LARGE) 1 EACH SPONGE MISCELLANE ONE (08:07)
[2021-07-14] MEDS ORDERED: BUPIVACAINE (PF) 0.5% 30 ML VIAL MISCELLANE ONE ×2 (08:07→08:11)
[2021-07-14] MEDS ORDERED: LIDOCAINE 2%-EPI 1:100,000 20 ML VIAL SQ ONE ×2 (08:07→08:11)
[2021-07-14] MEDS ORDERED: THROMBIN (BOVINE) 5,000 UNIT VIAL MISCELLANE ONE (08:08)
--- NOTE | 2021-07-14 09:09 | XR ---
EXAMINATION TYPE: XR cervical spine 1V DATE OF EXAM: 07/14/2021 COMPARISON: NONE HISTORY: Intraoperative localization TECHNIQUE: Crosstable lateral portable view of the cervical spine is submitted. FINDINGS: Localization devices at the C3-4 disc interspace anteriorly. IMPRESSION: As above
[2021-07-14] MEDS ORDERED: BENZOCAINE/MENTHOL LOZENG 1 EACH LOZENGE MUCOUS MEM PRN (10:39)
[2021-07-14] MEDS ORDERED: HYDROmorphone 0.5 MG/0.5 ML SYRINGE IVP PRN (10:39)
[2021-07-14] MEDS ORDERED: ONDANSETRON 4 MG/2 ML VIAL IVP PRN (10:39)
--- NOTE | 2021-07-14 10:39 | XR ---
EXAMINATION TYPE: XR cervical spine 1V DATE OF EXAM: 07/14/2021 COMPARISON: NONE HISTORY: Intraoperative localization TECHNIQUE: Crosstable lateral portable view of the cervical spine is submitted. FINDINGS: Postoperative changes of anterior cervical discectomy and fusion extending from C3 through C6. Anterior fixation plate and screws are in place. Intervertebral body spacers are noted. IMPRESSION: As above
[2021-07-14] MEDS ORDERED: Acetaminophen-Codeine 300-30mg TAB PO PRN (10:41)
[2021-07-14] MEDS ORDERED: bisacodyL 10 MG SUPP RECTAL PRN (10:41)
[2021-07-14] MEDS ORDERED: HYDROcodone/APAP 5-325MG 1 EACH TAB PO PRN (10:41)
[2021-07-14] MEDS ORDERED: NA PHOS,M-B/NA PHOS,DI-BA 133 ML ENEMA RECTAL PRN (10:41)
[2021-07-14] MEDS ORDERED: NITROGLYCERIN SL TABS 0.4 MG TAB SUBLINGUAL PRN (10:41)
[2021-07-14] MEDS ORDERED: ACETAMINOPHEN TAB 325 MG TAB PO PRN (10:41)
[2021-07-14] MEDS ORDERED: MAG HYDROX/AL HYDROX/SIMETH 30 ML CUP PO PRN (10:41)
--- NOTE | 2021-07-14 10:48 | P.OP ---
Date of Procedure: 07/14/21 Preoperative Diagnosis: Cervical myelopathy, severe cervical stenosis C3 4 C4 5 C5 6 C6 7, herniated nucleus pulposis C3 4 C4 5 C5 6 C6 7, upper extremity weakness, lower extremity weakness, degenerative disc disease, neck pain, cervical radiculopathy Postoperative Diagnosis: Cervical myelopathy, severe cervical stenosis C3 4 C4 5 C5 6 C6 7, herniated nucleus pulposis C3 4 C4 5 C5 6 C6 7, upper extremity weakness, lower extremity weakness, degenerative disc disease, neck pain, cervical radiculopathy Anesthesia: GETA Pathology: none sent Condition: stable Disposition: PACU Description of Procedure: BRIEF OPERATIVE NOTE Preoperative Diagnosis:Cervical myelopathy, severe cervical stenosis C3 4 C4 5 C5 6 C6 7, herniated nucleus pulposis C3 4 C4 5 C5 6 C6 7, upper extremity weakness, lower extremity weakness, degenerative disc disease, neck pain, cervical radiculopathy Postoperative Diagnosis:Cervical myelopathy, severe cervical stenosis C3 4 C4 5 C5 6 C6 7, herniated nucleus pulposis C3 4 C4 5 C5 6 C6 7, upper extremity weakness, lower extremity weakness, degenerative disc disease, neck pain, cervical radiculopathy Procedure: Anterior cervical decompression with discectomy and fusion C3 4 C4 5 C5 6 C6 7 Placement of interbody graft C3 4 C4 5 C5 6 C6 7 Application of anterior cervical plate C3 4 5 6 and 7 Surgeon: Dr. Cooper Hardware Assembler: Sean Lindsey is present throughout the entire the case persistence during positioning, dissection, exposure, visualization, and all crucial elements of the case as well as closure. Anesthesia: General anesthesia Estimated blood loss: Approximately 100 mL Complications: None apparent Components implanted: K2M Frederica anterior cervical plate system with screws and Vikos interbody allograft bone graft Disposition: To recovery room in good stable condition. OPERATIVE INDICATIONS The patient has had long-standing issues in their neck and upper extremities. The patient has been having great difficulty with his strength his upper extremities and his mobilization and ambulation. When we initially saw him he was actually crawling around his house on regular basis cause of his symptoms and inability to ambulate. He has made some improvement in his ability to stand and transfer but does not ambulate on his own. We've initiated aggressive conservative treatment and plan given his findings for surgical intervention. He is not severe cervical stenosis C3 4 C4 5 C5 6 and C6 7 with symptoms of myelopathy which correlated well with his imaging findings. The patient has been through conservative treatment. He is having continued severe debility due to his cervical spine issues. We discussed various treatment options including surgery, and the patient wishes to proceed with surgery We discussed the risk, patient's alternatives and benefits of surgery including but not limited to, risk of bleeding risk of infection, risk of need for further surgery, risk of decreased, loss of motion, muscle function, malunion nonunion, hardware failure, nerve damage, paralysis, heart attack, and . OPERATIVE SUMMARY After discussing all the risks, patient alternatives and benefits at length, the patient elected to proceed with surgical intervention, signed informed consent, and presented for their procedure. The patient was seen and examined in the reoperative holding area and the surgical site was marked. The patient was given antibiotics and brought to the operating room. The patient was positioned on the operating room table in a supine position being careful to pad any bony prominences and pressure points. The patient was sedated and intubated by anesthesia in standard fashion. Once the airway and C- spine were stabilized the patient's arms were padded and tucked at her side, with her shoulders gently taped. The head was placed in a donut pad with the neck in good neutral alignment and position. We were careful [facility] and good neutral alignment and position throughout. The patient was prepped and draped in a normal standard fashion. An appropriate timeout and keystone protocol performed. We were able to proceed with the surgery. The local wound area was infiltrated with local anesthetic. An incision was made vertically on the right approximately 3-1/2 cm over the appropriate levels. Dissection was taken down subcutaneously to the level of the platysma which was split in line with its fibers. Dissection was taken with a carotid approach, with the trachea and esophagus medial and the carotid sheath laterally. We dissected down to the anterior surface of the vertebral bodies. Intraoperative x-ray was taken which showed a marker at the appropriate level of C3 4. With the appropriate level positively confirmed, we were able to proceed with discectomy at the appropriate levels. All of the operative levels were exposed appropriately. At C3 4 C4 5 C5 6 and C6 7. The wound was copiously irrigated and suctioned dry as had been done periodically throughout the case. At the appropriate level/levels, starting at C34 and then moving to C4 5 and C5 6 and then C6 7. I established an annulotomy with an 11 blade scalpel. Significant osteophytes were removed and each of the levels. A discectomy was performed with a combination of pituitary rongeurs, curettes, a high-speed bur, and Kerrison rongeurs. The posterior longitudinal ligament was taken down as were any posterior osteophytes. There've been significant evidence of severe stenosis with disc herniation centrally and at the bilateral neural foramen which was remedied with the decompression and discectomy and removal posterior osteophytes and posterior longitudinal ligament. This gave good central and pura ateral foraminal decompression. There is no evidence of any dural tear or leak. The endplates were prepared with a high-speed bur. With the endplates in good parallel position, I was able to size for the appropriate size interbody graft. The wound was irrigated and suctioned dry the graft was prepared and malleted into position. It had good alignment and position with the anterior surface flu sh with the anterior surface of the vertebral bodies. This was done similarly the appropriate levels first at C3 4 and C4 5 and C5 6 and C6 7. With the grafts intact, I was able to measure and contour and appropriate sized plate. The plate was positioned at the midline over the appropriate levels from C3 to C7. Screw holes were established with a hand drill and drill guide. Screws were placed in good alignment and position with excellent bony purchase. They were seated under the locking device. The construct was checked and found to be stable. Intraoperative x-ray was taken which showed good alignment and position of the implants at the appropriate levels. There was no evidence of any dural tear or leak. Good hemostasis was maintained. The wound was copiously irrigated and suctioned dry as had been done periodically throughout the case. The platysma was closed with absorbable suture. The subcutaneous tissue was closed. The subcuticular tissue was closed with absorbable suture. The wound was cleaned and dried and dressed appropriately. A soft cervical collar was placed appropriately. The patient was woken up by anesthesia, extubated, transferred back gently to their hospital bed and brought to the recovery room in good stable condition. The patient will be admitted to the hospital for appropriate postoperative care, medical management and monitoring. We will continue to follow them closely about the postoperative course.
[2021-07-14] MEDS: SODIUM CHLORIDE 0.9% 1,000 ML IV SCH (12:19)
[2021-07-14] MEDS: HYDROcodone/APAP 5-325MG 1 EACH TAB PO PRN ×3 (12:19→22:46)
[2021-07-14] MEDS: FUROSEMIDE 40 MG TAB PO SCH (14:49)
[2021-07-14] MEDS: METOPROLOL TARTRATE 12.5 MG TAB PO SCH (15:57)
[2021-07-14] MEDS ORDERED: MULTIVITAMINS, THERA 1 EACH TAB PO SCH (17:00)
[2021-07-14] MEDS: ALPRAZolam 0.25 MG TAB PO PRN (19:02)
[2021-07-14] MEDS: CLOTRIMAZOLE/BETAMETH 1-0.05% CREAM 45 GM TUBE TOPICAL SCH (20:54)
[2021-07-14] MEDS ORDERED: lamoTRIgine 100 MG TAB PO SCH (21:00)
[2021-07-14] MEDS ORDERED: ATORVASTATIN 40 MG TAB PO SCH (21:00)
[2021-07-15] MEDS: SODIUM CHLORIDE 0.9% 1,000 ML IV SCH ×2 (00:30→13:52)
[2021-07-15] MEDS: HYDROcodone/APAP 5-325MG 1 EACH TAB PO PRN ×3 (03:36→13:52)
[2021-07-15] MEDS: FUROSEMIDE 40 MG TAB PO SCH ×2 (05:43→13:55)
[2021-07-15] MEDS: ALPRAZolam 0.25 MG TAB PO PRN (05:45)
[2021-07-15] MEDS ORDERED: SPIRONOLACTONE 25 MG TAB PO SCH (08:00)
[2021-07-15] MEDS ORDERED: ESCITALOPRAM 10 MG TAB PO SCH (08:00)
[2021-07-15] MEDS ORDERED: DOCUSATE 100 MG CAP PO SCH (08:00)
[2021-07-15] MEDS ORDERED: POTASSIUM CHLORIDE ER 20 MEQ TAB.ER PO SCH (08:00)
[2021-07-15] MEDS ORDERED: ASPIRIN 81 MG PO SCH (08:00)
[2021-07-15] MEDS: METOPROLOL TARTRATE 12.5 MG TAB PO SCH (08:02)
[2021-07-15] MEDS: CLOTRIMAZOLE/BETAMETH 1-0.05% CREAM 45 GM TUBE TOPICAL SCH (08:08)
[2021-07-15 08:10] VITALS: RESP 18
--- NOTE | 2021-07-15 08:57 | P.DS ---
Providers Date of admission: 07/15/21 07:18 Expected date of discharge: 07/15/21 Attending physician: Roney Cooper Primary care physician: Krishna Rizzo - Discharge Diagnosis(es) (1) Cervicalgia Current Visit: Yes Status: Acute (2) Status post cervical spinal fusion Current Visit: Yes Status: Acute (3) Radiculopathy affecting upper extremity Current Visit: Yes Status: Acute (4) Unsteady gait Current Visit: Yes Status: Acute (5) Anxiety Current Visit: Yes Status: Acute (6) Heart disease Current Visit: Yes Status: Acute (7) History of hepatitis Current Visit: Yes Status: Acute (8) History of shortness of breath Current Visit: Yes Status: Acute (9) Cervical myelopathy Current Visit: No Status: Acute (10) Cervical radiculopathy Current Visit: No Status: Acute (11) Cervical stenosis of spinal canal Current Visit: No Status: Acute (12) Degenerative cervical disc Current Visit: No Status: Acute (13) Hyperlipidemia Current Visit: No Status: Acute (14) Upper extremity weakness Current Visit: No Status: Acute Hospital Course: This is a pleasant 76-year-old male who presented with C3-4, C4-5, C5-6, and C6- 7 severe cervical stenosis and herniated nucleus pulposus with cervical myelopathy, upper extremity weakness, lower extremity weakness, cervical degenerative disc disease, cervical radiculopathy, and cervicalgia who failed outpatient conservative therapy. He was admitted for a C3-4, C4-5, C5-6, and C6-7 anterior cervical decompression and fusion. The patient tolerated the procedure well and did well postoperatively. His cervical pain has been adequately controlled. He is not currently complaining of any significant upper extremity pain. He has been utilizing a soft collar for comfort. He does have some soreness at his throat but has been able to eat without significant difficulty. He did have some difficulty with urinary retention overnight requiring straight catheterization. Since that time he has been able to void independently on his own. He is happy with his progress postoperatively. He feels he would be ready for discharge today. Condition on day of discharge stable. Patient will be discharged back to [facility]. Patient has been residing at [facility] since his last discharge from the hospital. Patient has been discussed in detail with case management this morning who states the patient is cleared to return back to [facility] today. Patient was cleared preoperatively for surgery by Dr. Rizzo and cardiology. Patient currently denies any nausea, vomiting, fever, or chills. Patient is eating and voiding freely without difficulty. Patient may shower Optifoam dressing intact. Patient may remove Optifoam dressing in 3 days and shower without a dressing at that time. Patient should refrain from driving until at least after their first follow-up appointment in the office. Patient should avoid excessive neck flexion, extension, rotation, and lateral sidebending; no overhead lifting; no lifting greater than 10 pounds. MAPS has been reviewed today, 07/15/2021, with an Overall Overdose Risk Score of 500. An "Opiod Start Talking" Form has been signed and placed in the patient's chart. A prescription has been written for Newport 5 mg/E 25 mg 1 tablet every 6 hours as needed for pain, dispensed #28. Patient may resume his other previously prescribed medications he was taking at [facility]. These may be adjusted by the medical providers at [facility] as needed. Patient is given a written prescription for Xanax 0.25 mg 1 tab every 8 hours as needed for anxiety, dispensed #21. He was taking this medication previously at [facility]. Patient should avoid anti-inflammatory medications over the next 6 weeks postoperatively. Patient's other medical diagnoses include heart disease, hyperlipidemia, history of hepatitis, unsteady gait, anxiety, and history of shortness of breath. Physical Exam on day of discharge: Patient is awake, alert, and oriented 3 Vital signs stable Good chest excursion with deep inspiration and expiration Abdomen soft nontender No signs or symptoms of DVT; no calf pain Full range of motion of the cervical spine with adequate flexion, extension, and bilateral rotation Pen Tester strength, thumb strength, interosseous strength, biceps strength, triceps strength, and shoulder strength positive sustained bilaterally Soft cervical collar intact Incision is clean, dry, and intact; no erythema, purulence, or signs of infection Mild swelling around the surgical site without significant bruising Optifoam dressing intact Procedures: C3-4, C4-5, C5-6, and C6-7 anterior cervical decompression and fusion Patient Condition at Discharge: Stable Plan - Discharge Summary Discharge Rx Participant: No New Discharge Prescriptions: New HYDROcodone/APAP 5-325MG [New[place] 5] 1 each PO Q6HR PRN #28 tab PRN Reason: Pain ALPRAZolam [Xanax] 0.25 mg PO Q8HR PRN 7 Days #21 tab PRN Reason: Anxiety Continue Escitalopram Oxalate [Lexapro] 10 mg PO DAILY@0800 Nitroglycerin Sl Tabs [Nitrostat] 0.4 mg SUBLINGUAL Q5M PRN #60 tab PRN Reason: Chest Pain Acetaminophen [Tylenol] 650 mg PO Q4H PRN PRN Reason: Pain Or Fever > 100.5 Potassium Chloride ER [K-Dur 20] 20 meq PO DAILY@0800 Multivitamins, Thera [Multivitamin (formulary)] 1 tab PO DAILY@1700 Furosemide [Lasix] 40 mg PO BID@0600,1400 Atorvastatin [Lipitor] 40 mg PO HS@2100 lamoTRIgine 200 mg PO HS@2100 #3 tab HYDROcodone/APAP 5-325MG [[place] 5-325] 1 tab PO Q8H PRN #6 tab PRN Reason: Pain Menthol-Zinc Oxide Oint [Calmoseptine Ointment] 1 applic TOPICAL BID bisacodyL [Dulcolax] 10 mg RECTAL DAILY PRN PRN Reason: Constipation Na Phos,M-B/Na Phos,Di-Ba [Fleet Adult] 133 ml RECTAL DAILY PRN PRN Reason: Constipation Metoprolol Tartrate [Lopressor] 12.5 mg PO BID@0800,1700 Spironolactone [Aldactone] 25 mg PO DAILY@0800 Docusate [Colace] 100 mg PO DAILY@0800 Aspirin 81 mg PO DAILY@0800 Milk Of Magnesia 30 ml PO ONCE PRN PRN Reason: Constipation Mag Hydrox/Aluminum Hyd/Simeth [Mylanta Maximum Strength Pkt] 10 ml PO Q4HR PRN PRN Reason: Heartburn ALPRAZolam [Xanax] 0.25 mg PO Q8H PRN PRN Reason: Anxiety Clotrimazole/Betamethasone Dip [Lotrisone Cream] 1 applic TOPICAL BID Discontinued Acetaminophen-Codeine 300-30mg [Tylenol w/codeine #3] 1 tab PO Q8H PRN #6 tab PRN Reason: Pain Discharge Medication List Escitalopram Oxalate [Lexapro] 10 mg PO DAILY@0800 05/03/21 [History] Nitroglycerin Sl Tabs [Nitrostat] 0.4 mg SUBLINGUAL Q5M PRN #60 tab 05/06/21 [Rx] Acetaminophen [Tylenol] 650 mg PO Q4H PRN 06/07/21 [History] Aspirin 81 mg PO DAILY@0800 06/07/21 [History] Atorvastatin [Lipitor] 40 mg PO HS@2100 06/07/21 [History] Docusate [Colace] 100 mg PO DAILY@0800 06/07/21 [History] Furosemide [Lasix] 40 mg PO BID@0600,1400 06/07/21 [History] Metoprolol Tartrate [Lopressor] 12.5 mg PO BID@0800,1700 06/07/21 [History] Multivitamins, Thera [Multivitamin (formulary)] 1 tab PO DAILY@1700 06/07/21 [History] Na Phos,M-B/Na Phos,Di-Ba [Fleet Adult] 133 ml RECTAL DAILY PRN 06/07/21 [History] Potassium Chloride ER [K-Dur 20] 20 meq PO DAILY@0800 06/07/21 [History] Spironolactone [Aldactone] 25 mg PO DAILY@0800 06/07/21 [History] bisacodyL [Dulcolax] 10 mg RECTAL DAILY PRN 06/07/21 [History] HYDROcodone/APAP 5-325MG [[place] 5-325] 1 tab PO Q8H PRN #6 tab 06/11/21 [Rx] lamoTRIgine 200 mg PO HS@2100 #3 tab 06/11/21 [Rx] ALPRAZolam [Xanax] 0.25 mg PO Q8H PRN 07/11/21 [History] Clotrimazole/Betamethasone Dip [Lotrisone Cream] 1 applic TOPICAL BID 07/11/21 [History] Mag Hydrox/Aluminum Hyd/Simeth [Mylanta Maximum Strength Pkt] 10 ml PO Q4HR PRN 07/11/21 [History] Menthol-Zinc Oxide Oint [Calmoseptine Ointment] 1 applic TOPICAL BID 07/11/21 [History] Milk Of Magnesia 30 ml PO ONCE PRN 07/11/21 [History] ALPRAZolam [Xanax] 0.25 mg PO Q8HR PRN 7 Days #21 tab 07/15/21 [Rx] HYDROcodone/APAP 5-325MG [[place] 5] 1 each PO Q6HR PRN #28 tab 07/15/21 [Rx] Follow up Appointment(s)/Referral(s): Sean Eddy, MARQUISE [PHYSICIAN [employer]HET[employer]LE EX[employer]UDER] - 2 Weeks (Patient may follow-up with Sean Eddy PA-C or Dr. Sergo Cooper at [facility] in 2-3 weeks following discharge. ) Activity/Diet/Wound Care/Special Instructions: 1. Patient may shower with Optifoam dressing intact. 2. Patient may remove Optifoam dressing in 3 days and shower without a dressing at that time. 3. Patient may wear soft cervical collar for comfort support as needed. 4. Patient should refrain from driving until at least after their first follow- up appointment in the office. 5. Patient should avoid excessive cervical flexion, extension, and side bending; avoid overhead lifting; no lifting greater than 10 pounds 6. Take medications as prescribed 7. Patient should avoid anti-inflammatory medications over the next 6 weeks postoperatively 8. Do not soak in tub Discharge Disposition: TRANSFER TO SNF/ECF
[2021-07-15] MEDS ORDERED: SENNOSIDES-DOCUSATE SODIUM 1 EACH TAB PO SCH (09:00)
[2021-07-15 11:46] VITALS: BP 107/60; PULSE 74; TEMP 98.8
== END 2021-07-15 15:45 ==
LOC: OR 06:06 → 5NMEDONC 10:58 → OR 07-15 07:12 → 5NMEDONC 07-15 07:18
PROVIDERS: ADMIT Orthopaedic Surgery Orthopaedic Surgery of the Spine; ATTEND Orthopaedic Surgery Orthopaedic Surgery of the Spine
DX: M48.02 Spinal stenosis, cervical region (principal); M50.01 Cervical disc disorder with myelopathy, high cervical region; M50.10 Cervical disc disorder with radiculopathy, unspecified cervical region; M25.78 Osteophyte, vertebrae; R33.9 Retention of urine, unspecified; R26.81 Unsteadiness on feet; F41.9 Anxiety disorder, unspecified; Z20.822 Contact with and (suspected) exposure to COVID-19; I67.9 Cerebrovascular disease, unspecified; E78.2 Mixed hyperlipidemia; F32.A Depression, unspecified; Z98.890 Other specified postprocedural states; Z95.1 Presence of aortocoronary bypass graft; I25.5 Ischemic cardiomyopathy; I25.10 Atherosclerotic heart disease of native coronary artery without angina pectoris; I50.9 Heart failure, unspecified; I69.354 Hemiplegia and hemiparesis following cerebral infarction affecting left non-dominant side; Z79.82 Long term (current) use of aspirin; Z79.891 Long term (current) use of opiate analgesic; Z79.899 Other long term (current) drug therapy
CPT/HCPCS: 97162; 97166; 87635; 72020; 22551; 22552 ×3; 22846; 20931; G0378; C1713 ×2; C1762 ×2; J2250; J2710; J0690 ×3; J2405; J2001; J3010; J2370; J0330; J2704; J1170